=== PATIENT | male | born 1940 | race Caucasian/White ===

== ENCOUNTER 2019-04-26 13:09 | Emergency (ER) | payer MEDICARE ==
[~2019-04-26] VITALS: Ht 175.3 cm; Wt 85.3 kg
[~2019-04-26 13:09] MED LIST: AMIODARONE HCL400 MG PO; ASPIR-LOW81 MG PO; ASPIRIN325 MG PO; BENADRYL25 MG PO; BRILINTA90 MG PO; CALCI-CHEW500 MG PO; CHOLESTYRAMINE L4 GM PO; COUMADIN5 MG PO; DEXILANT60 MG PO; FIORICET 50-301 EACH PO; FISH OIL 1,0001 EAC6 PO; FOLBIC RF TABL1 EACH PO; FUROSEMIDE20 MG PO; IMODIUM A-1 MG/7.5 M PO; IMODIUM MULTI-1 EACH PO; K-TAB10 MEQ PO; LIPITOR40 MG PO; LISINOPRIL10 MG PO; LISINOPRIL5 MG PO; LOVENOX100 MG SUB-Q; METOPROLOL SUC100 MG PO; MULTI-DAY VITA1 EACH PO; NEXIUM40 MG PO; NEXIUM5 MG PO; NORVASC2.5 MG PO; PERCOCET 10-321 EACH PO; PLAVIX75 MG PO; PRAVACHOL80 MG PO; TENORMIN100 MG PO; TENORMIN25 MG PO; TENORMIN50 MG PO; VIT D3 PO; VITAMIN D2000 UNIT PO
[2019-04-26] MEDS ORDERED: CARVEDILOL6.25 MG PO (13:20)
[2019-04-26] MEDS ORDERED: ENTRESTO 97 MG1 EACH PO (13:23)
[2019-04-26] MEDS ORDERED: ASPIR 8181 MG PO (13:24)
[2019-04-26] MEDS ORDERED: LIPITOR40 MG PO (13:25)
[2019-04-26] MEDS ORDERED: ALLEGRA ALLERG180 MG PO (13:27)
[2019-04-26] MEDS ORDERED: ACETAMINOPHEN500 MG PO (13:28)
[2019-04-26] MEDS ORDERED: NORCO 5-325 TA1 EACH PO (15:13)
[2019-04-26] MEDS ORDERED: AMOXICILLIN500 MG PO (15:13)
--- NOTE | 2019-04-27 17:29 | EKG ---
[facility] [address] [facility] [place] [address] Signed Normal sinus rhythm Inferior infarct (cited on or before 15-FEB-2017) Abnormal ECG When compared with ECG of 26-APR-2019 13:18, (Unconfirmed) Sinus rhythm has replaced Atrial fibrillation Vent. rate has decreased BY [address] less depressed in Anterior leads Confirmed by NYDIA FREED MD ([id number]) on 04/27/2019 5:29:27 PM Electronically Signed By: NYDIA FREED MD 04/27/19 1729 PATIENT NAME: COURTNEY ALEXANDER Electrocardiogram DATE OF : 42 PHYSICIAN: NYDIA FREED MD REPORT #: [id number] REPORT IS CONFIDENTIAL AND NOT TO BE RELEASED WITHOUT AUTHORIZATION
--- NOTE | 2019-04-27 17:29 | EKG ---
[facility] [address] [facility] [place] [address] Signed Atrial fibrillation with rapid ventricular response Inferior infarct , age undetermined Abnormal ECG When compared with ECG of 24-APR-2017 11:18, Atrial fibrillation has replaced Sinus rhythm Vent. rate has increased BY 91 BPM Inferior infarct is now present ST elevation now present in Inferior leads ST now depressed in Anterior leads T wave amplitude has decreased in Lateral leads Confirmed by NYDIA FREED MD ([id number]) on 04/27/2019 5:29:17 PM Electronically Signed By: NYDIA FREED MD 04/27/19 1729 PATIENT NAME: COURTNEY ALEXANDER Electrocardiogram DATE OF : 42 PHYSICIAN: NYDIA FREED MD REPORT #: [id number] REPORT IS CONFIDENTIAL AND NOT TO BE RELEASED WITHOUT AUTHORIZATION
== END 2019-04-26 15:35 | disposition home or self-care (01) ==
LOC: ED 13:09
DX: J32.3 Chronic sphenoidal sinusitis (principal); I48.0 Paroxysmal atrial fibrillation; I10 Essential (primary) hypertension; I25.2 Old myocardial infarction; Z85.46 Personal history of malignant neoplasm of prostate; Z87.891 Personal history of nicotine dependence; Z90.49 Acquired absence of other specified parts of digestive tract; Z79.899 Other long term (current) drug therapy; Z79.82 Long term (current) use of aspirin
CPT/HCPCS: 0296T; 0297T; 0298T; 70450; 71045; 80053; 83735; 83880; 84484; 85025; 93005; 93010; 96374; 99284-25; J2270

== ENCOUNTER 2019-08-08 02:23 | Emergency (ER) | payer MEDICARE ==
[~2019-08-08] VITALS: Ht 175.3 cm; Wt 85.3 kg
--- OUTSIDE RECORDS SUMMARY | ~2019-08-08 | XMS | Encounter Summary ---
Demographics + + + | Address | [address] | | | [place] [address] | + + + | Home Phone | | + + + | Preferred Language | Unknown | + + + | Marital Status | | + + + | Advent Affiliation | NON | + + + | Race | White | + + + | Ethnic Group | Not or | + + + Author + + + | Author | [facility] | + + + | Organization | [facility] | + + + | Address | Unknown | + + + | Phone | Unavailable | + + + Support + + +---------+ + | Name | Relationship | Address | Phone | + + +---------+ + | Marti Villalta | ECON | Unknown | | + + +---------+ + | Vinita Pleitez | ECON | Unknown | | + + +---------+ + Care Team Providers + +------+ + | Care Truss Puller Helper Name | Role | Phone | + +------+ + | Mateusz Dixon MD | PCP | | + +------+ + Reason for Visit +--------+ + | Reason | Comments | +--------+ + | Other | | +--------+ + Encounter Details +--------+ + + + + | Date | Type | Department | Care Team | Description | +--------+ + + + + | 09/24/ | MyChart | Cardiology General | Jimy Arenascorbin Simms, | RE: Labs | | 2018 | Encounter | at [facility] [address] | MD [address] | | | | | [address] Mailcode: | [place], [place] | | | | | [facility] | [address] | | | | | Health and Healing, | [phone] | | | | | | | | | | | Floor [place], [place] | | | | | | [address] | | | | | | [phone] | | | +--------+ + + + + Social History + +-------+ +--------+------+ | Tobacco Use | Types | Packs/Day | Years | Date | | | | | Used | | + +-------+ +--------+------+ | Never Smoker | | | | | + +-------+ +--------+------+ + +---+---+---+ | Smokeless Tobacco: | | | | | Never Used | | | | + +---+---+---+ + + +---------+ + | Alcohol Use | Drinks/Week | oz/Week | Comments | + + +---------+ + | Yes | | | occasionally | + + +---------+ + + + + | Sex Assigned at | Date Recorded | | | | + + + | Not on file | | + + + + + + + | Job Start Date | Occupation | Industry | + + + + | Not on file | Not on file | Not on file | + + + + + + + + | Travel History | Travel Start | Travel End | + + + + + + | No recent travel history available. | + + documented as of this encounter Plan of Treatment Not on filedocumented as of this encounter Visit Diagnoses Not on filedocumented in this encounter"
--- OUTSIDE RECORDS SUMMARY | ~2019-08-08 | XMS | Clinical Summary ---
Demographics + + + | Address | [address] | | | [place] [address] | + + + | Home Phone | | + + + | Preferred Language | Unknown | + + + | Marital Status | | + + + | Taoist Affiliation | Unknown | + + + | Race | Unknown | + + + | Ethnic Group | Unknown | + + + Author + + + | Author | [facility] [employer] (Historical as of | | | 06-24-19) | + + + | Organization | [facility] [employer] (Historical as of | | | 06-24-19) | + + + | Address | Unknown | + + + | Phone | Unavailable | + + + Support + + +---------+ + | Name | Relationship | Address | Phone | + + +---------+ + | Marti Villalta | ECON | Unknown | | + + +---------+ + Care Team Providers + +------+ + | Care Tire Vulcanizer Name | Role | Phone | + +------+ + | Mateusz Dixon MD | PP | | + +------+ + Allergies Not on File Current Medications Not on file Active Problems Not on file Encounters +--------+ + + + + | Date | Type | Specialty | Care Team | Description | +--------+ + + + + | 05/15/ | Documentati | | Nacho Pearson, | | | 2019 | on Only | | | | +--------+ + + + + from Last 3 Months Social History + +-------+ +--------+------+ | Tobacco Use | Types | Packs/Day | Years | Date | | | | | Used | | + +-------+ +--------+------+ | Never Assessed | | | | | + +-------+ +--------+------+ + + + | Sex Assigned at | Date Recorded | | | | + + + | Not on file | | + + + Plan of Treatment + + + + + | Health Maintenance | Due Date | Last Done | Comments | + + + + + | Vaccine: | | | | | Dtap/Tdap/Td (1 - | 0 | | | | Tdap) | | | | + + + + + | Vaccine: Zoster (1 | | | | | of 2) | 1 | | | + + + + + | Vaccine: | | | | | Pneumococcal 65+ | 6 | | | | Low/Medium Risk (1 | | | | | of 2 - PCV13) | | | | + + + + + | Vaccine: Influenza | | | | | (#1) | 9 | | | + + + + + Results Not on filefrom Last 3 Months Insurance + +--------+ +------+-------+ + | Payer | Benefi | Subscriber | Type | Phone | Address | | | t Plan | ID | | | | | | / | | | | | | | Group | | | | | + +--------+ +------+-------+ + | MEDICARE | MEDICA | [id number] | | | [address] | | | RE | | | | [place] [address] | | | IP-OP | | | | | + +--------+ +------+-------+ + | [facility] | UNITED | [id number] | | | | | | | | | | | | | HEALTH | | | | | | | CARE - | | | | | | | AARP | | | | | + +--------+ +------+-------+ + + +--------+ +--------+ + + | Guarantor Name | Accoun | Relation to | Date | Phone | Billing Address | | | t Type | Patient | of | | | | | | | | | | + +--------+ +--------+ + + | CATHERINEJAY | Person | Self | [birth year] | Work: | [address] | | | [address] | | [address] | +- | [place] [address] | | | [address] | | | [address]: | | | | | | | | | | | | | | +- | | | | | | | [phone] | | + +--------+ +--------+ + +"
--- OUTSIDE RECORDS SUMMARY | ~2019-08-08 | XMS | Encounter Summary ---
Demographics + + + | Address | [address] | | | [place] [address] | + + + | Home Phone | | + + + | Preferred Language | Unknown | + + + | Marital Status | | + + + | Muslim Affiliation | NON | + + + | Race | White | + + + | Ethnic Group | Not or | + + + Author + + + | Author | [facility] | + + + | Organization | [facility] | + + + | [...] Team Providers + +------+ + | Care Chicle Grinder Feeder Name | Role | Phone | + +------+ + | Mateusz Dixon MD | PCP | | + +------+ + Encounter Details +--------+------+ + + + | Date | Type | Department | Care Team | Description | +--------+------+ + + + | 08/16/ | Lab | Laboratory at [facility] | | Heart failure, | | 2018 | | [address] | | systolic, chronic | | | | [place], [place] | | ([facility]) | | | | [address] | | | | | | [phone] | | | +--------+------+ + + + Social History + +-------+ [...] Not on filedocumented as of this encounter Procedures + +--------+ + + + | Procedure Name | Priori | Date/Time | Associated Diagnosis | Comments | | | ty | | | | + +--------+ + + + | NT-PRO BNP | Routin | 08/16/2018 | Heart failure, | Results for this | | | e | 1:57 PM | systolic, chronic | procedure are in the | | | | PDT | ([facility]) | results section. | + +--------+ + + + | CBC (HEMOGRAM) ONLY | Routin | 08/16/2018 | Heart failure, | Results for this | | | e | 1:57 PM | systolic, chronic | procedure are in the | | | | PDT | ([facility]) | results section. | + +--------+ + + + | [facility] - COMPLETE | Routin | 08/16/2018 | Heart failure, | Results for this | | METABOLIC SET | e | 1:57 PM | systolic, chronic | procedure are in the | | | | PDT | ([facility]) | results section. | + +--------+ + + + | CBC ONLY | Routin | 08/16/2018 | Heart failure, | Results for this | | | e | 1:57 PM | systolic, chronic | procedure are in the | | | | PDT | ([facility]) | results section. | + +--------+ + + + | FERRITIN | Routin | 08/16/2018 | Heart failure, | Results for this | | | e | 1:57 PM | systolic, chronic | procedure are in the | | | | PDT | ([facility]) | results section. | + +--------+ + + + | IRON AND TIBC, SERUM | Routin | 08/16/2018 | Heart failure, | Results for this | | | e | 1:57 PM | systolic, chronic | procedure are in the | | | | PDT | ([facility]) | results section. | + +--------+ + + + documented in this encounter Results CBC (HEMOGRAM) ONLY (08/16/2018 1:57 PM PDT) + +-------+ + + + | Component | Value | Ref Range | Performed | Pathologist | | | | | At | Signature | + +-------+ + + + | WHITE CELL | 5.74 | 3.50 - 10.80 | [facility] | | | COUNT | | K/cu mm | LABORATORY | | | | | | SERVICES, | | | | | | [facility] | | | | | | [facility] | | + +-------+ + + + | RED CELL | 4.52 | 4.50 - 6.00 | [facility] | | | COUNT | | M/cu mm | LABORATORY | | | | | | SERVICES, | | | | | | [facility] + | | | | | | [facility] | | + +-------+ + + + | HEMOGLOBIN | 15.3 | 13.5 - 17.5 | [facility] | | | | | g/dL | LABORATORY | | | | | | SERVICES, | | | | | | [facility] + | | | | | | [facility]AL[facility] | | + +-------+ + + + | HEMATOCRIT | 43.5 | 41.0 - 53.0 % | [facility] | | | | | | LABORATORY | | | | | | SERVICES, | | | | | | [facility] + | | | | | | [facility] | | + +-------+ + + + | MCV | 96.2 | 80.0 - 100.0 fL | [facility] | | | | | | LABORATORY | | | | | | SERVICES, | | | | | | [facility] + | | | | | | [facility] | | + +-------+ + + + | MCHC | 35.2 | 32.0 - 36.0 | [facility] | | | | | g/dL | LABORATORY | | | | | | SERVICES, | | | | | | [facility] + | | | | | | [facility]AL[facility] | | + +-------+ + + + | RDW SD | 42.9 | 35.1 - 46.3 fL | [facility] | | | | | | LABORATORY | | | | | | SERVICES, | | | | | | [facility] + | | | | | | [facility]AL[facility] | | + +-------+ + + + | PLATELET | 212 | 150 - 400 K/cu | [facility] | | | COUNT | | mm | LABORATORY | | | | | | SERVICES, | | | | | | [facility] + | | | | | | [facility]AL[facility] | | + +-------+ + + + | MPV | 9.7 | 9.7 - 12.3 fL | [facility] | | | | | | LABORATORY | | | | | | SERVICES, | | | | | | [facility] + | | | | | | [facility]ALING | | + +-------+ + + + + + | Specimen | + + | Blood | + + + + + + + | Performing | Address | City/State/Zipcode | Phone Number | | Organization | | | | + + + + + | [facility] | [address] | [place] [address] | | | [facility] | | | | | HEALTH + HEALING | | | | + + + + + IRON AND TIBC (08/16/2018 1:57 PM PDT) + +-------+ + + + | Component | Value | Ref Range | Performed | Pathologist | | | | | At | Signature | + +-------+ + + + | IRON | 92 | 50 - 170 ug/dL | [facility] | | | | | | LABORATORY | | | | | | [facility], | | | | | | CORE | | + +-------+ + + + | IRON BIND | 315 | 240 - 450 ug/dL | [facility] | | | CAP | | | LABORATORY | | | | | | SERVICES, | | | | | | CORE | | + +-------+ + + + | % | 29 | 20 - 50 % | [facility] | | | SATURATION | | | LABORATORY | | | TRANSFERRIN | | | SERVICES, | | | , | | | CORE | | + +-------+ + + + + + | Specimen | + + | Blood | + + + + + + + | Performing | Address | City/State/Zipcode | Phone Number | | Organization | | | | + + + + + | [facility] | [address] | [place] [address] | | | SERVICES, CORE | [address] | | | + + + + + FERRITIN (08/16/2018 1:57 PM PDT) + + + + + + | Component | Value | Ref Range | Performed | Pathologist | | | | | At | Signature | + + + + + + | FERRITIN | 81Comment: Male and | 50 - 200 ng/mL | [facility] | | | | Female >18 years: | | LABORATORY | | | | <20 | | SERVICES, | | | | ng/mL: | | CORE | | | | Consistant with iron | | | | | | deficiency 21-50 | | | | | | ng/mL: Possible | | | | | | iron deficiency | | | | | | 51-99 ng/mL: | | | | | | Iron deficiency unlikely | | | | | | unless inflammation | | | | | | present | | | | | | or | | | | | | patien | | | | | | t >65 years of age | | | | | | 100-200 ng/mL: | | | | | | Normal, not consistent | | | | | | with iron | | | | | | deficiency >200 | | | | | | ng/mL: If | | | | | | transferrin saturation | | | | | | >45%, consider | | | | | | hemochromatosis | | | | + + + + + + + + | Specimen | + + | Blood | + + + + + + + | Performing | Address | City/State/Zipcode | Phone Number | | Organization | | | | + + + + + | [facility] | [address] | [place] [address] | | | JEREMY SINCLAIR | [place] | | | + + + + + NT-PRO BNP (08/16/2018 1:57 PM PDT) + + + + + + | Component | Value | Ref Range | Performed | Pathologist | | | | | At | Signature | + + + + + + | NT-PRO BNP | 1,123 (H) | <449 pg/mL | [facility] | | | | | | LABORATORY | | | | | | SERVICES, | | | | | | CORE | | + + + + + + + + | Specimen | + + | Blood | + + + + + + + | Performing | Address | City/State/Zipcode | Phone Number | | Organization | | | | + + + + + | [facility] | [address] | [place] [address] | | | SERVICES, CORE | [address] | | | + + + + + [facility] - COMPLETE METABOLIC SET (08/16/2018 1:57 PM PDT) + +---------+ + + + | Component | Value | Ref Range | Performed | Pathologist | | | | | At | Signature | + +---------+ + + + | GLUCOSE, | 107 (H) | 70 - 99 mg/dL | [facility] | | | PLASMA | | | LABORATORY | | | (LAB) | | | SERVICES, | | | | | | CORE | | + +---------+ + + + | BUN, PLASMA | 20 | 6 - 20 mg/dL | [facility] | | | (LAB) | | | LABORATORY | | | | | | SERVICES, | | | | | | CORE | | + +---------+ + + + | CREATININE | 1.12 | 0.70 - 1.30 | [facility] | | | PLASMA | | mg/dL | LABORATORY | | | (LAB) | | | SERVICES, | | | | | | CORE | | + +---------+ + + + | EGFR | >60 | >60 mL/min | [facility] | | | - | | | LABORATORY | | | HAITIAN | | | SERVICES, | | | | | | CORE | | + +---------+ + + + | EGFR NON | >60 | >60 mL/min | [facility] | | | -BRYON | | | LABORATORY | | | RICAN | | | SERVICES, | | | | | | CORE | | + +---------+ + + + | SODIUM, | 133 (L) | 136 - 145 | [facility] | | | PLASMA | | mmol/L | LABORATORY | | | (LAB) | | | SERVICES, | | | | | | CORE | | + +---------+ + + + | POTASSIUM, | 4.1 | 3.4 - 5.0 | [facility] | | | PLASMA | | mmol/L | LABORATORY | | | (LAB) | | | SERVICES, | | | | | | CORE | | + +---------+ + + + | CHLORIDE, | 101 | 97 - 108 mmol/L | [facility] | | | PLASMA | | | LABORATORY | | | (LAB) | | | SERVICES, | | | | | | CORE | | + +---------+ + + + | TOTAL CO2, | 24 | 21 - 32 mmol/L | [facility] | | | PLASMA | | | LABORATORY | | | (LAB) | | | SERVICES, | | | | | | CORE | | + +---------+ + + + | CALCIUM, | 8.8 | 8.6 - 10.2 | [facility] | | | PLASMA | | mg/dL | LABORATORY | | | (LAB) | | | SERVICES, | | | | | | CORE | | + +---------+ + + + | CALCIUM(ALB | 8.9 | 8.6 - 10.2 | [facility] | | | CORRECTED) | | mg/dL | LABORATORY | | | | | | SERVICES, | | | | | | CORE | | + +---------+ + + + | BILIRUBIN | 0.7 | 0.3 - 1.2 mg/dL | [facility] | | | TOTAL | | | LABORATORY | | | | | | SERVICES, | | | | | | CORE | | + +---------+ + + + | TOTAL | 7.2 | 6.4 - 8.2 g/dL | [facility] | | | PROTEIN, | | | LABORATORY | | | PLASMA | | | SERVICES, | | | (LAB) | | | CORE | | + +---------+ + + + | ALBUMIN, | 3.9 | 3.5 - 4.7 g/dL | [facility] | | | PLASMA | | | LABORATORY | | | (LAB) | | | SERVICES, | | | | | | CORE | | + +---------+ + + + | ALK PHOS | 85 | 56 - 119 U/L | [facility] | | | | | | LABORATORY | | | | | | SERVICES, | | | | | | CORE | | + +---------+ + + + | AST(SGOT) | 53 (H) | <=41 U/L | [facility] | | | | | | LABORATORY | | | | | | SERVICES, | | | | | | CORE | | + +---------+ + + + | ALT (SGPT) | 66 (H) | <=60 U/L | [facility] | | | | | | LABORATORY | | | | | | SERVICES, | | | | | | CORE | | + +---------+ + + + | ANION GAP | 8 | 4 - 11 mmol/L | [facility] | | | | | | LABORATORY | | | | | | SERVICES, | | | | | | CORE | | + +---------+ + + + | ANION | 8 | 4 - 11 mmol/L | [facility] | | | GAP(ALB | | | LABORATORY | | | CORRECTED) | | | SERVICES, | | | | | | CORE | | + +---------+ + + + | POTASSIUM | No Hemo | | [facility] | | | CMNT | | | LABORATORY | | | | | | SERVICES, | | | | | | CORE | | + +---------+ + + + | BILI T CMNT | No Hemo | | [facility] | | | | | | LABORATORY | | | | | | SERVICES, | | | | | | CORE | | + +---------+ + + + | AST CMNT | No Hemo | | [facility] | | | | | | LABORATORY | | | | | | SERVICES, | | | | | | CORE | | + +---------+ + + + + + | Specimen | + + | Blood | + + + + + | Narrative | Performed At | + + + | GFR is estimated using the MDRD equation recommended by the | [facility] | | National Kidney Disease Education Program. Estimated GFR | LABORATORY | | Interpretive Information: <60 mL/min/1.73 sq | [facility] | | m Chronic Kidney Disease <15 mL/min/1.73 | | | sq m Kidney Failure Estimated GFR greater | | | that 60 mL/min/1.73 sq m is of limited clinical value. The MDRD | | | equation is not valid in the following situations: - Patients under | | | 18 years of age - Severe malnutrition or obesity - Vegetarian diet | | | - Rapidly changing kidney function - Amputees, paraplegics, or other | | | muscle-wasting diseses | | + + + + + + + + | Performing | Address | City/State/Zipcode | Phone Number | | Organization | | | | + + + + + | [facility] | [address] | [place] [address] | | | JEREMY SINCLAIR | [place] | | | + + + + + documented in this encounter Visit Diagnoses + + | Diagnosis | + + | Heart failure, systolic, chronic (HCC) Chronic systolic heart failure | + + documented in this encounter"
--- OUTSIDE RECORDS SUMMARY | ~2019-08-08 | XMS | Encounter Summary ---
Demographics + + + | Address | [address] | | | [place] [address] | + + + | Home Phone | | + + + | Preferred Language | Unknown | + + + | Marital Status | | + + + | Taoism Affiliation | NON | + + + | Race | White | + + + | Ethnic Group | Not or | + + + Author + + + | Author | [facility] | + + + | Organization | [facility] | + + + | Address | [...] Team Providers + +------+ + | Care Traffic Expert Name | Role | Phone | + +------+ + | Mateusz Dixon MD | PCP | | + +------+ + Reason for Visit Diagnostic Testing (Routine) +--------+--------+ + + + + | Status | Reason | Specialty | Diagnoses / | Referred By | Referred To | | | | | Procedures | Contact | Contact | +--------+--------+ + + + + | Closed | | Cardiology | Diagnoses | A[place]as, | | | | | | Heart | Jamaal Simms MD | | | | | | failure, | [address] | | | | | | systolic, | [address] | | | | | | chronic | [place], [place] | | | | | | ([facility]) | [address] | | | | | | Procedures | Phone: | | | | | | TRANSTHORACI | [phone] | | | | | | C | Fax: | | | | | | ECHOCARDIOGR | [phone] | | | | | | AM, ADULT | | | +--------+--------+ + + + + Encounter Details +--------+ + + + + | Date | Type | Department | Care Team | Description | +--------+ + + + + | 04/14/ | Hospital | Cardiac | | | | 2018 | Encounter | Non-Invasive Testing | | | | | | at [facility] [address] | | | | | | [address] Mailcode: | | | | | | [facility] | | | | | | Health and Healing, | | | | | | [address] | | | | | | [place], [place] | | | | | | [address] | | | | | | [phone] | | | +--------+ + + + [...] + + documented as of this encounter Medications at Time of Discharge + + + +---------+ + + | Medication | Sig | Dispensed | Refills | Start | End Date | | | | | | Date | | + + + +---------+ + + | acetaminophen 500 | Take 1.25 tablets by | | 0 | 03/13/20 | | | mg oral tablet | mouth every six | | | 17 | | | | hours as needed. | | | | | + + + +---------+ + + | aspirin EC 81 mg | Take 1 tablet by | | 0 | 01/25/20 | | | oral tablet,delayed | mouth once daily. | | | 18 | | | release (DR/EC) | | | | | | + + + +---------+ + + | atorvastatin 40 mg | Take 40 mg by mouth | | 0 | | | | oral tablet | once daily in the | | | | | | | evening. | | | | | + + + +---------+ + + | CALCIUM | Take by mouth as | | 0 | | | | CARB/MAGNESIUM | needed. | | | | | | HYDROX (MYLANTA | | | | | | | ORAL) | | | | | | + + + +---------+ + + | calcium carbonate | Chew and swallow | | 0 | | | | chewable 200 mg | 1,000 mg as needed | | | | | | calcium (500 mg) | (heartburn). | | | | | | oral tablet,chewable | | | | | | + + + +---------+ + + | cholecalciferol, | Take 2,000 Units by | | 0 | | | | Vitamin D3, 2,000 | mouth once daily in | | | | | | unit oral capsule | the evening. | | | | | + + + +---------+ + + | cyanocobalamin | Take 1,000 mcg by | | 0 | | | | 1,000 mcg oral | mouth twice weekly. | | | | | | tablet | Take on Wednesday and | | | | | | | Wednesday | | | | | + + + +---------+ + + | esomeprazole 40 mg | Take 40 mg by mouth | | 0 | | | | oral | two times daily. | | | | | | capsule,delayed | | | | | | | release(DR/EC) | | | | | | + + + +---------+ + + | fexofenadine 180 | Take 180 mg by mouth | | 0 | | | | mg oral tablet | once daily. | | | | | + + + +---------+ + + | FOLIC | Take 1 tablet by | | 0 | | | | ACID/MULTIVIT-MIN/NABEEL | mouth once daily. | | | | | | TEIN (CENTRUM SILVER | | | | | | | ORAL) | | | | | | + + + +---------+ + + | loperamide | Take 2-4 mg by mouth | | 0 | | | | (IMODIUM A-D) 2 mg | once daily as | | | | | | oral tablet | needed for diarrhea. | | | | | + + + +---------+ + + documented as of this encounter Progress Sameera Galicia - 04/14/2018 2:49 PM PDTTransthoracic echocardiogram completed. Final report to follow. documented in this encounter Plan of Treatment Not on filedocumented as of this encounter Procedures + +--------+ + + + | Procedure Name | Priori | Date/Time | Associated Diagnosis | Comments | | | ty | | | | + +--------+ + + + | TRANSTHORACIC | Routin | 04/14/2018 | Heart failure, | Results for this | | ECHOCARDIOGRAM, | e | 12:55 PM | systolic, chronic | procedure are in the | | ADULT | | PDT | ([facility]) | results section. | + +--------+ + + + documented in this encounter Visit Diagnoses + + | Diagnosis | + + | Heart failure, systolic, chronic (HCC) Chronic systolic heart failure | + + documented in this encounter Administered Medications + +--------+ +------+------+------+ | Medication Order | MAR | Action | Dose | Rate | Site | | | Action | Date | | | | + +--------+ +------+------+------+ | sulfur hexafluoride | Given | 04/14/20 | 5 mL | | | | microspheres (LUMASON) IV 1-2 mL | | 18 1:45 | | | | | 1-2 mL, intravenous, ONCE, 1 | | PM PDT | | | | | dose, [facility] 04/14/18 at 1530 | | | | | | + +--------+ +------+------+------+ +---+---+ | | | +---+---+ documented in this encounter"
--- OUTSIDE RECORDS SUMMARY | ~2019-08-08 | XMS | Encounter Summary ---
Demographics + + + | Address | [address] | | | [place] [address] | + + + | Home Phone | | + + + | Preferred Language | Unknown | + + + | Marital Status | | + + + | Mandaen Affiliation | NON | + + + | Race | White | + + + | Ethnic Group | Not or | + + + Author + + + | Author | [facility] | + + + | Organization | [facility] | + + + | Address [...] Team Providers + +------+ + | Care Marine Equipment Design Engineer Name | Role | Phone | + +------+ + | Mateusz Dixon MD | PCP | | + +------+ + Reason for Visit +--------+ + | Reason | Comments | +--------+ + | Other | Flu shot | +--------+ + Encounter Details +--------+ + + + + | Date | Type | Department | Care Team | Description | +--------+ + + + + | 07/18/ | MyChart | Cardiology General | Jamaal Arenas, | RE: Flu Shot | | 2018 | Encounter | at [facility] [address] | MD [address] | | | | | [address] Mailcode: | [place], [place] | | | | | [facility] | [address] | | | | | Health and Healing, | [phone] | | | | | Building | | | | | | Floor [place], [place] | | | | | | [address] | | | | | | [phone] | | | +--------+ + + + [...]
--- OUTSIDE RECORDS SUMMARY | ~2019-08-08 | XMS | Encounter Summary ---
Demographics + + + | Address | [address] | | | [place] [address] | + + + | Home Phone | | + + + | Preferred Language | Unknown | + + + | Marital Status | | + + + | Adventism Affiliation | NON | + + + | Race | White | + + + | Ethnic Group | Not or | + + + Author + + + | Author | [facility] | + + + | Organization | [facility] | + + + | Address [...] Team Providers + +------+ + | Care Environmental Management Specialist Name | Role | Phone | + +------+ + | Mateusz Dixon MD | PCP | | + +------+ + Encounter Details +--------+ + + + + | Date | Type | Department | Care Team | Description | +--------+ + + + + | 12/14/ | MyChart | Cardiology General | Jamaal Arenas, | RE: Dental Procedure | | 2019 | Encounter | at [facility] [address] | [address] | | | | | [address] Mailcode: | [address] [place], [place] | | | | | [facility] | [address] | | | | | Health and Healing, | [phone] | | | | | [facility] | | | | | | Floor [place], [place] | | | | | | [address] | | | | | | [phone] | | | +--------+ + + + [...]
--- OUTSIDE RECORDS SUMMARY | ~2019-08-08 | XMS | Encounter Summary ---
Demographics + + + | Address | [address] | | | [place] [address] | + + + | Home Phone | | + + + | Preferred Language | Unknown | + + + | Marital Status | | + + + | Lutheran Affiliation | NON | + + + | Race | White | + + + | Ethnic Group | Not or | + + + Author + + + | Author | [facility] | + + + | Organization | [facility] | + + + | Address [...] Team Providers + +------+ + | Care Talent Rep Name | Role | Phone | + +------+ + | Arash Estes MD | PCP | | + +------+ + Encounter Details +--------+ + + + + | Date | Type | Department | Care Team | Description | +--------+ + + + + | 04/28/ | Results | [id number] | | | | 1995 | Only | [address] | | | | | | [address] Mailcode: [id number] | | | | | | [place], [place] | | | | | | [address] | | | | | | [phone] | | | +--------+ + + + [...] | + +--------+ + + + | CHEMISTRY TESTS 4 | Routin | 04/28/1996 | | Results for this | | | e | 1:33 PM | | procedure are in the | | | | PDT | | results section. | + +--------+ + + + | CBC TESTS 2 | Routin | 04/28/1996 | | Results for this | | | e | 1:33 PM | | procedure are in the | | | | PDT | | results section. | + +--------+ + + + | CHEMISTRY TESTS 2 | Routin | 04/28/1996 | | Results for this | | | e | 1:33 PM | | procedure are in the | | | | PDT | | results section. | + +--------+ + + + documented in this encounter Results CHEMISTRY TESTS 2 (04/28/1996 1:33 PM PDT) + + + + + + | Component | Value | Ref Range | Performed | Pathologist | | | | | At | Signature | + + + + + + | CHOLESTEROL | 249. (H) | mg/dL | | | | (LAB) | | | | | + + + + + + + + | Specimen | + + | | + + + + + + + | Performing | Address | City/State/Zipcode | Phone Number | | Organization | | | | + + + + + | [facility] | [address] | [place] [address] | | | PATHOLOGY | [address] | | | + + + + + CHEMISTRY TESTS 4 (04/28/1996 1:33 PM PDT) + + + + + + | Component | Value | Ref Range | Performed | Pathologist | | | | | At | Signature | + + + + + + | SODIUM, | 138. | mmol/l | | | | PLASMA | | | | | | (LAB) | | | | | + + + + + + | POTASSIUM, | 4.2 | mmol/l | | | | PLASMA | | | | | | (LAB) | | | | | + + + + + + | CHLORIDE, | 108. | mmol/l | | | | PLASMA | | | | | | (LAB) | | | | | + + + + + + | TOTAL CO2, | 25. | mmol/l | | | | PLASMA | | | | | | (LAB) | | | | | + + + + + + | BUN, PLASMA | 13. | mg/dL | | | | (LAB) | | | | | + + + + + + | CREATININE | 1.1 | mg/dL | | | | PLASMA | | | | | | (LAB) | | | | | + + + + + + | GLUCOSE, | 100. | mg/dL | | | | PLASMA | | | | | | (LAB) | | | | | + + + + + + | CALCIUM, | 9.9 | mg/dL | | | | PLASMA | | | | | | (LAB) | | | | | + + + + + + | MAGNESIUM,P | 2.1 | mg/dL | | | | LASMA | | | | | + + + + + + | PHOSPHORUS, | 3.7 | mg/dL | | | | PLASMA | | | | | | (LAB) | | | | | + + + + + + | URIC ACID, | 6.5 | mg/dL | | | | PLASMA | | | | | | (LAB) | | | | | + + + + + + | AST(SGOT) | 28. | U/L | | | + + + + + + | ALT (SGPT) | 54. (H) | U/L | | | + + + + + + | ALK PHOS | 110. (H) | U/L | | | + + + + + + | LD TOTAL, | 152. | U/L | | | | PLASMA | | | | | + + + + + + | BILIRUBIN | 0.1 | mg/dL | | | | DIRECT | | | | | + + + + + + | BILIRUBIN | 0.6 | mg/dL | | | | TOTAL | | | | | + + + + + + | TOTAL | 7.2 | GM/DL | | | | PROTEIN, | | | | | | PLASMA | | | | | | (LAB) | | | | | + + + + + + | ALBUMIN, | 4.4 | GM/DL | | | | PLASMA | | | | | | (LAB) | | | | | + + + + + + + + | Specimen | + + | | + + + + + + + | Performing | Address | City/State/Zipcode | Phone Number | | Organization | | | | + + + + + | [facility] | [address] | [place] [address] | | | PATHOLOGY | [address] | | | + + + + + CBC TESTS 2 (04/28/1996 1:33 PM PDT) + + + + + + | Component | Value | Ref Range | Performed | Pathologist | | | | | At | Signature | + + + + + + | WHITE CELL | 4.6 | K/CU MM | | | | COUNT | | | | | + + + + + + | RED CELL | 4.71 | M/CU MM | | | | COUNT | | | | | + + + + + + | HEMOGLOBIN | 14.5 | GM/DL | | | + + + + + + | HEMATOCRIT | 42.4 | % | | | + + + + + + | MCV | 89.9 | FL | | | + + + + + + | MCH | 30.9 | PG | | | + + + + + + | MCHC | 34.3 (H) | GM/DL | | | + + + + + + | RDW | 12.9 | % | | | + + + + + + | PLATELET | 281. | K/CU MM | | | | COUNT | | | | | + + + + + + | MPV | 7.5 | FL | | | + + + + + + + + | Specimen | + + | | + + + + + + + | Performing | Address | City/State/Zipcode | Phone Number | | Organization | | | | + + + + + | [facility] | [address] | [place] [address] | | | PATHOLOGY | [address] | | | + + + + + documented in this encounter Visit Diagnoses Not on filedocumented in this encounter"
--- OUTSIDE RECORDS SUMMARY | ~2019-08-08 | XMS | Encounter Summary ---
Demographics + + + | Address | [address] | | | [place] [address] | + + + | Home Phone | | + + + | Preferred Language | Unknown | + + + | Marital Status | | + + + | Worship Affiliation | NON | + + + | Race | White | + + + | Ethnic Group | Not or | + + + Author + + + | Author | [facility] | + + + | Organization | [facility] | + + + | Address [...] Team Providers + +------+ + | Care Decoration Checker Name | Role | Phone | + +------+ + | Mateusz Dixon MD | PCP | | + +------+ + Encounter Details +--------+ + + + + | Date | Type | Department | Care Team | Description | +--------+ + + + + | 09/13/ | Abstract | Cardiology General | Jamaal Arenas, | | | 2018 | | at [facility] [address] | [address] | | | | | [address] Mailcode: | [place], [place] | | | | | [address] [facility] | [address] | | | | | Health and Healing, | [phone] | | | | | [facility] | | | | | | Floor [place], [place] | | | | | | [address] | | | | | | [phone] | | | +--------+ + + + [...]
--- OUTSIDE RECORDS SUMMARY | ~2019-08-08 | XMS | Encounter Summary ---
Demographics + + + | Address | [address] | | | [place] [address] | + + + | Home Phone [...] + + + | Author | [facility] | + + + | Organization | [facility] | + + + | Address | [...] Team Providers + +------+ + | Care Clamp Carrier Operator Name | Role | Phone | + +------+ + | Arash Estes MD | PCP | | + +------+ + Encounter Details +--------+ + + + + | Date | Type | Department | Care Team | Description | +--------+ + + + + | 08/26/ | Results | Registration [id number] | | | | 1994 | Only | [address] | | | | | | [address] Mail[address]: [id number] | | | | | | [place], [place] | | | | | | [address] | | | | | | [phone] | | | +--------+ + + + [...] | + +--------+ + + + | IMMUNOLOGY TESTS 1 | Routin | 08/26/1995 | | Results for this | | | e | 11:40 AM | | procedure are in the | | | | PDT | | results section. | + +--------+ + + + | CHEMISTRY TESTS 4 | Routin | 08/26/1995 | | Results for this | | | e | 11:28 AM | | procedure are in the | | | | PDT | | results section. | + +--------+ + + + | CHEMISTRY TESTS 4 | Routin | 08/26/1995 | | Results for this | | | e | 11:28 AM | | procedure are in the | | | | PDT | | results section. | + +--------+ + + + | CBC TESTS 2 | Routin | 08/26/1995 | | Results for this | | | e | 11:28 AM | | procedure are in the | | | | PDT | | results section. | + +--------+ + + + | COAGULATION TESTS 2 | Routin | 08/26/1995 | | Results for this | | | e | 11:28 AM | | procedure are in the | | | | PDT | | results section. | + +--------+ + + + | CHEMISTRY TESTS 2 | Routin | 08/26/1995 | | Results for this | | | e | 11:28 AM | | procedure are in the | | | | PDT | | results section. | + +--------+ + + + | MISCELLANEOUS | Routin | 08/26/1995 | | Results for this | | CHEMISTRY TESTS | e | 11:28 AM | | procedure are in the | | | | PDT | | results section. | + +--------+ + + + documented in this encounter Results IMMUNOLOGY TESTS 1 (08/26/1995 11:40 AM PDT) + + + + + + | Component | Value | Ref Range | Performed | Pathologist | | | | | At | Signature | + + + + + + | ANTONIETTA SCREEN | NEGATIVE | | | | | ON HEP | | | | | | 2,SERUM | | | | | + + + + + + | [place] SCRN | HEP2 CELL | | | | | SUBSTRATE | | | | | + + + + + + + + | Specimen | + + | | + + + + + + + | Performing | Address | City/State/Zipcode | Phone Number | | Organization | | | | + + + + + | [facility] | [address] | [place] [address] | | | PATHOLOGY | [address] | | | + + + + + COAGULATION TESTS 2 (08/26/1995 11:28 AM PDT) + + + + + + | Component | Value | Ref Range | Performed | Pathologist | | | | | At | Signature | + + + + + + | PROTHROMBIN | 11.9 | SECONDS | | | | TIME | | | | | + + + + + + | PROTIME | 1. | SECONDS | | | | RATIO | | | | | + + + + + + | PROTHROMBIN | 1.02 | INR | | | | INR | | | | | + + + + + + + + | Specimen | + + | | + + + + + + + | Performing | Address | City/State/Zipcode | Phone Number | | Organization | | | | + + + + + | [facility] | [address] | [place] [address] | | | PATHOLOGY | [address] | | | + + + + + CBC TESTS 2 (08/26/1995 11:28 AM PDT) + + + + + + | Component | Value | Ref Range | Performed | Pathologist | | | | | At | Signature | + + + + + + | WHITE CELL | 5.4 | K/CU MM | | | | COUNT | | | | | + + + + + + | RED CELL | 4.93 | M/CU MM | | | | COUNT | | | | | + + + + + + | HEMOGLOBIN | 15.5 | GM/DL | | | + + + + + + | HEMATOCRIT | 44.6 | % | | | + + + + + + | MCV | 90.4 | FL | | | + + + + + + | MCH | 31.4 | PG | | | + + + + + + | MCHC | 34.7 (H) | GM/DL | | | + + + + + + | RDW | 13.5 | % | | | + + + + + + | PLATELET | 258. | K/CU MM | | | | COUNT | | | | | + + + + + + | MPV | 7.4 | FL | | | + + + + + + + + | Specimen | + + | | + + + + + + + | Performing | Address | City/State/Zipcode | Phone Number | | Organization | | | | + + + + + | [facility] | [address] | [place] [address] | | | PATHOLOGY | [address] | | | + + + + + CHEMISTRY TESTS 4 (08/26/1995 11:28 AM PDT) + + + + + + | Component | Value | Ref Range | Performed | Pathologist | | | | | At | Signature | + + + + + + | FERRITIN | 51. | nG/mL | | | + + + + + + + + | Specimen | + + | | + + + + + + + | Performing | Address | City/State/Zipcode | Phone Number | | Organization | | | | + + + + + | [facility] | [address] | [place] [address] | | | PATHOLOGY | [address] | | | + + + + + CHEMISTRY TESTS 2 (08/26/1995 11:28 AM PDT) + + + + + + | Component | Value | Ref Range | Performed | Pathologist | | | | | At | Signature | + + + + + + | CHOLESTEROL | 261. (H) | mg/dL | | | | (LAB) | | | | | + + + + + + + + | Specimen | + + | | + + + + + + + | Performing | Address | City/State/Zipcode | Phone Number | | Organization | | | | + + + + + | [facility] | [address] | [place] [address] | | | PATHOLOGY | [address] | | | + + + + + CHEMISTRY TESTS 4 (08/26/1995 11:28 AM PDT) + + + + + + | Component | Value | Ref Range | Performed | Pathologist | | | | | At | Signature | + + + + + + | SODIUM, | 136. | mmol/l | | | | PLASMA | | | | | | (LAB) | | | | | + + + + + + | POTASSIUM, | 4.2 | mmol/l | | | | PLASMA | | | | | | (LAB) | | | | | + + + + + + | CHLORIDE, | 103. | mmol/l | | | | PLASMA | | | | | | (LAB) | | | | | + + + + + + | TOTAL CO2, | 23. | mmol/l | | | | PLASMA | | | | | | (LAB) | | | | | + + + + + + | BUN, PLASMA | 10. | mg/dL | | | | (LAB) | | | | | + + + + + + | CREATININE | 0.9 | mg/dL | | | | PLASMA | | | | | | (LAB) | | | | | + + + + + + | GLUCOSE, | 107. | mg/dL | | | | PLASMA | | | | | | (LAB) | | | | | + + + + + + | CALCIUM, | 9.2 | mg/dL | | | | PLASMA | | | | | | (LAB) | | | | | + + + + + + | MAGNESIUM,P | 2. | mg/dL | | | | LASMA | | | | | + + + + + + | PHOSPHORUS, | 2.9 | mg/dL | | | | PLASMA | | | | | | (LAB) | | | | | + + + + + + | URIC ACID, | 6. | mg/dL | | | | PLASMA | | | | | | (LAB) | | | | | + + + + + + | AST(SGOT) | 26. | U/L | | | + + + + + + | ALT (SGPT) | 58. (H) | U/L | | | + + + + + + | ALK PHOS | 86. | U/L | | | + + + + + + | LD TOTAL, | 139. | U/L | | | | PLASMA | | | | | + + + + + + | BILIRUBIN | 0.1 | mg/dL | | | | DIRECT | | | | | + + + + + + | BILIRUBIN | 0.5 | mg/dL | | | | TOTAL | | | | | + + + + + + | TOTAL | 6.7 | GM/DL | | | | PROTEIN, | | | | | | PLASMA | | | | | | (LAB) | | | | | + + + + + + | ALBUMIN, | 4.4 | GM/DL | | | | PLASMA | | | | | | (LAB) | | | | | + + + + + + | IRON SERUM | 80. | ug/dL | | | + + + + + + | IRON BIND | 344. | ug/dL | | | | CAP SERUM | | | | | + + + + + + | % | 23.2 | % | | | | SATURATION | | | | | | TRANSFERRIN | | | | | | , SERUM | | | | | + + + + + + + + | Specimen | + + | | + + + + + + + | Performing | Address | City/State/Zipcode | Phone Number | | Organization | | | | + + + + + | [facility] | [address] | [place] [address] | | | PATHOLOGY | [address] | | | + + + + + MISCELLANEOUS CHEMISTRY TESTS (08/26/1995 11:28 AM PDT) + + + + + + | Component | Value | Ref Range | Performed | Pathologist | | | | | At | Signature | + + + + + + | ALPHA 1 | 146. | mg/dL | | | | ANTITRY SER | | | | | + + + + + + + + | Specimen | + + | | + + + + + + + | Performing | Address | City/State/Zipcode | Phone Number | | Organization | | | | + + + + + | [facility] | [address] | [place] [address] | | | PATHOLOGY | [address] | | | + + + + + documented in this encounter Visit Diagnoses Not on filedocumented in this encounter"
--- OUTSIDE RECORDS SUMMARY | ~2019-08-08 | XMS | Encounter Summary ---
Demographics + + + | Address | [address] | | | [place] [address] | + + + | Home Phone | | + + + | Preferred Language | Unknown | + + + | Marital Status | | + + + | Zoroastrianism Affiliation | NON | + + + | Race | White | + + + | Ethnic Group | Not or | + + + Author + + + | Author | [facility] | + + + | Organization | [facility] | + + + | Address [...] Team Providers + +------+ + | Care Advanced Practice Provider Name | Role | Phone | + +------+ + | Mateusz Dixon MD | PCP | | + +------+ + Encounter Details +--------+ + + + + | Date | Type | Department | Care Team | Description | +--------+ + + + + | 02/21/ | MyChart | Cardiology General | Jamaal Arenas, | RE: Reading | | 2018 | Encounter | at [facility] [address] | [address] | | | | | [address] Mail[address]: | [place], [place] | | | | | [address] [facility] | [address] | | | | | Health and Healing, | [phone] | | | | | | | | | | | Floor [place], [place] | | | | | | [address] | | | | | | [phone] | | | +--------+ + + + [...]
--- OUTSIDE RECORDS SUMMARY | ~2019-08-08 | XMS | Encounter Summary ---
Demographics + + + | Address | [address] | | | [place] [address] | + + + | Home Phone | | + + + | Preferred Language | Unknown | + + + | Marital Status | | + + + | Evangelical Affiliation | [id number] | + + + | Race | Unknown | + + + | Ethnic Group | Unknown | + + + Author + + + | Author | [facility] | | | and [place] | + + + | Organization | [facility] | | | and [place] | + + + | Address | Unknown | + + + | Phone | Unavailable | + + + Support + + + + + | Name | Relationship | Address | Phone | + + + + + | Marti Villalta | ECON | [address] | | | | | [place] | | | | | [address] | | + + + + + Care Team Providers + +------+ + | Care Gun Perforator Loader Name | Role | Phone | + +------+ + | Mateusz Dixon MD | PCP | | + +------+ + Reason for Visit + + + | Reason | Comments | + + + | Labs Only | | + + + Encounter Details +--------+ + + + + | Date | Type | Department | Care Team | Description | +--------+ + + + + | 07/12/ | Documentati | [facility] | Erum Vela, | Labs Only | | 2019 | on | [facility] [place] | PIPE COVERER AND INSULATOR | | | | | [address] | | | | | | [place], [place] | | | | | | [address] | | | | | | [phone] | | | +--------+ + + + + Social History + + + +--------+ + | Tobacco Use | Types | Packs/Day | Years | Date | | | | | Used | | + + + +--------+ + | Former Smoker | Cigarettes | 0.25 | 10 | Quit: 11/08/1981 | + + + +--------+ + + +---+---+---+ | Smokeless Tobacco: | | | | | Never Used | | | | + +---+---+---+ + + +---------+ + | Alcohol Use | Drinks/We | oz/Week | Comments | | | ek | | | + + +---------+ + | Yes | 2 Cans | 1.2 | occasional | | | of beer | | | | | 0 | | | | | Standard | | | | | drinks or | | | | | | | | | | equivalen | | | | | t | | | + + +---------+ + + + [...] + + documented as of this encounter Functional Status + + + + | Functional Status | Response | Date of Assessment | + + + + | Are you deaf or do you have serious | No | 03/06/2017 | | difficulty hearing? | | | + + + + | Are you blind or do you have serious | No | 03/06/2017 | | difficulty seeing, even when wearing | | | | glasses? | | | + + + + | Do you have serious difficulty walking or | No | 03/06/2017 | | climbing stairs? (5 years old or older) | | | + + + + | Do you have difficulty dressing or bathing? | No | 03/06/2017 | | (5 years old or older) | | | + + + + | Because of a physical, mental, or emotional | No | 03/06/2017 | | condition, do you have difficulty doing | | | | errands alone such as visiting a doctor's | | | | office or shopping? [15 years old or | | | | older)] | | | + + + + + + + + | Cognitive Status | Response | Date of Assessment | + + + + | Because of a physical, mental, or emotional | No | 03/06/2017 | | condition, do you have serious difficulty | | | | concentrating, remembering, or making | | | | decisions? (5 years old or older) | | | + + + + documented as of this encounter Plan of Treatment +--------+---------+ + + + | Date | Type | Specialty | Care Team | Description | +--------+---------+ + + + | 08/24/ | Office | Cardiology | Leonor Bailey | | | 2019 | Visit | | [address] | | | | | | [address] | | | | | | [place] [address] | | | | | | [phone] | | | | | | | | +--------+---------+ + + + documented as of this encounter Visit Diagnoses Not on filedocumented in this encounter"
--- OUTSIDE RECORDS SUMMARY | ~2019-08-08 | XMS | Encounter Summary ---
Demographics + + + | Address | [address] | | | [place] [address] | + + + | Home Phone | | + + + | Preferred Language | Unknown | + + + | Marital Status | | + + + | Uatsdin Affiliation | NON | + + + | Race | White | + + + | Ethnic Group | Not or | + + + Author + + + | Author | [facility] | + + + | Organization | [facility] | + + + | Address [...] Team Providers + +------+ + | Care Packager Head Name | Role | Phone | + +------+ + | Mateusz Dixon MD | PCP | | + +------+ + Encounter Details +--------+ + + + + | Date | Type | Department | Care Team | Description | +--------+ + + + + | 05/17/ | Abstract | Cardiology General | Jamaal Arenas, | | | 2018 | | at [facility] [address] | [address] | | | | | [address] Mailcode: | [place], [place] | | | | | [facility] | [address] | | | | | Health and Healing, | [phone] | | | | | [facility] | | | | | | Floor [place], [place] | | | | | | [address] | | | | | | [phone] | | | +--------+ + + + [...] | + +--------+ + + + | BASIC METABOLIC SET | Routin | 05/16/2018 | | Results for this | | (NA, K, CL, TCO2, | e | 10:20 AM | | procedure are in the | | BUN, CR, GLU, CA) | | PDT | | results section. | + +--------+ + + + documented in this encounter Results BASIC METABOLIC SET (NA, K, CL, TCO2, BUN, CR, GLU, CA) (05/16/2018 10:20 AM PDT) + +---------+ + + + | Component | Value | Ref Range | Performed | Pathologist | | | | | At | Signature | + +---------+ + + + | GLUCOSE, | 108 (A) | 70 - 100 mg/dL | NON [facility] | | | PLASMA | | | LAB | | | (LAB) | | | | | + +---------+ + + + | BUN, PLASMA | 18 | mg/dL | NON [facility] | | | (LAB) | | | LAB | | + +---------+ + + + | CREATININE | 1.02 | mg/dL | NON [facility] | | | PLASMA | | | LAB | | | (LAB) | | | | | + +---------+ + + + | SODIUM, | 131 (A) | 132 - 143 | NON [facility] | | | PLASMA | | mmol/L | LAB | | | (LAB) | | | | | + +---------+ + + + | POTASSIUM, | 4.5 | mmol/L | NON [facility] | | | PLASMA | | | LAB | | | (LAB) | | | | | + +---------+ + + + | CHLORIDE, | 98 | mmol/L | NON [facility] | | | PLASMA | | | LAB | | | (LAB) | | | | | + +---------+ + + + | TOTAL CO2, | 23 | mmol/L | NON [facility] | | | PLASMA | | | LAB | | | (LAB) | | | | | + +---------+ + + + | CALCIUM, | 9.3 | mg/dL | NON [facility] | | | PLASMA | | | LAB | | | (LAB) | | | | | + +---------+ + + + | POTASSIUM | 4.5 | | NON [facility] | | | CMNT | | | LAB | | + +---------+ + + + | ANION GAP | 14.5 | | NON [facility] | | | | | | LAB | | + +---------+ + + + | BUN/CREATIN | 17.6 | | NON [facility] | | | INE RATIO | | | LAB | | + +---------+ + + + | GFR | 71 | | NON [facility] | | | | | | LAB | | + +---------+ + + + + + | Specimen | + + | Blood | + + + +---------+ + + | Performing | Address | City/State/Zipcode | Phone Number | | Organization | | | | + +---------+ + + | [facility] | | | | + +---------+ + + documented in this encounter Visit Diagnoses Not on filedocumented in this encounter"
--- OUTSIDE RECORDS SUMMARY | ~2019-08-08 | XMS | Encounter Summary ---
Demographics + + + | Address | [address] | | | [place] [address] | + + + | Home Phone | | + + + | Preferred Language | Unknown | + + + | Marital Status | | + + + | Anglican Affiliation | NON | + + + | Race | White | + + + | Ethnic Group | Not or | + + + Author + + + | Author | [facility] | + + + | Organization | [facility] | + + + | Address [...] Team Providers + +------+ + | Care Heel Sprayer First Name | Role | Phone | + +------+ + | Mateusz Dixon MD | PCP | | + +------+ + Reason for Referral Medication Prior Authorization (Routine) + +--------+ + + + + | Status | Reason | Specialty | Diagnoses / | Referred By | Referred To | | | | | Procedures | Contact | Contact | + +--------+ + + + + | Authorized | | | | Dagoberto | | | | | | | Jamaal Simms MD | | | | | | | [address] | | | | | | | [place] | | | | | | | [place] | | | | | | | [address] | | | | | | | Phone: | | | | | | | [phone] | | | | | | | Fax: | | | | | | | [phone] | | + +--------+ + + + + Reason for Visit + + + | Reason | Comments | + + + | Medication | Increase Entresto dose | | management | | + + + Encounter Details +--------+ + + + + | Date | Type | Department | Care Team | Description | +--------+ + + + + | 09/05/ | MyChart | Cardiology General | Jamaal Arenas, | RE: Entresto Dosage | | 2018 | Encounter | at [facility] [address] | MD [address] | | | | | [address] Mailcode: | [place], [place] | | | | | [facility] | [address] | | | | | Health and Healing, | [phone] | | | | | Building | | | | | | Floor [place], [place] | | | | | | [address] | | | | | | [phone] | | | +--------+ + + + [...] as of this encounter Plan of Treatment + +------+--------+ + + | Name | Type | Priori | Associated Diagnoses | Order Schedule | | | | ty | | | + +------+--------+ + + | BASIC METABOLIC SET | Lab | Routin | Heart failure, | Expected: 09/06/2018 | | (NA, K, CL, TCO2, | | e | systolic, chronic | (Approximate), | | BUN, CR, GLU, CA) | | | (HCC) | Expires: 10/07/2019 | + +------+--------+ + + documented as of this encounter Visit Diagnoses + + | Diagnosis | + + | Heart failure, systolic, chronic (HCC) - Primary Chronic systolic heart failure | + + documented in this encounter"
--- OUTSIDE RECORDS SUMMARY | ~2019-08-08 | XMS | Encounter Summary ---
Demographics + + + | Address | [address] | | | [place] [address] | + + + | Home Phone | | + + + | Preferred Language | Unknown | + + + | Marital Status | | + + + | Pentecostalism Affiliation | NON | + + + | Race | White | + + + | Ethnic Group | Not or | + + + Author + + + | Author | [facility] | + + + | Organization | [facility] | + + + | Address | [...] Team Providers + +------+ + | Care Branch Office Manager Name | Role | Phone | + +------+ + | Mateusz Dixon MD | PCP | | + +------+ + Encounter Details +--------+ + + + + | Date | Type | Department | Care Team | Description | +--------+ + + + + | 03/03/ | MyChart | Cardiology General | Jamaal Arenas, | RE: Blood Pressure | | 2018 | Encounter | at [facility] [address] | [address] | | | | | [address] Mailcode: | [place], [place] | | | | | [facility] | [address] | | | | | [facility] and [facility]aling, | [phone] | | | | | [facility] | | | | | | Floor [place], [place] | | | | | | [address] | | | | | | [phone] | | | +--------+ + + + [...]
--- OUTSIDE RECORDS SUMMARY | ~2019-08-08 | XMS | Encounter Summary ---
Demographics + + + | Address | [address] | | | [place] [address] | + + + | Home Phone | | + + + | Preferred Language | Unknown | + + + | Marital Status | | + + + | Amish Affiliation | NON | + + + | Race | White | + + + | Ethnic Group | Not or | + + + Author + + + | Author | [facility] | + + + | Organization | [facility] | + + + | Address | [...] Team Providers + +------+ + | Care Pneumatic Tube Fitter Name | Role | Phone | + +------+ + | Mateusz Dixon MD | PCP | | + +------+ + Encounter Details +--------+ + + + + | Date | Type | Department | Care Team | Description | +--------+ + + + + | 03/02/ | MyChart | Cardiology General | Jamaal Arenas, | RE: | | 2018 | Encounter | at [facility] [address] | [address] | | | | | [address] Mailcode: | [place], [place] | | | | | [facility] | [address] | | | | | Health and Healing, | [phone] | | | | | | | | | | | Floor [place], [place] | | | | | | [address] | | | | | | [phone] | | | +--------+ + + + [...]
--- OUTSIDE RECORDS SUMMARY | ~2019-08-08 | XMS | Encounter Summary ---
Demographics + + + | Address | [address] | | | [place] [address] | + + + | Home Phone | | + + + | Preferred Language | Unknown | + + + | Marital Status | | + + + | Episcopal Affiliation | NON | + + + | Race | White | + + + | Ethnic Group | Not or | + + + Author + + + | Author | [facility] | + + + | Organization | [facility] | + + + | Address [...] Team Providers + +------+ + | Care Nail Assembly Machine Operator Name | Role | Phone | + +------+ + | Mateusz Dixon MD | PCP | | + +------+ + Reason for Visit +--------+ + | Reason | Comments | +--------+ + | Other | Update | +--------+ + Encounter Details +--------+ + + + + | Date | Type | Department | Care Team | Description | +--------+ + + + + | 08/06/ | MyChart | Cardiology General | ArenasJimyJamaal A, | RE: Labs | | 2018 | Encounter | at [facility] [address] | [address] | | | | | [address] Mailcode: | [place], [place] | | | | | [facility] | [address] | | | | | Health and Healing, | [phone] | | | | | | | | | | | Floor [place], [place] | | | | | | [address] | | | | | | [phone] | | | +--------+ + + + [...]
--- OUTSIDE RECORDS SUMMARY | ~2019-08-08 | XMS | Encounter Summary ---
Demographics + + + | Address | [address] | | | [place] [address] | + + + | Home Phone | | + + + | Preferred Language | Unknown | + + + | Marital Status | | + + + | Moravian Affiliation | NON | + + + | Race | White | + + + | Ethnic Group | Not or | + + + Author + + + | Author | [facility] | + + + | Organization | [facility] | + + + | Address [...] Team Providers + +------+ + | Care Tank Builder And Erector Name | Role | Phone | + +------+ + | Mateusz Dixon MD | PCP | | + +------+ + Encounter Details +--------+ + + + + | Date | Type | Department | Care Team | Description | +--------+ + + + + | 02/16/ | MyChart | Cardiology General | Jamaal Arenas, | RE: DELIA Notes | | 2018 | Encounter | at [facility] [address] | [address] | | | | | [address] Mailcode: | [place], [place] | | | | | [address] [place] [address] | [address] | | | | | Health and Healing, | [phone] | | | | | | | | | | | Floor [place], [place] | | | | | | [address] | | | | | | [phone] | | | +--------+ + + + [...]
--- OUTSIDE RECORDS SUMMARY | ~2019-08-08 | XMS | Encounter Summary ---
Demographics + + + | Address | [address] | | | [place] [address] | + + + | Home Phone | | + + + | Preferred Language | Unknown | + + + | Marital Status | | + + + | Mandaen Affiliation | NON | + + + | Race | White | + + + | Ethnic Group | Not or | + + + Author + + + | Author | [facility] | + + + | Organization | [facility] | + + + | [...] Team Providers + +------+ + | Care Rare/Endangered Species Specialist Name | Role | Phone | + +------+ + | Mateusz Dixon MD | PCP | | + +------+ + Encounter Details +--------+------+ + + + | Date | Type | Department | Care Team | Description | +--------+------+ + + + | 04/14/ | Lab | Laboratory at [facility] | | Heart failure, | | 2018 | | [address] | | systolic, chronic | | | | [place], [place] | | ([facility]) | | | | [address] | | | | | | [phone] | | | +--------+------+ + + + [...] + | NT-PRO BNP | Routin | 04/14/2018 | Heart failure, | Results for this | | | e | 11:49 AM | systolic, chronic | procedure are in the | | | | PDT | ([facility]) | results section. | + +--------+ + + + | [facility] - CBC ONLY | Routin | 04/14/2018 | Heart failure, | Results for this | | | e | 11:49 AM | systolic, chronic | procedure are in the | | | | PDT | ([facility]) | results section. | + +--------+ + + + | [facility] - COMPLETE | Routin | 04/14/2018 | Heart failure, | Results for this | | METABOLIC SET | e | 11:49 AM | systolic, chronic | procedure are in the | | | | PDT | ([facility]) | results section. | + +--------+ + + + | FERRITIN | Routin | 04/14/2018 | Heart failure, | Results for this | | | e | 11:49 AM | systolic, chronic | procedure are in the | | | | PDT | ([facility]) | results section. | + +--------+ + + + | IRON AND TIBC, SERUM | Routin | 04/14/2018 | Heart failure, | Results for this | | | e | 11:49 AM | systolic, chronic | procedure are in the | | | | PDT | ([facility]) | results section. | + +--------+ + + + documented in this encounter Results [facility] - CBC ONLY (04/14/2018 11:49 AM PDT) + + + + + + | Component | Value | Ref Range | Performed | Pathologist | | | | | At | Signature | + + + + + + | WHITE CELL | 4.93 | 3.50 - 10.80 | [facility] | | | COUNT | | K/cu mm | LABORATORY | | | | | | SERVICES, | | | | | | [facility] + | | | | | | [facility]AL[facility] | | + + + + + + | RED CELL | 4.36 (L) | 4.50 - 6.00 | [facility] | | | COUNT | | M/cu mm | LABORATORY | | | | | | SERVICES, | | | | | | [facility] + | | | | | | [facility]ALING | | + + + + + + | HEMOGLOBIN | 13.9 | 13.5 - 17.5 | [facility] | | | | | g/dL | LABORATORY | | | | | | SERVICES, | | | | | | [facility] + | | | | | | HEALING | | + + + + + + | HEMATOCRIT | 40.8 (L) | 41.0 - 53.0 % | [facility] | | | | | | LABORATORY | | | | | | SERVICES, | | | | | | [facility] + | | | | | | [facility]ALING | | + + + + + + | MCV | 93.6 | 80.0 - 100.0 fL | [facility] | | | | | | LABORATORY | | | | | | SERVICES, | | | | | | [facility] + | | | | | | [facility]ALING | | + + + + + + | MCHC | 34.1 | 32.0 - 36.0 | [facility] | | | | | g/dL | LABORATORY | | | | | | SERVICES, | | | | | | [facility] + | | | | | | HEALING | | + + + + + + | RDW SD | 53.1 (H) | 35.1 - 46.3 fL | [facility] | | | | | | LABORATORY | | | | | | SERVICES, | | | | | | [facility] + | | | | | | [facility]ALING | | + + + + + + | PLATELET | 216 | 150 - 400 K/cu | [facility] | | | COUNT | | mm | LABORATORY | | | | | | SERVICES, | | | | | | [facility] + | | | | | | [facility]ALING | | + + + + + + | MPV | 9.5 (L) | 9.7 - 12.3 fL | [facility] | | | | | | LABORATORY | | | | | | SERVICES, | | | | | | [facility] + | | | | | | [facility]ALING | | + + + + + + + + | Specimen | + + | Blood | + + + + + + + | Performing | Address | City/State/Zipcode | Phone Number | | Organization | | | | + + + + + | [facility] | [address] | [place] [address] | | | [facility] | | | | | HEALTH + HEALING | | | | + + + + + IRON AND TIBC (04/14/2018 11:49 AM PDT) + +-------+ + + + | Component | Value | Ref Range | Performed | Pathologist | | | | | At | Signature | + +-------+ + + + | IRON | 95 | 50 - 170 ug/dL | [facility] | | | | | | LABORATORY | | | | | | SERVICES, | | | | | | CORE | | + +-------+ + + + | IRON BIND | 291 | 240 - 450 ug/dL | [facility] | | | CAP | | | LABORATORY | | | | | | SERVICES, | | | | | | CORE | | + +-------+ + + + | % | 33 | 20 - 50 % | [facility] [...] | + + + + + | [facility] | [address] | [place] [address] | | | SERVICES, CORE | [address] | | | + + + + + FERRITIN (04/14/2018 11:49 AM PDT) + + + + + + | Component | Value | Ref Range | Performed | Pathologist | | | | | At | Signature | + + + + + + | FERRITIN | 172Comment: Male and | 50 - 200 ng/mL | [facility] | | | | Female >18 years: [...] | + + + + + | [facility] | [address] | [place] [address] | | | SERVICES, CORE | [address] | | | + + + + + [facility] - COMPLETE METABOLIC SET (04/14/2018 11:49 AM PDT) + + + + + + | Component | Value | Ref Range | Performed | Pathologist | | | | | At | Signature | + + + + + + | GLUCOSE, | 115 (H) | 70 - 99 mg/dL | [facility] | | | PLASMA | | | LABORATORY | | | (LAB) | | | SERVICES, | | | | | | [facility] + | | | | | | HEALING | | + + + + + + | BUN, PLASMA | 15 | 6 - 20 mg/dL | [facility] | | | (LAB) | | | LABORATORY | | | | | | SERVICES, | | | | | | [facility] + | | | | | | HEALING | | + + + + + + | CREATININE | 1.40 (H) | 0.70 - 1.30 | [facility] | | | PLASMA | | mg/dL | LABORATORY | | | (LAB) | | | SERVICES, | | | | | | [facility] | [facility] + | | | | | | HEALING | | + + + + + + | SODIUM, | 133 (L) | 134 - 143 | [facility] | | | PLASMA | | mmol/L | LABORATORY | | | (LAB) | | | SERVICES, | | | | | | [facility] | [facility] | [facility] + | | | | | | HEALING | | + + + + + + | POTASSIUM, | 4.3 | 3.4 - 5.0 | [facility] | | | PLASMA | | mmol/L | LABORATORY | | | (LAB) | | | SERVICES, | | | | | | [facility] | [facility] + | | | | | | HEALING | | + + + + + + | CHLORIDE, | 97 | 97 - 108 mmol/L | [facility] | | | PLASMA | | | LABORATORY | | | (LAB) | | | SERVICES, | | | | | | [facility] | [facility] | [facility] + | | | | | | HEALING | | + + + + + + | TOTAL CO2, | 28 | 22 - 29 mmol/L | [facility] | | | PLASMA | | | LABORATORY | | | (LAB) | | | SERVICES, | | | | | | [facility] | [facility] | | [facility] + | | | | | | HEALING | | + + + + + + | CALCIUM, | 9.4 | 8.6 - 10.2 | [facility] | | | PLASMA | | mg/dL | LABORATORY | | | (LAB) | | | SERVICES, | | | | | | [facility] | [facility] | [facility] + | | | | | | HEALING | | + + + + + + | BILIRUBIN | 1.2 | 0.3 - 1.2 mg/dL | [facility] | | | TOTAL | | | LABORATORY | | | | | | SERVICES, | | | | | | [facility] | | | [facility] + | | | | | | HEALING | | + + + + + + | TOTAL | 6.7 | 6.1 - 7.9 g/dL | [facility] | | | PROTEIN, | | | LABORATORY | | | PLASMA | | | SERVICES, | | | (LAB) | | | [facility] | | | | [facility] + | | | | | | HEALING | | + + + + + + | ALBUMIN, | 3.7 | 3.5 - 4.7 g/dL | [facility] | | | PLASMA | | | LABORATORY | | | (LAB) | | | SERVICES, | | | | | | [facility] | | [facility] | [facility] + | | | | | | HEALING | | + + + + + + | ALK PHOS | 79 | 43 - 92 U/L | [facility] | | | | | | LABORATORY | | | | | | SERVICES, | | | | | | [facility] | [facility] + | | | | | | HEALING | | + + + + + + | AST(SGOT) | 48 (H) | <=41 U/L | [facility] | | | | | | LABORATORY | | | | | | SERVICES, | | | | | | [facility] | | [facility] + | | | | | | HEALING | | + + + + + + | ALT (SGPT) | 66 (H) | <=60 U/L | [facility] | | | | | | LABORATORY | | | | | | SERVICES, | | | | | | [facility] | [facility] | [facility] + | | | | | | HEALING | | + + + + + + | ANION GAP | | 4 - 11 mmol/L | [facility] | | | | | | LABORATORY | | | | | | SERVICES, | | | | | | [facility] | | [facility] + | | | | | | HEALING | | + + + + + + | ANION | | 4 - 11 mmol/L | [facility] | | | GAP(ALB | | | LABORATORY | | | CORRECTED) | | | SERVICES, | | | | | | [facility] | [facility] | [facility] + | | | | | | HEALING | | + + + + + + + + | Specimen | + + | Blood | + + + + + + + | Performing | Address | City/State/Zipcode | Phone Number | | Organization | | | | + + + + + | [facility] | [address] | [place] [address] | | | SERVICES, [facility] | | | | | [facility] + HEALING | | | | + + + + + NT-PRO BNP (04/14/2018 11:49 AM PDT) + + + + + + | Component | Value | Ref Range | Performed | Pathologist | | | | | At | Signature | + + + + + + | NT-PRO BNP | 1,446 (H) | <449 pg/mL | [facility] | [...] | + + + + + | [facility] | [address] | [place] [address] | | | SERVICES, [place]ER[place] | [address] | | | + + + + + documented in this encounter Visit Diagnoses + + | Diagnosis | + + | Heart failure, systolic, chronic (HCC) Chronic systolic heart failure | + + documented in this encounter"
--- OUTSIDE RECORDS SUMMARY | ~2019-08-08 | XMS | Encounter Summary ---
Demographics + + + | Address | [address] | | | [place] [address] | + + + | Home Phone | | + + + | Preferred Language | Unknown | + + + | Marital Status | | + + + | Roman Catholic Affiliation | NON | + + + | Race | White | + + + | Ethnic Group | Not or | + + + Author + + + | Author | [facility] | + + + | Organization | [facility] | + + + | [...] Team Providers + +------+ + | Care Food Packer Name | Role | Phone | + +------+ + | Mateusz Dixon MD | PCP | | + +------+ + Reason for Visit + + + | Reason | Comments | + + + | Refill Request | Carvedilol 6.25 | + + + Encounter Details +--------+--------+ + + + | Date | Type | Department | Care Team | Description | +--------+--------+ + + + | 04/19/ | Refill | [facility] | Jamaal Arenas, | Refill Request | | 2018 | | at [facility] [address] | MD [address] | (Carvedilol 6.25) | | | | [address] Mailcode: | [address] [place], [place] | | | | | [address] [facility] | [address] | | | | | [facility], | [phone] | | | | | | | | | | | [place], [place] | | | | | | [address] | | | | | | [phone] | | | +--------+--------+ + + + Social History + +-------+ [...]
--- OUTSIDE RECORDS SUMMARY | ~2019-08-08 | XMS | Encounter Summary ---
Demographics + + + | Address | [address] | | | [place] [address] | + + + | Home Phone | | + + + | Preferred Language | Unknown | + + + | Marital Status | | + + + | Orthodox Affiliation | NON | + + + | Race | White | + + + | Ethnic Group | Not or | + + + Author + + + | Author | [facility] | + + + | Organization | [facility] | + + + | Address [...] Team Providers + +------+ + | Care Assembler For Puller Over Machine Name | Role | Phone | + +------+ + | Mateusz Dixon MD | PCP | | + +------+ + Encounter Details +--------+ + + + + | Date | Type | Department | Care Team | Description | +--------+ + + + + | 05/23/ | MyChart | Cardiology General | Jamaal Arenas, | RE: | | 2018 | Encounter | at [facility] [address] | MD [address] | | | | | [address] Mailcode: | [place], [place] | | | | | [address] [facility] | [address] | | | | | Health and Healing, | [phone] | | | | | | | | | | | Floor [place], [place] | | | | | | [address] | | | | | | [phone] | | | +--------+ + + + [...]
--- OUTSIDE RECORDS SUMMARY | ~2019-08-08 | XMS | Encounter Summary ---
Demographics + + + | Address | [address] | | | [place] [address] | + + + | Home Phone | | + + + | Preferred Language | Unknown | + + + | Marital Status | | + + + | Zoroastrian Affiliation | NON | + + + | Race | White | + + + | Ethnic Group | Not or | + + + Author + + + | Author | [facility] | + + + | Organization | [facility] | + + + | Address [...] Team Providers + +------+ + | Care Cafeteria Attendant Name | Role | Phone | + +------+ + | Mateusz Dixon MD | PCP | | + +------+ + Reason for Visit + + + | Reason | Comments | + + + | Medication | | | management | | + + + Encounter Details +--------+ + + + + | Date | Type | Department | Care Team | Description | +--------+ + + + + | 04/28/ | MyChart | Cardiology General | Jamaal Arenas, | RE: Lilia | | 2018 | Encounter | at [facility] [address] | MD [address] | | | | | [address] Mailcode: | [address] [place], [place] | | | | | [address] [place] [address] | [address] | | | | | Health and Healing, | [phone] | | | | | [facility] | | | | | | Floor [place], [place] | | | | | | [address] | | | | | | [phone] | | | +--------+ + + + [...] filedocumented as of this encounter Visit Diagnoses + + | Diagnosis | + + | Heart failure, systolic, chronic (HCC) - Primary Chronic systolic heart failure | + + documented in this encounter"
--- OUTSIDE RECORDS SUMMARY | ~2019-08-08 | XMS | Clinical Summary ---
Demographics + + + | Address | [address] | | | [place] [address] | + + + | Home Phone | | + + + | Preferred Language | Unknown | + + + | Marital Status | | + + + | Adventism Affiliation | NON | + + + | Race | White | + + + | Ethnic Group | Not or | + + + Author + + + | Author | [facility] | + + + | Organization | [facility] | + + + | Address | [...] Team Providers + +------+ + | Care Manager Hospitality Name | Role | Phone | + +------+ + | Mateusz Dixon MD | PCP | | + +------+ + Source Comments [facility] is fully live on both [facility] and [facility] Allergies + + + + + + | Active Allergy | Reactions | Severity | Noted | Comments | | | | | Date | | + + + + + + | Trazodone | Hives, Rash | Medium | 05/07/20 | AKA "Ifeoma" | | | | | 16 | | + + + + + + Medications + + + +---------+------+------+-------+ | Medication | Sig | Dispensed | Refills | Star | End | Statu | | | | | | t | Date | s | | | | | | Date | | | + + + +---------+------+------+-------+ | esomeprazole 40 mg | Take 40 mg by mouth | | 0 | | | Activ | | oral | two times daily. | | | | | e | | capsule,delayed | | | | | | | | release(DR/EC) | | | | | | | + + + +---------+------+------+-------+ | atorvastatin 40 mg | Take 40 mg by mouth | | 0 | | | Activ | | oral tablet | once daily in the | | | | | e | | | evening. | | | | | | + + + +---------+------+------+-------+ | fexofenadine 180 | Take 180 mg by mouth | | 0 | | | Activ | | mg oral tablet | once daily. | | | | | e | + + + +---------+------+------+-------+ | calcium carbonate | Chew and swallow | | 0 | | | Activ | | chewable 200 mg | 1,000 mg as needed | | | | | e | | calcium (500 mg) | (heartburn). | | | | | | | oral tablet,chewable | | | | | | | + + + +---------+------+------+-------+ | FOLIC | Take 1 tablet by | | 0 | | | Activ | | ACID/MULTIVIT-MIN/NABEEL | mouth once daily. | | | | | e | | TEIN (CENTRUM SILVER | | | | | | | | ORAL) | | | | | | | + + + +---------+------+------+-------+ | cholecalciferol, | Take 2,000 Units by | | 0 | | | Activ | | Vitamin D3, 2,000 | mouth once daily in | | | | | e | | unit oral capsule | the evening. | | | | | | + + + +---------+------+------+-------+ | loperamide | Take 2-4 mg by mouth | | 0 | | | Activ | | (IMODIUM A-D) 2 mg | once daily as | | | | | e | | oral tablet | needed for diarrhea. | | | | | | + + + +---------+------+------+-------+ | cyanocobalamin | Take 1,000 mcg by | | 0 | | | Activ | | 1,000 mcg oral | mouth twice weekly. | | | | | e | | tablet | Take on Wednesday and | | | | | | | | Wednesday | | | | | | + + + +---------+------+------+-------+ | acetaminophen 500 | Take 1.25 tablets by | | 0 | 05/0 | | Activ | | mg oral tablet | mouth every six | | | 6/20 | | e | | | hours as needed. | | | 17 | | | + + + +---------+------+------+-------+ | CALCIUM | Take by mouth as | | 0 | | | Activ | | CARB/MAGNESIUM | needed. | | | | | e | | HYDROX (MYLANTA | | | | | | | | ORAL) | | | | | | | + + + +---------+------+------+-------+ | aspirin EC 81 mg | Take 1 tablet by | | 0 | 03/ | | Activ | | oral tablet,delayed | mouth once daily. | | | 07/28 | | e | | release (DR/EC) | | | | 18 | | | + + + +---------+------+------+-------+ | furosemide 20 mg | Take 20 mg every | | 0 | | | Activ | | oral tablet | Wednesday, , | | | | | e | | | and Wednesday | | | | | | + + + +---------+------+------+-------+ | | Take 1 tablet by | 180 | 2 | 10/2 | | Activ | | sacubitril-valsartan | mouth two times | tablet | | 07/28 | | e | | (ENTRESTO) 97-103 | daily. | | | 18 | | | | mg oral tablet | | | | | | | + + + +---------+------+------+-------+ | carvedilol 6.25 mg | Take 1 tablet by | 180 | 3 | 06/0 | | Activ | | oral | mouth two times | tablet | | 02/25 | | e | | tabletIndications: | daily. Administer | | | 19 | | | | chronic heart | with food. | | | | | | | failure | Indications: chronic | | | | | | | | heart failure | | | | | | + + + +---------+------+------+-------+ Active Problems + + | Patient Care Coordination Note | + + | Walt Fontanez p [phone] f [phone] | + + + + + | Problem | Noted Date | + + + | Paroxysmal atrial fibrillation | 01/30/2018 | + + + | Hypertensive heart disease with heart failure | 01/30/2018 | + + + | Heart failure, systolic, chronic | 01/20/2018 | + + + | Prediabetes | 01/20/2018 | + + + | CAD (coronary artery disease) | 03/13/2017 | + + + | Hematoma | 03/10/2017 | + + + Immunizations + + + + | Name | Administration Dates | Next Due | + + + + | Influenza, high dose | 08/02/2018 | | | seasonal, | | | | preservative-free | | | + + + + Family History + + +------+ + | Medical History | Relation | Name | Comments | + + +------+ + | Cancer | Mother | | | + + +------+ + + +------+--------+ + | Relation | Name | Status | Comments | + +------+--------+ + | Mother | | | | + +------+--------+ + Social History + +-------+ +--------+------+ | [...] recent travel history available. | + + Last Filed Vital Signs + + + + + | Vital Sign | Reading | Time Taken | Comments | + + + + + | Blood Pressure | 134/88 | 08/16/2018 1:13 PM | | | | | PDT | | + + + + + | Pulse | 66 | 08/16/2018 1:13 PM | | | | | PDT | | + + + + + | Temperature | 36.9 C (98.5 F) | 08/16/2018 1:13 PM | | | | | PDT | | + + + + + | Respiratory Rate | 22 | 01/20/2018 10:38 AM | | | | | PDT | | + + + + + | Oxygen Saturation | 95% | 08/16/2018 1:13 PM | | | | | PDT | | + + + + + | Inhaled Oxygen | - | - | | | Concentration | | | | + + + + + | Weight | 88.5 kg (195 lb) | 08/16/2018 1:13 PM | | | | | PDT | | + + + + + | Height | 175.3 cm (5' 9") | 08/16/2018 1:13 PM | | | | | PDT | | + + + + + | Body Mass Index | 28.8 | 08/16/2018 1:13 PM | | | | | PDT | | + + + + + Plan of Treatment + + + + + | Health Maintenance | Due Date | Last Done | Comments | + + + + + | Pneumococcal | | 10/06/2016 | | | vaccination (2 of 2 | 7 | | | | - PCV13) | | | | + + + + + | Influenza (Flu) | | 08/02/2018, 08/07/2017, | | | vaccination (#1) | 9 | 08/20/2016, Additional history | | | | | exists | | + + + + + Results Not on filefrom Last 3 Months Insurance + +--------+ +--------+ + +--------+ | Payer | Benefi | Subscriber | Effect | Phone | Address | Type | | | t Plan | ID | nayeli | | | | | | / | | Dates | | | | | | Group | | | | | | + +--------+ +--------+ + +--------+ | MEDICARE | MEDICA | xxxxxxxxxxx | | [phone] | [address] | [address] | | | RE A & | | [phone] | re | | | B | | esent | | [place] | | | | | | | | [phone] | | + +--------+ +--------+ + +--------+ | [employer] | AARP | xxxxxxxxxxx | Effect | [phone] | [address] | Indemn | | RETIRED PEOPLE | | | nayeli | [phone] | ity | | | | | for | | [place] | | | | | | all | | [phone] | | | | | | dates | | | | + +--------+ +--------+ + +--------+ + +--------+ +--------+ + + | Guarantor Name | Accoun | Relation to | Date | Phone | Billing Address | | | t Type | Patient | of | | | | | | | | | | + +--------+ +--------+ + + | Jay Villalta | Person | Self | [birth year] | [address] | | [place] | al/[place] | | 1940 | [phone] | [place] [address] | | | jose c | | | 1 (Home) | | + +--------+ +--------+ + + Advance Directives + + + + + | Code Status | Date | Date | Comments | | | Activated | Inactivated | | + + + + + | Full Code | 03/10/2017 | 03/13/2017 | | | | 1:46 AM | 5:13 PM | | + + + + +
--- OUTSIDE RECORDS SUMMARY | ~2019-08-08 | XMS | Encounter Summary ---
Demographics + + + | Address | [address] | | | [place] [address] | + + + | Home Phone | | + + + | Preferred Language | Unknown | + + + | Marital Status | | + + + | Mormon Affiliation | NON | + + + | Race | White | + + + | Ethnic Group | Not or | + + + Author + + + | Author | [facility] | + + + | Organization | [facility] | + + + | [...] Team Providers + +------+ + | Care Campus Recruiting Coordinator Name | Role | Phone | + +------+ + | Mateusz Dixon MD | PCP | | + +------+ + Encounter Details +--------+ + + + + | Date | Type | Department | Care Team | Description | +--------+ + + + + | 05/17/ | Abstract | Cardiology General | Jamaal Arenas, | | | 2018 | | at [facility] [address] | [address] | | | | | [address] Mailcode: | [place], [place] | | | | | [address] [facility] | [address] | | | | | Health and Healing, | [phone] | | | | | [facility] | | | | | | Floor [place], [place] | | | | | | [address] | | | | | | [phone] | | | +--------+ + + + [...]
--- OUTSIDE RECORDS SUMMARY | ~2019-08-08 | XMS | Encounter Summary ---
Demographics + + + | Address | [address] | | | [place] [address] | + + + | Home Phone | | + + + | Preferred Language | Unknown | + + + | Marital Status | | + + + | Zoroastrian Affiliation | NON | + + + | Race | White | + + + | Ethnic Group | Not or | + + + Author + + + | Author | [facility] | + + + | Organization | [facility] | + + + | Address [...] Team Providers + +------+ + | Care Fabric Awning Repairer Name | Role | Phone | + +------+ + | Mateusz Dixon MD | PCP | | + +------+ + Encounter Details +--------+ + + + + | Date | Type | Department | Care Team | Description | +--------+ + + + + | 02/24/ | MyChart | Cardiology General | Jamaal Arenas, | RE: Labs | | 2018 | Encounter | at [facility] [address] | MD [address] | | | | | [address] Mailcode: | [place], [place] | | | | | [address] [facility] | [address] | | | | | Health and Healing, | [phone] | | | | | | | | | | | Floor [place], [place] | | | | | | [address] | | | | | | [phone] | | | +--------+ + + + [...]
--- OUTSIDE RECORDS SUMMARY | ~2019-08-08 | XMS | Encounter Summary ---
Demographics + + + | Address | [address] | | | [place] [address] | + + + | Home Phone | | + + + | Preferred Language | Unknown | + + + | Marital Status | | + + + | Faith Affiliation | NON | + + + [...] Team Providers + +------+ + | Care Bond Underwriter Name | Role | Phone | + +------+ + | Mateusz Dixon MD | PCP | | + +------+ + Encounter Details +--------+ + + + + | Date | Type | Department | Care Team | Description | +--------+ + + + + | 09/13/ | Abstract | Cardiology General | Jamaal Arenas, | | | 2018 | | at [facility] [address] | [address] | | | | | [address] Mailcode: | [place], [place] | | | | | [facility] [facility] | [address] | | | | | Health and Healing, | [phone] | | | | | [facility] | | | | | | Floor [place], [place] | | | | | | [address] | | | | | | [phone] | | | +--------+ + + + [...]
--- OUTSIDE RECORDS SUMMARY | ~2019-08-08 | XMS | Encounter Summary ---
Demographics + + + | Address | [address] | | | [place] [address] | + + + | Home Phone | | + + + | Preferred Language | Unknown | + + + | Marital Status | | + + + | Nondenominational Affiliation | NON | + + + | Race | White | + + + | Ethnic Group | Not or | + + + Author + + + | Author | [facility] | + + + | Organization | [facility] | + + + | Address | [...] Team Providers + +------+ + | Care Hand Edge Bander Name | Role | Phone | + +------+ + | Mateusz Dixon MD | PCP | | + +------+ + Encounter Details +--------+ + + + + | Date | Type | Department | Care Team | Description | +--------+ + + + + | 02/15/ | MyChart | Cardiology Cardiac | Jamaal Arenas, | RE: 2 week BP | | 2018 | Encounter | Transplant at [facility] | [address] | Reading | | | | [address] | [place], [place] | | | | | Mailcode: [address] | [address] | | | | | [facility] | [phone] | | | | | and [place], | | | | | | Building | | | | | | [place], [place] | | | | | | [address] | | | | | | [phone] | | | +--------+ + + + [...] | BASIC METABOLIC SET | Routin | 02/14/2018 | | Results for this | | (NA, K, CL, TCO2, | e | | | procedure are in the | | BUN, CR, GLU, CA) | | | | results section. | + +--------+ + + + documented in this encounter Results BASIC METABOLIC SET (NA, K, CL, TCO2, BUN, CR, GLU, CA) (02/14/2018) + +---------+ + + + | Component | Value | Ref Range | Performed | Pathologist | | | | | At | Signature | + +---------+ + + + | GLUCOSE, | 135 (A) | 65 - 110 mg/dL | NON [facility] | | | PLASMA | | | LAB | | | (LAB) | | | | | + +---------+ + + + | BUN, PLASMA | 23 | mg/dL | NON [facility] | | | (LAB) | | | LAB | | + +---------+ + + + | CREATININE | 1.06 | mg/dL | NON [facility] | | | PLASMA | | | LAB | | | (LAB) | | | | | + +---------+ + + + | SODIUM, | 126 (A) | 132 - 143 | NON [facility] | | | PLASMA | | mmol/L | LAB | | | (LAB) | | | | | + +---------+ + + + | POTASSIUM, | 4.9 | mmol/L | NON [facility] | | | PLASMA | | | LAB | | | (LAB) | | | | | + +---------+ + + + | CHLORIDE, | 91 (A) | 95 - 112 mmol/L | NON [facility] | | | PLASMA | | | LAB | | | (LAB) | | | | | + +---------+ + + + | TOTAL CO2, | 22 | mmol/L | NON [facility] | | | PLASMA | | | LAB | | | (LAB) | | | | | + +---------+ + + + | CALCIUM, | 9.5 | mg/dL | NON [facility] | | | PLASMA | | | LAB | | | (LAB) | | | | | + +---------+ + + + | ANION GAP | 17.9 | | NON [facility] | | | | | | LAB | | + +---------+ + + + | BUN/CREATIN | 21.7 | | NON [facility] | | | INE RATIO | | | LAB | | + +---------+ + + + + + | Specimen | + + | Blood | + + + +---------+ + + | Performing | Address | City/State/Zipcode | Phone Number | | Organization | | | | + +---------+ + + | NON [facility] | | | | + +---------+ + + documented in this encounter Visit Diagnoses + + | Diagnosis | + + | Heart failure, systolic, chronic (HCC) - Primary Chronic systolic heart failure | + + documented in this encounter"
--- OUTSIDE RECORDS SUMMARY | ~2019-08-08 | XMS | Encounter Summary ---
Demographics + + + | Address | [address] | | | [place] [address] | + + + | Home Phone | | + + + | Preferred Language | Unknown | + + + | Marital Status | | + + + | Pentecostalism Affiliation | NON | + + + | Race | White | + + + | Ethnic Group | Not or | + + + Author + + + | Author | [facility] | + + + | Organization | [facility] | + + + | [...] Team Providers + +------+ + | Care Sagger Soak Name | Role | Phone | + +------+ + | Mateusz Dixon MD | PCP | | + +------+ + Reason for Visit + + + | Reason | Comments | + + + | Other | Labs | + + + | Lab Results | | + + + Encounter Details +--------+ + + + + | Date | Type | Department | Care Team | Description | +--------+ + + + + | 09/12/ | MyChart | Cardiology General | Jamaal Arenas, | RE: Labs | | 2018 | Encounter | at [facility] [address] | MD [address] | | | | | [address] Mailcode: | [place], [place] | | | | | [facility] | [address] | | | | | Health and Healing, | [phone] | | | | | | | | | | | Floor [place], [place] | | | | | | [address] | | | | | | [phone] | | | +--------+ + + + [...]
--- OUTSIDE RECORDS SUMMARY | ~2019-08-08 | XMS | Encounter Summary ---
Demographics + + + | Address | [address] | | | [place] [address] | + + + | Home Phone | | + + + | Preferred Language | Unknown | + + + | Marital Status | | + + + | Synagogue Affiliation | NON | + + + [...] | + + +---------+ + | Marti Alexander | ECON | Unknown | | + + +---------+ + | Vinita Pleitez | ECON | Unknown | | + + +---------+ + Care Team Providers + +------+ + | Care Group Sales Coordinator Name | Role | Phone | + +------+ + | Mateusz Dixon MD | PCP | | + +------+ + Reason for Referral Diagnostic Testing (Routine) +--------+--------+ + + + [...] | | | | | chronic | [place], [place] | | | | | | ([facility]) | [address] | | | | | | Procedures | Phone: | | | | | | TRANSTHORACI | [phone] | | | | | | C | Fax: | | | | | | ECHOCARDIOGR | [phone] | | | | | | AM, ADULT | | | +--------+--------+ + + + + Encounter Details +--------+ + + + + | Date | Type | Department | Care Team | Description | +--------+ + + + + | 01/30/ | MyChart | Cardiology General | Jamaal Arenas, | RE:Medication | | 2018 | Encounter | at [facility] [address] | MD [address] | changes | | | | [address] Mailcode: | Ave [place], [place] | | | | | Elio [facility] | [address] | | | | | Health and He[facility], | [phone] | | | | | | | | | | | Floor [place], [place] | | | | | | [address] | | | | | | [phone] | | | +--------+ + + + [...] | | ADULT | | PDT | ([facility]) | results section. | + +--------+ + + + documented in this encounter Results TRANSTHORACIC ECHOCARDIOGRAM, ADULT (04/14/2018 12:55 PM PDT) + + + + + + | Component | Value | Ref Range | Performed | Pathologist | | | | | At | Signature | + + + + + + | BIPLANE, EF | 37 | | [facility] | | | | | | OF | | | | | | CARDIOLOGY | | + + + + + + | EJECTION | 35 to 40 | | [facility] | | | FRACTION | | | OF | | | | | | CARDIOLOGY | | + + + + + + | LA | 4.4 | | [facility] | | | DIMENSION | | | OF | | | | | | CARDIOLOGY | | + + + + + + | LVIDD | 5.7 | | [facility] | | | | | | OF | | | | | | CARDIOLOGY | | + + + + + + | MV A VMAX | 0.8 | | [facility] | | | | | | OF | | | | | | CARDIOLOGY | | + + + + + + | MV E? | 0.0 | | [facility] | | | | | | OF | | | | | | CARDIOLOGY | | + + + + + + | MV E VMAX | 0.4 | | [facility] | | | | | | OF | | | | | | CARDIOLOGY | | + + + + + + | RVSP | 57 | | [facility] | | | | | | OF | | | | | | CARDIOLOGY | | + + + + + + | RV TAPSE | 2.0 | | [facility] | | | | | | OF | | | | | | CARDIOLOGY | | + + + + + + | RV TDI S? | 11.0 | | [facility] | | | | | | OF | | | | | | CARDIOLOGY | | + + + + + + | EJECTION | 37.5 | % | [facility] | | | FRACTION | | | OF | | | RANGE MEAN | | | CARDIOLOGY | | | VALUE | | | | | + + + + + + + + | Specimen | + + | | + + + + + | Narrative | Performed At | + + + | [facility] | [facility] | | [facility] Adult Echocardiography | CARDIOLOGY | | Laboratory [address] [place] [address], | | | [place] [address] Pt Name: | | | COURTNEY ALEXANDER Study Date/Time 04/14/2018 / 12:55:32 | | | PMMRN: [id number] Most recent | | | prior: 03/10/2017Acc #: | | | [id number] No. previous echos: | | | 1DOB: 1940 77 years Heart | | | Rate: 54 bpmHeight: 69.0 | | | in Blood Pressure: 143/71 | | | mm/HgWeight: 189.0 lb | | | Gender: MBSA: 2.02 | | | m2 Order ID: | | | [id number] Professional Fighter: Sameera Gonzalez RDCSSonographer 2:Referring | | | Provider: Jamaal Marques Location: [facility] Performed: 2D, | | | Color flow, Spectral Doppler and Lumason contrast.Study Quality: | | | Good.Exam Indication: Heart failureHistory: 77 y.o. 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 | | | Patient history has been obtained from the EHR Transthoracic | | | Echocardiographic Report | | | + | | | ---------+Final | | | Impressions: | | | | | | | | | | | | | | | | | | 1. The left ventricular cavity size is | | | normal. | | | 2. The LV function is moderately | | | abnormal. | | | 3. Left ventricular systolic thickening is segmentally | | | abnormal (see comments | | | below). | | | 4. | | | Visually estimated left ventricular ejection fraction is 35 - | | | 40%. 5. Right ventricular size, thickness and function | | | are normal. 6. The estimated right | | | ventricular systolic pressure is moderately elevated (RVSP = 56.6 | | | mmHg). | | | 7. Compared to | | | the most recent exam dated, 03/10/2017, the LVEF has | | | decreased. | | | | | | + | | | + Description of Findings: | | | Cardiac Rhythm: Normal sinus rhythm.Left Ventricle: The left | | | ventricular cavity size is normal. The LV function is moderately | | | abnormal. Visually estimated left ventricular ejection fraction is 35 | | | - 40%. The global longitudinal strain is -12.4 %. There is no left | | | ventricular hypertrophy. The ejection fraction is 37.3 % as measured | | | by Little's biplane method. Due to poor endocardial definition, | | | ultrasound contrast was used (Lumason).Left Ventricular Wall Motion: | | | The basal and mid inferior wall, basal and mid inferolateral wall, and | | | basal inferoseptal segment are akinetic. The mid anterolateral | | | segment, apical lateral segment, and apical inferior segment are | | | hypokinetic. All remaining scored segments are normal. Left | | | ventricular systolic thickening is segmentally abnormal.Atria: Left | | | atrial size is moderately dilated. Normal right atrium.Right | | | Ventricle: Right ventricular size, thickness and function are normal. | | | TAPSE measures 2.0cm. The RV TDI s' velocity is 11cm/sec.Aortic Valve: | | | The aortic valve is trileaflet and mildly calcified. No indication of | | | aortic valve regurgitation.Mitral Valve: The mitral valve is | | | structurally normal. Trace mitral valve regurgitation.Tricuspid Valve: | | | The tricuspid valve is structurally normal. Trace tricuspid | | | regurgitation. The tricuspid regurgitant velocity is 3.59 m/s, and | | | with an assumed right atrial pressure of 5 mmHg, the estimated right | | | ventricular systolic pressure is moderately elevated at 56.6 | | | mmHg.Pulmonic Valve: The pulmonic valve is structurally normal. No | | | indication of pulmonary valve regurgitation. The peak trans pulmonic | | | gradient is 2.7 mmHg.Aorta: Visualized portions of the ascending aorta | | | and aortic root appear normal.Venous: The inferior vena cava was not | | | well visualized.Pericardium: No pericardial effusion is seen.2D | | | Measurements Doppler Measurements | | | 2D NL Values Aortic | | | MitralLVID(d) 5.67 (3.5-5.7cm) Max Shahid 1.26 Peak | | | E 0.44 | | | cm | | | m/s m/sLVID(s) 4.91 | | | Mean grad 3.9 Peak | | | A 0.82 | | | cm | | | mmHg m/sIVS(d) 1.01 (0.6-1.1cm) | | | LVOT Shahid 0.96 E/A Ratio 0.54 | | | cm | | | m/sLVPW(d) 0.85 | | | (0.6-1.1cm) TDI | | | (E/e') 14.8 cm | | | LVOT Diam 2.04 MV mn gdLA A/Ps 2D 4.43 | | | (2.7-3.9cm) cm | | | cm Tricuspid PulmonicLA vol | | | A/L 95.3 (40-73ml) TR Vmax 3.59 PV Vmax | | | 0.8BP | | | ml | | | m/s m/sLA vol A/L 47.3 (16-34) | | | RA Press 5 RVOT | | | VTI 16.3index ml/m2 | | | mmHg cmLA vol MOD 87.0 | | | (40-73ml) RVSP 57 PV mn gdBP | | | ml mmHgLA vol MOD | | | 43.1 | | | (16-34)index ml/m2 Aorta: | | | | | | Index: Ao | | | Sinus 3.17 (2.1-3.5cm)Biplane EF 37.3 | | | % cmGLS | | | % -12.4 Asc | | | Ao 2.94 | | | % (prox) cmEvaluation of | | | chamber size and geometry is accomplished through the incorporation of | | | linear, volumetric, and indexed values Wall Scoring: Report | | | electronically signed by: [id number] Alonzo Hendrix M.D. (04/14/2018, | | | 5:00:06 PM)Fellow(s) participating in diagnosis: Lisha Larios; | | | Final | | + + + + + | Procedure Note | + + | Interface, Cardiology Results - 04/14/2018 5:00 PM [facility] [place] | | [facility] Echocardiography Laboratory [address] [place] [address] | | [place], [place] [address] Pt Name: COURTNEY | | PIERRE ALEXANDER Study Date/Time 04/14/2018 / 12:55:32 PMMRN: [id number] | | Most recent prior: 03/10/2017Acc #: [id number] No. previous echos: | | 1DOB: 1940 77 years Heart Rate: 54 bpmHeight: 69.0 in | | Blood Pressure: 143/71 mm/HgWeight: 189.0 lb Gender: | | MBSA: 2.02 m2 Order ID: [id number] Professional Fighter: Sameera | | Lisa DOESonographer 2:Referring Provider: Jamaal Marques [facility]: | | [facility]: 2[facility], Color flow, Spectral Doppler and Lumason contrast.Study | | Quality: Good.Exam Indication: Heart failureHistory: 77 y.o. patient with a history of | | hypertension (suboptimal control), TIA (Dec 2016, mechanism unknown), s/p nephrectomy | | for clear cell carcinoma in Feb 2017 that was complicated by cardiogenic shock, VT and | | atrial fibrillation caused by severe CAD and had emergency PCI to the left main ([facility]). | | Patient history has been obtained from the EHR Transthoracic Echocardiographic | | Report+ +Fi | | nal Impressions: | | | | 1. The left ventricular cavity | | size is normal. 2. The LV function is moderately | | abnormal. 3. Left ventricular systolic thickening is | | segmentally abnormal (see comments below). | | 4. Visually estimated left ventricular ejection fraction is 35 | | - 40%. 5. Right ventricular size, thickness and function are normal. | | 6. The estimated right ventricular systolic pressure is moderately elevated (RVSP | | = 56.6 mmHg). 7. Compared to | | the most recent exam dated, 03/10/2017, the LVEF has decreased. | | | | + + | | Description of Findings: Cardiac Rhythm: Normal sinus rhythm.Left Ventricle: The left | | ventricular cavity size is normal. The LV function is moderately abnormal. Visually | | estimated left ventricular ejection fraction is 35 - 40%. The global longitudinal strain | | is -12.4 %. There is no left ventricular hypertrophy. The ejection fraction is 37.3 % | | as measured by Little's biplane method. Due to poor endocardial definition, ultrasound | | contrast was used (Lumason).Left Ventricular Wall Motion: The basal and mid inferior | | wall, basal and mid inferolateral wall, and basal inferoseptal segment are akinetic. The | | mid anterolateral segment, apical lateral segment, and apical inferior segment are | | hypokinetic. All remaining scored segments are normal. Left ventricular systolic | | thickening is segmentally abnormal.Atria: Left atrial size is moderately dilated. Normal | | right atrium.Right Ventricle: Right ventricular size, thickness and function are | | normal. TAPSE measures 2.0cm. The RV TDI s' velocity is 11cm/sec.Aortic Valve: The | | aortic valve is trileaflet and mildly calcified. No indication of aortic valve | | regurgitation.Mitral Valve: The mitral valve is structurally normal. Trace mitral valve | | regurgitation.Tricuspid Valve: The tricuspid valve is structurally normal. Trace | | tricuspid regurgitation. The tricuspid regurgitant velocity is 3.59 m/s, and with an | | assumed right atrial pressure of 5 mmHg, the estimated right ventricular systolic | | pressure is moderately elevated at 56.6 mmHg.Pulmonic Valve: The pulmonic valve is | | structurally normal. No indication of pulmonary valve regurgitation. The peak trans | | pulmonic gradient is 2.7 mmHg.Aorta: Visualized portions of the ascending aorta and | | aortic root appear normal.Venous: The inferior vena cava was not well | | visualized.Pericardium: No pericardial effusion is seen.2D Measurements | | Doppler Measurements 2D NL Values Aortic MitralLVID(d) 5.67 | | (3.5-5.7cm) Max Shahid 1.26 Peak E 0.44 cm m/s | | m/sLVID(s) 4.91 Mean grad 3.9 Peak A 0.82 | | cm mmHg m/sIVS(d) 1.01 (0.6-1.1cm) LVOT Shahid | | 0.96 E/A Ratio 0.54 cm m/sLVPW(d) 0.85 | | (0.6-1.1cm) TDI (E/e') 14.8 cm LVOT Diam 2.04 | | MV mn gdLA A/Ps 2D 4.43 (2.7-3.9cm) cm cm | | Tricuspid PulmonicLA vol A/L 95.3 (40-73ml) TR Vmax 3.59 PV Vmax 0.8BP | | ml m/s m/sLA vol A/L 47.3 (16-34) RA | | Press 5 RVOT VTI 16.3index ml/m2 mmHg | | cmLA vol MOD 87.0 (40-73ml) RVSP 57 PV mn gdBP ml | | mmHgLA vol MOD 43.1 (16-34)index ml/m2 Aorta: | | Index: Ao Sinus 3.17 (2.1-3.5cm)Biplane EF 37.3 % | | cmGLS % -12.4 Asc Ao 2.94 % | | (prox) cmEvaluation of chamber size and geometry is accomplished through the | | incorporation of linear, volumetric, and indexed values Wall Scoring: Report | | electronically signed by: [id number] Alonzo Hendrix M.D. (04/14/2018, 5:00:06 | | PM)Fellow(s) participating in diagnosis: Lisha Larios; Final | |regurgitation. The tricuspid regurgitant velocity is 3.59 m/s, and with an assumed | |right atrial pressure of 5 mmHg, the estimated right ventricular systolic pressure is | | moderately elevated at 56.6 mmHg. | |Pulmonic Valve: The pulmonic valve is structurally normal. No indication of pulmonary | | valve regurgitation. The peak trans pulmonic gradient is 2.7 mmHg. | |Aorta: Visualized portions of the ascending aorta and aortic root appear normal. | |Venous: The inferior vena cava was not well visualized. | |Pericardium: No pericardial effusion is seen. | |2D Measurements Doppler Measurements | | | | 2D NL Values Aortic Mitral | |LVID(d) 5.67 (3.5-5.7cm) Max Shahid 1.26 Peak E 0.44 | | cm m/s m/s | |LVID(s) 4.91 Mean grad 3.9 Peak A 0.82 | | cm mmHg m/s | |IVS(d) 1.01 (0.6-1.1cm) LVOT Shahid 0.96 E/A Ratio 0.54 | | cm m/s | |LVPW(d) 0.85 (0.6-1.1cm) TDI (E/e') 14.8 | | cm LVOT Diam 2.04 MV mn gd | |LA A/Ps 2D 4.43 (2.7-3.9cm) cm | | cm Tricuspid Pulmonic | |LA vol A/L 95.3 (40-73ml) TR Vmax 3.59 PV Vmax 0.8 | |BP ml m/s m/s | |LA vol A/L 47.3 (16-34) RA Press 5 RVOT VTI 16.3 | |index ml/m2 mmHg cm | |LA vol MOD 87.0 (40-73ml) RVSP 57 PV mn gd | |BP ml mmHg | |LA vol MOD 43.1 (16-34) | |index ml/m2 Aorta: Index: | | Ao Sinus 3.17 (2.1-3.5cm) | |Biplane EF 37.3 % cm | |GLS % -12.4 Asc Ao 2.94 | | % (prox) cm | |Evaluation of chamber size and geometry is accomplished through the incorporation of | |linear, volumetric, and indexed values | | | |Wall Scoring: | | | | | |Report electronically signed by: [id number] Alonzo Hendrix M.D. (04/14/2018, 5:00:06 | |PM) | |Fellow(s) participating in diagnosis: Lisha Larios; | | | | | | | | Final | + + + + + + + | Performing | Address | City/State/Zipcode | Phone Number | | Organization | | | | + + + + + | [facility] | [address] | [place], [place] | | | CARDIOLOGY | [address] | [address] | | + + + + + documented in this encounter Visit Diagnoses + + | Diagnosis | + + | Heart failure, systolic, chronic (HCC) - Primary Chronic systolic heart failure | + + documented in this encounter"
--- OUTSIDE RECORDS SUMMARY | ~2019-08-08 | XMS | Encounter Summary ---
Demographics + + + | Address | [address] | | | [place] [address] | + + + | Home Phone | | + + + | Preferred Language | Unknown | + + + | Marital Status | | + + + | [employer] Affiliation | NON | + + + [...] Team Providers + +------+ + | Care Lambskin Trimmer Name | Role | Phone | + +------+ + | Vaughn Estes MD | PCP | | + +------+ + Reason for Visit + + + | Reason | Comments | + + + | Post Op Problem | | + + + AUTH/CERT +--------+--------+ + + + + | Status | Reason | Specialty | Diagnoses / | Referred By | Referred To | | | | | Procedures | Contact | Contact | +--------+--------+ + + + + | | | | | | | +--------+--------+ + + + + Encounter Details +--------+ + + + + | Date | Type | Department | Care Team | Description | +--------+ + + + + | 03/10/ | Hospital | [facility] [address] | Rishi Karimi, | | | 2017 - | Encounter | [address] | [address] [facility] | | | | | [place], [place] | [address] | | | 03/13/ | | [address] | [place], [place] | | | 2016 | | [phone] | [address] | | | | | | [phone] | | | | | | | | +--------+ + + + + Social History + +-------+ +--------+------+ | Tobacco Use | Types | Packs/Day | Years | Date | | | | | Used | | + +-------+ +--------+------+ | Never Smoker | | | | | + +-------+ +--------+------+ + + +---------+ + | Alcohol Use | Drinks/Week | oz/Week | Comments | + + +---------+ + | No | | | | + + +---------+ + [...] + + documented as of this encounter Last Filed Vital Signs + + + + + | Vital Sign | Reading | Time Taken | Comments | + + + + + | Blood Pressure | 127/64 | 03/13/2017 8:21 AM | | | | | PDT | | + + + + + | Pulse | 67 | 03/13/2017 8:21 AM | | | | | PDT | | + + + + + | Temperature | 36.3 C (97.3 F) | 03/13/2017 8:21 AM | | | | | PDT | | + + + + + | Respiratory Rate | 16 | 03/13/2017 8:21 AM | | | | | PDT | | + + + + + | Oxygen Saturation | 96% | 03/13/2017 8:21 AM | | | | | PDT | | + + + + + | Inhaled Oxygen | - | - | | | Concentration | | | | + + + + + | Weight | 95.7 kg (210 lb 15.7 | 03/10/2017 1:49 AM | | | | oz) | PDT | | + + + + + | Height | 175.3 cm (5' 9") | 03/10/2017 1:49 AM | | | | | PDT | | + + + + + | Body Mass Index | 31.16 | 03/10/2017 1:49 AM | | | | | PDT | | + + + + + documented in this encounter Discharge Summaries Rishi Karimi MD - 03/13/2017 11:12 AM PDTFormatting of this note might be different fr om the original. [facility] INPATIENT DISCHARGE SUMMARY Author: Sejal Gill MD Attending Physician: Dr. Karimi PCP: Vaughn Estes MD Admission Date: 03/10/2017 Discharge Date: 13 Mar 2017 Diagnoses Principal Final Diagnosis: 1. Right rectus sheath hematoma 2. Ground level fall Additional Diagnoses: CAD HTN S/p recent R nephrectomy GERD (Non-traumatic) Rectus Sheath Hematoma 2/2 Coagulopathy due to Anticoagulants Brief Hospital Course Courtney Alexander is a 76 year old man with a complex history including hypertension, prostate cancer s/p external beam radiation, transient ischemic attack in (on aspir in and plavix), and renal cell carcinoma s/p open right nephrectomy on 02/26/17. Post-operati ve course was complicated by a NSTEMI in PACU and he underwent cardiac catheterization. He w as found to have triple vessel disease and had a drug eluting stent placed in distal LM and proximal LAD. Pt also found to have heart failure with nonsustained ventricular tachycardia, and jie-operative atrial fibrillation for which he underwent electrocardioversion. He was discharged home on 03/06 on aspirin, ticagrelor, and warfarin with a Lovenox bridge. He had a syncopal event at home on 03/10/17 and was brought to the ED and found to have a rectus sheat h hematoma. He was given 2u of packed red blood cells and transferred to [facility] for further ma nagement of his hematoma. At [facility], he underwent a CT of the head and neck which were normal. His lovenox and warfarin were stopped (ticagrelor and ASA were continued) and he was monito red in the ICU. His hematocrit continued to decrease for a day and he required another two u nits of blood. His hematocrit then stabilized for >24hrs. Cardiology was consulted in regard s to his anticoagulation regimen and they recommended stopping warfarin and lovenox, but con tinuing ticagrelor as an outpatient. He will follow up with his child health associate in 1 week. Medications: Discharge Medication List as of 03/13/2017 10:45 AM START taking these medications Details acetaminophen 500 mg oral tablet Take 1.25 tablets by mouth every six hours as needed., OTC CONTINUE these medications which have NOT CHANGED Details amiodarone 200 mg oral tablet Take 2 tablets twice daily until 03/12/17, then take 1 tablet t wice daily until 5/19, then take 1 tablet daily, Historical Med amLODIPine 2.5 mg oral tablet Take 2.5 mg by mouth once daily in the evening., Historical M ed aspirin EC 81 mg oral tablet,delayed release (DR/EC) Take 81 mg by mouth once daily., Histo rical Med atorvastatin 40 mg oral tablet Take 40 mg by mouth once daily in the evening., Historical M ed calcium carbonate chewable 200 mg calcium (500 mg) oral tablet,chewable Chew and swallow 1, 000 mg as needed (heartburn)., Historical Med cholecalciferol, Vitamin D3, 2,000 unit oral capsule Take 2,000 Units by mouth once daily i n the evening., Historical Med cholestyramine, with sugar, 4 gram oral powder in packet Mix 4 g and take orally once daily as needed (diarrhea)., Historical Med cyanocobalamin 1,000 mcg oral tablet Take 1,000 mcg by mouth twice weekly. Take on Wednesday and Wednesday, Historical Med esomeprazole 40 mg oral capsule,delayed release(DR/EC) Take 40 mg by mouth two times daily. , Historical Med fexofenadine 180 mg oral tablet Take 180 mg by mouth once daily., Historical Med FOLIC ACID/MULTIVIT-MIN/LUTEIN (CENTRUM SILVER ORAL) Take 1 tablet by mouth once daily., Hi storical Med furosemide 20 mg oral tablet Take 20 mg by mouth once daily., Historical Med lisinopril 5 mg oral tablet Take 5 mg by mouth once daily., Historical Med loperamide (IMODIUM A-D) 2 mg oral tablet Take 2-4 mg by mouth once daily as needed for valentino rrhea., Historical Med metoprolol succinate 100 mg oral tablet extended release 24 hr Take 100 mg by mouth once da jose c., Historical Med potassium chloride SR 10 mEq oral tablet,ER particles/crystals Take 10 mEq by mouth once da jose c., Historical Med ticagrelor 90 mg oral tablet Take 90 mg by mouth two times daily., Historical Med STOP taking these medications enoxaparin 100 mg/mL subcutaneous syringe Comments: Reason for Stopping: warfarin 5 mg oral tablet Comments: Reason for Stopping: Diet Regular Regular diet- There are no restrictions to your diet. You may eat or drink whatever you pr efer, though healthy food choices are recommended. Activity No activity restrictions Destination: Destination: Home Condition on Discharge Fair Schedule the following appointment(s) when you get home Follow up with VAUGHN ESTES MD. Specialty: Internal Medicine Why: for follow up of hospital stay Contact information [facility] [address] [place] [address] [address] [place] [address] Follow up with Your child health associate in [place] In 1 week. Other Discharge Orders and Instructions Please continue ticagrelor and aspirin, but stop your lovenox and warfarin. Complete your 3 0 day course of amiodarone. Please follow up with your child health associate as soon as you can. Vitals on discharge: Ht 1.753 m (5' 9"), Wt 95.7 kg (210 lb 15.7 oz), BP 127/64, Pulse 67, Temperature 36.3 C (97.3 F), RR 16, SpO2 96%, BMI 31.16 kg/(m^2). Physical Exam: Gen: Resting comfortably in bed, in NAD Neuro: CNII-XII grossly intact, no focal neurological deficits HEENT: NCAT, EOMI, MMM, no scleral icterus Pulm: Unlabored on RA CV: HRRR Abd: soft, mild distention, R subcostal incision c/d/i with steristrips in place, scattered ecchymosis, firm tender palpable right rectus hematoma Ext: Warm and well perfused Outstanding labs/studies: None Discharging Physician: Sejal Gill MD Attending Physician: Dr. Sachi Gill MD General Surgery, [id number] 1:03 PM 03/13/2017 documented in this e ncounter Discharge Instructions Instructions Sunshine Roberts RN - 03/13/2017 Discharge Nurse: Sunshine Roberts RN Date: 03/13/2017 Discharge Time: 10:44 AM documented in this encounter Medications at Time of Discharge [...] | | | | | | | release(/EC) | | | | | | + [...] + documented as of this encounter Progress Notes Sejal Gill MD - 03/12/2017 4:56 PM PDT EM[facility] GENERAL SURGERY Division of Trauma and Critical Care Inpatient Progress Notes Author: Sejal Gill MD Attending Physician: Dr. Hanley Note Date: 03/12/2017 Admission Date: 03/10/2017 COURTNEY ALEXANDER, Hospital Day #3 ID: Courtney Alexander is a 76 y.o. male with complex history including HTN, prostate canc er s/p external beam radiation, TIA in (on aspirin and plavix), and renal cell carci noma s/p open right nephrectomy on 02/26 c/b NSTEMI (THERON placed in distal LM and proximal LAD ), nonsustained VT, and Afib for which he underwent electrocardioversion. He was discharged home on 03/06 on aspirin, ticagrelor, and warfarin with a Lovenox bridge. He had a syncopal e vent at home, presented to OSH and was found to have a right rectus sheath hematoma, he then was transferred to [facility] for further management. Procedures -none Interval History: -no acute events overnight -afebrile and VSS -no chest pain -Hct stable at 26 -feels unstable on feet and weak from being in bed, hesitant to return home today Consults: cardiology OBJECTIVE: LAST VITALS: BP 141/64 | Pulse 76 | Temp 36.4 C (97.5 F) | RR 16 | Ht 1.753 m (5' 9") | Wt 95.7 kg (210 lb 15.7 oz) | SpO2 96% | BMI 31.16 kg/(m^2) 24 Hour Vital Min/Max: Systolic (24hrs), Av , Min:117 , Max:151 Diastolic (24hrs), A v, Min:63, Max:77 Physical Exam: Gen: Resting comfortably in bed, in NAD Neuro: CNII-XII grossly intact, no focal neurological deficits HEENT: NCAT, EOMI, MMM, no scleral icterus Pulm: Unlabored on RA CV: HRRR Abd: soft, mild distention, R subcostal incision c/d/i with steristrips in place, scattered ecchymosis, firm tender palpable right rectus hematoma Ext: Warm and well perfused Labs: Recent Labs 03/11/17 1544 03/11/17 2033 03/12/17 0151 WBC 13.76* 11.51* 12.36* HB 9.1* 9.0* 8.9* HCT 26.8* 26.8* 26.6* PLT 336 328 322 Recent Labs 03/10/17 0151 03/11/17 0205 03/11/17 0940 03/12/17 0151 NA 136 -- 134* -- 133* K 4.7 -- 4.1 -- 4.2 CL 104 -- 104 -- 102 BICARB 22 -- 23 -- 22 BUN 19 -- 15 -- 12 CR 1.18 -- 1.17 -- 1.08 GLU 127* < > 125* 128* 121* CA 8.2* -- 8.2* -- 8.3* MG -- -- 2.1 -- 2.2 PO4 3.4 -- 2.3* -- 2.5 < > = values in this interval not displayed. Imaging: CT head and neck: -Prominent CSF density extra cerebral fluid spaces over both frontal lobes are favored to r epresent enlarged subarachnoid fluid spaces. Scattered white matter hypodensities most likel y reflect chronic small vessel ischemic changes for age. Otherwise, no evidence for acute in tracranial hemorrhage. -No acute fracture or malalignment of the cervical spine. ASSESSMENT/PLAN: Courtney Alexander is a 76 y.o. male with complex history including HTN, prostate canc er s/p external beam radiation, TIA in (on aspirin and plavix), and renal cell carci noma s/p open right nephrectomy on 02/26 c/b NSTEMI (THERON placed in distal LM and proximal LAD ), nonsustained VT, and Afib for which he underwent electrocardioversion. He was discharged home on 03/06 on aspirin, ticagrelor, and warfarin with a Lovenox bridge. He had a syncopal e vent at home, presented to OSH and was found to have a right rectus sheath hematoma, he then was transferred to [facility] for further management. CT head and neck wnl. Hct stable at 26, doi ng well. Neuro: GLF -- CT head and c-spine without contrast wnl -- tylenol 1g tid, oxy prn Respiratory: -- aggressive IS/pulmonary hygiene -- fexofenadine for allergic rhinitis Cardiovascular: NSTEMI s/p THERON, Afib -- Continue aspirin and ticagrelor for recent THERON -- Continue statin -- continue home amio, 400mg bid til 03/12 and the 200mg bid, stop after 30 days -- metop 50 bid (home metop dose is 100mg daily) -- holding home lisinopril 5mg and amlodipine 2.5mg -- hold home lasix 20md daily -- cardiology consult recommending no warfarin and lovenox -- pt will follow up with child health associate in [place] GI/Abd: right rectus sheath hematoma, GERD -- regular diet -- Continue home PPI -- abdominal binder for comfort : Renal cell carcinoma s/p R nephrectomy -- Strict I/Os FEN: -- Regular diet, SLIV -- Replete lytes as needed Heme: Acute blood loss anemia s/p 4u RBC -- Trend CBC q8h -- holding warfarin and lovenox -- cardiology consult recommending no warfarin and lovenox ID: -- No need for antibiotics at this time -- Unclear cause of initial leukocytosis to 30, down trending, continue to monitor Endo: no issues Disposition: continue acute care, dispo pending stabilization of Hct and cardiology recs Sejal Gill MD PGY-1, General Surgery [facility] [employer] Pager [phone] Sejal Hightower MD - 0 03/11/2017 7:26 AM PDT EMERGENCY GENERAL SURGERY Division of Trauma and Critical Care Inpatient Progress Notes Author: Sejal Gill MD Attending Physician: Dr. Hanley Note Date: 03/11/2017 Admission Date: 03/10/2017 COURTNEY ALEXANDER, Hospital Day #1 ID: Courtney Alexander is a 76 y.o. male with complex history including HTN, prostate canc er s/p external beam radiation, TIA in (on aspirin and plavix), and renal cell carci noma s/p open right nephrectomy on 02/26 c/b NSTEMI (THERON placed in distal LM and proximal LAD ), nonsustained VT, and Afib for which he underwent electrocardioversion. He was discharged home on 03/06 on aspirin, ticagrelor, and warfarin with a Lovenox bridge. He had a syncopal e vent at home, presented to OSH and was found to have a right rectus sheath hematoma, he then was transferred to [facility] for further management. 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, symptoms more consistent with his tory of GERD, EKG unchanged, CXR with atelectasis -troponin .27-->.23-->.29 -antiplatelets restarted -no chest pain since episode, doing well this morning, complaining of some nasal congestion Consults: cardiology OBJECTIVE: LAST VITALS: BP 115/65 | Pulse 75 | Temp 36.6 C (97.9 F) | RR 18 | Ht 1.753 m (5' 9") | Wt 95.7 kg (210 lb 15.7 oz) | SpO2 98% | BMI 31.16 kg/(m^2) 24 Hour Vital Min/Max: Systolic (24hrs), Av , Min:93 , Max:129 Diastolic (24hrs), Av , Min:44, Max:81 Physical Exam: Gen: Resting comfortably in bed, in NAD Neuro: CNII-XII grossly intact, no focal neurological deficits HEENT: NCAT, EOMI, MMM, no scleral icterus Pulm: Unlabored on RA CV: HRRR Abd: soft, mild distention, R subcostal incision c/d/i with steristrips in place, scattered ecchymosis, firm tender palpable right rectus hematoma Ext: Warm and well perfused Labs: Recent Labs 03/10/17200403/11/17 0205 03/11/17 0441 WBC 15.35* 12.11* 13.46* HB 7.6* 6.8* 7.1* HCT 23.4* 20.4* 21.5* PLT 319 289 302 Recent Labs 03/10/17 0151 03/10/17 1211 03/10/17 2342 03/11/17 0205 NA 136 -- -- -- 134* K 4.7 -- -- -- 4.1 CL 104 -- -- -- 104 BICARB 22 -- -- -- 23 BUN 19 -- -- -- 15 CR 1.18 -- -- -- 1.17 GLU 127* < > 154* 110* 125* CA 8.2* -- -- -- 8.2* MG -- -- -- -- 2.1 PO4 3.4 -- -- -- 2.3* < > = values in this interval not displayed. Imaging: CT head and neck: -Prominent CSF density extra cerebral fluid spaces over both frontal lobes are favored to r epresent enlarged subarachnoid fluid spaces. Scattered white matter hypodensities most likel y reflect chronic small vessel ischemic changes for age. Otherwise, no evidence for acute in tracranial hemorrhage. -No acute fracture or malalignment of the cervical spine. ASSESSMENT/PLAN: Courtney Alexander is a 76 y.o. male with complex history including HTN, prostate canc er s/p external beam radiation, TIA in (on aspirin and plavix), and renal cell carci noma s/p open right nephrectomy on 02/26 c/b NSTEMI (THERON placed in distal LM and proximal LAD ), nonsustained VT, and Afib for which he underwent electrocardioversion. He was discharged home on 03/06 on aspirin, ticagrelor, and warfarin with a Lovenox bridge. He had a syncopal e vent at home, presented to OSH and was found to have a right rectus sheath hematoma, he then was transferred to [facility] for further management. CT head and neck wnl. Hct stable yesterday and then down trended 23-->20 overnight and given 2u RBC. Rapid response called last night f or chest pain, does not appear to be cardiac in origin. Neuro: GLF -- CT head and c-spine without contrast wnl -- tylenol 1g tid, oxy prn Respiratory: -- aggressive IS/pulmonary hygiene -- fexofenadine for allergic rhinitis Cardiovascular: NSTEMI s/p THERON, Afib, CHF -- telemetry monitoring -- follow up serial troponin -- Continue aspirin and ticagrelor for recent THERON -- Continue statin -- continue home amio, 400mg bid til 03/12 and the 200mg bid -- metop 12.5 bid (home metop dose is 100mg daily) -- holding home lisinopril 5mg and amlodipine 2.5mg -- hold home lasix 20md daily -- cardiology consult GI/Abd: right rectus sheath hematoma, GERD -- regular diet -- Continue home PPI -- abdominal binder for comfort : Renal cell carcinoma s/p R nephrectomy -- Strict I/Os FEN: -- Regular diet, SLIV -- Replete lytes as needed Heme: Acute blood loss anemia s/p 4u RBC -- Trend CBC q8h -- holding warfarin and lovenox -- appreciate cards input on anticoag ID: -- No need for antibiotics at this time -- Unclear cause of initial leukocytosis to 30, down trending, continue to monitor Endo: no issues Disposition: continue acute care, dispo pending stabilization of Hct and cardiology recs Sejal Gill MD PGY-1, General Surgery [facility] [employer] Pager [phone] night, Ilya baer MD - 03/11/2017 4:39 AM PDTPaged by RN that pt was reporting CP. ACCESS DIRECTOR called. On exam, th e patient states that he woke up about 45 min prior and noted mid-sternal chest discomfort t hat felt like indigestion. Pt states that he has had symptoms of GERD in the past and takes prilosec because of it. He states that the discomfort now is similar to prior GERD episodes. However, given his recent MD, he notified the nurse. Denies radiation of the pain to his ja w, neck, shoulder, or arm. Denies any nausea or SOB. He describes the quality of the discomf ort as mostly a substernal burning, but with a little bit of chest pressure as well. States that the discomfort feels slightly better now. BP 123/67 | Pulse 91 | Temp 36.5 C (97.7 F) | RR 17 | Ht 1.753 m (5' 9") | Wt 95.7 kg ( 210 lb 15.7 oz) | SpO2 91% | BMI 31.16 kg/(m^2) Physical Exam: Gen - Alert, conversant, NAD CV - RRR. Normal S1/S2. No m/g/r Pulm - No increased work of breathing. CTAB Abd - Soft, appropriately tender, non-distended Ext - Warm, well perfused; 1+ BLE edema Neuro - Grossly intact; no focal abnormalities A/P: 76 male with history of HTN, prostate cancer, TIA, and renal cell carcinoma s/p right nephrectomy on 02/26 complicated by perioperative NSTEMI requiring THERON placement. Pt discharg ed on 03/06 on aspirin, tigagrelor, and warfarin with a Lovenox bridge. He then had GLF on 03/10 and found to have rectus sheath hematoma. Pt transferred out of ICU yesterday with q8h Hct checks, which had initially been stable at 23, but most recently had dropped to 20. Thus pt was ordered to get 2 units of RBC, which he was just about to receive; he is now reporting substernal chest discomfort which seems to be more c/w GERD, and his symptoms are improving. However, given his recent MD, a thorough cardiac work-up will be done. His ASA and ticagrel or were not resumed upon transfer out of the ICU. -ASA 325mg now. -EKG, which is unchanged from yesterday -Troponin x 3. -BNP -Repeat CBC. Transfuse 2 units -CXR -Telemetry -Continuous pulse ox Discussed plan with Dr. Madison Flynn. Korin Rivera MD PGY-1 Pager [phone] Gian Sagastume RN - 03/10/2017 9:21 AM PDTUtilization Management Assessment [facility] [place]1 applied: Syncope, extended stay due to complex cardiac history Goal or Benchmark LOS: 4 days Today is guideline day/stage 2 of 2 1[facility]G Care Guidelines are nationally recognized evidence based care guidelines that include an Optimal Recovery Course and aid in medical necessity for admission and continued stay scr eening. The goal length of stay represents the optimal length of stay for the optimal patie nt. Nationally 25-40% of patients meet the goal or benchmark length of stay. Leslye DUGAN RN Utilization Management Dept of Care Management Pager [phone] rittnee Pryor - 03/10/2017 9:20 AM PDTTransthoracic echocardiogram completed. Final report to follow. documented in this encounter Plan of Treatment + + +--------+ + + | Name | Type | Priori | Associated Diagnoses | Date/Time | | | | ty | | | + + +--------+ + + | PLATELET MAPPING, | Lab - Point | Routin | | 03/10/2017 3:53 AM | | POC | of Care | e | | PDT | + + +--------+ + + documented as of this encounter Procedures + +--------+ + + + | Procedure Name | Priori | Date/Time | Associated Diagnosis | Comments | | | ty | | | | + +--------+ + + + | CBC (HEMOGRAM) ONLY | Routin | 03/13/2017 | | Results for this | | | e | 5:39 AM | | procedure are in the | | | | PDT | | results section. | + +--------+ + + + | CBC ONLY | Routin | 03/13/2017 | | Results for this | | | e | 5:39 AM | | procedure are in the | | | | PDT | | results section. | + +--------+ + + + | CBC (HEMOGRAM) ONLY | Routin | 03/12/2017 | | Results for this | | | e | 1:51 AM | | procedure are in the | | | | PDT | | results section. | + +--------+ + + + | TROPONIN I, PLASMA | Routin | 03/12/2017 | | Results for this | | | e | 1:51 AM | | procedure are in the | | | | PDT | | results section. | + +--------+ + + + | RENAL FUNCTION SET | Urgent | 03/12/2017 | | Results for this | | (NA,K,CL,CO2,BUN,CRE | | 1:51 AM | | procedure are in the | | AT,GLUC,CA,PHOS,ALB | | PDT | | results section. | | ) | | | | | + +--------+ + + + | CBC ONLY | Routin | 03/12/2017 | | Results for this | | | e | 1:51 AM | | procedure are in the | | | | PDT | | results section. | + +--------+ + + + | MAGNESIUM, PLASMA | Urgent | 03/12/2017 | | Results for this | | | | 1:51 AM | | procedure are in the | | | | PDT | | results section. | + +--------+ + + + | CBC (HEMOGRAM) ONLY | Routin | 03/11/2017 | | Results for this | | | e | 8:33 PM | | procedure are in the | | | | PDT | | results section. | + +--------+ + + + | TROPONIN I, PLASMA | Routin | 03/11/2017 | | Results for this | | | e | 8:33 PM | | procedure are in the | | | | PDT | | results section. | + +--------+ + + + | CBC ONLY | Routin | 03/11/2017 | | Results for this | | | e | 8:33 PM | | procedure are in the | | | | PDT | | results section. | + +--------+ + + + | CBC (HEMOGRAM) ONLY | Routin | 03/11/2017 | | Results for this | | | e | 3:44 PM | | procedure are in the | | | | PDT | | results section. | + +--------+ + + + | TROPONIN I, PLASMA | Routin | 03/11/2017 | | Results for this | | | e | 3:44 PM | | procedure are in the | | | | PDT | | results section. | + +--------+ + + + | CBC ONLY | Routin | 03/11/2017 | | Results for this | | | e | 3:44 PM | | procedure are in the | | | | PDT | | results section. | + +--------+ + + + | CAPILLARY BLOOD | Routin | 03/11/2017 | Hematoma | Results for this | | GLUCOSE (NO CHG), | e | 9:40 AM | | procedure are in the | | POC | | PDT | | results section. | + +--------+ + + + | X-RAY PORTABLE CHEST | Urgent | 03/11/2017 | | Results for this | | 1 VIEW | | 6:38 AM | | procedure are in the | | | | PDT | | results section. | + +--------+ + + + | 12 LEAD ECG | Routin | 03/11/2017 | | Results for this | | | e | 4:46 AM | | procedure are in the | | | | PDT | | results section. | + +--------+ + + + | NT-PRO BNP | Routin | 03/11/2017 | | Results for this | | | e | 4:41 AM | | procedure are in the | | | | PDT | | results section. | + +--------+ + + + | CBC (HEMOGRAM) ONLY | Urgent | 03/11/2017 | | Results for this | | | | 4:41 AM | | procedure are in the | | | | PDT | | results section. | + +--------+ + + + | TROPONIN I, PLASMA | Routin | 03/11/2017 | | Results for this | | | e | 4:41 AM | | procedure are in the | | | | PDT | | results section. | + +--------+ + + + | CBC ONLY | Urgent | 03/11/2017 | | Results for this | | | | 4:41 AM | | procedure are in the | | | | PDT | | results section. | + +--------+ + + + | PRODUCT - RED CELLS | Routin | 03/11/2017 | | Results for this | | LEUKOREDUCED | e | 3:01 AM | | procedure are in the | | | | PDT | | results section. | + +--------+ + + + | PRODUCT - RED CELLS | Routin | 03/11/2017 | | Results for this | | LEUKOREDUCED | e | 3:01 AM | | procedure are in the | | | | PDT | | results section. | + +--------+ + + + | CBC (HEMOGRAM) ONLY | Urgent | 03/11/2017 | | Results for this | | | | 2:05 AM | | procedure are in the | | | | PDT | | results section. | + +--------+ + + + | RENAL FUNCTION SET | Urgent | 03/11/2017 | | Results for this | | (NA,K,CL,CO2,BUN,CRE | | 2:05 AM | | procedure are in the | | AT,GLUC,CA,PHOS,ALB | | PDT | | results section. | | ) | | | | | + +--------+ + + + | CBC ONLY | Urgent | 03/11/2017 | | Results for this | | | | 2:05 AM | | procedure are in the | | | | PDT | | results section. | + +--------+ + + + | MAGNESIUM, PLASMA | Urgent | 03/11/2017 | | Results for this | | | | 2:05 AM | | procedure are in the | | | | PDT | | results section. | + +--------+ + + + | CARDIOLOGY | | 03/11/2017 | | Results for this | | | | 12:00 AM | | procedure are in the | | | | PDT | | results section. | + +--------+ + + + | CAPILLARY BLOOD | Routin | 03/10/2017 | Hematoma | Results for this | | GLUCOSE (NO CHG), | e | 11:42 PM | | procedure are in the | | POC | | PDT | | results section. | + +--------+ + + + | CBC (HEMOGRAM) ONLY | Routin | 03/10/2017 | | Results for this | | | e | 8:05 PM | | procedure are in the | | | | PDT | | results section. | + +--------+ + + + | TROPONIN I, PLASMA | Urgent | 03/10/2017 | | Results for this | | | | 8:05 PM | | procedure are in the | | | | PDT | | results section. | + +--------+ + + + | CBC ONLY | Routin | 03/10/2017 | | Results for this | | | e | 8:05 PM | | procedure are in the | | | | PDT | | results section. | + +--------+ + + + | TROPONIN I, PLASMA | Urgent | 03/10/2017 | | Results for this | | | | 1:06 PM | | procedure are in the | | | | PDT | | results section. | + +--------+ + + + | CAPILLARY BLOOD | Routin | 03/10/2017 | Hematoma | Results for this | | GLUCOSE (NO CHG), | e | 12:11 PM | | procedure are in the | | POC | | PDT | | results section. | + +--------+ + + + | CBC (HEMOGRAM) ONLY | Urgent | 03/10/2017 | | Results for this | | | | 12:02 PM | | procedure are in the | | | | PDT | | results section. | + +--------+ + + + | CBC ONLY | Urgent | 03/10/2017 | | Results for this | | | | 12:02 PM | | procedure are in the | | | | PDT | | results section. | + +--------+ + + + | TRANSTHORACIC | Routin | 03/10/2017 | | Results for this | | ECHOCARDIOGRAM, | e | 8:08 AM | | procedure are in the | | ADULT | | PDT | | results section. | + +--------+ + + + | CBC (HEMOGRAM) ONLY | Urgent | 03/10/2017 | | Results for this | | | | 6:50 AM | | procedure are in the | | | | PDT | | results section. | + +--------+ + + + | CBC ONLY | Urgent | 03/10/2017 | | Results for this | | | | 6:50 AM | | procedure are in the | | | | PDT | | results section. | + +--------+ + + + | TROPONIN I, PLASMA | Urgent | 03/10/2017 | | Results for this | | | | 5:58 AM | | procedure are in the | | | | PDT | | results section. | + +--------+ + + + | PRODUCT - RED CELLS | Routin | 03/10/2017 | | Results for this | | LEUKOREDUCED | e | 5:47 AM | | procedure are in the | | | | PDT | | results section. | + +--------+ + + + | CBC (HEMOGRAM) ONLY | Urgent | 03/10/2017 | | Results for this | | | | 5:22 AM | | procedure are in the | | | | PDT | | results section. | + +--------+ + + + | CBC ONLY | Urgent | 03/10/2017 | | Results for this | | | | 5:22 AM | | procedure are in the | | | | PDT | | results section. | + +--------+ + + + | CT SPINE CERVICAL WO | Routin | 03/10/2017 | | Results for this | | CONTRAST | e | 3:43 AM | | procedure are in the | | | | PDT | | results section. | + +--------+ + + + | CT HEAD WO CONTRAST | Urgent | 03/10/2017 | | Results for this | | | | 3:43 AM | | procedure are in the | | | | PDT | | results section. | + +--------+ + + + | CONFIRMATORY ABO/RH | Routin | 03/10/2017 | | Results for this | | | e | 3:32 AM | | procedure are in the | | | | PDT | | results section. | + +--------+ + + + | 12 LEAD ECG | Routin | 03/10/2017 | | Results for this | | | e | 3:26 AM | | procedure are in the | | | | PDT | | results section. | + +--------+ + + + | CAPILLARY BLOOD | Routin | 03/10/2017 | Hematoma | Results for this | | GLUCOSE (NO CHG), | e | 2:06 AM | | procedure are in the | | POC | | PDT | | results section. | + +--------+ + + + | THROMBELASTOGRAPH, | Routin | 03/10/2017 | | Results for this | | POC | e | 1:51 AM | | procedure are in the | | | | PDT | | results section. | + +--------+ + + + | CBC (HEMOGRAM) ONLY | Urgent | 03/10/2017 | | Results for this | | | | 1:51 AM | | procedure are in the | | | | PDT | | results section. | + +--------+ + + + | RENAL FUNCTION SET | Urgent | 03/10/2017 | | Results for this | | (NA,K,CL,CO2,BUN,CRE | | 1:51 AM | | procedure are in the | | AT,GLUC,CA,PHOS,ALB | | PDT | | results section. | | ) | | | | | + +--------+ + + + | CBC ONLY | Urgent | 03/10/2017 | | Results for this | | | | 1:51 AM | | procedure are in the | | | | PDT | | results section. | + +--------+ + + + | COAGULOPATHY PANEL | Urgent | 03/10/2017 | | Results for this | | (INR,APTT,FIBRINOGEN | | 1:51 AM | | procedure are in the | | ) | | PDT | | results section. | + +--------+ + + + | ANTIBODY SCREEN | Urgent | 03/10/2017 | | Results for this | | | | 1:51 AM | | procedure are in the | | | | PDT | | results section. | + +--------+ + + + | TYPE AND SCREEN | Urgent | 03/10/2017 | | Results for this | | | | 1:51 AM | | procedure are in the | | | | PDT | | results section. | + +--------+ + + + | ABO & RH TYPE | Urgent | 03/10/2017 | | Results for this | | | | 1:51 AM | | procedure are in the | | | | PDT | | results section. | + +--------+ + + + documented in this encounter Results CBC (HEMOGRAM) ONLY (03/13/2017 5:39 AM PDT) + + + + + + | Component | Value | Ref Range | Performed | Pathologist | | | | | At | Signature | + + + + + + | WHITE CELL | 8.89 | 3.50 - 10.80 | [facility] | | | COUNT | | K/cu mm | LABORATORY | | | | | | SERVICES, | | | | | | CORE | | + + + + + + | RED CELL | 2.88 (L) | 4.50 - 6.00 | [facility] | | | COUNT | | M/cu mm | LABORATORY | | | | | | SERVICES, | | | | | | CORE | | + + + + + + | HEMOGLOBIN | 9.4 (L) | 13.5 - 17.5 | [facility] | | | | | g/dL | LABORATORY | | | | | | SERVICES, | | | | | | CORE | | + + + + + + | HEMATOCRIT | 28.0 (L) | 41.0 - 53.0 % | [facility] | | | | | | LABORATORY | | | | | | SERVICES, | | | | | | CORE | | + + + + + + | MCV | 97.2 (H) | 80.0 - 96.0 fL | [facility] | | | | | | LABORATORY | | | | | | SERVICES, | | | | | | CORE | | + + + + + + | MCHC | 33.6 | 33.0 - 35.5 | [facility] | | | | | g/dL | LABORATORY | | | | | | SERVICES, | | | | | | CORE | | + + + + + + | RDW SD | 54.1 (H) | 35.1 - 46.3 fL | [facility] | | | | | | LABORATORY | | | | | | SERVICES, | | | | | | CORE | | + + + + + + | PLATELET | 359 | 150 - 400 K/cu | [facility] | | | COUNT | | mm | LABORATORY | | | | | | SERVICES, | | | | | | CORE | | + + + + + + | MPV | 10.0 | 9.7 - 12.3 fL | [facility] | | | | | | LABORATORY | | | | | | SERVICES, | | | | | | CORE | | + + + + + + | NRBC% | 0.0 | 0.0 - 0.3 % | [facility] | | | | | | LABORATORY | | | | | | SERVICES, | | | | | | CORE | | + + + + + + | NRBC# | 0.00 | 0.00 - 0.02 | [facility] | | | | | K/cu mm | LABORATORY | [...] + + | [facility] | [address] | [place] [address] | | | SERVICES, CORE | [address] | | | + + + + + CBC (HEMOGRAM) ONLY (03/12/2017 1:51 AM PDT) + + + + + + | Component | Value | Ref Range | Performed | Pathologist | | | | | At | Signature | + + + + + + | WHITE CELL | 12.36 (H) | 3.50 - 10.80 | [facility] | | | COUNT | | K/cu mm | LABORATORY | | | | | | SERVICES, | | | | | | CORE | | + + + + + + | RED CELL | 2.79 (L) | 4.50 - 6.00 | [facility] | | | COUNT | | M/cu mm | LABORATORY | | | | | | SERVICES, | | | | | | CORE | | + + + + + + | HEMOGLOBIN | 8.9 (L) | 13.5 - 17.5 | [facility] | | | | | g/dL | LABORATORY | | | | | | SERVICES, | | | | | | CORE | | + + + + + + | HEMATOCRIT | 26.6 (L) | 41.0 - 53.0 % | [facility] | | | | | | LABORATORY | | | | | | SERVICES, | | | | | | CORE | | + + + + + + | MCV | 95.3 | 80.0 - 96.0 fL | [facility] | | | | | | LABORATORY | | | | | | SERVICES, | | | | | | CORE | | + + + + + + | MCHC | 33.5 | 33.0 - 35.5 | [facility] | | | | | g/dL | LABORATORY | | | | | | SERVICES, | | | | | | CORE | | + + + + + + | RDW SD | 55.1 (H) | 35.1 - 46.3 fL | [facility] | | | | | | LABORATORY | | | | | | SERVICES, | | | | | | CORE | | + + + + + + | PLATELET | 322 | 150 - 400 K/cu | [facility] | | | COUNT | | mm | LABORATORY | | | | | | SERVICES, | | | | | | CORE | | + + + + + + | MPV | 9.9 | 9.7 - 12.3 fL | [facility] | | | | | | LABORATORY | | | | | | SERVICES, | | | | | | CORE | | + + + + + + | NRBC% | 0.0 | 0.0 - 0.3 % | [facility] | | | | | | LABORATORY | | | | | | SERVICES, | | | | | | CORE | | + + + + + + | NRBC# | 0.00 | 0.00 - 0.02 | [facility] | | | | | K/cu mm | LABORATORY | | | | | | SERVICES, | | | | | | CORE | | + + + + + + + + | Specimen | + + | Blood | + + + + + | Narrative | Performed At | + + + | Draw next CBC 6 hours post transfusion. | [facility] | | | LABORATORY | | | SERVICES, CORE | + + + + + + + + | Performing | Address | City/State/Zipcode | Phone Number | | Organization | | | | + + + + + | [facility] | [address] | [place] [address] | | | SERVICES, CORE | [address] | | | + + + + + MAGNESIUM, PLASMA (03/12/2017 1:51 AM PDT) + +-------+ + + + | Component | Value | Ref Range | Performed | Pathologist | | | | | At | Signature | + +-------+ + + + | MAGNESIUM,P | 2.2 | 1.8 - 2.5 mg/dL | [facility] | | | [facility] | | | LABORATORY | | | [...] | + + + + + | [facility] | [address] | [place] [address] | | | SERVICES, CORE | [address] | | | + + + + + RENAL FUNCTION SET (NA,K,CL,CO2,BUN,CREAT,GLUC,CA,PHOS,ALB ) (03/12/2017 1:51 AM PDT) + +---------+ + + + | Component | Value | Ref Range | Performed | Pathologist | | | | | At | Signature | + +---------+ + + + | GLUCOSE, | 121 (H) | 60 - 99 mg/dL | [facility] | | | PLASMA | | | LABORATORY | | | (LAB) | | | SERVICES, | | | | | | CORE | | + +---------+ + + + | BUN, PLASMA | 12 | 6 - 20 mg/dL | [facility] | | | (LAB) | | | LABORATORY | | | | | | SERVICES, | | | | | | CORE | | + +---------+ + + + | CREATININE | 1.08 | 0.70 - 1.30 | [facility] | | | PLASMA | | mg/dL | LABORATORY | | | (LAB) | | | SERVICES, | | | | | | CORE | | + +---------+ + + + | EGFR | >60 | >60 mL/min | [facility] | | | - | | | LABORATORY | | | [place] | | | SERVICES, | | | [...] +---------+ + + + | POTASSIUM, | 4.2 | 3.4 - 5.0 | [facility] | | | PLASMA | | mmol/L | LABORATORY | | | (LAB) | | | SERVICES, | | | | | | CORE | | + +---------+ + + + | CHLORIDE, | 102 | 97 - 108 mmol/L | [facility] | | | PLASMA | | | LABORATORY | | | (LAB) | | | SERVICES, | | | | | | CORE | | + +---------+ + + + | TOTAL CO2, | 22 | 21 - 32 mmol/L | [facility] | | | PLASMA | | | LABORATORY | | | (LAB) | | | SERVICES, | | | | | | CORE | | + +---------+ + + + | CALCIUM, | 8.3 (L) | 8.6 - 10.2 | [facility] | | | PLASMA | | mg/dL | LABORATORY | | | (LAB) | | | SERVICES, | | | | | | CORE | | + +---------+ + + + | CALCIUM(ALB | 9.3 | 8.6 - 10.2 | [facility] | | | CORRECTED) | | mg/dL | LABORATORY | | | | | | SERVICES, | | | | | | CORE | | + +---------+ + + + | ALBUMIN, | 2.8 (L) | 3.5 - 4.7 g/dL | [facility] | | | PLASMA | | | LABORATORY | | | (LAB) | | | SERVICES, | | | | | | CORE | | + +---------+ + + + | PHOSPHORUS, | 2.5 | 2.4 - 4.7 mg/dL | [facility] | | | PLASMA [...] + + + | ANION GAP | 9 | mmol/L | [facility] | | | | | | LABORATORY | | | | | | SERVICES, | | | | | | CORE | | + +---------+ + + + | ANION | 12 (H) | 4 - 11 mmol/L | [facility] [...] the MDRD equation recommended by the | [facility] | | National Kidney Disease Education Program. Estimated GFR | LABORATORY | | Interpretive Information: <60 mL/min/1.73 sq | SERVICES, CORE | | m Chronic Kidney Disease <15 [...] | | - Rapidly changing kidney function | | + + + + + + + + | Performing | Address | City/State/Zipcode | Phone Number | | Organization | | | | + + + + + | [facility] | [address] | [place] [address] | | | SERVICES, CORE | [address] | | | + + + + + TROPONIN I, PLASMA (03/12/2017 1:51 AM PDT) + +-------+ + + + | Component | Value | Ref Range | Performed | Pathologist | | | | | At | Signature | + +-------+ + + + | TROPONIN I | 0.32 | <0.80 ng/mL | [facility] | | | | | | LABORATORY [...] + + | [facility] | [address] | [place] [address] | | | SERVICES, CORE | [address] | | | + + + + + CBC (HEMOGRAM) ONLY (03/11/2017 8:33 PM PDT) + + + + + + | Component | Value | Ref Range | Performed | Pathologist | | | | | At | Signature | + + + + + + | WHITE CELL | 11.51 (H) | 3.50 - 10.80 | [facility] | | | COUNT | | K/cu mm | LABORATORY | | | | | | SERVICES, | | | | | | CORE | | + + + + + + | RED CELL | 2.80 (L) | 4.50 - 6.00 | [facility] | | | COUNT | | M/cu mm | LABORATORY | | | | | | SERVICES, | | | | | | CORE | | + + + + + + | HEMOGLOBIN | 9.0 (L) | 13.5 - 17.5 | [facility] | | | | | g/dL | LABORATORY | | | | | | SERVICES, | | | | | | CORE | | + + + + + + | HEMATOCRIT | 26.8 (L) | 41.0 - 53.0 % | [facility] | | | | | | LABORATORY | | | | | | SERVICES, | | | | | | CORE | | + + + + + + | MCV | 95.7 | 80.0 - 96.0 fL | [facility] | | | | | | LABORATORY | | | | | | SERVICES, | | | | | | CORE | | + + + + + + | MCHC | 33.6 | 33.0 - 35.5 | [facility] | | | | | g/dL | LABORATORY | | | | | | SERVICES, | | | | | | CORE | | + + + + + + | RDW SD | 56.3 (H) | 35.1 - 46.3 fL | [facility] | | | | | | LABORATORY | | | | | | SERVICES, | | | | | | CORE | | + + + + + + | PLATELET | 328 | 150 - 400 K/cu | [facility] | | | COUNT | | mm | LABORATORY | | | | | | SERVICES, | | | | | | CORE | | + + + + + + | MPV | 10.3 | 9.7 - 12.3 fL | [facility] | | | | | | LABORATORY | | | | | | SERVICES, | | | | | | CORE | | + + + + + + | NRBC% | 0.0 | 0.0 - 0.3 % | [facility] | | | | | | LABORATORY | | | | | | SERVICES, | | | | | | CORE | | + + + + + + | NRBC# | 0.00 | 0.00 - 0.02 | [facility] | | | | | K/cu mm | LABORATORY | | | | | | SERVICES, | | | | | | CORE | | + + + + + + + + | Specimen | + + | Blood | + + + + + | Narrative | Performed At | + + + | Draw next CBC 6 hours post transfusion. | [facility] | | | LABORATORY | | | SERVICES, CORE | + + + + + + + + | Performing | Address | City/State/Zipcode | Phone Number | | Organization | | | | + + + + + | [facility] | [address] | [place] [address] | | | SERVICES, CORE | [address] | | | + + + + + TROPONIN I, PLASMA (03/11/2017 8:33 PM PDT) + +-------+ + + + | Component | Value | Ref Range | Performed | Pathologist | | | | | At | Signature | + +-------+ + + + | TROPONIN I | 0.33 | <0.80 ng/mL | [facility] | | | | | [...] | + + + + + | [facility] | [address] | [place] [address] | | | SERVICES, CORE | [address] | | | + + + + + CBC (HEMOGRAM) ONLY (03/11/2017 3:44 PM PDT) + + + + + + | Component | Value | Ref Range | Performed | Pathologist | | | | | At | Signature | + + + + + + | WHITE CELL | 13.76 (H) | 3.50 - 10.80 | [facility] | | | COUNT | | K/cu mm | LABORATORY | | | | | | SERVICES, | | | | | | CORE | | + + + + + + | RED CELL | 2.83 (L) | 4.50 - 6.00 | [facility] | | | COUNT | | M/cu mm | LABORATORY | | | | | | SERVICES, | | | | | | CORE | | + + + + + + | HEMOGLOBIN | 9.1 (L) | 13.5 - 17.5 | [facility] | | | | | g/dL | LABORATORY | | | | | | SERVICES, | | | | | | CORE | | + + + + + + | HEMATOCRIT | 26.8 (L) | 41.0 - 53.0 % | [facility] | | | | | | LABORATORY | | | | | | SERVICES, | | | | | | CORE | | + + + + + + | MCV | 94.7 | 80.0 - 96.0 fL | [facility] | | | | | | LABORATORY | | | | | | SERVICES, | | | | | | CORE | | + + + + + + | MCHC | 34.0 | 33.0 - 35.5 | [facility] | | | | | g/dL | LABORATORY | | | | | | SERVICES, | | | | | | CORE | | + + + + + + | RDW SD | 55.1 (H) | 35.1 - 46.3 fL | [facility] | | | | | | LABORATORY | | | | | | SERVICES, | | | | | | CORE | | + + + + + + | PLATELET | 336 | 150 - 400 K/cu | [facility] | | | COUNT | | mm | LABORATORY | | | | | | SERVICES, | | | | | | CORE | | + + + + + + | MPV | 10.3 | 9.7 - 12.3 fL | [facility] | | | | | | LABORATORY | | | | | | SERVICES, | | | | | | CORE | | + + + + + + | NRBC% | 0.0 | 0.0 - 0.3 % | [facility] | | | | | | LABORATORY | | | | | | SERVICES, | | | | | | CORE | | + + + + + + | NRBC# | 0.00 | 0.00 - 0.02 | [facility] | | | | | K/cu mm | LABORATORY | | | | | | SERVICES, | | | | | | CORE | | + + + + + + + + | Specimen | + + | Blood | + + + + + | Narrative | Performed At | + + + | Draw next CBC 6 hours post transfusion. | [facility] | | | LABORATORY | | | [facility]EREM[facility] SINCLAIR | + + + + + + + + | Performing | Address | City/State/Zipcode | Phone Number | | Organization | | | | + + + + + | [facility] | [address] | [place] [address] | | | JEREYM SINCLAIR | [address] | | | + + + + + TROPONIN I, PLASMA (03/11/2017 3:44 PM PDT) + +-------+ + + + | Component | Value | Ref Range | Performed | Pathologist | | | | | At | Signature | + +-------+ + + + | TROPONIN I | 0.27 | <0.80 ng/mL | [facility] | | | | | | LABORATORY [...] [facility] | [address] | [place] [address] | | | SERVICES, CORE | [address] | | | + + + + + CAPILLARY BLOOD GLUCOSE (NO CHG), POC (03/11/2017 9:40 AM PDT) + +---------+ + + + | Component | Value | Ref Range | Performed | Pathologist | | | | | At | Signature | + +---------+ + + + | BLOOD | 128 (H) | 60 - 99 mg/dL | [facility] - | | | GLUCOSE, | | | [facility] | | | POC | | | [facility] | | | | | | OF CARE | | | | | | TESTS | | + +---------+ + + + + + | Specimen | + + | | + + + + + + + | Performing | Address | City/State/Zipcode | Phone Number | | Organization | | | | + + + + + | [facility] | [address] | [place], [place] | | | [facility] | [address] | [id number] | | | TESTS | | | | + + + + + X-RAY PORTABLE CHEST 1 VIEW (03/11/2017 6:38 AM PDT) + + | Specimen | + + | | + + + + + | Narrative | Performed At | + + + | EXAM: AK CHEST 1 VIEW 03/11/17 05:36:47 HISTORY: Chest pain | [facility] | | COMPARISON: None. FINDINGS: The cardiac silhouette is | RADIOLOGY VOICE | | enlarged. There is no definite pleural effusion. There is no | RECOGNITION | | pneumothorax. Scattered atelectasis is noted. The regional bones are | | | intact. IMPRESSION: Scattered atelectasis. Enlarged | | | cardiac silhouette. I have personally reviewed the images and, | | | if necessary, edited the report. I agree with the report as now | | | presented. | | + + + + + | Procedure Note | + + | Service Account, Nolan Res In Interface - 03/11/2017 8:34 AM PDT EXAM: AK CHEST 1 | | VIEW 03/11/17 05:36:47 HISTORY: Chest painCOMPARISON: None.FINDINGS: The cardiac | | silhouette is enlarged. There is no definite pleural effusion. There is no pneumothorax. | | Scattered atelectasis is noted. The regional bones are intact.IMPRESSION: Scattered | | atelectasis.Enlarged cardiac silhouette.I have personally reviewed the images and, if | | necessary, edited the report. I agree with the report as now presented. | |FINDINGS: | | | |The cardiac silhouette is enlarged. There is no definite pleural effusion. There is no pneu mothorax. Scattered atelectasis is noted. The regional bones are intact. | | | |IMPRESSION: | | | |Scattered atelectasis. | | | |Enlarged cardiac silhouette. | | | | | |I have personally reviewed the images and, if necessary, edited the report. I agree with t he report as now presented. | + + + +---------+ + + | Performing | Address | City/State/Zipcode | Phone Number | | Organization | | | | + +---------+ + + | [facility] | | | | | VOICE RECOGNITION | | | | + +---------+ + + 12 LEAD ECG (03/11/2017 4:46 AM PDT) + + + + + + | Component | Value | Ref Range | Performed | Pathologist | | | | | At | Signature | + + + + + + | VENTRICULAR | 85 | bpm | [facility] | | | RATE | | | OF | | | | | | CARDIOLOGY | | + + + + + + | ATRIAL RATE | 85 | ms | [facility] | | | | | | OF | | | | | | CARDIOLOGY | | + + + + + + | P-R | 160 | ms | [facility] | | | INTERVAL | | | OF | | | | | | CARDIOLOGY | | + + + + + + | P AXIS | 44 | deg | [facility] | | | | | | OF | | | | | | CARDIOLOGY | | + + + + + + | QRS | 118 | ms | [facility] | | | DURATION | | | OF | | | | | | CARDIOLOGY | | + + + + + + | QT | 379 | ms | [facility] | | | | | | OF | | | | | | CARDIOLOGY | | + + + + + + | QTCB | 451 | ms | [facility] | | | | | | OF | | | | | | CARDIOLOGY | | + + + + + + | R AXIS | -15 | deg | [facility] | | | | | | OF | | | | | | CARDIOLOGY | | + + + + + + | T AXIS | 58 | deg | [facility] | | | | | | OF | | | | | | CARDIOLOGY | | + + + + + + | ECG | SINUS RHYTHM | | [facility] | | | IMPRESSION | | | OF | | | | | | CARDIOLOGY | | + + + + + + | ECG | NONSPECIFIC | | [facility] | | | IMPRESSION | INTRAVENTRICULAR | | OF | | | | CONDUCTION DELAY | | CARDIOLOGY | | + + + + + + | ECG | MINIMAL ST DEPRESSION, | | [facility] | | | IMPRESSION | LATERAL LEADS- ABNORMAL | | OF | | | | ECG - | | CARDIOLOGY | | + + + + + + | ECG | Electronically signed | | [facility] | | | IMPRESSION | by: SUZETTE ORTIZ | | OF | | | | 03-11-2017 14:01:35 | | CARDIOLOGY | | + + + + + + + + | Specimen | + + | | + + + + + | Narrative | Performed At | + + + | | | + + + + + + + + | Performing | Address | City/State/Zipcode | Phone Number | | Organization | | | | + + + + + | [facility] | [address] | [place], [place] | | | CARDIOLOGY | [address] | [address] | | + + + + + CBC (HEMOGRAM) ONLY (03/11/2017 4:41 AM PDT) + + + + + + | Component | Value | Ref Range | Performed | Pathologist | | | | | At | Signature | + + + + + + | WHITE CELL | 13.46 (H) | 3.50 - 10.80 | [facility] | | | COUNT | | K/cu mm | LABORATORY | | | | | | SERVICES, | | | | | | CORE | | + + + + + + | RED CELL | 2.19 (L) | 4.50 - 6.00 | [facility] | | | COUNT | | M/cu mm | LABORATORY | | | | | | SERVICES, | | | | | | CORE | | + + + + + + | HEMOGLOBIN | 7.1 (L) | 13.5 - 17.5 | [facility] | | | | | g/dL | LABORATORY | | | | | | SERVICES, | | | | | | CORE | | + + + + + + | HEMATOCRIT | 21.5 (L) | 41.0 - 53.0 % | [facility] | | | | | | LABORATORY | | | | | | SERVICES, | | | | | | CORE | | + + + + + + | MCV | 98.2 (H) | 80.0 - 96.0 fL | [facility] | | | | | | LABORATORY | | | | | | SERVICES, | | | | | | CORE | | + + + + + + | MCHC | 33.0 | 33.0 - 35.5 | [facility] | | | | | g/dL | LABORATORY | | | | | | SERVICES, | | | | | | CORE | | + + + + + + | RDW SD | 55.8 (H) | 35.1 - 46.3 fL | [facility] | | | | | | LABORATORY | | | | | | SERVICES, | | | | | | CORE | | + + + + + + | PLATELET | 302 | 150 - 400 K/cu | [facility] | | | COUNT | | mm | LABORATORY | | | | | | SERVICES, | | | | | | CORE | | + + + + + + | MPV | 10.1 | 9.7 - 12.3 fL | [facility] | | | | | | LABORATORY | | | | | | SERVICES, | | | | | | CORE | | + + + + + + | NRBC% | 0.0 | 0.0 - 0.3 % | [facility] | | | | | | LABORATORY | | | | | | SERVICES, | | | | | | CORE | | + + + + + + | NRBC# | 0.00 | 0.00 - 0.02 | [facility] | | | | | K/cu mm | LABORATORY | [...] + + | [facility] | [address] | [place] [address] | | | SERVICES, CORE | [address] | | | + + + + + TROPONIN I, PLASMA (03/11/2017 4:41 AM PDT) + +-------+ + + + | Component | Value | Ref Range | Performed | Pathologist | | | | | At | Signature | + +-------+ + + + | TROPONIN I | 0.29 | <0.80 ng/mL | [facility] | | | | | [...] | + + + + + | [facility] | [address] | [place] [address] | | | SERVICES, CORE | [address] | | | + + + + + NT-PRO BNP (03/11/2017 4:41 AM PDT) + + + + + + | Component | Value | Ref Range | Performed | Pathologist | | | | | At | Signature | + + + + + + | NT-PRO BNP | 4,241 (H) | <449 pg/mL | [facility] | [...] [facility] | [address] | [place] [address] | | | SERVICES, CORE | [address] | | | + + + + + PRODUCT - RED CELLS LEUKOREDUCED (03/11/2017 3:01 AM PDT) + + + + + + | Component | Value | Ref Range | Performed | Pathologist | | | | | At | Signature | + + + + + + | PRODUCT | -1 RED BLOOD CELL | | [facility] | | | DESCRIPTION | ADENINE-SALINE ADDED | | LABORATORY | | | | LEUKOCYTE | | SERVICES, | | | | | | TRANSFUSION | | | | | | MEDICINE | | + + + + + + | PRODUCT | [id number] | | [facility] | | | UNIT # | | | LABORATORY | | | | | | SERVICES, | | | | | | TRANSFUSION | | | | | | MEDICINE | | + + + + + + | UNIT ABO | A | | [facility] | | | | | | LABORATORY | | | | | | SERVICES, | | | | | | TRANSFUSION | | | | | | MEDICINE | | + + + + + + | UNIT RH | POS | | [facility] | | | | | | LABORATORY | | | | | | SERVICES, | | | | | | TRANSFUSION | | | | | | MEDICINE | | + + + + + + | STATUS OF | Presumed Transfused | | [facility] | | | UNIT | | | LABORATORY | | | | | | SERVICES, | | | | | | TRANSFUSION | | | | | | MEDICINE | | + + + + + + | EXPIRATION | [id number] | | [facility] | | | DATE | | | LABORATORY | | | | | | SERVICES, | | | | | | TRANSFUSION | | | | | | MEDICINE | | + + + + + + | BLOOD TYPE | [phone] | | [facility] | | | BARCODE | | | LABORATORY | | | | | | SERVICES, | | | | | | TRANSFUSION | | | | | | MEDICINE | | + + + + + + | BLOOD | [id number] | | [facility] | | | PRODUCT | | | LABORATORY | | | CODE | | | SERVICES, | | | | | | TRANSFUSION | | | | | | MEDICINE | | + + + + + + + + | Specimen | + + | | + + + + + + + | Performing | Address | City/State/Zipcode | Phone Number | | Organization | | | | + + + + + | [facility] | [address] | [place] [address] | | | SERVICES, | [address] | | | | TRANSFUSION MEDICINE | | | | + + + + + PRODUCT - RED CELLS LEUKOREDUCED (03/11/2017 3:01 AM PDT) + + + + + + | Component | Value | Ref Range | Performed | Pathologist | | | | | At | Signature | + + + + + + | PRODUCT | -1 RED BLOOD CELL | | [facility] | | | DESCRIPTION | ADENINE-SALINE ADDED | | LABORATORY | | | | LEUKOCYTE | | SERVICES, | | | | | | TRANSFUSION | | | | | | MEDICINE | | + + + + + + | PRODUCT | [id number] | | [facility] | | | UNIT # | | | LABORATORY | | | | | | SERVICES, | | | | | | TRANSFUSION | | | | | | MEDICINE | | + + + + + + | UNIT ABO | A | | [facility] | | | | | | LABORATORY | | | | | | SERVICES, | | | | | | TRANSFUSION | | | | | | MEDICINE | | + + + + + + | UNIT RH | POS | | [facility] | | | | | | LABORATORY | | | | | | SERVICES, | | | | | | TRANSFUSION | | | | | | MEDICINE | | + + + + + + | STATUS OF | Returned to Blood Bank | | [facility] | | | UNIT | | | LABORATORY | | | | | | SERVICES, | | | | | | TRANSFUSION | | | | | | MEDICINE | | + + + + + + | EXPIRATION | [id number] | | [facility] | | | DATE | | | LABORATORY | | | | | | SERVICES, | | | | | | TRANSFUSION | | | | | | MEDICINE | | + + + + + + | BLOOD TYPE | [phone] | | [facility] | | | BARCODE | | | LABORATORY | | | | | | SERVICES, | | | | | | TRANSFUSION | | | | | | MEDICINE | | + + + + + + | BLOOD | [id number] | | [facility] | | | PRODUCT | | | LABORATORY | | | CODE | | | SERVICES, | | | | | | TRANSFUSION | | | | | | MEDICINE | | + + + + + + + + | Specimen | + + | | + + + + + + + | Performing | Address | City/State/Zipcode | Phone Number | | Organization | | | | + + + + + | [facility] | [address] | [place] [address] | | | SERVICES, | [address] | | | | TRANSFUSION MEDICINE | | | | + + + + + CBC (HEMOGRAM) ONLY (03/11/2017 2:05 AM PDT) + + + + + + | Component | Value | Ref Range | Performed | Pathologist | | | | | At | Signature | + + + + + + | WHITE CELL | 12.11 (H) | 3.50 - 10.80 | [facility] | | | COUNT | | K/cu mm | LABORATORY | | | | | | SERVICES, | | | | | | CORE | | + + + + + + | RED CELL | 2.09 (L) | 4.50 - 6.00 | [facility] | | | COUNT | | M/cu mm | LABORATORY | | | | | | SERVICES, | | | | | | CORE | | + + + + + + | HEMOGLOBIN | 6.8 (L) | 13.5 - 17.5 | [facility] | | | | | g/dL | LABORATORY | | | | | | SERVICES, | | | | | | CORE | | + + + + + + | HEMATOCRIT | 20.4 (L) | 41.0 - 53.0 % | [facility] | | | | | | LABORATORY | | | | | | SERVICES, | | | | | | CORE | | + + + + + + | MCV | 97.6 (H) | 80.0 - 96.0 fL | [facility] | | | | | | LABORATORY | | | | | | SERVICES, | | | | | | CORE | | + + + + + + | MCHC | 33.3 | 33.0 - 35.5 | [facility] | | | | | g/dL | LABORATORY | | | | | | SERVICES, | | | | | | CORE | | + + + + + + | RDW SD | 55.7 (H) | 35.1 - 46.3 fL | [facility] | | | | | | LABORATORY | | | | | | SERVICES, | | | | | | CORE | | + + + + + + | PLATELET | 289 | 150 - 400 K/cu | [facility] | | | COUNT | | mm | LABORATORY | | | | | | SERVICES, | | | | | | CORE | | + + + + + + | MPV | 10.1 | 9.7 - 12.3 fL | [facility] | | | | | | LABORATORY | | | | | | SERVICES, | | | | | | CORE | | + + + + + + | NRBC% | 0.0 | 0.0 - 0.3 % | [facility] | | | | | | LABORATORY | | | | | | SERVICES, | | | | | | CORE | | + + + + + + | NRBC# | 0.00 | 0.00 - 0.02 | [facility] | | | | | K/cu mm | LABORATORY | | | | | | DOTTIE, | | | | | | CORE | | + + + + + + + + | Specimen | + + | Blood | + + + + + + + | Performing | Address | City/State/Zipcode | Phone Number | | Organization | | | | + + + + + | [facility] | [address] | [place] [address] | | | SERVICES, CORE | [address] | | | + + + + + MAGNESIUM, PLASMA (03/11/2017 2:05 AM PDT) + +-------+ + + + | Component | Value | Ref Range | Performed | Pathologist | | | | | At | Signature | + +-------+ + + + | MAGNESIUM,P | 2.1 | 1.8 - 2.5 mg/dL | [facility] | | | LASMA | | | LABORATORY | | | [...] + + | [facility] | [address] | [place] [address] | | | SERVICES, CORE | [address] | | | + + + + + RENAL FUNCTION SET (NA,K,CL,CO2,BUN,CREAT,GLUC,CA,PHOS,ALB ) (03/11/2017 2:05 AM PDT) + +---------+ + + + | Component | Value | Ref Range | Performed | Pathologist | | | | | At | Signature | + +---------+ + + + | GLUCOSE, | 125 (H) | 60 - 99 mg/dL | [facility] | | [...] +---------+ + + + | CREATININE | 1.17 | 0.70 - 1.30 | [facility] | | | PLASMA | | mg/dL | LABORATORY | | | (LAB) | | | SERVICES, | | | | | | CORE | | + +---------+ + + + | EGFR | >60 | >60 mL/min | [facility] | | | - | | | LABORATORY | | | [place] | | | SERVICES, | | | | | | CORE | | + +---------+ + + + | EGFR NON | >60 | >60 mL/min | [facility] | | | -[facility] | | | LABORATORY | | | RICAN | | | SERVICES, | | | | | | CORE | | + +---------+ + + + | SODIUM, | 134 (L) | 136 - 145 | [facility] [...] +---------+ + + + | CHLORIDE, | 104 | 97 - 108 mmol/L | [facility] | | | PLASMA | | | LABORATORY | | | (LAB) | | | SERVICES, | | | | | | CORE | | + +---------+ + + + | TOTAL CO2, | 23 | 21 - 32 mmol/L | [facility] | | | PLASMA | | | LABORATORY | | | (LAB) | | | SERVICES, | | | | | | CORE | | + +---------+ + + + | CALCIUM, | 8.2 (L) | 8.6 - 10.2 | [facility] | | | PLASMA | | mg/dL | LABORATORY | | | (LAB) | | | SERVICES, | | | | | | CORE | | + +---------+ + + + | CALCIUM(ALB | 9.2 | 8.6 - 10.2 | [facility] | | | CORRECTED) | | mg/dL | LABORATORY | | | | | | SERVICES, | | | | | | CORE | | + +---------+ + + + | ALBUMIN, | 2.7 (L) | 3.5 - 4.7 g/dL | [facility] | | | PLASMA | | | LABORATORY | | | (LAB) | | | SERVICES, | | | | | | CORE | | + +---------+ + + + | PHOSPHORUS, | 2.3 (L) | 2.4 - 4.7 mg/dL | [facility] | | | PLASMA [...] + + + | ANION GAP | 7 | mmol/L | [facility] | | | | | | LABORATORY | | | | | | SERVICES, | | | | | | CORE | | + +---------+ + + + | ANION | 10 | 4 - 11 mmol/L | [facility] [...] | Interpretive Information: <60 mL/min/1.73 sq | SERVICES, CORE | | m Chronic Kidney Disease <15 [...] | | - Rapidly changing kidney function | | + + + + + + + + | Performing | Address | City/State/Zipcode | Phone Number | | Organization | | | | + + + + + | [facility] | [address] | [place] [address] | | | JEREMY SINCLAIR | [address] | | | + + + + + CARDIOLOGY (03/11/2017 12:00 AM PDT) + + + | Narrative | Performed At | + + + | | | + + + CAPILLARY BLOOD GLUCOSE (NO CHG), POC (03/10/2017 11:42 PM PDT) + +---------+ + + + | Component | Value | Ref Range | Performed | Pathologist | | | | | At | Signature | + +---------+ + + + | BLOOD | 110 (H) | 60 - 99 mg/dL | [facility] - | | | GLUCOSE, | | | [facility] | | | POC | | | NASEEM WHYTE | | | | | | OF CARE | | | | | | TESTS | | + +---------+ + + + + + | Specimen | + + | | + + + + + + + | Performing | Address | City/State/Zipcode | Phone Number | | Organization | | | | + + + + + | [facility] | [address] | [place], [place] | | | [facility] | [address] | [address] | | | TESTS | | | | + + + + + CBC (HEMOGRAM) ONLY (03/10/2017 8:05 PM PDT) + + + + + + | Component | Value | Ref Range | Performed | Pathologist | | | | | At | Signature | + + + + + + | WHITE CELL | 15.35 (H) | 3.50 - 10.80 | [facility] | | | COUNT | | K/cu mm | LABORATORY | | | | | | SERVICES, | | | | | | CORE | | + + + + + + | RED CELL | 2.35 (L) | 4.50 - 6.00 | [facility] | | | COUNT | | M/cu mm | LABORATORY | | | | | | SERVICES, | | | | | | CORE | | + + + + + + | HEMOGLOBIN | 7.6 (L) | 13.5 - 17.5 | [facility] | | | | | g/dL | LABORATORY | | | | | | SERVICES, | | | | | | CORE | | + + + + + + | HEMATOCRIT | 23.4 (L) | 41.0 - 53.0 % | [facility] | | | | | | LABORATORY | | | | | | SERVICES, | | | | | | CORE | | + + + + + + | MCV | 99.6 (H) | 80.0 - 96.0 fL | [facility] | | | | | | LABORATORY | | | | | | SERVICES, | | | | | | CORE | | + + + + + + | MCHC | 32.5 | 33.0 - 35.5 | [facility] | | | | | g/dL | LABORATORY | | | | | | SERVICES, | | | | | | CORE | | + + + + + + | RDW SD | 56.0 (H) | 35.1 - 46.3 fL | [facility] | | | | | | LABORATORY | | | | | | SERVICES, | | | | | | CORE | | + + + + + + | PLATELET | 319 | 150 - 400 K/cu | [facility] | | | COUNT | | mm | LABORATORY | | | | | | SERVICES, | | | | | | CORE | | + + + + + + | MPV | 10.2 | 9.7 - 12.3 fL | [facility] | | | | | | LABORATORY | | | | | | SERVICES, | | | | | | CORE | | + + + + + + | NRBC% | 0.0 | 0.0 - 0.3 % | [facility] | | | | | | LABORATORY | | | | | | SERVICES, | | | | | | CORE | | + + + + + + | NRBC# | 0.00 | 0.00 - 0.02 | [facility] | | | | | K/cu mm | LABORATORY | [...] | + + + + + | [facility] | [address] | [place] [address] | | | SERVICES, CORE | [address] | | | + + + + + TROPONIN I, PLASMA (03/10/2017 8:05 PM PDT) + +-------+ + + + | Component | Value | Ref Range | Performed | Pathologist | | | | | At | Signature | + +-------+ + + + | TROPONIN I | 0.23 | <0.80 ng/mL | [facility] | | | | | [...] | + + + + + | [facility] | [address] | [place] [address] | | | SERVICES, CORE | [address] | | | + + + + + TROPONIN I, PLASMA (03/10/2017 1:06 PM PDT) + +-------+ + + + | Component | Value | Ref Range | Performed | Pathologist | | | | | At | Signature | + +-------+ + + + | TROPONIN I | 0.27 | <0.80 ng/mL | [facility] | | | | | [...] | + + + + + | [facility] | [address] | [place] [address] | | | DOTTIE, JEREMY | [address] | | | + + + + + CAPILLARY BLOOD GLUCOSE (NO CHG), POC (03/10/2017 12:11 PM PDT) + +---------+ + + + | Component | Value | Ref Range | Performed | Pathologist | | | | | At | Signature | + +---------+ + + + | BLOOD | 154 (H) | 60 - 99 mg/dL | [facility] - | | | GLUCOSE, | | | [facility] | | | POC | | | NASEEM WHYTE | | | | | | OF CARE | | | | | | TESTS | | + +---------+ + + + + + | Specimen | + + | | + + + + + + + | Performing | Address | City/State/Zipcode | Phone Number | | Organization | | | | + + + + + | [facility] | [address] | [place], [place] | | | ARLINE WHYTE [facility] | [facility] | [address] | | | TESTS | | | | + + + + + CBC (HEMOGRAM) ONLY (03/10/2017 12:02 PM PDT) + + + + + + | Component | Value | Ref Range | Performed | Pathologist | | | | | At | Signature | + + + + + + | WHITE CELL | 17.70 (H) | 3.50 - 10.80 | [facility] | | | COUNT | | K/cu mm | LABORATORY | | | | | | SERVICES, | | | | | | CORE | | + + + + + + | RED CELL | 2.38 (L) | 4.50 - 6.00 | [facility] | | | COUNT | | M/cu mm | LABORATORY | | | | | | SERVICES, | | | | | | CORE | | + + + + + + | HEMOGLOBIN | 7.7 (L) | 13.5 - 17.5 | [facility] | | | | | g/dL | LABORATORY | | | | | | SERVICES, | | | | | | CORE | | + + + + + + | HEMATOCRIT | 23.3 (L) | 41.0 - 53.0 % | [facility] | | | | | | LABORATORY | | | | | | SERVICES, | | | | | | CORE | | + + + + + + | MCV | 97.9 (H) | 80.0 - 96.0 fL | [facility] | | | | | | LABORATORY | | | | | | SERVICES, | | | | | | CORE | | + + + + + + | MCHC | 33.0 | 33.0 - 35.5 | [facility] | | | | | g/dL | LABORATORY | | | | | | SERVICES, | | | | | | CORE | | + + + + + + | RDW SD | 55.8 (H) | 35.1 - 46.3 fL | [facility] | | | | | | LABORATORY | | | | | | SERVICES, | | | | | | CORE | | + + + + + + | PLATELET | 357 | 150 - 400 K/cu | [facility] | | | COUNT | | mm | LABORATORY | | | | | | SERVICES, | | | | | | CORE | | + + + + + + | MPV | 10.5 | 9.7 - 12.3 fL | [facility] | | | | | | LABORATORY | | | | | | SERVICES, | | | | | | CORE | | + + + + + + | NRBC% | 0.0 | 0.0 - 0.3 % | [facility] | | | | | | LABORATORY | | | | | | SERVICES, | | | | | | CORE | | + + + + + + | NRBC# | 0.00 | 0.00 - 0.02 | [facility] | | | | | K/cu mm | LABORATORY | | | | | | DOTTIE, | | | | | | JEREMY | | + + + + + + + + | Specimen | + + | Blood | + + + + + + + | Performing | Address | City/State/Zipcode | Phone Number | | Organization | | | | + + + + + | [facility] | [address] | [place] [address] | | | JEREMY SINCLAIR | [address] | | | + + + + + TRANSTHORACIC ECHOCARDIOGRAM, ADULT (03/10/2017 8:08 AM PDT) + + + + + + | Component | Value | Ref Range | Performed | Pathologist | | | | | At | Signature | + + + + + + | EJECTION | 50 to 55 | | [facility] | | | FRACTION | | | OF | | | | | | CARDIOLOGY | | + + + + + + | LA | 4.1 | | [facility] | | | DIMENSION | | | OF | | | | | | CARDIOLOGY | | + + + + + + | LVIDD | 6.4 | | [facility] | | | | | | OF | | | | | | CARDIOLOGY | | + + + + + + | MV A VMAX | 0.6 | | [facility] | | | | | | OF | | | | | | CARDIOLOGY | | + + + + + + | MV E? | 0.1 | | [facility] | | | | | | OF | | | | | | CARDIOLOGY | | + + + + + + | MV E VMAX | 1.1 | | [facility] | | | | | | OF | | | | | | CARDIOLOGY | | + + + + + + | RVSP | 63 | | [facility] | | | | | | OF | | | | | | CARDIOLOGY | | + + + + + + | RV TAPSE | 2.5 | | [facility] | | | | | | OF | | | | | | CARDIOLOGY | | + + + + + + | RV TDI S? | 23.8 | | [facility] | | | | | | OF | | | | | | CARDIOLOGY | | + + + + + + | AO ASC, S | +3.1 | | [facility] | | | 2D (AORTA) | | | OF | | | | | | CARDIOLOGY | | + + + + + + | EJECTION | 52.5 | % | [facility] | | | FRACTION | | | OF | | | RANGE MEAN | | | CARDIOLOGY | | | VALUE | | | | | + + + + + + + + | Specimen | + + | | + + + + + | Narrative | Performed At | + + + | [facility] | [facility] | | [facility] | CARDIOLOGY | | Laboratory [facility] | | | [place] [address] Pt Name: | | | COURTNEY ARELLANOLISS Study Date/Time 03/10/2017 8:08:19 | | | AMMRN: [id number] Most recent | | | prior: -[facility] #: [id number] No. | | | previous echos: 0DOB: 1940 76 years Heart | | | Rate: 70 bpmHeight: 69.0 | | | in Blood Pressure: 104/65 | | | mm/HgWeight: 210.0 lb | | | Gender: MBSA: 2.11 | | | m2 Order ID: | | | [id number] Case Technician: PRASANNA Referring Provider: Rishi Rodriguez | | | Location: 8CModalities Performed: 2D, Color flow, Spectral Doppler, | | | agitated saline bubble study and Definity contrast.Study Quality: This | | | was a technically difficult study, but image quality improved with | | | echo contrast.Imaging Limitations: There is prominent lung artifact | | | seen, spine percautions and patient size and body habitus.Exam | | | Indication: Syncope or PresyncopeHistory: 76 y.o. male with complex | | | history including HTN, prostate cancer s/p external beam radiation, | | | TIA in (on aspirin and plavix), and renal cell carcinoma s/p | | | open right nephrectomy on 02/26. Post-operative course was complicated | | | by NSTEMI in PACU and underwent cardiac catheterization. 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 Pt also found to have heart failure with nonsustained | | | ventricular tachycardia, and jie-operative atrial fibrillation for | | | which he underwent electrocardioversion. Patient history has been | | | obtained from the EHR Transthoracic Echocardiographic Report | | | + | | | ---------+Final | | | Impressions: | | | | | | | | | | | | | | | | | | 1. The left ventricular cavity size is mild to | | | moderately increased. 2. The LV ejection fraction | | | is mildly | | | decreased. | | | | | | | | | 3. Visually estimated left ventricular ejection | | | fraction is 50 - 55%. 4. Left ventricular systolic | | | thickening is segmentally abnormal (see comments | | | below). | | | 5. 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 | | | 6. Right ventricular | | | size, thickness and function are | | | normal. 7. The estimated right | | | ventricular systolic pressure is moderately to | | | severely elevated (RVSP = 62.7 | | | mmHg). | | | | | | | | | | | | 8. Saline contrast study shows no evidence of right to | | | left | | | intra-atrial shunting. | | | | | | 9. There are no prior exams available | | | for comparison. | | | | | | | | | + | | | + Description of Findings: Cardiac Rhythm: | | | Normal sinus rhythm.Left Ventricle: The left ventricular cavity size | | | is mild to moderately increased. Visually estimated left ventricular | | | ejection fraction is 50 - 55%. The LV ejection fraction is mildly | | | decreased.There is no left ventricular hypertrophy. There is thinning | | | of the inferior and inferolateral wall c/w an old myocardial | | | infarction/scar. Due to poor endocardial definition, ultrasound | | | contrast was used (Definity).Left Ventricular Wall Motion: The entire | | | lateral wall and entire inferior wall are hypokinetic. All remaining | | | scored segments are normal. Left ventricular systolic thickening is | | | segmentally abnormal.Atria: Left atrial size is mildly dilated. Saline | | | contrast study shows no evidence of right to left intra-atrial | | | shunting. Normal right atrium.Right Ventricle: Right ventricular size, | | | thickness and function are normal. TAPSE measures 2.5cm. The RV TDI | | | s' velocity is 23.8cm/sec.Aortic Valve: The aortic valve is trileaflet | | | and normal in structure and function. No indication of aortic valve | | | regurgitation.Mitral Valve: The mitral valve is structurally normal. | | | No evidence of mitral valve stenosis. Mild mitral valve regurgitation. | | | The mitral valve effective regurgitant orifice area is 16 | | | mm2.Tricuspid Valve: The tricuspid valve is structurally normal. Mild | | | tricuspid regurgitation. The tricuspid regurgitant velocity is 3.80 | | | m/s, and with an assumed right atrial pressure of 5 mmHg, the | | | estimated right ventricular systolic pressure is moderately to | | | severely elevated at 62.7 mmHg.Pulmonic Valve: The pulmonic valve is | | | structurally normal. The peak trans pulmonic gradient is 5.4 | | | mmHg.Aorta: Visualized portions of the ascending aorta and aortic root | | | appear normal.Venous: Inferior vena cava is normal with normal | | | inspiratory collapse.Pericardium: No pericardial effusion is seen. | | | Additional Findings: There are no prior exams.2D | | | Measurements Doppler Measurements | | | 2D NL Values Aortic | | | MitralLVID(d) 6.39 (3.5-5.7cm) Max Shahid 1.81 Peak | | | E 1.12 | | | cm | | | m/s m/sLVID(s) 5.02 | | | Mean grad 7.3 Peak | | | A 0.56 | | | cm | | | mmHg m/sIVS(d) 0.87 (0.6-1.1cm) | | | LVOT Shahid 0.94 E/A Ratio 2.00 | | | cm | | | m/sLVPW(d) 0.97 (0.6-1.1cm) LVOT Diam 2.04 TDI | | | (E/e') 22.5 | | | cm cmLA A/Ps 2D | | | 4.08 (2.7-3.9cm) MR | | | ERO 16 mm2 | | | cm MR | | | Volume 20 mlLA vol A/L 95.2 (40-73ml) | | | Tricuspid PulmonicBP | | | ml TR Vmax 3.80 PV Vmax | | | 1.2LA vol A/L 45.1 (16-34) | | | m/s m/sindex ml/m2 | | | RA Press 5 RVOT VTI 18.1LA vol MOD | | | 91.2 (40-73ml) | | | mmHg cmBP | | | ml RVSP 63 PV mn | | | gd 3 mmHgLA vol MOD 43.3 | | | (16-34) | | | mmHgindex ml/m2 | | | Aorta: | | | Index: Ao | | | Sinus 2.28 (2.1-3.5cm) | | | 10.8 | | | cm mm/[id number] of | | | chamber size and geometry is accomplished through the incorporation of | | | linear, volumetric, and indexed values Wall Scoring: Report | | | electronically signed by: [id number] Brad Ray MD, PhD (03/10/2017, | | | 11:17:35 AM) Final | | + + + + + | Procedure Note | + + | Interface, Cardiology Results - 03/10/2017 11:17 AM [facility] | | [facility] Echocardi[facility] Laboratory [address] [place] [address] | | [place], [place] [address] Pt Name: COURTNEY | | PIERRE ALEXANDER Study Date/Time 03/10/2017 / 8:08:19 AMMRN: [id number] | | Most recent prior: -Acc #: [id number] No. previous echos: 0DOB: | | 1940 76 years Heart Rate: 70 bpmHeight: 69.0 in | | Blood Pressure: 104/65 mm/HgWeight: 210.0 lb Gender: | | MBSA: 2.11 m2 Order ID: [id number] Case Technician: | | IMReferring Provider: Rishi Rodriguez Location: 8CModalities Performed: 2D, Color | | flow, Spectral Doppler, agitated saline bubble study and Definity contrast.Study | | Quality: This was a technically difficult study, but image quality improved with echo | | contrast.Imaging Limitations: There is prominent lung artifact seen, spine percautions | | and patient size and body habitus.Exam Indication: Syncope or PresyncopeHistory: 76 y.o. | | male with complex history including HTN, prostate cancer s/p external beam radiation, | | TIA in (on aspirin and plavix), and renal cell carcinoma s/p open right | | nephrectomy on 02/26. Post-operative course was complicated by NSTEMI in PACU and | | underwent cardiac catheterization. He was found to have triple vessel disease and had | | THERON placed in distal LM and proximal LAD. Pt also found to have heart failure with | | nonsustained ventricular tachycardia, and jie-operative atrial fibrillation for which | | he underwent electrocardioversion. Patient history has been obtained from the EHR | | Transthoracic Echocardiographic | | Report+ +Fi | | nal Impressions: | | | | 1. The left ventricular cavity | | size is mild to moderately increased. 2. The LV ejection fraction is mildly | | decreased. | | 3. Visually estimated left ventricular ejection fraction | | is 50 - 55%. 4. Left ventricular systolic thickening is segmentally abnormal | | (see comments below). | | 5. 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 6. Right | | ventricular size, thickness and function are normal. 7. The estimated | | right ventricular systolic pressure is moderately to severely elevated (RVSP = | | 62.7 mmHg). | | 8. Saline contrast study shows no evidence of | | right to left intra-atrial shunting. | | 9. There are no prior exams available for comparison. | | | | + + | | Description of Findings: Cardiac Rhythm: Normal sinus rhythm.Left Ventricle: The left | | ventricular cavity size is mild to moderately increased. Visually estimated left | | ventricular ejection fraction is 50 - 55%. The LV ejection fraction is mildly | | decreased.There is no left ventricular hypertrophy. There is thinning of the inferior | | and inferolateral wall c/w an old myocardial infarction/scar. Due to poor endocardial | | definition, ultrasound contrast was used (Definity).Left Ventricular Wall Motion: The | | entire lateral wall and entire inferior wall are hypokinetic. All remaining scored | | segments are normal. Left ventricular systolic thickening is segmentally abnormal.Atria: | | Left atrial size is mildly dilated. Saline contrast study shows no evidence of right to | | left intra-atrial shunting. Normal right atrium.Right Ventricle: Right ventricular | | size, thickness and function are normal. TAPSE measures 2.5cm. The RV TDI s' velocity is | | 23.8cm/sec.Aortic Valve: The aortic valve is trileaflet and normal in structure and | | function. No indication of aortic valve regurgitation.Mitral Valve: The mitral valve is | | structurally normal. No evidence of mitral valve stenosis. Mild mitral valve | | regurgitation. The mitral valve effective regurgitant orifice area is 16 mm2.Tricuspid | | Valve: The tricuspid valve is structurally normal. Mild tricuspid regurgitation. The | | tricuspid regurgitant velocity is 3.80 m/s, and with an assumed right atrial pressure of | | 5 mmHg, the estimated right ventricular systolic pressure is moderately to severely | | elevated at 62.7 mmHg.Pulmonic Valve: The pulmonic valve is structurally normal. The | | peak trans pulmonic gradient is 5.4 mmHg.Aorta: Visualized portions of the ascending | | aorta and aortic root appear normal.Venous: Inferior vena cava is normal with normal | | inspiratory collapse.Pericardium: No pericardial effusion is seen. Additional Findings: | | There are no prior exams.2D Measurements Doppler Measurements | | 2D NL Values Aortic MitralLVID(d) 6.39 (3.5-5.7cm) Max Shahid 1.81 | | Peak E 1.12 cm m/s m/sLVID(s) | | 5.02 Mean grad 7.3 Peak A 0.56 cm | | mmHg m/sIVS(d) 0.87 (0.6-1.1cm) LVOT Shahid 0.94 E/A Ratio 2.00 | | cm m/sLVPW(d) 0.97 (0.6-1.1cm) LVOT Diam 2.04 TDI | | (E/e') 22.5 cm cmLA A/Ps 2D 4.08 (2.7-3.9cm) | | MR ERO 16 mm2 cm MR Volume 20 | | mlLA vol A/L 95.2 (40-73ml) Tricuspid PulmonicBP ml TR | | Vmax 3.80 PV Vmax 1.2LA vol A/L 45.1 (16-34) m/s | | m/sindex ml/m2 RA Press 5 RVOT VTI 18.1LA vol MOD 91.2 | | (40-73ml) mmHg cmBP ml RVSP 63 PV | | mn gd 3 mmHgLA vol MOD 43.3 (16-34) mmHgindex ml/m2 | | Aorta: Index: Ao | | Sinus 2.28 (2.1-3.5cm) 10.8 cm | | mm/n9Lhyzqcjyay of chamber size and geometry is accomplished through the incorporation | | of linear, volumetric, and indexed values Wall Scoring: Report electronically signed by: | | [id number] Brad Ray MD, PhD (03/10/2017, 11:17:35 AM) Final | |stenosis. Mild mitral valve regurgitation. The mitral valve effective regurgitant | |orifice area is 16 mm2. | |Tricuspid Valve: The tricuspid valve is structurally normal. Mild tricuspid | |regurgitation. The tricuspid regurgitant velocity is 3.80 m/s, and with an assumed | |right atrial pressure of 5 mmHg, the estimated right ventricular systolic pressure is | | moderately to severely elevated at 62.7 mmHg. | |Pulmonic Valve: The pulmonic valve is structurally normal. The peak trans pulmonic | |gradient is 5.4 mmHg. | |Aorta: Visualized portions of the ascending aorta and aortic root appear normal. | |Venous: Inferior vena cava is normal with normal inspiratory collapse. | |Pericardium: No pericardial effusion is seen. | | | |Additional Findings: There are no prior exams. | |2D Measurements Doppler Measurements | | | | 2D NL Values Aortic Mitral | |LVID(d) 6.39 (3.5-5.7cm) Max Shahid 1.81 Peak E 1.12 | | cm m/s m/s | |LVID(s) 5.02 Mean grad 7.3 Peak A 0.56 | | cm mmHg m/s | |IVS(d) 0.87 (0.6-1.1cm) LVOT Shahid 0.94 E/A Ratio 2.00 | | cm m/s | |LVPW(d) 0.97 (0.6-1.1cm) LVOT Diam 2.04 TDI (E/e') 22.5 | | cm cm | |LA A/Ps 2D 4.08 (2.7-3.9cm) MR ERO 16 mm2 | | cm MR Volume 20 ml | |LA vol A/L 95.2 (40-73ml) Tricuspid Pulmonic | |BP ml TR Vmax 3.80 PV Vmax 1.2 | |LA vol A/L 45.1 (16-34) m/s m/s | |index ml/m2 RA Press 5 RVOT VTI 18.1 | |LA vol MOD 91.2 (40-73ml) mmHg cm | |BP ml RVSP 63 PV mn gd 3 mmHg | |LA vol MOD 43.3 (16-34) mmHg | |index ml/m2 | | Aorta: Index: | | Ao Sinus 2.28 (2.1-3.5cm) 10.8 | | cm mm/m2 | |Evaluation of chamber size and geometry is accomplished through the incorporation of | |linear, volumetric, and indexed values | | | |Wall Scoring: | | | | | |Report electronically signed by: [id number] Brad Ray MD, PhD (03/10/2017, | |11:17:35 AM) | | | | | | | | Final | + + + + + + + | Performing | Address | City/State/Zipcode | Phone Number | | Organization | | | | + + + + + | [facility] | [address] | [place], [place] | | | CARDIOLOGY | [facility] | [address] | | + + + + + CBC (HEMOGRAM) ONLY (03/10/2017 6:50 AM PDT) + + + + + + | Component | Value | Ref Range | Performed | Pathologist | | | | | At | Signature | + + + + + + | WHITE CELL | 21.33 (H) | 3.50 - 10.80 | [facility] | | | COUNT | | K/cu mm | LABORATORY | | | | | | SERVICES, | | | | | | CORE | | + + + + + + | RED CELL | 2.36 (L) | 4.50 - 6.00 | [facility] | | | COUNT | | M/cu mm | LABORATORY | | | | | | SERVICES, | | | | | | CORE | | + + + + + + | HEMOGLOBIN | 7.7 (L) | 13.5 - 17.5 | [facility] | | | | | g/dL | LABORATORY | | | | | | SERVICES, | | | | | | CORE | | + + + + + + | HEMATOCRIT | 23.1 (L) | 41.0 - 53.0 % | [facility] | | | | | | LABORATORY | | | | | | SERVICES, | | | | | | CORE | | + + + + + + | MCV | 97.9 (H) | 80.0 - 96.0 fL | [facility] | | | | | | LABORATORY | | | | | | SERVICES, | | | | | | CORE | | + + + + + + | MCHC | 33.3 | 33.0 - 35.5 | [facility] | | | | | g/dL | LABORATORY | | | | | | SERVICES, | | | | | | CORE | | + + + + + + | RDW SD | 55.7 (H) | 35.1 - 46.3 fL | [facility] | | | | | | LABORATORY | | | | | | SERVICES, | | | | | | CORE | | + + + + + + | PLATELET | 351 | 150 - 400 K/cu | [facility] | | | COUNT | | mm | LABORATORY | | | | | | SERVICES, | | | | | | CORE | | + + + + + + | MPV | 10.4 | 9.7 - 12.3 fL | [facility] | | | | | | LABORATORY | | | | | | SERVICES, | | | | | | CORE | | + + + + + + | NRBC% | 0.0 | 0.0 - 0.3 % | [facility] | | | | | | LABORATORY | | | | | | SERVICES, | | | | | | CORE | | + + + + + + | NRBC# | 0.00 | 0.00 - 0.02 | [facility] | | | | | K/cu mm | LABORATORY | | | | | | DOTTIE, | | | | | | CORE | | + + + + + + + + | Specimen | + + | Blood | + + + + + + + | Performing | Address | City/State/Zipcode | Phone Number | | Organization | | | | + + + + + | [facility] | [address] | [place] [address] | | | DOTTIE, CORE | [address] | | | + + + + + TROPONIN I, PLASMA (03/10/2017 5:58 AM PDT) + +-------+ + + + | Component | Value | Ref Range | Performed | Pathologist | | | | | At | Signature | + +-------+ + + + | TROPONIN I | 0.31 | <0.80 ng/mL | [facility] | | | | | [...] [facility] | [address] | [place] [address] | | | SERVICES, CORE | [address] | | | + + + + + PRODUCT - RED CELLS LEUKOREDUCED (03/10/2017 5:47 AM PDT) + + + + + + | Component | Value | Ref Range | Performed | Pathologist | | | | | At | Signature | + + + + + + | PRODUCT | -1 RED BLOOD CELLS | | [facility] | | | DESCRIPTION | ADENINE-SALINE ADDED | | LABORATORY | | | | LEUKOCYT | | SERVICES, | | | | | | TRANSFUSION | | | | | | MEDICINE | | + + + + + + | PRODUCT | [id number] | | [facility] | | | UNIT # | | | LABORATORY | | | | | | SERVICES, | | | | | | TRANSFUSION | | | | | | MEDICINE | | + + + + + + | UNIT ABO | A | | [facility] | | | | | | LABORATORY | | | | | | SERVICES, | | | | | | TRANSFUSION | | | | | | MEDICINE | | + + + + + + | UNIT RH | POS | | [facility] | | | | | | LABORATORY | | | | | | SERVICES, | | | | | | TRANSFUSION | | | | | | MEDICINE | | + + + + + + | STATUS OF | Presumed Transfused | | [facility] | | | UNIT | | | LABORATORY | | | | | | SERVICES, | | | | | | TRANSFUSION | | | | | | MEDICINE | | + + + + + + | EXPIRATION | [id number] | | [facility] | | | DATE | | | LABORATORY | | | | | | SERVICES, | | | | | | TRANSFUSION | | | | | | MEDICINE | | + + + + + + | BLOOD TYPE | [phone] | | [facility] | | | BARCODE | | | LABORATORY | | | | | | SERVICES, | | | | | | TRANSFUSION | | | | | | MEDICINE | | + + + + + + | BLOOD | [id number] | | [facility] | | | PRODUCT | | | LABORATORY | | | CODE | | | SERVICES, | | | | | | TRANSFUSION | | | | | | MEDICINE | | + + + + + + + + | Specimen | + + | | + + + + + + + | Performing | Address | City/State/Zipcode | Phone Number | | Organization | | | | + + + + + | [facility] | [address] | [place] [id number] | | | SERVICES, | [address] | | | | TRANSFUSION MEDICINE | | | | + + + + + CBC (HEMOGRAM) ONLY (03/10/2017 5:22 AM PDT) + + + + + + | Component | Value | Ref Range | Performed | Pathologist | | | | | At | Signature | + + + + + + | WHITE CELL | 21.61 (H) | 3.50 - 10.80 | [facility] | | | COUNT | | K/cu mm | LABORATORY | | | | | | SERVICES, | | | | | | CORE | | + + + + + + | RED CELL | 2.37 (L) | 4.50 - 6.00 | [facility] | | | COUNT | | M/cu mm | LABORATORY | | | | | | SERVICES, | | | | | | CORE | | + + + + + + | HEMOGLOBIN | 7.7 (L) | 13.5 - 17.5 | [facility] | | | | | g/dL | LABORATORY | | | | | | SERVICES, | | | | | | CORE | | + + + + + + | HEMATOCRIT | 23.0 (L) | 41.0 - 53.0 % | [facility] | | | | | | LABORATORY | | | | | | SERVICES, | | | | | | CORE | | + + + + + + | MCV | 97.0 (H) | 80.0 - 96.0 fL | [facility] | | | | | | LABORATORY | | | | | | SERVICES, | | | | | | CORE | | + + + + + + | MCHC | 33.5 | 33.0 - 35.5 | [facility] | | | | | g/dL | LABORATORY | | | | | | SERVICES, | | | | | | CORE | | + + + + + + | RDW SD | 54.6 (H) | 35.1 - 46.3 fL | [facility] | | | | | | LABORATORY | | | | | | SERVICES, | | | | | | CORE | | + + + + + + | PLATELET | 315 | 150 - 400 K/cu | [facility] | | | COUNT | | mm | LABORATORY | | | | | | SERVICES, | | | | | | CORE | | + + + + + + | MPV | 10.1 | 9.7 - 12.3 fL | [facility] | | | | | | LABORATORY | | | | | | SERVICES, | | | | | | CORE | | + + + + + + | NRBC% | 0.0 | 0.0 - 0.3 % | [facility] | | | | | | LABORATORY | | | | | | SERVICES, | | | | | | CORE | | + + + + + + | NRBC# | 0.00 | 0.00 - 0.02 | [facility] | | | | | K/cu mm | LABORATORY | | | | | | DOTTIE, | | | | | | CORE | | + + + + + + + + | Specimen | + + | Blood | + + + + + + + | Performing | Address | City/State/Zipcode | Phone Number | | Organization | | | | + + + + + | [facility] | [address] | [place] [address] | | | JEREMY SINCLAIR | [address] | | | + + + + + CT SPINE CERVICAL WO CONTRAST (03/10/2017 3:43 AM PDT) + + | Specimen | + + | | + + + + + | Narrative | Performed At | + + + | EXAM: CT cervical spine HISTORY: Fall. COMPARISON: None | [facility] | | TECHNIQUE: Noncontrast CT cervical spine with 2-D reformations. | RADIOLOGY VOICE | | FINDINGS: Alignment: Normal Vertebrae: No fractures or | RECOGNITION | | destructive changes Craniocervical junction: Normal | | | Minimal degenerative changes of the cervical spine. Posterior | | | fossa: Visualized portions are unremarkable Paraspinal soft | | | tissues: Unremarkable. Incidentally noted sesamoid ossicle of the | | | ligamentum nuchae posterior to C3 and C4. IMPRESSION: No acute | | | fracture or malalignment of the cervical spine. I have | | | personally reviewed the images and, if necessary, edited the | | | report. I agree with the report as now presented. | | + + + + + | Procedure Note | + + | Service Account, Radiant Res In Interface - 03/10/2017 1:22 PM PDT EXAM: CT cervical | | spineHISTORY: Fall.COMPARISON: NoneTECHNIQUE: Noncontrast CT cervical spine with 2-D | | reformations.FINDINGS: Alignment: Normal Vertebrae: No fractures or destructive | | changes Craniocervical junction: Normal Minimal degenerative changes of the cervical | | spine. Posterior fossa: Visualized portions are unremarkable Paraspinal soft tissues: | | Unremarkable. Incidentally noted sesamoid ossicle of the ligamentum nuchae posterior to | | C3 and C4.IMPRESSION:No acute fracture or malalignment of the cervical spine.I have | | personally reviewed the images and, if necessary, edited the report. I agree with the | | report as now presented. | | | | Alignment: Normal | | Vertebrae: No fractures or destructive changes | | Craniocervical junction: Normal | | | | Minimal degenerative changes of the cervical spine. | | Posterior fossa: Visualized portions are unremarkable | | Paraspinal soft tissues: Unremarkable. Incidentally noted sesamoid ossicle of the ligamen sun nuchae posterior to C3 and C4. | | | |IMPRESSION: | | | |No acute fracture or malalignment of the cervical spine. | | | | | |I have personally reviewed the images and, if necessary, edited the report. I agree with t he report as now presented. | + + + +---------+ + + | Performing | Address | City/State/Zipcode | Phone Number | | Organization | | | | + +---------+ + + | [facility] | | | | | VOICE RECOGNITION | | | | + +---------+ + + CT HEAD WO CONTRAST (03/10/2017 3:43 AM PDT) + + | Specimen | + + | | + + + + + | Narrative | Performed At | + + + | EXAM: CT head without contrast HISTORY: Trauma. COMPARISON: | [facility] | | None TECHNIQUE: CT of the head without contrast. FINDINGS: | RADIOLOGY VOICE | | Brain: Prominent extracerebral fluid spaces are seen over the | RECOGNITION | | bilateral frontal lobes, without flattening of the cortical gyri or | | | areas of concerning hyperattenuation. These are favored to represent | | | enlarged subarachnoid fluid spaces. Scattered ill-defined white matter | | | hypodensities most likely reflect chronic small vessel ischemic | | | changes for age. No evidence of hemorrhage, mass, or acute | | | infarction. The ventricles are normal in size and morphology. | | | Soft tissues: Unremarkable Skull and skull base: No fractures or | | | destructive lesions. Mastoids and middle ears are unremarkable. | | | Face/orbits: Visualized portions are unremarkable. Paranasal sinuses: | | | Visualized portions are unremarkable. IMPRESSION: Prominent | | | CSF density extra cerebral fluid spaces over both frontal lobes are | | | favored to represent enlarged subarachnoid fluid spaces. Scattered | | | white matter hypodensities most likely reflect chronic small vessel | | | ischemic changes for age. Otherwise, no evidence for acute | | | intracranial hemorrhage. I have personally reviewed the images | | | and, if necessary, edited the report. I agree with the report as | | | now presented. | | + + + + + | Procedure Note | + + | Service Account, Radiant Res In Interface - 03/10/2017 8:15 AM PDT EXAM: CT head | | without contrastHISTORY: Trauma.COMPARISON: NoneTECHNIQUE: CT of the head without | | contrast.FINDINGS:Brain: Prominent extracerebral fluid spaces are seen over the | | bilateral frontal lobes, without flattening of the cortical gyri or areas of concerning | | hyperattenuation. These are favored to represent enlarged subarachnoid fluid spaces. | | Scattered ill-defined white matter hypodensities most likely reflect chronic small | | vessel ischemic changes for age. No evidence of hemorrhage, mass, or acute infarction. | | The ventricles are normal in size and morphology. Soft tissues: UnremarkableSkull and | | skull base: No fractures or destructive lesions. Mastoids and middle ears are | | unremarkable.Face/orbits: Visualized portions are unremarkable.Paranasal sinuses: | | Visualized portions are unremarkable.IMPRESSION:Prominent CSF density extra cerebral | | fluid spaces over both frontal lobes are favored to represent enlarged subarachnoid | | fluid spaces. Scattered white matter hypodensities most likely reflect chronic small | | vessel ischemic changes for age. Otherwise, no evidence for acute intracranial | | hemorrhage.I have personally reviewed the images and, if necessary, edited the report. | | I agree with the report as now presented. | |Paranasal sinuses: Visualized portions are unremarkable. | | | |IMPRESSION: | | | |Prominent CSF density extra cerebral fluid spaces over both frontal lobes are favored to re present enlarged subarachnoid fluid spaces. Scattered white matter hypodensities most likely reflect chronic small vessel | |ischemic changes for age. Otherwise, no evidence for acute intracranial hemorrhage. | | | | | |I have personally reviewed the images and, if necessary, edited the report. I agree with t he report as now presented. | + + + +---------+ + + | Performing | Address | City/State/Zipcode | Phone Number | | Organization | | | | + +---------+ + + | [facility] | | | | | VOICE RECOGNITION | | | | + +---------+ + + CONFIRMATORY ABO/RH (03/10/2017 3:32 AM PDT) + + + + + + | Component | Value | Ref Range | Performed | Pathologist | | | | | At | Signature | + + + + + + | ABO Group | A | | [facility] | | | | | | LABORATORY | | | | | | SERVICES, | | | | | | TRANSFUSION | | | | | | MEDICINE | | + + + + + + | Rh Type | Positive | | [facility] | | | | | | LABORATORY | | | | | | SERVICES, | | | | | | TRANSFUSION | | | | | | MEDICINE | | + + + + + + + + | Specimen | + + | Blood | + + + + + + + | Performing | Address | City/State/Zipcode | Phone Number | | Organization | | | | + + + + + | [facility] | [address] | [place] [address] | | | SERVICES, | [address] | | | | TRANSFUSION MEDICINE | | | | + + + + + 12 LEAD ECG (03/10/2017 3:26 AM PDT) + + + + + + | Component | Value | Ref Range | Performed | Pathologist | | | | | At | Signature | + + + + + + | VENTRICULAR | 78 | bpm | [facility] | | | RATE | | | OF | | | | | | CARDIOLOGY | | + + + + + + | ATRIAL RATE | 77 | ms | [facility] | | | | | | OF | | | | | | CARDIOLOGY | | + + + + + + | P-R | 160 | ms | [facility] | | | INTERVAL | | | OF | | | | | | CARDIOLOGY | | + + + + + + | P AXIS | 38 | deg | [facility] | | | | | | OF | | | | | | CARDIOLOGY | | + + + + + + | QRS | 122 | ms | [facility] | | | DURATION | | | OF | | | | | | CARDIOLOGY | | + + + + + + | QT | 408 | ms | [facility] | | | | | | OF | | | | | | CARDIOLOGY | | + + + + + + | QTCB | 465 | ms | [facility] | | | | | | OF | | | | | | CARDIOLOGY | | + + + + + + | R AXIS | -38 | deg | [facility] | | | | | | OF | | | | | | CARDIOLOGY | | + + + + + + | T AXIS | 64 | deg | [facility] | | | | | | OF | | | | | | CARDIOLOGY | | + + + + + + | ECG | POOR QUALITY DATA LIMITS | | [facility] | | | IMPRESSION | INTERPRETATION | | OF | | | | | | CARDIOLOGY | | + + + + + + | ECG | SINUS RHYTHM | | [facility] | | | IMPRESSION | | | OF | | | | | | CARDIOLOGY | | + + + + + + | ECG | NONSPECIFIC | | [facility] | | | IMPRESSION | INTRAVENTRICULAR | | OF | | | | CONDUCTION DELAY | | CARDIOLOGY | | + + + + + + | ECG | MINIMAL ST DEPRESSION, | | [facility] | | | IMPRESSION | LATERAL LEADS- ABNORMAL | | OF | | | | ECG - | | CARDIOLOGY | | + + + + + + | ECG | Electronically signed | | [facility] | | | IMPRESSION | by: FLAQUITA GAMBOA | | OF | | | | 03-10-2017 05:36:11 | | CARDIOLOGY | | + + + + + + + + | Specimen | + + | | + + + + + | Narrative | Performed At | + + + | | | + + + + + + + + | Performing | Address | City/State/Zipcode | Phone Number | | Organization | | | | + + + + + | [facility] | [address] | [place], [place] | | | CARDIOLOGY | [address] | [phone] | | + + + + + CAPILLARY BLOOD GLUCOSE (NO CHG), POC (03/10/2017 2:06 AM PDT) + +---------+ + + + | Component | Value | Ref Range | Performed | Pathologist | | | | | At | Signature | + +---------+ + + + | BLOOD | 114 (H) | 60 - 99 mg/dL | [facility] - | | | GLUCOSE, | | | [facility] | | | POC | | | [facility] | | | | | | OF CARE | | | | | | TESTS | | + +---------+ + + + + + | Specimen | + + | | + + + + + + + | Performing | Address | City/State/Zipcode | Phone Number | | Organization | | | | + + + + + | [facility] | [address] | [place], [place] | | | [facility] OF CARE | [address] | [address] | | | TESTS | | | | + + + + + CBC (HEMOGRAM) ONLY (03/10/2017 1:51 AM PDT) + + + + + + | Component | Value | Ref Range | Performed | Pathologist | | | | | At | Signature | + + + + + + | WHITE CELL | 31.61 (H) | 3.50 - 10.80 | [facility] | | | COUNT | | K/cu mm | LABORATORY | | | | | | SERVICES, | | | | | | CORE | | + + + + + + | RED CELL | 2.72 (L) | 4.50 - 6.00 | [facility] | | | COUNT | | M/cu mm | LABORATORY | | | | | | SERVICES, | | | | | | CORE | | + + + + + + | HEMOGLOBIN | 8.8 (L) | 13.5 - 17.5 | [facility] | | | | | g/dL | LABORATORY | | | | | | SERVICES, | | | | | | CORE | | + + + + + + | HEMATOCRIT | 26.4 (L) | 41.0 - 53.0 % | [facility] | | | | | | LABORATORY | | | | | | SERVICES, | | | | | | CORE | | + + + + + + | MCV | 97.1 (H) | 80.0 - 96.0 fL | [facility] | | | | | | LABORATORY | | | | | | SERVICES, | | | | | | CORE | | + + + + + + | MCHC | 33.3 | 33.0 - 35.5 | [facility] | | | | | g/dL | LABORATORY | | | | | | SERVICES, | | | | | | CORE | | + + + + + + | RDW SD | 54.2 (H) | 35.1 - 46.3 fL | [facility] | | | | | | LABORATORY | | | | | | SERVICES, | | | | | | CORE | | + + + + + + | PLATELET | 359Comment: Few platelet | 150 - 400 K/cu | [facility] | | | COUNT | clumps on smear. | mm | LABORATORY | | | | | | SERVICES, | | | | | | CORE | | + + + + + + | MPV | 10.0 | 9.7 - 12.3 fL | [facility] | | | | | | LABORATORY | | | | | | SERVICES, | | | | | | CORE | | + + + + + + | NRBC% | 0.0 | 0.0 - 0.3 % | [facility] | | | | | | LABORATORY | | | | | | SERVICES, | | | | | | CORE | | + + + + + + | NRBC# | 0.00 | 0.00 - 0.02 | [facility] | | | | | K/cu mm | LABORATORY | | | | | | SERVICES, | | | | | | CORE | | + + + + + + + + | Specimen | + + | Blood | + + + + + | Narrative | Performed At | + + + | Must be ordered if Coagulopathy Panel is ordered | [facility] | | | LABORATORY | | | SERVICES, CORE | + + + + + + + + | Performing | Address | City/State/Zipcode | Phone Number | | Organization | | | | + + + + + | [facility] | [address] | [place] [address] | | | SERVICES, CORE | [address] | | | + + + + + ANTIBODY SCREEN (03/10/2017 1:51 AM PDT) + + + + + + | Component | Value | Ref Range | Performed | Pathologist | | | | | At | Signature | + + + + + + | Antibody | Negative | | [facility] | | | Screen | | | LABORATORY | | | | | | SERVICES, | | | | | | TRANSFUSION | | | | | | MEDICINE | | + + + + + + + + | Specimen | + + | Blood | + + + + + + + | Performing | Address | City/State/Zipcode | Phone Number | | Organization | | | | + + + + + | [facility] | [address] | [place] [address] | | | SERVICES, | [address] | | | | TRANSFUSION MEDICINE | | | | + + + + + ABO & RH TYPE (03/10/2017 1:51 AM PDT) + + + + + + | Component | Value | Ref Range | Performed | Pathologist | | | | | At | Signature | + + + + + + | ABO Group | A | | [facility] | | | | | | LABORATORY | | | | | | SERVICES, | | | | | | TRANSFUSION | | | | | | MEDICINE | | + + + + + + | Rh Type | Positive | | [facility] | | | | | | LABORATORY | | | | | | SERVICES, | | | | | | TRANSFUSION | | | | | | MEDICINE | | + + + + + + + + | Specimen | + + | Blood | + + + + + + + | Performing | Address | City/State/Zipcode | Phone Number | | Organization | | | | + + + + + | [facility] | [address] | [place] [address] | | | DOTTIE, | [address] | | | | TRANSFUSION MEDICINE | | | | + + + + + THROMBELASTOGRAPH, POC (03/10/2017 1:51 AM PDT) + + + + + + | Component | Value | Ref Range | Performed | Pathologist | | | | | At | Signature | + + + + + + | R - | 5.3 | 5 - 10 Minutes | [facility] - | | | CITRATED | | | [facility] | | | | | | [facility] | | | | | | OF CARE | | | | | | TESTS | | + + + + + + | K - | 0.8 (A) | 1 - 3 Minutes | [facility] - | | | CITRATED | | | [facility] | | | | | | [facility] | | | | | | OF CARE | | | | | | TESTS | | + + + + + + | ANGLE - | 80.7 (A) | 53 - 72 Degrees | [facility] - | | | CITRATED | | | [facility] | | | | | | [facility] | | | | | | OF CARE | | | | | | TESTS | | + + + + + + | MAXIMUM | 66.6 | 55 - 70 mm | [facility] - | | | [facility] - | | | [facility] | | | CITRATED | | | [facility] | | | | | | OF CARE | | | | | | TESTS | | + + + + + + | LY 30 | 0.2 | 0 - 8 % | [facility] - | | | | | | [facility] | | | | | | [facility] | | | | | | OF CARE | | | | | | TESTS | | + + + + + + | CLOT INDEX | 2.7 | -3 - 3 | [facility] - | | | | | | [facility] | | | | | | [facility] | | | | | | OF CARE | | | | | | TESTS | | + + + + + + + + | Specimen | + + | Blood | + + + + + | Impressions | Performed At | + + + | A standard citrated kaolin TEG was performed R time is normal. | [facility] - | | Elevated ALPHA angle corresponds to increased rate of fibrin | [facility] | | crosslinking suggesting HYPERcoagulability MA is normal. | POINT OF CARE | | Normal LY30 corresponds to normal fibrinolysis Overall, TEG | TESTS | | suggests hypercoagulability. See Media Tab in Chart Review for TEG | | | tracing Electronically signed on 09/27/2017 at 3:41 PM [facility] | | | Y MD Viraj | | + + + + + + + + | Performing | Address | City/State/Zipcode | Phone Number | | Organization | | | | + + + + + | [facility] | [address] | [place], [place] | | | [facility] | [address] | [address] | | | TESTS | | | | + + + + + COAGULOPATHY PANEL (INR,APTT,FIBRINOGEN) (03/10/2017 1:51 AM PDT) + + + + + + | Component | Value | Ref Range | Performed | Pathologist | | | | | At | Signature | + + + + + + | INR | 1.19 | 0.90 - 1.20 INR | [facility] | | | | | | LABORATORY | | | | | | SERVICES, | | | | | | CORE | | + + + + + + | APTT | 24.5 (L) | 26.0 - 36.0 | [facility] | | | | | seconds | LABORATORY | | | | | | SERVICES, | | | | | | CORE | | + + + + + + | FIBRINOGEN | 396 | 200 - 450 mg/dL | [facility] | | | LEVEL | | | LABORATORY | | | | | | SERVICES, | | | | | | CORE | | + + + + + + + + | Specimen | + + | Blood | + + + + + | Narrative | Performed At | + + + | Must order with concurrent CBC INR Therapeutic ranges for full | [facility] | | anticoagulation: INR for Venous | LABORATORY | | Thromboembolism (2.0 - 3.0) INR INR for | SERVICES, CORE | | most patients with mech. valves (2.5 - 3.5) INR APTT | | | Therapeutic Range: (75 - 120) | | | sec Heparin levels of 0.35 - 0.7 U/mL | | + + + + + + + + | Performing | Address | City/State/Zipcode | Phone Number | | Organization | | | | + + + + + | [facility] | [address] | [place] [address] | | | SERVICES, CORE | [address] | | | + + + + + RENAL FUNCTION SET (NA,K,CL,CO2,BUN,CREAT,GLUC,CA,PHOS,ALB ) (03/10/2017 1:51 AM PDT) + +---------+ + + + | Component | Value | Ref Range | Performed | Pathologist | | | | | At | Signature | + +---------+ + + + | GLUCOSE, | 127 (H) | 60 - 99 mg/dL | [facility] | | | PLASMA | | | LABORATORY | | | (LAB) | | | SERVICES, | | | | | | CORE | | + +---------+ + + + | BUN, PLASMA | 19 | 6 - 20 mg/dL | [facility] | | | (LAB) | | | LABORATORY | | | | | | SERVICES, | | | | | | CORE | | + +---------+ + + + | CREATININE | 1.18 | 0.70 - 1.30 | [facility] | | | PLASMA | | mg/dL | LABORATORY | | | (LAB) | | | SERVICES, | | | | | | CORE | | + +---------+ + + + | EGFR | >60 | >60 mL/min | [facility] | | | - | | | LABORATORY | | | [place] | | | SERVICES, | | | | | | CORE | | + +---------+ + + + | EGFR NON | 60 (L) | >60 mL/min | [facility] | | | -[facility] | | | LABORATORY | | | [place] | | | SERVICES, | | | | | | CORE | | + +---------+ + + + | SODIUM, | 136 | 136 - 145 | [facility] | | | PLASMA | | mmol/L | LABORATORY | | | (LAB) | | | SERVICES, | | | | | | CORE | | + +---------+ + + + | POTASSIUM, | 4.7 | 3.4 - 5.0 | [facility] | | | PLASMA | | mmol/L | LABORATORY | | | (LAB) | | | SERVICES, | | | | | | CORE | | + +---------+ + + + | CHLORIDE, | 104 | 97 - 108 mmol/L | [facility] | | | PLASMA | | | LABORATORY | | | (LAB) | | | SERVICES, | | | | | | CORE | | + +---------+ + + + | TOTAL CO2, | 22 | 21 - 32 mmol/L | [facility] | | | PLASMA | | | LABORATORY | | | (LAB) | | | SERVICES, | | | | | | CORE | | + +---------+ + + + | CALCIUM, | 8.2 (L) | 8.6 - 10.2 | [facility] | | | PLASMA | | mg/dL | LABORATORY | | | (LAB) | | | SERVICES, | | | | | | CORE | | + +---------+ + + + | CALCIUM(ALB | 9.1 | 8.6 - 10.2 | [facility] | | | CORRECTED) | | mg/dL | LABORATORY | | | | | | SERVICES, | | | | | | CORE | | + +---------+ + + + | ALBUMIN, | 2.9 (L) | 3.5 - 4.7 g/dL | [facility] | | | PLASMA | | | LABORATORY | | | (LAB) | | | SERVICES, | | | | | | CORE | | + +---------+ + + + | PHOSPHORUS, | 3.4 | 2.4 - 4.7 mg/dL | [facility] | | | PLASMA | | | LABORATORY | | | (LAB) | | | SERVICES, | | | | | | CORE | | + +---------+ + + + | POTASSIUM | Sl Hemo | | [facility] | | | CMNT | | | LABORATORY | | | | | | SERVICES, | | | | | | CORE | | + +---------+ + + + | ANION GAP | 10 | mmol/L | [facility] | | | | | | LABORATORY | | | | | | SERVICES, | | | | | | CORE | | + +---------+ + + + | ANION | 12 (H) | 4 - 11 mmol/L | [facility] | | | GAP(ALB | | | LABORATORY | | | CORRECTED) | | | SERVICES, | | | | | | CORE | | + +---------+ + + + + + | Specimen | + + | Blood | + + + + + | Narrative | Performed At | + + + | Sample hemolyzed. Results for K, Total Bili, Direct Bili, AST, | [facility] | | LDH, or HDL may be inaccurate. Refer to comment under test result. | LABORATORY | | GFR is estimated using the MDRD equation recommended by the National | SERVICES, CORE | | Kidney Disease Education Program. Estimated GFR Interpretive | | | Information: <60 mL/min/1.73 sq m Chronic | | | Kidney Disease <15 mL/min/1.73 sq m | | | Kidney Failure Estimated GFR greater that 60 mL/min/1.73 sq m is of | | | limited clinical value. The MDRD equation is not valid in the | | | following situations: - Patients under 18 years of age - Severe | | | malnutrition or obesity - Vegetarian diet - Rapidly changing kidney | | | function | | + + + + + + + + | Performing | Address | City/State/Zipcode | Phone Number | | Organization | | | | + + + + + | [facility] | [address] | [place] [address] | | | SERVICES, [facility] | [address] | | | + + + + + documented in this encounter Visit Diagnoses + + | Diagnosis | + + | Hematoma - Primary Contusion of unspecified site | + + | CAD (coronary artery disease) Coronary atherosclerosis of unspecified type of vessel, | | tling[place] & [place] or graft | + + documented in this encounter Administered Medications + +--------+ + +------+------+ | Medication Order | MAR | Action | Dose | Rate | Site | | | Action | Date | | | | + +--------+ + +------+------+ | acetaminophen (TYLENOL) tablet | Given | 03/13/20 | 1,000 mg | | | | 1,000 mg 1,000 mg, oral, EVERY 8 | | 17 5:02 | | | | | HOURS, First dose on Wed03/10/17 | | AM PDT | | | | | at 0600, Until Discontinued | | | | | | + +--------+ + +------+------+ +-------+ + +---+---+ | Given | 03/12/20 | 1,000 mg | | | | | 17 9:09 | | | | | | PM PDT | | | | +-------+ + +---+---+ | Given | 03/12/20 | 1,000 mg | | | | | 17 2:31 | | | | | | PM PDT | | | | +-------+ + +---+---+ +---+---+ | | | +---+---+ + +-------+ +--------+---+---+ | amiodarone (CORDARONE) tablet | Given | 03/13/20 | 200 mg | | | | 200 mg 200 mg, oral, DAILY, 10 | | 17 8:24 | | | | | doses, First dose on Wed03/13/17 | | AM PDT | | | | | at 0900, Last dose on Wed03/22/17 | | | | | | | at 0900 | | | | | | + +-------+ +--------+---+---+ +---+---+ | | | +---+---+ + +-------+ +--------+---+---+ | amiodarone (CORDARONE) tablet | Given | 03/12/20 | 400 mg | | | | 400 mg 400 mg, oral, TWICE | | 17 9:10 | | | | | DAILY, 6 doses, First dose on Wed | | PM PDT | | | | | 03/10/17 at 0900, Last dose on Wed | | | | | | | 03/12/17 at 2100 | | | | | | + +-------+ +--------+---+---+ +-------+ +--------+---+---+ | Given | 03/12/20 | 400 mg | | | | | 17 8:37 | | | | | | AM PDT | | | | +-------+ +--------+---+---+ | Given | 03/11/20 | 400 mg | | | | | 17 8:16 | | | | | | PM PDT | | | | +-------+ +--------+---+---+ +---+---+ | | | +---+---+ + +-------+ +-------+---+---+ | aspirin chewable tablet 81 mg | Given | 03/13/20 | 81 mg | | | | 81 mg, oral, DAILY, First dose on | | 17 8:24 | | | | | Wed03/12/17 at 0900, Until | | AM PDT | | | | | Discontinued | | | | | | + +-------+ +-------+---+---+ +-------+ +-------+---+---+ | Given | 03/12/20 | 81 mg | | | | | 17 8:36 | | | | | | AM PDT | | | | +-------+ +-------+---+---+ +---+---+ | | | +---+---+ + +-------+ +--------+---+---+ | aspirin tablet 325 mg 325 mg, | Given | 03/11/20 | 325 mg | | | | oral, ONCE, 1 dose, [facility] 03/11/17 at | | 17 4:54 | | | | | 0515 | | AM PDT | | | | + +-------+ +--------+---+---+ +---+---+ | | | +---+---+ + +-------+ +-------+---+---+ | atorvastatin (LIPITOR) tablet | Given | 03/13/20 | 40 mg | | | | 40 mg 40 mg, oral, DAILY, First | | 17 8:24 | | | | | dose on Wed03/10/17 at 0900, Until | | AM PDT | | | | | Discontinued | | | | | | + +-------+ +-------+---+---+ +-------+ +-------+---+---+ | Given | 03/12/20 | 40 mg | | | | | 17 8:37 | | | | | | AM PDT | | | | +-------+ +-------+---+---+ | Given | 03/11/20 | 40 mg | | | | | 17 8:47 | | | | | | AM PDT | | | | +-------+ +-------+---+---+ + +---+ | | | + +---+ | calcium carbonate chewable | | | (TUMS) tablet 200 mg elemental | | | 200 mg elemental (500 mg total | | | salt), oral, EVERY 2 HOURS | | | NEEDED, Starting Regina 03/11/17 at | | | 0501, Until 03/13/17 at 1712, | | | dyspepsia | | + +---+ | | | + +---+ + +-------+ +--------+---+---+ | fexofenadine (PER) tablet | Given | 03/13/20 | 180 mg | | | | 180 mg 180 mg, oral, DAILY, | | 17 8:23 | | | | | First dose on [facility] 03/11/17 at 1300, | | AM PDT | | | | | Until Discontinued | | | | | | + +-------+ +--------+---+---+ +-------+ +--------+---+---+ | Given | 03/12/20 | 180 mg | | | | | 17 8:36 | | | | | | AM PDT | | | | +-------+ +--------+---+---+ | Given | 03/11/20 | 180 mg | | | | | 17 1:09 | | | | | | PM PDT | | | | +-------+ +--------+---+---+ +---+---+ | | | +---+---+ + +-------+ +--------+---+---+ | HYDROmorphone (DILAUDID) | Given | 03/10/20 | 0.4 mg | | | | injection 0.2-0.6 mg 0.2-0.6 mg, | | 17 2:27 | | | | | intravenous, EVERY 4 HOURS | | PM PDT | | | | | NEEDED, Starting Wed03/10/17 at | | | | | | | 0143, Until Wed03/12/17 at 0939, | | | | | | | severe pain, not controlled by PO | | | | | | | pain medications | | | | | | + +-------+ +--------+---+---+ +-------+ +--------+---+---+ | Given | 03/10/20 | 0.2 mg | | | | | 17 10:59 | | | | | | AM PDT | | | | +-------+ +--------+---+---+ | Given | 03/10/20 | 0.2 mg | | | | | 17 6:03 | | | | | | AM PDT | | | | +-------+ +--------+---+---+ +---+---+ | | | +---+---+ + + + + + +---+ | lactated Ringers IV 10 mL/hr, | Rate/Dos | 03/10/20 | 10 mL/hr | 10 mL/hr | | | intravenous, CONTINUOUS, Starting | e Verify | 17 6:00 | | | | | 03/10/17 at 0245, Until Regina | | PM PDT | | | | | 03/11/17 at 1209 | | | | | | + + + + + +---+ + + + + +---+ | Rate/Dose Verify | 03/10/20 | 10 mL/hr | 10 mL/hr | | | | 17 5:00 | | | | | | PM PDT | | | | + + + + +---+ | Rate/Dose Verify | 03/10/20 | 10 mL/hr | 10 mL/hr | | | | 17 4:00 | | | | | | PM PDT | | | | + + + + +---+ +---+---+ | | | +---+---+ + +-------+ +---------+---+---+ | metoprolol tartrate (LOPRESSOR) | Given | 03/12/20 | 12.5 mg | | | | tablet 12.5 mg 12.5 mg, oral, | | 17 8:36 | | | | | TWICE DAILY, First dose on [facility] | | AM PDT | | | | | 03/11/17 at 1400, Until | | | | | | | Discontinued | | | | | | + +-------+ +---------+---+---+ +-------+ +---------+---+---+ | Given | 03/11/20 | 12.5 mg | | | | | 17 8:15 | | | | | | PM PDT | | | | +-------+ +---------+---+---+ | Given | 03/11/20 | 12.5 mg | | | | | 17 1:09 | | | | | | PM PDT | | | | +-------+ +---------+---+---+ +---+---+ | | | +---+---+ + +-------+ +-------+---+---+ | metoprolol tartrate (LOPRESSOR) | Given | 03/13/20 | 50 mg | | | | tablet 50 mg 50 mg, oral, TWICE | | 17 8:24 | | | | | DAILY, First dose on Wed03/12/17 | | AM PDT | | | | | at 2100, Until Discontinued | | | | | | + +-------+ +-------+---+---+ +-------+ +-------+---+---+ | Given | 03/12/20 | 50 mg | | | | | 17 9:09 | | | | | | PM PDT | | | | +-------+ +-------+---+---+ +---+---+ | | | +---+---+ + +-------+ +-------+---+---+ | omeprazole (PRILOSEC) capsule | Given | 03/13/20 | 40 mg | | | | 40 mg 40 mg, oral, TWICE DAILY | | 17 5:02 | | | | | BEFORE MEALS, First dose on Wed | | AM PDT | | | | | 03/10/17 at 0700, Until | | | | | | | Discontinued | | | | | | + +-------+ +-------+---+---+ +-------+ +-------+---+---+ | Given | 03/12/20 | 40 mg | | | | | 17 4:31 | | | | | | PM PDT | | | | +-------+ +-------+---+---+ | Given | 03/12/20 | 40 mg | | | | | 17 8:35 | | | | | | AM PDT | | | | +-------+ +-------+---+---+ +---+---+ | | | +---+---+ + +-------+ +-------+---+---+ | oxyCODONE (immediate release) | Given | 03/13/20 | 10 mg | | | | (ROXICODONE) tablet 5-15 mg 5-15 | | 17 9:32 | | | | | mg, oral, EVERY 3 HOURS | | AM PDT | | | | | NEEDED, Starting 03/10/17 at | | | | | | | 1220, Until 03/13/17 at 1712, | | | | | | | moderate pain | | | | | | + +-------+ +-------+---+---+ +-------+ +-------+---+---+ | Given | 03/13/20 | 10 mg | | | | | 17 1:15 | | | | | | AM PDT | | | | +-------+ +-------+---+---+ | Given | 03/12/20 | 10 mg | | | | | 17 4:31 | | | | | | PM PDT | | | | +-------+ +-------+---+---+ +---+---+ | | | +---+---+ + +---------+ +--------+---+---+ | perflutren lipid microspheres | IV Push | 03/10/20 | 1.5 mL | | | | (DEFINITY) injection 1.5 mL 1.5 | | 17 9:20 | | | | | mL, intravenous, PROCEDURE ONCE, | | AM PDT | | | | | 1 dose, Wed03/10/17 at 0930 | | | | | | + +---------+ +--------+---+---+ +---+---+ | | | +---+---+ + +-------+ +------+---+---+ | polyethylene glycol (MIRALAX) | Given | 03/12/20 | 17 g | | | | packet 17 g 17 g, oral, EVERY | | 17 9:08 | | | | | EVENING, First dose on Wed03/10/17 | | PM PDT | | | | | at 2100, Until Discontinued | | | | | | + +-------+ +------+---+---+ +-------+ +------+---+---+ | Given | 03/11/20 | 17 g | | | | | 17 8:16 | | | | | | PM PDT | | | | +-------+ +------+---+---+ | Given | 03/10/20 | 17 g | | | | | 17 9:09 | | | | | | PM PDT | | | | +-------+ +------+---+---+ +---+---+ | | | +---+---+ + +-------+ +--------+---+---+ | potassium & sodium phosphates | Given | 03/11/20 | 500 mg | | | | (K PHOS NEUTRAL) tablet 500 mg | | 17 4:55 | | | | | 500 mg, oral, ONCE, 1 dose, Regina | | AM PDT | | | | | 03/11/17 at 0400 | | | | | | + +-------+ +--------+---+---+ +---+---+ | | | +---+---+ + +-------+ +---------+---+---+ | senna (SENOKOT) tablet 2 tablet | Given | 03/12/20 | 2 | | | | 2 tablet, oral, TWICE DAILY, | | 17 9:09 | tablets | | | | First dose on Wed03/10/17 at 0900, | | PM PDT | | | | | Until Discontinued | | | | | | + +-------+ +---------+---+---+ +-------+ +---------+---+---+ | Given | 03/12/20 | 2 | | | | | 17 8:35 | tablets | | | | | AM PDT | | | | +-------+ +---------+---+---+ | Given | 03/11/20 | 2 | | | | | 17 8:15 | tablets | | | | | PM PDT | | | | +-------+ +---------+---+---+ +---+---+ | | | +---+---+ + +-------+ +-------+---+---+ | ticagrelor (BRILINTA) tablet 90 | Given | 03/13/20 | 90 mg | | | | mg 90 mg, oral, TWICE DAILY, | | 17 8:23 | | | | | First dose on [facility] 03/11/17 at 0900, | | AM PDT | | | | | Until Discontinued | | | | | | + +-------+ +-------+---+---+ +-------+ +-------+---+---+ | Given | 03/12/20 | 90 mg | | | | | 17 9:09 | | | | | | PM PDT | | | | +-------+ +-------+---+---+ | Given | 03/12/20 | 90 mg | | | | | 17 8:35 | | | | | | AM PDT | | | | +-------+ +-------+---+---+ +---+---+ | | | +---+---+ documented in this encounter
--- OUTSIDE RECORDS SUMMARY | ~2019-08-08 | XMS | Encounter Summary ---
Demographics + + + | Address | [address] | | | [place] [address] | + + + | Home Phone | | + + + | Preferred Language | Unknown | + + + | Marital Status | | + + + | Yazidism Affiliation | NON | + + + [...] Team Providers + +------+ + | Care Dry Wall Applicator Name | Role | Phone | + [...] | | | | | chronic | [place], [place] | | | | | | ([facility]) | [address] | | | | | | Procedures | Phone: | | | | | | TRANSTHORACI | [phone] | | | | | | C | Fax: | | | | | | ECHOCARDIOGR | [phone] | | | | | | AM, ADULT | | | +--------+--------+ + + + + Encounter Details +--------+ + + + + | Date | Type | Department | Care Team | Description | +--------+ + + + + | 04/14/ | Hospital | Cardiac | | | | 2018 | Encounter | Non-Invasive Testing | | | | | | at [facility] [address] | | | | | | [address] Mailcode: | | | | | | [facility] | | | | | | Health and Healing, | | | | | | [address] | | | | | | [place], [place] | | | | | | [address] | | | | | | [phone] | | | +--------+ + + + [...] | | ADULT | | PDT | ([facility]) | results section. | + +--------+ + [...] PDT | | | | | dose, [facility] 04/14/18 at 1530 | | | | | | + +--------+ +------+------+------+ +---+---+ | | | +---+---+ documented in this encounter"
--- OUTSIDE RECORDS SUMMARY | ~2019-08-08 | XMS | Encounter Summary ---
Demographics + + + | Address | [address] | | | [place] [address] | + + + | Home Phone | | + + + | Preferred Language | Unknown | + + + | Marital Status | | + + + | Rastafari Affiliation | NON | + + + [...] Team Providers + +------+ + | Care Equipment Services Associate Name | Role | Phone | + +------+ + | Mateusz Dixon MD | PCP | | + +------+ + Encounter Details +--------+ + + + + | Date | Type | Department | Care Team | Description | +--------+ + + + + | 12/19/ | MyChart | Cardiology General | | Please call to | | 2019 | Encounter | at [facility] [address] | | reschedule your | | | | [address] Mailcode: | | Cardiology | | | | [facility] Center for | | appointment | | | | Health and Healing, | | | | | | Building | | | | | | Floor [place], [place] | | | | | | [address] | | | | | | [phone] | | | +--------+ + + + [...]
--- OUTSIDE RECORDS SUMMARY | ~2019-08-08 | XMS | Encounter Summary ---
Demographics + + + | Address | [address] | | | [place] [address] | + + + | Home Phone | | + + + | Preferred Language | Unknown | + + + | Marital Status | | + + + | Pentecostal Affiliation | Unknown | + + + | Race | Unknown | + + + | Ethnic Group | Unknown | + + + Author + + + | Author | [facility] (Historical as of | | | 06-24-19) | + + + | Organization | [facility] (Historical as of | | | 06-24-19) [...] Team Providers + +------+ + | Care Test Clerk Name | Role | Phone | + +------+ + | Mateusz Dixon MD | PCP | | + +------+ + Encounter Details +--------+ + + + + | Date | Type | Department | Care Team | Description | +--------+ + + + + | 05/15/ | Documentati | [facility] | Nacho Pearson, | | | 2019 | on Only | Cardiology [place] | [address] | | | | | [address] | [place], | | | | | [place] | [place] [address] | | | | | [address] | [phone] | | | | | [phone] | | | +--------+ + + + [...] on file | | + + + as of this encounter Plan of Treatment Not on fileas of this encounter Visit Diagnoses Not on filein this encounter"
--- OUTSIDE RECORDS SUMMARY | ~2019-08-08 | XMS | Encounter Summary ---
Demographics + + + | Address | [address] | | | [place] [address] | + + + | Home Phone | | + + + | Preferred Language | Unknown | + + + | Marital Status | | + + + | Voodoo Affiliation | NON | + + + [...] Team Providers + +------+ + | Care Floatman Name | Role | Phone | + +------+ + | Mateusz Dixon MD | PCP | | + +------+ + Reason for Visit + + + | Reason | Comments | + + + | Lab Results | | + + + Encounter Details +--------+ + + + + | Date | Type | Department | Care Team | Description | +--------+ + + + + | 04/29/ | Abstract | Cardiology General | Jamaal Arenas, | Lab Results | | 2018 | | at [facility] [address] | MD [address] | | | | | [address] Mailcode: | [place], [place] | | | | | [facility] | [address] | | | | | Health and Healing, | [phone] | | | | | Building | | | | | | Floor [place], [place] | | | | | | [address] | | | | | | [phone] | | | +--------+ + + + [...] | BASIC METABOLIC SET | Routin | 04/28/2018 | | Results for this | | (NA, K, CL, TCO2, | e | | | procedure are in the | | BUN, CR, GLU, CA) | | | | results section. | + +--------+ + + + documented in this encounter Results BASIC METABOLIC SET (NA, K, CL, TCO2, BUN, CR, GLU, CA) (04/28/2018) + +---------+ + + + | Component | Value | Ref Range | Performed | Pathologist | | | | | At | Signature | + +---------+ + + + | GLUCOSE, | 81 | 65 - 110 mg/dL | [facility] | | | PLASMA | | | LAB - | | | (LAB) | | | [facility] | | + +---------+ + + + | BUN, PLASMA | 21 | mg/dL | [facility] | | | (LAB) | | | LAB - | | | | | | [place] | | + +---------+ + + + | CREATININE | 1.12 | mg/dL | [facility] | | | PLASMA | | | LAB - | | | (LAB) | | | [facility] | | + +---------+ + + + | SODIUM, | 131 (A) | 132 - 143 | [facility] | | | PLASMA | | mmol/L | LAB - | | | (LAB) | | | [facility] | | + +---------+ + + + | POTASSIUM, | 4.4 | mmol/L | [facility] | | | PLASMA | | | LAB - | | | (LAB) | | | [facility] | | + +---------+ + + + | CHLORIDE, | 99 | mmol/L | [facility] | | | PLASMA | | | LAB - | | | (LAB) | | | [facility] | | + +---------+ + + + | TOTAL CO2, | 23 | mmol/L | [facility] | | | PLASMA | | | LAB - | | | (LAB) | | | [facility] | | + +---------+ + + + | CALCIUM, | 9.1 | mg/dL | [facility] | | | PLASMA | | | LAB - | | | (LAB) | | | [facility] | | + +---------+ + + + | ANION GAP | 13.4 | | [facility] | | | | | | LAB - | | | | | | [facility] | | + +---------+ + + + | ESTIMATED | 64 | | [facility] | | | GFR | | | LAB - | | | | | | [facility] | | + +---------+ + + + | BUN/CREATIN | 18.8 | | [facility] | | | INE RATIO | | | LAB - | | | | | | [facility] | | + +---------+ + + + [...] | + + + + + | [facility] - | [address] | [place] | [phone] | | [place] | | | | + + + + + documented in this encounter Visit Diagnoses Not on filedocumented in this encounter"
--- OUTSIDE RECORDS SUMMARY | ~2019-08-08 | XMS | Encounter Summary ---
Demographics + + + | Address | [address] | | | [place] [address] | + + + | Home Phone | | + + + | Preferred Language | Unknown | + + + | Marital Status | | + + + | Restorationist Affiliation | NON | + + + [...] Team Providers + +------+ + | Care Bleach Boiler Packer Name | Role | Phone | + +------+ + | Mateusz Dixon MD | PCP | | + +------+ + Encounter Details +--------+ + + + + | Date | Type | Department | Care Team | Description | +--------+ + + + + | 02/14/ | Document-Sc | UNKNOWN DEPARTMENT | Unknown . | | | 2018 | anned | [address] | | | | | | [address] | | | | | | [place], [place] | | | | | | [address] | | | +--------+ + + + [...] | + +--------+ + + + | LAB REPORTS | | 02/14/2018 | | Results for this | | | | 12:00 AM | | procedure are in the | | | | PDT | | results section. | + +--------+ + + + documented in this encounter Results LAB REPORTS (02/14/2018 12:00 AM PDT) + + + | Narrative | Performed At | + + + | | | + + + documented in this encounter Visit Diagnoses Not on filedocumented in this encounter"
--- OUTSIDE RECORDS SUMMARY | ~2019-08-08 | XMS | Encounter Summary ---
Demographics + + + | Address | [address] | | | [place] [address] | + + + | Home Phone | | + + + | Preferred Language | Unknown | + + + | Marital Status | | + + + | Sabianist Affiliation | [id number] | + + + | Race | Unknown | + + + | Ethnic Group | Unknown | + + + Author + + + | Author | [facility] | | | and Adyana | + + + | Organization | [facility] | | | and [place] [...] [place] | | | | | [address] | | + + + + + Care Team Providers + +------+ + | Care Automation Machine Builder Name | Role | Phone | + +------+ + | Mateusz Dixon MD | PCP | | + +------+ + Reason for Referral Evaluate & Treat (Routine) + + + + + + + | Status | Reason | Specialty | Diagnoses / | Referred By | Referred To | | | | | Procedures | Contact | Contact | + + + + + + + | Authorized | Specialty | Sleep | Diagnoses | Lili, | [facility] | | | Services | Medicine | Obstructive | [facility] | | | Required | | sleep apnea | MD [address] | SLEEP | | | | | syndrome | [address] | DISORDERS [facility] | | | | | | [place] [address] | [address] | | | | | | [facility] [place] | [place] | | | | | | [address] | [place] | | | | | | Phone: | [phone] | | | | | | [phone] | Phone: | | | | | | Fax: | [phone] | | | | | | [phone] | Fax: | | | | | | | [phone] | + + + + + + + Reason for Visit + + + | Reason | Comments | + + + | New Patient | a fib | + + + Evaluate & Treat (Routine) + +--------+ + + + + | Status | Reason | Specialty | Diagnoses / | Referred By | Referred To | | | | | Procedures | Contact | Contact | + +--------+ + + + + | Authorized | | Cardiology | Diagnoses | Zack, | Lili, | | | | | Unspecified | Mateusz | Nacho Springer MD | | | | | atrial | MD Sean | [address] | | | | | fibrillation | [address] | [address] | | | | | ([facility]) | [address] | [place] | | | | | Heart | [place], | [place] | | | | | failure, | [place] [address] | [address] Phone: | | | | | unspecified | Phone: | [phone] | | | | | (FORM[facility]LY [facility]) | [phone] | Fax: | | | | | Atherosclero | Fax: | [phone] | | | | | tic heart | [phone] | | | | | | disease of | | | | | | | curyung | | | | | | | coronary | | | | | | | artery | | | | | | | without | | | | | | | angina | | | | | | | pectoris | | | | | | | Procedures | | | | | | | CONSULT | | | + +--------+ + + + + Encounter Details +--------+---------+ + + + | Date | Type | Department | Care Team | Description | +--------+---------+ + + + | 07/11/ | Office | [facility] | Nacho Pearson, | Atrial fibrillation, | | 2018 | Visit | CARDIOLOGY [place] | [address] | unspecified type | | | | [address] | [place], | ([facility]LY [facility]) (Primary Dx); | | | | [address] | [place] [address] | Paroxysmal atrial | | | | [place], [place] | [phone] | fibrillation ([facility]); | | | | [address] | | Ischemic dilated | | | | [phone] | | cardiomyopathy | | | | | | ([facility]); Coronary | | | | | | artery disease | | | | | | involving curyung | | | | | | coronary artery of | | | | | | curyung heart without | | | | | | angina pectoris; | | | | | | Status post | | | | | | insertion of | | | | | | drug-eluting stent | | | | | | into left anterior | | | | | | descending (LAD) | | | | | | artery; Obstructive | | | | | | sleep apnea | | | | | | syndrome; Chronic | | | | | | systolic heart | | | | | | failure ([facility]); | | | | | | Hyponatremia | +--------+---------+ + + + Social History + + [...] Filed Vital Signs + + + + | Vital Sign | Reading | Time Taken | + + + + | Blood Pressure | 130/80 | 07/11/2019 1333 PDT | + + + + | Pulse | 60 | 07/11/2019 1330 PDT | + + + + | Temperature | - | - | + + + + | Respiratory Rate | - | - | + + + + | Oxygen Saturation | 93% | 07/11/2019 1330 PDT | + + + + | Inhaled Oxygen | - | - | | Concentration | | | + + + + | Weight | 94.1 kg (207 lb 8 | 07/11/20191329 PDT | | | oz) | | + + + + | Height | 175.3 cm (5' 9") | 07/11/20191329 PDT | + + + + | Body Mass Index | 30.64 | 07/11/20191329 PDT | + + + + documented in this encounter Functional Status + + + [...] documented as of this encounter Progress Notes Nacho Pearson MD - 07/11/2019 1330 PDTFormatting of this note might be different from sami sandhu. Subjective: Patient ID: Jay Villalta is a 78 y.o. male. HPI Mr. Villalta, accompanied by his and daughter, came to the office today for a cardiolog y evaluation. I reviewed his records in detail. 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 He apparently had significant blood loss and needed several blood transfusions afterwards as well. Cardiac catheterization revealed mul tivessel CAD, with significant lesions in the left main and proximal LAD that were successfu lly stented. The ostium of the left circumflex was totally occluded and could not be crosse d, which was also the case with the distal RCA. 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 He has had episodes of bradycardia, also the Coreg dose cannot be increased. He also has paroxysm al atrial fibrillation, dating back to that time, and seen again on a recent event recorder in April,, in which multiple episodes of atrial fibrillation with RVR were noted. He is asymptomatic with these, with no palpitations. He has "good days and bad days ", which are about "50-50". On his bad days he is tired, complains that he is breathing heavier, althou gh he is not very physically active. He has no chest pain or discomfort. He used to walk 2 miles per day after his TX, but has gradually become quite sedentary, as he has "2 kinds of arthritis that knocked the devil out of me". He was encouraged to become more physically a ctive. He was encouraged to start walking again. His HIT0HS9 VASc score is 5, is a strong indication for oral anticoagulation. However, he had significant bleeding following his TX, when he was discharged "on 3 blood thinners and the shot" (likely Lovenox) until his warfar in levels were therapeutic, aspirin and Brilinta, later changed to Plavix. We had a long di scussion about this and he is willing to try Eliquis 5 mg twice daily (a BMP will be done to check his renal function, which was normal in September, but he only has one kidney). With his CAD, he will need to stay on aspirin 81 mg daily. He was instructed to call if he has s ignificant bleeding again. 1 of the triggers for atrial fibrillation may be his suspected o bstructive sleep apnea syndrome, and he was referred for a sleep study to have this evaluate d, and treated, if indicated by the results. I did not order another monitor today, but thi s will probably be done at his next visit in a few weeks, and if he continues to have atrial fibrillation, I will consider starting him on amiodarone. ADDENDUM: Labs 07/11/2019 revealed a sodium of 127, potassium 4.4, creatinine 1.0, GFR 72. H e will be instructed to hold his Entresto and furosemide for a few days, and this will be re peated next week. ADDENDUM: Labs 07/17/19 showed a sodium of 131, K 4.5; if no SOB, will continue to hold, repe at in 1 week Patient's medications, allergies, past medical, surgical, social and family histories were obtained and reviewed as appropriate. 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 Rose) DENTAL SURGERY 2007 upper teeth extraction EGD AND COLONOSCOPY N/A 08/13/2016 Procedure: EGD / COLONOSCOPY; Surgeon: Kvng Coronel MD; Location: [facility] MEDICAL PROCEDUR E UNIT ERCP HERNIA REPAIR abdominal Hill repair INGUINAL HERNIA REPAIR double and triple inguinal hernia repairs KIDNEY REMOVAL Right 02/26/2017 Procedure: Open Right Total Nephrectomy; Surgeon: Cas Weber MD; Location: [facility] MAIN OR PROSTATE BIOPSY 2009 positive adenocarcinoma prostate external beam irradiation TONSILLECTOMY AND ADENOIDECTOMY Family History Problem Relation Age of Onset Stroke Mother Stroke Father Social History Socioeconomic History Marital status: Spouse name: Not on file Number of children: Not on file Years of education: Not on file Highest education level: Not on file Social Needs Financial resource strain: Not on file Food insecurity - worry: Not on file Food insecurity - inability: Not on file Transportation needs - medical: Not on file Transportation needs - non-medical: Not on file Occupational History Not on file Tobacco Use Smoking status: Former Smoker Packs/day: 0.25 Years: 10.00 Pack years: 2.50 Types: Cigarettes Last attempt to quit: 11/08/1981 Years since quittin.6 Smokeless tobacco: Never Used Substance and Sexual Activity Alcohol use: Yes Alcohol/week: 1.2 oz Types: 2 Cans of beer per week Comment: occasional Drug use: No Sexual activity: Yes Other Topics Concern Not on file Social History Narrative Not on file Allergies Allergen Reactions Losartan Hives,Rash AKA "Losartan" Olmesartan Medoxomil Hives,Rash AKA "Benicar" Trazodone Hives,Rash AKA "Desyrel" Intolerance Allergen Reactions Carbidopa W-Levodopa Other (See Comments) Sinemet 25-100mg tab Reaction: LAUNDRY SUPERVISOR Diflunisal Other (See Comments) AKA "Dolobid" - Reaction unknown Ezetimibe-Simvastatin Other (See Comments) AKA "Vytorin" - Reaction: GI Spironolactone-Hctz Other (See Comments) AKA "Aldactazide" - Electrolyte Imbalance Current Outpatient Medications Medication Sig Dispense Refill acetaminophen (TYLENOL) 500 mg tablet Take 500 mg by mouth every 6 hours as needed for Pain. aspirin 81 mg EC tablet Take 81 mg by mouth Daily. atorvaSTATin (LIPITOR) 40 mg tablet Take 40 mg by mouth nightly. calcium carbonate (TUMS) 500 mg chewable tablet Take 2 tablets by mouth as needed for H eartburn. carvedilol (COREG) 6.25 mg tablet Take 6.25 mg by mouth 2 times daily (with breakfast & dinner). Cholecalciferol (VITAMIN D-3) 2000 units CAPS Take 2,000 Units by mouth nightly. Cyanocobalamin (VITAMIN B-12 CR) 1000 MCG TBCR Take 1 tablet by mouth Twice a week. One tablet on Wednesday and one tablet on Wednesday diphenhydrAMINE (BENADRYL) 25 mg tablet Take 25 mg by mouth every 6 hours as needed for Itching. esomeprazole (NEXIUM) 40 mg capsule Take 40 mg by mouth 2 times daily. furosemide (LASIX) 20 mg tablet Take 1 tablet by mouth Daily. 90 tablet 3 Loperamide HCl (IMODIUM A-D PO) Take 1-2 tablets by mouth Daily as needed. sacubitril-valsartan (ENTRESTO) 97-103 mg per tablet Take 1 tablet by mouth 2 times suki ly. No current facility-administered medications for this visit. ROS CONSTITUTIONAL: No recent significant weight change, denies recent fever, chills, night sw eats, c/o significant fatigue about 50% of the time. NEUROLOGIC: No history of CVA, ? TIA with transient confusion 01/22, ? Parkinson's (2 neur ologists said he had it, 2 said he didn't, has diffuse tremors), has headaches, no h/o migra chhaya, seizures. He has had 1 Syncopal event related to blood loss anemia 2016 and a vasovag al event many years ago. No dizziness, has orthostatic lightheadedness at times. He has int ermittent numbness and tingling, occasional pins and needles paresthesias of his fingertips. EYES: No amaurosis, diplopia, recent visual changes, has cataracts, denies glaucoma ENT: Bilateral hearing loss, denies tinnitus, epistaxis, dysphagia ENDOCRINE: No history of diabetes. No history of thyroid disorders or other endocrine prob lems. No excessive hunger, thirst. PULMONARY/SLEEP: He has Dyspnea on Exertion but not at rest, going up 11 steps and walking about 100 feet in his house, but can walk the entire circuit of [place] 100e, used to walk 2 mi les daily. He denies orthopnea, paroxysmal nocturnal dyspnea. No history of asthma, emphys aruna. No history of pneumonia. His notes apnea, loud snoring, has daytime somnolence. Sleep is not always refreshing. CARDIOVASCULAR: Denies chest pain, pressure or discomfort. He has a history of multivesse l CAD, NSTEMI 02/27/17, with primary stenting of left main and LAD at that time. He has an I schemic Dilated Dardiomyopathy, Chronic Systolic Heart Failure, NYHA class II-III. Paroxysm al Atrial Fibrillation. No palpitations. No history of a heart murmur, rheumatic fever. He has essential Hypertension, Hyperlipidemia. No edema, no claudication symptoms. No h/o an AAA. --5-day Event Monitor (04/26/2019-[facility]): Sinus rhythm, ave 62, range 85-111, rare PACs and PV Cs, multiple episodes of paroxysmal atrial fibrillation with RVR, longest 22 seconds, 47 con secutive beats --Persantine Cardiolite stress test (06/15/2017-[facility]): No ST changes, inferolateral sca rring, no ischemia, EF 35% with mild-moderate LV enlargement -- Echo (04/14/2018): EF 35-40%, normal RV, MR, TR, moderate pulmonary hypertension, RVSP 56. 6 mmHg -- Echo (03/10/2017): EF 50-55%, inferior and inferolateral thinning consistent with scar, no rmal RV size, function. Mild LAE, mild MR, TR, severe pulmonary hypertension, peak RVSP 62. 7 mmHg -- Cardiac Cath / Primary PCI with acute NSTEMI (02/27/17 - [facility]): LM-proximal 50-60%, distal-30%, proximal LAD 75% > 4.0x18 Xience Alpine THERON in LM and LAD; LCx-ostial occlusion , could not be crossed, minimal right > left collateral filling. RCA-distal occlusion, coul d not be crossed. GASTROINTESTINAL: GERD. No recent abdominal pain, nausea, vomiting, had chronic diarrhea a nd his prostate radiation. Denies PUD, melena, hematochezia, but has a history of Diverticul osis. No history of hepatitis. 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 No dysuria, hematuria, urinary urgency, hesitancy. HEMATOLOGY/ONCOLOGY: No h/o bleeding disorders, DVT, PE. Denies easy bruisability or ble eding. He has a history of Anemia, B12 deficiency, multiple blood transfusions for acute bl ood loss 2017 after his nephrectomy. He has a history of Prostate Cancer. MUSCULOSKELETAL: Fibromyalgia, osteoarthritis, chronic low back pain (remote injury), hip a rthralgias. No history of rheumatologic or autoimmune diseases. CUTANEOUS: No rashes, pruritus, lesions. He has a history of Shingles. PSYCHIATRIC: No history of depression, anxiety or other psychiatric problems. Objective: BP 130/80 Comment: left | Pulse 60 | Ht 1.753 m (5' 9") | Wt 94.1 kg (207 lb 8 oz) | SpO 2 93% | BMI 30.64 kg/m BP 136/82 right arm PHYSICAL EXAM GENERAL: Well developed, well nourished elderly male, in no distress. Appears a pproximately stated age. HEENT: Normocephalic, atraumatic. EYES: PERRL, sclerae anicteric, no xanthelsasmas MOUTH: Oral mucosae moist, dentition adequate, no lesions noted NECK: No JVD, lymphadenopathy, thyromegaly, bruits. Carotid pulses are 2+ bilaterally LUNGS: Clear bilaterally, with no rales, rhonchi or wheezing noted, respirations unlabored HEART: Nondisplaced PMI, regular rate and rhythm, S1, S2 normal. No murmurs, rubs or gall ops noted. ABDOMEN: Well healed surgical incisions. Soft, nontender, no organomegaly, masses or bruit s. Bowel sounds are normal in all 4 quadrants. The abdominal aortic pulsation is not palpa ble. EXTREMITIES: No edema. Radial pulses 2+ bilaterally. Femoral pulses are 2+ bilaterally wi thout bruits. DP pulses are diminished, but PT pulses are 2+ bilaterally. SKIN: Warm and dry, capillary refill is normal, no lesions. NEUROLOGIC: Awake, alert and oriented x 3. No focal motor deficits. PSYCHIATRIC: Appropriate, affect appears normal EKG: Sinus bradycardia, rate 56, old inferior TX, low voltage in precordial leads, no signi ficant ST-T abnormalities, QTc 403 ms Assessment: Jay was seen today for new patient. Diagnoses and all orders for this visit: Atrial fibrillation, unspecified type (HCC) - ECG 12 lead Paroxysmal atrial fibrillation (HCC) Ischemic dilated cardiomyopathy (HCC) Coronary artery disease involving curyung coronary artery of curyung heart without angina pec toris Status post insertion of drug-eluting stent into left anterior descending (LAD) artery Obstructive sleep apnea syndrome Plan: As above, follow-up in a few weeks documented in this encounter Plan of Treatment +--------+---------+ + + + | Date | Type | Specialty | Care Team | Description | +--------+---------+ + + + | 08/24/ | Office | Cardiology | Leonor Bailey | | | 2019 | Visit | | [address] | | | | | | [address] | | | | | | [place] [address] | | | | | | [phone] | | | | | | | | +--------+---------+ + + + + +--------+ + + | Name | Priori | Associated Diagnoses | Order Schedule | | | ty | | | + +--------+ + + | Basic Metabolic Panel | Routin | Hyponatremia | Expected: | | | e | | 07/13/2019, Expires: | | | | | 07/13/2020 | + +--------+ + + | Basic Metabolic Panel | Routin | Hyponatremia | Expected: | | | e | | 07/26/2019, Expires: | | | | | 07/19/2020 | + +--------+ + + + +--------+ + + | Name | Priori | Associated Diagnoses | Order Schedule | | | ty | | | + +--------+ + + | Ambulatory Referral to Sleep | Routin | Obstructive sleep | Ordered: 07/11/2019 | | Studies | e | apnea syndrome | | + +--------+ + + documented as of this encounter Procedures + +--------+ + + + | Procedure Name | Priori | Date/Time | Associated Diagnosis | Comments | | | ty | | | | + +--------+ + + + | ECG 12 LEAD | Routin | 07/11/2019 | Atrial | Results for this | | | e | 13:36 PDT | fibrillation, | procedure are in the | | | | | unspecified type | results section. | | | | | (HCC) | | + +--------+ + + + | LABS - EXTERNAL SCAN | | 07/11/2019 | | Results for this | | | | 0:00 PDT | | procedure are in the | | | | | | results section. | + +--------+ + + + documented in this encounter Results ECG 12 lead (07/11/2019 13:36 PDT) + + + + + + | Component | Value | Ref Range | Performed | Pathologist | | | | | At | Signature | + + + + + + | VENTRICULAR | 56 | BPM | [facility] | | | RATE EKG | | | | | + + + + + + | ATRIAL RATE | 56 | BPM | [facility] | | + + + + + + | P-R | 178 | ms | [facility] | | | INTERVAL | | | | | + + + + + + | QRS | 98 | ms | [facility] | | | DURATION | | | | | + + + + + + | Q-T | 418 | ms | [facility] | | | INTERVAL | | | | | + + + + + + | Q-T | 403 | ms | [facility] | | | INTERVAL | | | | | | (CORRECTED) | | | | | + + + + + + | P WAVE AXIS | 15 | degrees | [facility] | | + + + + + + | QRS AXIS | -6 | degrees | [facility] | | + + + + + + | T AXIS | 48 | degrees | [facility] | | + + + + + + | INTERPRETAT | Sinus | | [facility] | | | ION TEXT | bradycardiaInferior | | | | | | infarct , age | | | | | | undeterminedAbnormal | | | | | | ECGNo previous ECGs | | | | | | availablePlease refer to | | | | | | Providers office visit | | | | | | note for Providers | | | | | | Interpretation.Confirmed | | | | | | by [facility] [place] Read Only, | | | | | | [facility] ([id number]), | | | | | | editor farm journal Amilcar Edwards | | | | | | ([id number]) on 07/11/2019 | | | | | | 3:15:47 PM | | | | + + + + + + + + | Specimen | + + | | + + + + + | Narrative | Performed At | + + + | | | + + + + +---------+ + + | Performing | Address | City/State/Zipcode | Phone Number | | Organization | | | | + +---------+ + + | [facility] | | | | + +---------+ + + LABS - EXTERNAL SCAN (07/11/2019 0:00 PDT) + + + | Narrative | Performed At | + + + | Ordered by an | | | unspecified provider. | | + + + documented in this encounter Visit Diagnoses + + | Diagnosis | + + | Atrial fibrillation, unspecified type (HCC) - Primary | + + | Paroxysmal atrial fibrillation (HCC) Atrial fibrillation | + + | Ischemic dilated cardiomyopathy (HCC) Other specified forms of chronic ischemic heart | | disease | + + | Coronary artery disease involving curyung coronary artery of curyung heart without | | angina pectoris | + + | Status post insertion of drug-eluting stent into left anterior descending (LAD) artery | + + | Obstructive sleep apnea syndrome Obstructive sleep apnea (adult) (pediatric) | + + | Chronic systolic heart failure (HCC) Chronic systolic heart failure | + + | Hyponatremia Hyposmolality and/or hyponatremia | + + documented in this encounter
--- OUTSIDE RECORDS SUMMARY | ~2019-08-08 | XMS | Encounter Summary ---
Demographics + + + | Address | [address] | | | [place] [address] | + + + | Home Phone | | + + + | Preferred Language | Unknown | + + + | Marital Status | | + + + | Adventist Affiliation | NON | + + + [...] Team Providers + +------+ + | Care Stranding Supervisor Name | Role | Phone | + +------+ + | Arash Estes MD | PCP | | + +------+ + Reason for Visit + + + | Reason | Comments | + + + | Medical Records | Car Gen records checklist | | Review | | + + + Encounter Details +--------+ + + + + | Date | Type | Department | Care Team | Description | +--------+ + + + + | 12/20/ | Abstract | Cardiology General | Jamaal Arenas, | Medical Records | | 2018 | | at [facility] [address] | [address] | Review (Car Gen | | | | [place] Mailcode: | [place], [place] | records checklist) | | | | [address] | [address] | | | | | [facility], | [phone] | | | | | | | | | | | [place], [place] | | | | | | [address] | | | | | | [phone] | | | +--------+ + + + [...] documented as of this encounter Progress Notes Rc Argueta - 12/20/2017 2:21 PM PST General Cardiology New Patient Record Check List Procedure Where/Date Date requested Report received? Y/N, Where? Imaging received? CD/ [facility]/Not Available Comments Referring Provider notes N/A External Referral Last EKG (REPORT ONLY) Note: Tracings needed if being seen for abnormal ECG 02/27/2017 [place] Yes, attached to referral below N/A Last Echo images and report TTE 12/07/17 [place] 12/22/17 Yes, attached to referral below In impax Fax request sent to [facility] [phone] Last Stress Test images and report Exercise Stress Test 10/05/17 [place] [facility] [place] 06/15/2017 yes, attached to referral below In impax In impax Fax request sent to [facility] [phone] Last Cardiac Catheterization images and report 02/27/2017 [place] yes, attached to referral below In impax Fax request sent to [facility] Last Holter or Event monitor report only More than 10 yrs ago No N/A Labs (BMP, Lipids, TSH, Hemoglobin A1C in last 6 months) 12/07/17 [place] Yes, attached to referral below N/A Last Device Check (schedule device check if due) No N/A Last Cardiac MRI report and images if available No Cardiac CTA report and images if available No Patient Preferred Lab interpath Lab N/A N/A N/A Additional Comments: documented in this encount er Plan of Treatment Not on filedocumented as of this encounter Visit Diagnoses Not on filedocumented in this encounter"
--- OUTSIDE RECORDS SUMMARY | ~2019-08-08 | XMS | Encounter Summary ---
Demographics + + + | Address | [address] | | | [place] [address] | + + + | Home Phone | | + + + | Preferred Language | Unknown | + + + | Marital Status | | + + + | Islam Affiliation | NON | + + + | Race | White | + + + | Ethnic Group | Not or | + + + Author + + + | Author | [facility] | + + + | Organization | [facility] | + + + | Address [...] Team Providers + +------+ + | Care Fire Prevention Captain Name | Role | Phone | + +------+ + | Mateusz Dixon MD | PCP | | + +------+ + Encounter Details +--------+ + + + + | Date | Type | Department | Care Team | Description | +--------+ + + + + | 02/03/ | MyChart | Cardiology General | Jamaal Arenas, | RE: Sodium reduction | | 2018 | Encounter | at [facility] [address] | [address] | side effects | | | | [address] Mailcode: | [address] [place], [place] | | | | | [facility] | [address] | | | | | Health and Healing, | [phone] | | | | | [facility] | | | | | | Floor [facility] [place] | | | | | | [address] | | | | | | [phone] | | | +--------+ + + + [...]
--- OUTSIDE RECORDS SUMMARY | ~2019-08-08 | XMS | Encounter Summary ---
Demographics + + + | Address | [address] | | | [place] [address] | + + + | Home Phone | | + + + | Preferred Language | Unknown | + + + | Marital Status | | + + + | Jewish Affiliation | 1077 | + + + | Race | Unknown | + + + | Ethnic Group | Unknown | + + + Author + + + | Author | [facility] | | | and Adyana | + + + | Organization | [facility] | | | and [place] [...] [place] | | | | | [address] | | + + + + + Care Team Providers + +------+ + | Care Plant Operations Vice President Name | Role | Phone | + +------+ + | Mateusz Dixon MD | PCP | | + +------+ + Reason for Visit + + + | Reason | Comments | + + + | Medication Orders | | + + + Encounter Details +--------+ + + + + | Date | Type | Department | Care Team | Description | +--------+ + + + + | 07/19/ | Telephone | [facility] | Erum Vela, | Medication Orders | | 2019 | | CARDIOLOGY [place] | [facility] | | | | | [address] | | | | | | [place] | | | | | | [address] | | | | | | [phone] | | | +--------+ + + + [...] | | | | | [place] [address] | | | | | | [phone] | | | | | | | | +--------+---------+ + + + documented as of this encounter Visit Diagnoses Not on filedocumented in this encounter"
--- OUTSIDE RECORDS SUMMARY | ~2019-08-08 | XMS | Encounter Summary ---
Demographics + + + | Address | [address] | | | [place] [address] | + + + | Home Phone | | + + + | Preferred Language | Unknown | + + + | Marital Status | | + + + | Shinto Affiliation | NON | + + + | Race | White | + + + | Ethnic Group | Not or | + + + Author + + + | Author | [facility] | + + + | Organization | [facility] | + + + | Address | [...] Team Providers + +------+ + | Care Paper Hanger Name | Role | Phone | + +------+ + | Mateusz Dixon MD | PCP | | + +------+ + Encounter Details +--------+ + + + + | Date | Type | Department | Care Team | Description | +--------+ + + + + | 01/24/ | MyChart | Cardiology General | Jamaal Arenas, | RE:BP and medication | | 2018 | Encounter | at [facility] [address] | [address] | | | | | [address] Mailcode: | Ave [place], [place] | | | | | [facility] | [address] | | | | | Health and Healing, | [phone] | | | | | [facility] | | | | | | Floor [place], [place] | | | | | | [address] | | | | | | [phone] | | | +--------+ + + + [...]
--- OUTSIDE RECORDS SUMMARY | ~2019-08-08 | XMS | Encounter Summary ---
Demographics + + + | Address | [address] | | | [place] [address] | + + + | Home Phone | | + + + | Preferred Language | Unknown | + + + | Marital Status | | + + + | Hindu Affiliation | 1077 | + + + | Race | Unknown | + + + | Ethnic Group | Unknown | + + + Author + + + | Author | [facility] | | | and [place] | + + + | Organization | [facility] | | | and [place] [...] [place] | | | | | [address] | | + + + + + Care Team Providers + +------+ + | Care Clerical And Administrative Workers Name | Role | Phone | + +------+ + | Mateusz Dixon MD | PCP | | + +------+ + Reason for Visit + + + | Reason | Comments | + + + | Medication Question | | + + + Encounter Details +--------+ + + + + | Date | Type | Department | Care Team | Description | +--------+ + + + + | 07/12/ | Telephone | [facility] | Erum Vela, | Medication Question | | 2018 | | CARDIOLOGY [place] | [place] | | | | | [address] | | | | | | [place] | | | | | | [address] | | | | | | [phone] | | | +--------+ + + + [...] | 08/24/ | Office | Cardiology | Leo Leonor | | | 2019 | Visit | | [address] | | | | | | [address] | | | | | | [place] [address] | | | | | | [phone] | | | | | | | | +--------+---------+ + + + documented as of this encounter Visit Diagnoses Not on filedocumented in this encounter"
--- OUTSIDE RECORDS SUMMARY | ~2019-08-08 | XMS | Encounter Summary ---
Demographics + + + | Address | [address] | | | [place] [address] | + + + | Home Phone | | + + + | Preferred Language | Unknown | + + + | Marital Status | | + + + | Gnosticism Affiliation | NON | + + + | Race | White | + + + | Ethnic Group | Not or | + + + Author + + + | Author | [facility] | + + + | Organization | [facility] | + + + | Address | Unknown | + + + | Phone | Unavailable | + + + Support + + +---------+ + | Name | Relationship | Address | Phone | + + +---------+ + | Marti Villalta | ECON | Unknown | | + + +---------+ + | Vinita Pleitze | ECON | Unknown | | + + +---------+ + Care Team Providers + +------+ + | Care Lasting Floorworker Name | Role | Phone | + [...] + + + + | 05/17/ | Documentati | Cardiology General | Jamaal Arenas, | Lab Results | | 2018 | on | at [facility] [address] | [address] | | | | | [address] Mailcode: | [place], [place] | | | | | [facility] | [address] | | | | | Health and Healing, | [phone] | | | | | [facility] | | | | | | Floor [place], [place] | | | | | | [address] | | | | | | [phone] | | | +--------+ + + + [...]
--- OUTSIDE RECORDS SUMMARY | ~2019-08-08 | XMS | Encounter Summary ---
Demographics + + + | Address | [address] | | | [place] [address] | + + + | Home Phone | | + + + | Preferred Language | Unknown | + + + | Marital Status | | + + + | Religion Affiliation | NON | + + + | Race | White | + + + | Ethnic Group | Not or | + + + Author + + + | Author | [facility] | + + + | Organization | [facility] | + + + | Address [...] Team Providers + +------+ + | Care Machine Pecan Picker Name | Role | Phone | + [...] + + + + | 02/24/ | Documentati | Cardiology General | Jamaal Arenas, | Lab Results | | 2018 | on | at [facility] [address] | [address] | | | | | [address] Mailcode: | [place], [place] | | | | | [facility] | [address] | | | | | Health and Healing, | [phone] | | | | | [facility] | | | | | | Floor [place], [place] | | | | | | [address] | | | | | | [phone] | | | +--------+ + + + [...]
--- OUTSIDE RECORDS SUMMARY | ~2019-08-08 | XMS | Encounter Summary ---
Demographics + + + | Address | [address] | | | [place] [address] | + + + | Home Phone | | + + + | Preferred Language | Unknown | + + + | Marital Status | | + + + | Restorationist Affiliation | 1077 | + + + | Race | Unknown | + + + | Ethnic Group | Unknown | + + + Author + + + | Author | [facility] | | | and Adyana | + + + | Organization | [facility] | | | and [place] | [...] [place] | | | | | [address] | | + + + + + Care Team Providers + +------+ + | Care Vegetable Ii Farmworker Name | Role | Phone | + +------+ + | Mateusz Dixon MD | PCP | | + +------+ + Reason for Visit + + + | Reason | Comments | + + + | Medication Related | | + + + Encounter Details +--------+ + + + + | Date | Type | Department | Care Team | Description | +--------+ + + + + | 07/14/ | Telephone | [facility] | Erum Vela, | Medication Related | | 2019 | | CARDIOLOGY [place] | [facility] | | | | | [address] | | | | | | [place] | | | | | | [address] | | | | | | [phone] | | | +--------+ + + + [...] | | | | | [place] [address] | | | | | | [phone] | | | | | | | | +--------+---------+ + + + documented as of this encounter Visit Diagnoses Not on filedocumented in this encounter"
--- OUTSIDE RECORDS SUMMARY | ~2019-08-08 | XMS | Clinical Summary ---
Demographics + + + | Address | [address] | | | [place] [address] | + + + | Home Phone | | + + + | Preferred Language | Unknown | + + + | Marital Status | | + + + | Advent Affiliation | 1077 | + + + | Race | Unknown | + + + | Ethnic Group | Unknown | + + + Author + + + | Author | [facility] | | | and [place] | + + + | Organization | [facility] | | | and [place] [...] [place] | | | | | [address] | | + + + + + Care Team Providers + +------+ + | Care Sports Activities Foul Judge Name | Role | Phone | + +------+ + | Mateusz Dixon MD | PCP | | + +------+ + Allergies + + + + + + | Active Allergy | Reactions | Severity | Noted | Comments | | | | | Date | | + + + + + + | Carbidopa W-Levodopa | Other (See Comments) | Medium | 05/07/20 | Sinemet 25-100mg | | | | | 16 | tab Reaction: MILL HELPER | + + + + + + | Diflunisal | Other (See Comments) | | 05/07/20 | LILLIAM "Dolobid" - | | | | | 16 | Reaction unknown | + + + + + + | Ezetimibe-Simvastati | Other (See Comments) | Low | 05/07/20 | LILLIAM "Vytorin" - | | n | | | 16 | Reaction: GI | + + + + + + | Losartan | Victor M Arita | Medium | 05/07/20 | LILLIAM "Losartan" | | | | | 16 | | + + + + + + | Olmesartan Medoxomil | Lyla Rash | Medium | 08/29/20 | LUCIANOA "Benicar" | | | | | 12 | | + + + + + + | Spironolactone-Hctz | Other (See Comments) | Low | 05/07/20 | AKMendez "Aldactazide" | | | | | 16 | - Electrolyte | | | | | | Imbalance | + + + + + + | Trazodone | Lyla Rash | Medium | 05/07/20 | LUCIANOA "Desyrel" | | | | | 16 | | + + + + + + Medications + + + +---------+------+------+-------+ | Medication | Sig | Dispensed | Refills | Star | End | Statu | | | | | | t | Date | s | | | | | | Date | | | + + + +---------+------+------+-------+ | Loperamide HCl | Take 1-2 tablets by | | 0 | | | Activ | | (IMODIUM A-D PO) | mouth Daily as | | | | | e | | | needed. | | | | | | + + + +---------+------+------+-------+ | aspirin 81 mg EC | Take 81 mg by mouth | | 0 | | | Activ | | tablet | Daily. | | | | | e | + + + +---------+------+------+-------+ | Cyanocobalamin | Take 1 tablet by | | 0 | | | Activ | | (VITAMIN B-12 CR) | mouth Twice a week. | | | | | e | | 1000 MCG TBCR | One tablet on | | | | | | | | Wednesday and one | | | | | | | | tablet on Wednesday | | | | | | + + + +---------+------+------+-------+ | esomeprazole | Take 40 mg by mouth | | 0 | | | Activ | | (NEXIUM) 40 mg | 2 times daily. | | | | | e | | capsule | | | | | | | + + + +---------+------+------+-------+ | calcium carbonate | Take 2 tablets by | | 0 | | | Activ | | (TUMS) 500 mg | mouth as needed for | | | | | e | | chewable tablet | Heartburn. | | | | | | + + + +---------+------+------+-------+ | Cholecalciferol | Take 2,000 Units by | | 0 | | | Activ | | (VITAMIN D-3) 2000 | mouth nightly. | | | | | e | | units CAPS | | | | | | | + + + +---------+------+------+-------+ | atorvaSTATin | Take 40 mg by mouth | | 0 | 02/ | | Activ | | (LIPITOR) 40 mg | nightly. | | | 7/ | | e | | tablet | | | | 17 | | | + + + +---------+------+------+-------+ | furosemide (LASIX) | Take 1 tablet by | 90 | 3 | / | | Activ | | 20 mg tablet | mouth Daily. | tablet | | 01/25 | | e | | | | | | 18 | | | + + + +---------+------+------+-------+ | | Take 1 tablet by | | 0 | | | Activ | | sacubitril-valsartan | mouth 2 times daily. | | | | | e | | (ENTRESTO) 97-103 | | | | | | | | mg per tablet | | | | | | | + + + +---------+------+------+-------+ | carvedilol (COREG) | Take 6.25 mg by | | 0 | | | Activ | | 6.25 mg tablet | mouth 2 times daily | | | | | e | | | (with breakfast & | | | | | | | | dinner). | | | | | | + + + +---------+------+------+-------+ | acetaminophen | Take 500 mg by mouth | | 0 | | | Activ | | (TYLENOL) 500 mg | every 6 hours as | | | | | e | | tablet | needed for Pain. | | | | | | + + + +---------+------+------+-------+ | diphenhydrAMINE | Take 25 mg by mouth | | 0 | | | Activ | | (BENADRYL) 25 mg | every 6 hours as | | | | | e | | tablet | needed for Itching. | | | | | | + + + +---------+------+------+-------+ | apixaban (ELIQUIS) | Take 1 tablet by | 60 | 11 | 09/0 | | Activ | | 5 mg tablet | mouth 2 times daily. | tablet | | 3/20 | | e | | | | | | 19 | | | + + + +---------+------+------+-------+ | Multiple | Take 1 tablet by | | 0 | | 09/0 | Disco | | Vitamins-Minerals | mouth Daily. | | | | 3/20 | ntinu | | (CENTRUM SILVER PO) | | | | | 19 | ed | + + + +---------+------+------+-------+ | fexofenadine | Take 180 mg by mouth | | 0 | | 09/0 | Disco | | (PER ALLERGY) | Daily. | | | | 3/20 | ntinu | | 180 mg tablet | | | | | 19 | ed | + + + +---------+------+------+-------+ | amiodarone | 2tab po bid till | 45 | 3 | 04/2 | 09/0 | Disco | | (PACERONE) 200 mg | 03/12/17, 1tab po BID | tablet | | 07/28 | 3/20 | ntinu | | tablet | till , 1tab po | | | 17 | 19 | ed | | | daily. | | | | | | + + + +---------+------+------+-------+ | lisinopril | Take 2 tablets by | 30 | 5 | 09/08 | 09/0 | Disco | | (PRINIVIL, ZESTRIL) | mouth Daily. | tablet | | 3/20 | 3/20 | ntinu | | 5 mg tablet | | | | 17 | 19 | ed | + + + +---------+------+------+-------+ | metoprolol | Take 0.5 tablets by | 45 | 3 | 11/09 | 09/0 | Disco | | succinate | mouth Daily. | tablet | | 3/20 | 3/20 | ntinu | | (TOPROL-XL) 100 mg | | | | 18 | 19 | ed | | ER tablet | | | | | | | + + + +---------+------+------+-------+ Active Problems + + + | Problem | Noted Date | + + + | CAD (coronary artery disease) | 11/29/2017 | + + + | CHF (congestive heart failure) | 11/29/2017 | + + + | Non-rheumatic mitral regurgitation | 09/20/2017 | + + + | Old inferolateral myocardial infarction | 09/20/2017 | + + + | Chronic systolic heart failure | 09/20/2017 | + + + + + | Overview: Echo LVEF 40%. | | | | Echo 12/07/17 LVEF 40-45% | + + + + + | Encounter for monitoring amiodarone therapy | 05/03/2017 | + + + | Status post insertion of drug-eluting stent into left anterior | 03/30/2017 | | descending artery for coronary artery disease | | + + + + + | Overview: Nuclear Stress Test 06/15/17 | + + + + + | Status post insertion of drug-eluting stent into left anterior | 02/27/2017 | | descending (LAD) artery | | + + + + + | Overview: 4.0x18 Markuswalker Bolañosmanolo KRIS in LM and prox LAD | | (primary PCI with acute NSTEMI) | + + + + + | Myocardial infarction | 02/27/2017 | + + + + + | Overview: NSTEMI, primary PCI with RKIS in LM & prox LAD | + + + + + | Renal mass | 02/26/2017 | + + + | PAF (paroxysmal atrial fibrillation) | 02/26/2017 | + + + | Acute respiratory failure | 02/26/2017 | + + + | Non-STEMI (non-ST elevated myocardial infarction) | 02/26/2017 | + + + | Zoster | 02/26/2017 | + + + | Hx of adenomatous colonic polyps | 08/12/2016 | + + + | Preventative health care | 08/12/2016 | + + + | Diarrhea | | + + + | Colon polyp | | + + + | Diverticulosis | | + + + | Hypertension | | + + + | GERD (gastroesophageal reflux disease) | | + + + | Paroxysmal atrial fibrillation | | + + + | Ischemic dilated cardiomyopathy | | + + + | Coronary artery disease | | + + + Encounters +--------+ + + + + | Date | Type | Specialty | Care Team | Description | +--------+ + + + + | 07/19/ | Telephone | Cardiology | Erum Vela, | Medication Orders | | 2018 | | | TELEPHONE ENGINEER | | +--------+ + + + + | 07/14/ | Telephone | Cardiology | Erum Vela, | Medication Related | | 2018 | | | TELEPHONE ENGINEER | | +--------+ + + + + | 07/12/ | Telephone | Cardiology | Erum Vela, | Medication Question | | 2018 | | | TELEPHONE ENGINEER | | +--------+ + + + + | 07/12/ | Documentati | Cardiology | Erum Vela, | Other (Records from | | 2018 | on | | TELEPHONE ENGINEER | PCP) | +--------+ + + + + | 07/12/ | Documentati | Cardiology | Ermu Vela, | Labs Only | | 2018 | on | | TELEPHONE ENGINEER | | +--------+ + + + + | 07/11/ | Office | Cardiology | Nacho Pearson, | Atrial fibrillation, | | 2018 | Visit | | MD | unspecified type | | | | | | ([facility]) (Primary Dx); | | | | | | Paroxysmal atrial | | | | | | fibrillation ([facility]); | | | | | | Ischemic dilated | | | | | | cardiomyopathy | | | | | | ([facility]); Coronary | | | | | | artery disease | | | | | | involving chickaloon | | | | | | coronary artery of | | | | | | chickaloon heart without | | | | | [...] | | | | | | failure (HCC); | | | | | | Hyponatremia | +--------+ + + + + from Last 3 Months Family History + + +------+ + | Medical History | Relation | Name | Comments | + + +------+ + | No known problems | Brother | | | + + +------+ + | No known problems | Daughter | | | + + +------+ + | Stroke | Father | | | + + +------+ + | Stroke | Mother | | | + + +------+ + + +------+ + + | Relation | Name | Status | Comments | + +------+ + + | Brother | | Alive | | + +------+ + + | Daughter | | Alive | | + +------+ + + | Father | | | CVA | | | | (Age | | | | | 70) | | + +------+ + + | Mother | | | CVA | | | | (Age | | | | | 72) | | + +------+ + + Social History + + + [...] + + | Pulse | 60 | 07/11/20190 PDT | + + + + | Temperature | 36.2 C (97.1 F) | 03/06/2017 08 PDT | + + + + | Respiratory Rate | 14 | 12/16/201743 PST | + + + + | Oxygen Saturation | 93% | 07/11/20191329 PDT | + + + + | Inhaled Oxygen | - | - | | Concentration | | | + + + + | Weight | 94.1 kg (207 lb 8 | 07/11/20191329 PDT | | | oz) | | + + + + | Height | 175.3 cm (5' 9") | 07/11/2019 1330 PDT | + + + + | Body Mass Index | 30.64 | 07/11/2019 1330 PDT | + + + + Plan of Treatment +--------+---------+ + + + | Date | Type | Specialty | Care Team | Description | +--------+---------+ + + + | 08/24/ | Office | Cardiology | Leonor Bailey | | | 2019 | Visit | | [address] | | | | | | [address] | | | | | | [place] [address] | | | | | | [phone] | | | | | | | | +--------+---------+ + + + + + + + + | Health [...] | + + + + + | Adult Annual | | | | | Wellness Visit | 5 | | | + + + + + | Vaccine: Influenza | | | | | (#1) | 9 | | | + + + + + Implants + +-------+--------+ +--------+--------+--------+ | Implanted | Type | Area | Manufacture | Device | Shelf | Model | | | | | r | | Expira | / | | | | | | Identi | tion | Serial | | | | | | fier | Date | / Lot | + +-------+--------+ +--------+--------+--------+ | Stent Kris Von 4.00x18 Rx - | Stent | N/A: | UGALDE | | 10/07/ | [id number] | | [id number]: Qty: 1 | | Childs | VASCULAR - | | 2019 | 0-18 / | | on 02/27/2017 by Cas Garduno | | ry | MAR[place] | | | | | MD [place] | | | | | | /[id number] | | | | | | | | 42 | + +-------+--------+ +--------+--------+--------+ Procedures + +--------+ + + + | Procedure Name | Priori | Date/Time | Associated Diagnosis | Comments | | | ty | | | | + +--------+ + + + | LABS - EXTERNAL SCAN | | 07/17/2019 | | Results for this | | [...] section. | + +--------+ + + + from Last 3 Months Results LABS - EXTERNAL SCAN (07/17/2019 0:00 PDT)Only the most recent of 2 results within the is included. + + + | Narrative | Performed At | + + + | Ordered by an | | | unspecified provider. | | + + + ECG 12 lead (07/11/2019 13:36 PDT) + [...] | | | | | by [facility] [place] Read Only, | | | | | | [facility] ([id number]), | | | | | | manuscript editor Amilcar Edwards | | | | | [...] | | | + +---------+ + + from Last 3 Months Insurance + +--------+ +--------+ +---------+--------+ | Payer | Benefi | Subscriber | Effect | Phone | Address | Type | | | t Plan | ID | nayeli | | | | | | / | | Dates | | | | | | Group | | | | | | + +--------+ +--------+ +---------+--------+ | MEDICARE | MEDICA | [id number] | | [phone] | | Medica | | | RE | | 006-Pr | 5 | | re | | | PART A | | esent | | | | | | AND B | | | | | | + +--------+ +--------+ +---------+--------+ | MEDICARE | MEDICA | [id number] | | [phone] | | Medica | | | RE | | 012-Pr | 5 | | re | | | PART A | | esent | | | | | | AND B | | | | | | + +--------+ +--------+ +---------+--------+ | AARP | AARP | [id number] | 12/09/19 | [phone] | | Indemn | | | MDCR | | 13-Pre | 0 | | ity | | | SUPPL | | sent | | | | + +--------+ +--------+ +---------+--------+ | AARP | AARP | [id number] | 11/08/19 | [phone] | | Indemn | | | MDCR | | 19-Pre | 0 | | ity | | | SUPPL | | sent | | | | + +--------+ +--------+ +---------+--------+ + +--------+ +--------+ + + | Guarantor Name | Accoun | Relation to | Date | Phone | Billing Address | | | t Type | Patient | of | | | | | | | | | | + +--------+ +--------+ + + | Jay Villalta | Person | Self | [birth year] | [address] | | [place] | al/Fam | | 1940 | [phone] | [place] [address] | | | jose c | | | 1 (Home) | | + +--------+ +--------+ + + | Jay Villalta | Person | Self | [birth year] | [address] | | [place] | al/Fam | | 1940 | [phone] | [place] [address] | | | jose c | | | 1 (Home) | | | | | | | [phone] | | | | | | | 0 (Work) | | + +--------+ +--------+ + + Advance Directives Patient has advance care planning documents, and code status on file. For more information, please contact:[facility] [place] [address] + + + + + | Code Status | Date | Date | Comments | | | Activated | Inactivated | | + + + + + | Full Code | 02/27/2017 | 03/06/2017 | | | | 7:20 | 16:09 | | + + + + +
--- OUTSIDE RECORDS SUMMARY | ~2019-08-08 | XMS | Encounter Summary ---
Demographics + + + | Address | [address] | | | [place] [address] | + + + | Home Phone | | + + + | Preferred Language | Unknown | + + + | Marital Status | | + + + | Anabaptism Affiliation | NON | + + + | Race | White | + + + | Ethnic Group | Not or | + + + Author + + + | Author | [facility] | + + + | Organization | [facility] | + + + | Address | Unknown | + + + | Phone | Unavailable | + + + Support + + +---------+ + | Name | Relationship | Address | Phone | + + +---------+ + | Marti Villalta | ECON | Unknown | | + + +---------+ + | Vintia Pleitez | ECON | Unknown | | + + +---------+ + Care Team Providers + +------+ + | Care Industrial Relations Specialist Name | Role | Phone | + +------+ + | Mateusz Dixon MD | PCP | | + +------+ + Reason for Visit + + + | Reason | Comments | + + + | Follow-up visit | | + + + | Heart failure | | + + + Consultation (Routine) +--------+--------+ + + + + | Status | Reason | Specialty | Diagnoses / | Referred By | Referred To | | | | | Procedures | Contact | Contact | +--------+--------+ + + + + | Closed | | Cardiology | Diagnoses | Franlkyn, | Dagoberto | | | | | CHF | Arash | Jamaal Simms MD | | | | | (congestive | MD Yvan | [address] | | | | | heart | [address] | Ave | | | | | failure) | INTERNAL | [place], [place] | | | | | (HCC) | MEDICINE | [address] | | | | | Procedures | [address] | Phone: | | | | | CONSULT TO | MALICK | [phone] | | | | | CARDIOLOGY | [address] | Fax: | | | | | [place] | [place], | [phone] | | | | | PATIENT | [place] [address] | | | | | | LEVEL [address] | Phone: | | | | | | | [phone] | | | | | | | Fax: | | | | | | | [phone] | | +--------+--------+ + + + + Encounter Details +--------+---------+ + + + | Date | Type | Department | Care Team | Description | +--------+---------+ + + + | 04/14/ | Office | Cardiology General | Jamaal Arenas, | Heart failure, | | 2017 | Visit | at [facility] [address] | MD [address] | systolic, chronic | | | | [address] Mailcode: | Ave [place], [place] | ([facility]) (Primary Dx); | | | | [address] for | [address] | Paroxysmal atrial | | | | [facility] and He[facility], | [phone] | fibrillation ([facility]); | | | | Building | | Hypertensive heart | | | | Floor [place], [place] | | disease with heart | | | | [address] | | failure ([facility]); | | | | [phone] | | Prediabetes; | | | | | | Coronary artery | | | | | | disease involving | | | | | | [place] coronary | | | | | | artery of fed[place] | | | | | | heart without angina | | | | | | pectoris | +--------+---------+ + + + Social History + +-------+ [...] + + + | Blood Pressure | 137/78 | 04/14/2018 10:52 AM | | | | | PDT | | + + + + + | Pulse | 57 | 04/14/2018 10:52 AM | | | | | PDT | | + + + + + | Temperature | 36.5 C (97.7 F) | 04/14/2018 10:52 AM | | | | | PDT | | + + + + + | Respiratory Rate | - | - | | + + + + + | Oxygen Saturation | 96% | 04/14/2018 10:52 AM | | | | | PDT | | + + + + + | Inhaled Oxygen | - | - | | | Concentration | | | | + + + + + | Weight | 85.7 kg (189 lb) | 04/14/2018 10:52 AM | | | | | PDT | | + + + + + | Height | 175.3 cm (5' 9") | 04/14/2018 10:52 AM | | | | | PDT | | + + + + + | Body Mass Index | 27.91 | 04/14/2018 10:52 AM | | | | | PDT | | + + + + + documented in this encounter Patient Instructions Patient Instructions Jamaal Arenas MD - 04/14/2018 11:10 AM PDT- it was a pleasure to see you today - labs today - congratulations, you are great! - reduce the furosemide from 20 mg daily to 20 mg every other day - stop amiodarone - repeat labs in 2 weeks - once serum sodium issue is resolved, will change from lisinopril to Entresto - once stable on Entresto, will consider making 1 more medication change - followup in 3 months documented in this encounter Progress Notes Jamaal Arenas MD - 04/14/2018 11:10 AM PDTFormatting of this note might be different f rom the original. HEART FAILURE CLINIC Primary Care Provider: Mateusz Dixon MD Referring Provider: Arash Estes MD Chief Complaint Patient presents with Follow-up visit Heart failure History of Present Illness: Jay Villalta is a 77 y.o. 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 After these ev ents, he developed HFrEF and established with HF Clinic in Jan 2018 because of refractory sy mptoms. Brief Review of CV and Pertinent Medical History: - Dec 2016: TIA, details unknown. Clopidogrel was added to aspirin. Unknown if any kristen p was done for atrial fibrillation - Feb 26, 2017: Elective admission to [facility] in [place], [place] for nephrectomy pepper use or renal mass discovered during workup for hematuria after starting clopidogrel. 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 Nephrectomy was complicated by cardiogenic shock, VT and atrial fibrillation. Pre-op TTE was notable for inferior WMA. Urgent coronary angio showed CRAYON PAINTER of left circ and RCA and LM disease going into the LAD. The patient became unst able and a 4 x 18 mm Xience THERON was placed (brand not described in op report but in Media ta b). Attempts were made to open left circ and RCA but were not successful. He was discharge d on amiodarone, ticagrelor, aspirin and enoxaparin. - March 10-2016: Transferred to [facility] from outside hospital because of rectus sheath hemato ma. Warfarin and enoxaparin were stopped. Seen by Cardiology (Dr. Heber Chisholm and Dr. Raymundo Desouza ). Anticoagulation was deferred because the patient was in atrial fibrillation for less giuseppe n 24 hours and risk of recurrent bleed - Jun 15, 2017: MPS showed fixed inf-lateral defect without reversible ischemia or evidence of viability in infarcted myocardium. LVEF was 34%. No changes were made to medical thera py. - Jan 20, 2018: Initial visit to HF Clinic ([facility]). Interval History Since Last Clinic Visit or Hospitalization: The biggest concern is that his urologist told him yesterday that his sodium level is dange rously low. He is now feeling very well. All symptoms of HF have resolved. Volume-related symptoms: - SOB at rest: no - SALEH: no, able to climb 12 steps, walking 2 miles per day - Orthopnea: no, sleeps on 3 pillows because of GERD, able to sleep on 1 pillow -- snores, irregular breathing, daytime somnolence - PND: no - Pedal edema: yes - Abdominal fullness: no Lightheadedness/dizziness: postural lightheadedness Chest pain/pressure: no Palpitations: no Fatigue: severe Home weights: stable, see MyChart log Home BP and pulse: stable, see MyChart log Medications: reviewed. His brought the medications and does a great job managing them . Non-cardiac history: - prostate cancer diagnosed in 2009 and treated using XRT - GERD - diverticulosis - polypectomy 2010 - fibromyalgia - question of Parkinson's disease Review of systems: ROS as per HPI and other systems reviewed and non-contributory. The non-cardiovascular medical history, surgical history, family history and social histori es were reviewed in the electronic medical record. Allergies Allergen Reactions Trazodone Hives and Rash AKA "Desyrel" Outpatient Prescriptions Marked as Taking for the 04/14/18 encounter (Office Visit) with Mary Arenas MD Medication Sig Dispense Refill acetaminophen 500 mg oral tablet Take 1.25 tablets by mouth every six hours as needed. aspirin EC 81 mg oral tablet,delayed release (DR/EC) Take 1 tablet by mouth once daily. atorvastatin 40 mg oral tablet Take 40 mg by mouth once daily in the evening. CALCIUM CARB/MAGNESIUM HYDROX (MYLANTA ORAL) Take by mouth as needed. calcium carbonate chewable 200 mg calcium (500 mg) oral tablet,chewable Chew and swallo w 1,000 mg as needed (heartburn). carvedilol 6.25 mg oral tablet Take 1 tablet by mouth two times daily. Administer with food. Indications: chronic heart failure 60 tablet 1 cholecalciferol, Vitamin D3, 2,000 unit oral capsule Take 2,000 Units by mouth once suki ly in the evening. cyanocobalamin 1,000 mcg oral tablet Take 1,000 mcg by mouth twice weekly. Take on and Wednesday esomeprazole 40 mg oral capsule,delayed release(DR/EC) Take 40 mg by mouth two times da jose c. fexofenadine 180 mg oral tablet Take 180 mg by mouth once daily. FOLIC ACID/MULTIVIT-MIN/LUTEIN (CENTRUM SILVER ORAL) Take 1 tablet by mouth once daily. lisinopril 5 mg oral tablet Take 2 tablets by mouth two times daily. Indications: chron ic heart failure 360 tablet 2 loperamide (IMODIUM A-D) 2 mg oral tablet Take 2-4 mg by mouth once daily as needed for diarrhea. Physical Exam: BP 137/78 | Pulse 57 | Temp (Src) 36.5 C (97.7 F) (Oral) | Ht 1.753 m (5' 9") | Wt 85.7 kg (189 lb) | SpO2 96% | BMI 27.91 kg/(m^2) Wt Readings from Last 4 Encounters: 04/14/18 85.7 kg (189 lb) 01/20/18 99 kg (218 lb 4.8 oz) 03/10/17 95.7 kg (210 lb 15.7 oz) BP Readings from Last 4 Encounters: 04/14/18 137/78 01/20/18 159/78 03/13/17 127/64 Pulse Readings from Last 4 Encounters: 04/14/18 57 01/20/18 57 03/13/17 67 General: oriented without acute distress HEENT: sclera are anicteric, mucous membranes are moist, JVP is 6 cm, -AJR Cardiovascular: regular rate and rhythm, no murmurs, rubs or gallops are appreciated Respiratory: bilateral posterior breath sounds, lungs clear to ascultation Abdomen: soft, non-tender Extremities: warm and well perfused, with some edema Neuro: no focal abnormalities Recent Labs 02/14/18 02/21/18 04/12/18 1115 04/14/18 1149 NA 126* 131* 129 133* K 4.9 4.6 4.4 4.3 BICARB 22 22 23 28 Recent Labs 02/14/18 02/21/18 04/12/18 1115 04/14/18 1149 BUN 23 22 21 15 CR 1.06 1.09 1.12 1.40* Recent Labs 01/20/18 1249 04/14/18 1149 AST 30 48* ALT 55 66* ALB 3.7 3.7 Recent Labs 01/20/18 1249 04/14/18 1149 WBC 6.50 4.93 HB 12.7* 13.9 HCT 38.8* 40.8* PLT 208 216 Recent Labs 01/20/18 1249 04/14/18 1149 NTPROBNP 9,232* 1,446* Recent Labs 01/20/18 1249 A1C 6.4* Recent Labs 01/20/18 1249 TSH 1.45 Lab from Care Everywhere: Electrocardiogram 01/20/2018: SB, rate 54 IVCD (QRS duration of 123) NS ST-T abn (diffuse) Transthoracic Echocardiogram 04/14/2018: 1. The left ventricular cavity size is normal. 2. The LV function is moderately abnormal. 3. Left ventricular systolic thickening is segmentally abnormal (see comments below). 4. Visually estimated left ventricular ejection fraction is 35 - 40%. 5. Right ventricular size, thickness and function are normal. 6. The estimated right ventricular systolic pressure is moderately elevated (RVSP = 56.6 mm Hg). 7. Compared to the most recent exam dated, 03/10/2017, the LVEF has decreased. Transthoracic Echocardiogram 12/07/2017: (review by Dr. Arenas: poor quality images, LVEF u ncertain but may be < 35%) 1. Mild biatrial dilatation 2. Mild left ventricular dilatation with mild eccentric left ventricular hypertrophy. There is a mild global hypokinesis of the left pedicle. Overall, left ventricular systolic function is mildly decreased. LVEF is 40-45%. 3. Apparent grade 3 left ventricular diastolic dysfunction. 4. Mild mitral valve regurgitation. 5. Fjdv-md-[id number] tricuspid valve regurgitation. 6. Moderate to severe pulmonary hypertension with a peak systolic pressure of 70-75 mmHg. 7. Normal IVC without respiratory collapse suggesting mildly fluid retention. 8. When compared to echocardiography on 10/07/17, pulmonary hypertension is a new finding. [note this is not correct] Transthoracic Echocardiogram 10/05/2017: Mild mitral regurgitation present. Structurally normal tricuspid valve with mild regurgitation. The left atrium is severely dilated. Left Ventricular size appears to be moderately increased with an ejection fraction estimated at 40 %. Markedly enlarged right atrium. Enlarged right ventricular size. [PAP 50 mmHg + RAP] Transthoracic Echocardiogram 03/10/2017: 1. The left ventricular cavity size is mild to moderately increased. 2. The LV ejection fraction is mildly decreased. 3. Visually estimated left ventricular ejection fraction is 50 - 55%. 4. Left ventricular systolic thickening is segmentally abnormal (see comments below). 5. There is thinning of the inferior and inferolateral wall c/w an old myocardial infarctio n/scar. 6. Right ventricular size, thickness and function are normal. 7. The estimated right ventricular systolic pressure is moderately to severely elevated (RV SP = 62.7 mmHg). 8. Saline contrast study shows no evidence of right to left intra-atrial shunting. 9. There are no prior exams available for comparison. Transthoracic Echocardiogram 12/25/2016: 1. The left ventricle is mildly dilated, normal wall thickness and normal systolic function EF 55-60%. Inferior and inferobasal segment hypokinesis was noted. 2. The diastolic filling pattern indicates impaired relaxation consistent with mild dysfunc tion (Grade I). 3. The right ventricle is normal in size and function. 4. Mild tricuspid regurgitation with no pulmonary hypertension. 5. Mild degenerative changes in the aortic and mitral valves. 6. There is no pericardial effusion. Myocardial perfusion scan (vasodilator) 06/15/2017: 1. Persantine EKG is without diagnostic changes. 2. AbnormalPersantine Sestamibi myocardial perfusion study, notable for a large predominantly fixed inferolateral perfusion defect with reduced left ventricular systolic function.LVEF by gated SPECT 35%. Coronary Angiogram 02/27/2017: 1.Left main and triple-vessel coronary artery disease with 60% stenosis of the left main, 75% stenosis of the proximal LAD, total occlusion of the ostial circumflex and total occlusion of the distal right coronary artery. 2.Successful angioplasty using one stent across the left main and into the proximal left anterior descending coronary artery covering both lesions. 3.Unsuccessful attempts to revascularize the right and circumflex coronary arteries. A/R Heart failure, systolic, chronic (HFrEF) Hypertensive heart disease with heart failure Pulmonary hypertension Etiologies of HF: ischemic CM, hypertension, age and ISAURO. Will need to clarify pulmonary hypertension is all group 2 (from left heart failure) or also pre-capillary. - LVEF 30-35% (Dr. Arenas's review), RV normal, Nov 2017 (outside study) - LVEF 35-40%, RV normal, Apr 2018 - intravascular volume depletion by exam and labs - reduce furosemide from 20 mg daily to 20 mg every other day - no spironolactone because of JAVIER but will consider later if renal function improves - continue carvedilol 6.25 mg twice daily - continue lisinopril 10 mg twice daily - once volume status and serum sodium is stable, will change from lisinopril to sacubitril- valsartan - once stable on sacubitril-valsartan, will consider adding spironolactone Hyponatremia S/p nephrectomy for clear cell carcinoma, Feb 2017 Likely caused by total body salt and water depletion so will reduce furosemide as noted ab ove. The reason we can reduce the dose of furosemide is because they are doing an excellent job of restricting salt and water. Even though serum Cr has been normal, need to take into account the fact that the patient does not have normal renal function because of age, HF and single kidney. - reduce furosemide and repeat labs in 2 weeks - cancer surveillance by Dr. Cookie Gagnon, urologist in [place], [place] Coronary artery disease without angina (but history of silent [place]) S/p THERON to LM (Xience, THERON) in Feb 2017 - continue aspirin, beta nicanor and statin Atrial fibrillation, paroxysmal CHADS2-VASC Score: 7 (aspirin) Anticoagulation was stopped in March 2017 when he presented with spontaneous rectus sheath h ematoma. The reasons were need for DAPT at the time and the fact that he had only 1 episode of atrial fib lasting < 24 hours during cardiogenic shock. - continue aspirin for now but low threshold for starting anticoagulation once he has compl eted 1 year of aspirin - stop amiodarone and will consider PVI if there is recurrence of atrial fibrillation At risk for obstructive sleep apnea The patient does not wish to be evaluated for sleep apnea. Prediabetes Obesity HgbA1c 6.4 in Jan 2018. The patient has been told for many years that he is prediabetic. - weight loss and limit carbohydrates Specific Plan: - labs today (done and entered above) - reduce the furosemide from 20 mg daily to 20 mg every other day - stop amiodarone - repeat labs in 2 weeks near the patient's home (lab slip given to them) -- if labs are OK will change from lisinopril to sacubtril-valsartan - followup in 3 months I spent 28 minutes and greater than 50% was spent counseling and coordinating care. Chloe Arenas M.D. art glass designer Division of Cardiovascular Medicine [facility] Cardiovascular [facility] documented in this encounter Plan of Treatment Not on filedocumented as of this encounter Procedures + +--------+ + + + | Procedure Name | Priori | Date/Time | Associated Diagnosis | Comments | | | ty | | | | + +--------+ + + + | BASIC METABOLIC SET | Routin | 04/12/2018 | | Results for this | | (NA, K, CL, TCO2, | e | 11:15 AM | | procedure are in the | | BUN, CR, GLU, CA) | | PDT | | results section. | + +--------+ + + + documented in this encounter Results [facility] - CBC ONLY (04/14/2018 11:49 AM PDT) [...] [facility] | [address] | [place] [address] | | | [facility] | | | | | HEALTH + [...] [facility] | [address] | [place] [address] | | | SERVICES, CORE | PARK [...] | + + + + + | [facility] | [address] | [place] [address] | | | SERVICES, CORE | [address] | | | + + + + + [facility] - COMPLETE METABOLIC SET (04/14/2018 11:49 AM [...] + | [facility] | [address] | [place] [address] | | | [facility] | | | | | HEALTH + [...] LABORATORY | | | | | | [facility], | | | | | | CORE | | + + + + + + + + | Specimen | + + | Blood | + + + + + + + | Performing | Address | City/State/Zipcode | Phone Number | | Organization | | | | + + + + + | [facility] | [address] | [place] [address] | | | SERVICES, CORE | [address] | | | + + + + + BASIC METABOLIC SET (NA, K, CL, TCO2, BUN, CR, GLU, CA) (04/12/2018 11:15 AM PDT) + +-------+ + + + | Component | Value | Ref Range | Performed | Pathologist | | | | | At | Signature | + +-------+ + + + | GLUCOSE, | 103 | mg/dL | NON [facility] | | | PLASMA | | | LAB | | | (LAB) | | | | | + +-------+ + + + | BUN, PLASMA | 21 | mg/dL | NON [facility] | | | (LAB) | | | LAB | | + +-------+ + + + | CREATININE | 1.12 | mg/dL | NON [facility] | | | PLASMA | | | LAB | | | (LAB) | | | | | + +-------+ + + + | SODIUM, | 129 | mmol/L | NON [facility] | | | PLASMA | | | LAB | | | (LAB) | | | | | + +-------+ + + + | POTASSIUM, | 4.4 | mmol/L | NON [facility] | | | PLASMA | | | LAB | | | (LAB) | | | | | + +-------+ + + + | CHLORIDE, | 96 | mmol/L | NON [facility] | | | PLASMA | | | LAB | | | (LAB) | | | | | + +-------+ + + + | TOTAL CO2, | 23 | mmol/L | NON [facility] | | | PLASMA | | | LAB | | | (LAB) | | | | | + +-------+ + + + | CALCIUM, | 9.3 | mg/dL | NON [facility] | | | PLASMA | | | LAB | | | (LAB) | | | | | + +-------+ + + + | ESTIMATED | 64 | | NON [facility] | | | GFR | | | LAB | | + +-------+ + + + | BUN/CREATIN | 18.8 | | NON [facility] | | | INE RATIO | | | LAB | | + +-------+ + + + [...] systolic heart failure | + + | Paroxysmal atrial fibrillation (HCC) Atrial fibrillation | + + | Hypertensive heart disease with heart failure (HCC) Unspecified hypertensive heart | | disease with heart failure | + + | Prediabetes Other abnormal glucose | + + | Coronary artery disease involving [place] coronary artery of [place] heart without | | angina pectoris | + + documented in this encounter
--- OUTSIDE RECORDS SUMMARY | ~2019-08-08 | XMS | Encounter Summary ---
Demographics + + + | Address | [address] | | | [place] [address] | + + + | Home Phone | | + + + | Preferred Language | Unknown | + + + | Marital Status | | + + + | Muslim Affiliation | NON | + + + | Race | White | + + + | Ethnic Group | Not or | + + + Author + + + | Author | [facility] | + + + | Organization | [facility] | + + + | Address | [...] Team Providers + +------+ + | Care Shoveler Name | Role | Phone | + +------+ + | Arash Estes MD | PCP | | + +------+ + Encounter Details +--------+ + + + + | Date | Type | Department | Care Team | Description | +--------+ + + + + | 04/16/ | Results | Registration [id number] | | | | 1994 | Only | [address] | | | | | | Golden Mailcode: [id number] | | | | | | [place], [place] | | | | | | [address] | | | | | | [phone] | | | +--------+ + + + [...] | CHEMISTRY TESTS 4 | Routin | 04/16/1995 | | Results for this | | | e | 12:40 PM | | procedure are in the | | | | PDT | | results section. | + +--------+ + + + | IMMUNOLOGY TESTS 2 | Routin | 04/16/1995 | | Results for this | | | e | 12:40 PM | | procedure are in the | | | | PDT | | results section. | + +--------+ + + + | CBC TESTS 2 | Routin | 04/16/1995 | | Results for this | | | e | 12:40 PM | | procedure are in the | | | | PDT | | results section. | + +--------+ + + + | CHEMISTRY TESTS 2 | Routin | 04/16/1995 | | Results for this | | | e | 12:40 PM | | procedure are in the | | | | PDT | | results section. | + +--------+ + + + | MISCELLANEOUS | Routin | 04/16/1995 | | Results for this | | CHEMISTRY TESTS | e | 12:40 PM | | procedure are in the | | | | PDT | | results section. | + +--------+ + + + documented in this encounter Results IMMUNOLOGY TESTS 2 (04/16/1995 12:40 PM PDT) + + + + + + | Component | Value | Ref Range | Performed | Pathologist | | | | | At | Signature | + + + + + + | HEPATITIS B | NEGATIVE | | | | | SURFACE | | | | | | AG, SERUM | | | | | + + + + + + | HEP B | NEGATIVE | | | | | SURFACE AB | | | | | | QUAL, SERUM | | | | | + + + + + + | HEPATITIS C | NEGATIVE | | | | | AB | | | | | + + + + + + + + | Specimen | + + | | + + + + + + + | Performing | Address | City/State/Zipcode | Phone Number | | Organization | | | | + + + + + | [facility] | [address] | [place] [address] | | | PATHOLOGY | [address] | | | + + + + + MISCELLANEOUS CHEMISTRY TESTS (04/16/1995 12:40 PM PDT) + + + + + + | Component | Value | Ref Range | Performed | Pathologist | | | | | At | Signature | + + + + + + | TESTOSTERON | 614. | ng/dL | | | | E, SERUM | | | | | + + + + + + + + | Specimen | + + | | + + + + + + + | Performing | Address | City/State/Zipcode | Phone Number | | Organization | | | | + + + + + | [facility] | [address] | [place] [address] | | | PATHOLOGY | [address] | | | + + + + + CHEMISTRY TESTS 2 (04/16/1995 12:40 PM PDT) + + + + + + | Component | Value | Ref Range | Performed | Pathologist | | | | | At | Signature | + + + + + + | CHOLESTEROL | 259. (H) | mg/dL | | | | (LAB) | | | | | + + + + + + + + | Specimen | + + | | + + + + + + + | Performing | Address | City/State/Zipcode | Phone Number | | Organization | | | | + + + + + | [facility] | [address] | [place] [address] | | | PATHOLOGY | [address] | | | + + + + + CHEMISTRY TESTS 4 (04/16/1995 12:40 PM PDT) + + + + + [...] + + + + | POTASSIUM, | 4.1 | mmol/l | | | | PLASMA | | | | | | (LAB) | | | | | + + + + + + | CHLORIDE, | 104. | mmol/l | | | | PLASMA | | | | | | (LAB) | | | | | + + + + + + | TOTAL CO2, | 22. (L) | mmol/l | | | | PLASMA [...] + + + + | GLUCOSE, | 116. (H) | mg/dL | | | | PLASMA | | | | | | (LAB) | | | | | + + + + + + | CALCIUM, | 9.3 | mg/dL | | | | PLASMA | | | | | | (LAB) | | | | | + + + + + + | MAGNESIUM,P | 2. | mg/dL | | | | LASMA | | | | | + + + + + + | PHOSPHORUS, | 3. | mg/dL | | | | PLASMA | | | | | | (LAB) | | | | | + + + + + + | URIC ACID, | 6.5 | mg/dL | | | | PLASMA | | | | | | (LAB) | | | | | + + + + + + | AST(SGOT) | 56. (H) | U/L | | | + + + + + + | ALT (SGPT) | 114. (H) | U/L | | | + + + + + + | ALK PHOS | 93. | U/L | | | + + + + + + | LD TOTAL, | 174. | U/L | | | | PLASMA | | | | | + + + + + + | GAMMA | 137. (H) | U/L | | | | GLUTAMYL | | | | | | TRANS | | | | | + + + + + + | BILIRUBIN | 0.1 | mg/dL | | | | DIRECT | | | | | + + + + + + | BILIRUBIN | 0.6 | mg/dL | | | | TOTAL | | | | | + + + + + + | TOTAL | 7.4 | GM/DL | | | | PROTEIN, | | | | | | PLASMA | | | | | | (LAB) | | | | | + + + + + + | ALBUMIN, | 4.8 | GM/DL | | | | PLASMA | | | | | | (LAB) | | | | | + + + + + + + + | Specimen | + + | | + + + + + + + | Performing | Address | City/State/Zipcode | Phone Number | | Organization | | | | + + + + + | [facility] | [address] | [place] [address] | | | PATHOLOGY | [address] | | | + + + + + CBC TESTS 2 (04/16/1995 12:40 PM PDT) + + + + + + | Component | Value | Ref Range | Performed | Pathologist | | | | | At | Signature | + + + + + + | WHITE CELL | 5.2 | K/CU MM | | | | COUNT | | | | | + + + + + + | RED CELL | 5.01 | M/CU MM | | | | COUNT | | | | | + + + + + + | HEMOGLOBIN | 15.4 | GM/DL | | | + + + + + + | HEMATOCRIT | 44.7 | % | | | + + + + + + | MCV | 89.2 | FL | | | + + + + + + | MCH | 30.7 | PG | | | + + + + + + | MCHC | 34.4 (H) | GM/DL | | | + + + + + + | RDW | 13.8 | % | | | + + + + + + | PLATELET | 287. | K/CU MM | | | | COUNT | | | | | + + + + + + | MPV | 7.6 | FL | | | + + + + + + | SEDIMENTATI | 10. | MM/HR | | | | ON RATE | | | | | + + + + + + + + | Specimen | + + | | + + + + + + + | Performing | Address | City/State/Zipcode | Phone Number | | Organization | | | | + + + + + | [facility] | [address] | [place] [address] | | | PATHOLOGY | [address] | | | + + + + + documented in this encounter Visit Diagnoses Not on filedocumented in this encounter"
--- OUTSIDE RECORDS SUMMARY | ~2019-08-08 | XMS | Encounter Summary ---
Demographics + + + | Address | [address] | | | [place] [address] | + + + | Home Phone | | + + + | Preferred Language | Unknown | + + + | Marital Status | | + + + | Christianity Affiliation | NON | + + + [...] Team Providers + +------+ + | Care Grain Elevator Superintendent Name | Role | Phone | + [...] | | | | | | | [address] | | | | | | | [address] | | | | | | | [place] | | | | | | | [address] | | | | | | | Phone: | | | | | | | [phone] | | | | | | | Fax: | | | | | | | [phone] | | + +--------+ + + + [...] | | 2018 | Encounter | at [facility] [address] | MD [address] | | | | | [address] Mailcode: | [address] [place], [place] | | | | | [facility] | [address] | | | | | Health and Healing, | [phone] | | | | | Building | | | | | | Floor [place], [place] | | | | | | [address] | | | | | | [phone] | | | +--------+ + + + [...]
--- OUTSIDE RECORDS SUMMARY | ~2019-08-08 | XMS | Encounter Summary ---
Demographics + + + | Address | [address] | | | [place] [address] | + + + | Home Phone | | + + + | Preferred Language | Unknown | + + + | Marital Status | | + + + | Sikh Affiliation | NON | + + + [...] Team Providers + +------+ + | Care Corporate Security Manager Name | Role | Phone | + +------+ + | Mateusz Dixon MD | PCP | | + +------+ + Reason for Visit + + + | Reason | Comments | + + + | High blood pressure | | + + + Encounter Details +--------+ + + + + | Date | Type | Department | Care Team | Description | +--------+ + + + + | 04/20/ | MyChart | Cardiology General | Jamaal Arenas, | RE: BP Readings and | | 2018 | Encounter | at [facility] [address] | MD [address] | [address] | | | | [address] Mailcode: | [address] [place], [place] | | | | | [facility] | [address] | | | | | Health and Healing, | [phone] | | | | | | | | | | | Floor [place], [place] | | | | | | [address] | | | | | | [phone] | | | +--------+ + + + [...]
--- OUTSIDE RECORDS SUMMARY | ~2019-08-08 | XMS | Encounter Summary ---
Demographics + + + | Address | [address] | | | [place] [address] | + + + | Home Phone | | + + + | Preferred Language | Unknown | + + + | Marital Status | | + + + | Jainism Affiliation | NON | + + + [...] Team Providers + +------+ + | Care Md Pediatric Allergist Name | Role | Phone | + +------+ + | Mateusz Dixon MD | PCP | | + +------+ + Encounter Details +--------+ + + + + | Date | Type | Department | Care Team | Description | +--------+ + + + + | 04/27/ | Documentati | Cardiology General | Jamaal Arenas, | | | 2018 | on | at [facility] [address] | [address] | | | | | [address] Mailcode: | [place], [place] | | | | | [facility] | [address] | | | | | Health and Healing, | [phone] | | | | | | | | | | | Floor [place], [place] | | | | | | [address] | | | | | | [phone] | | | +--------+ + + + [...]
--- OUTSIDE RECORDS SUMMARY | ~2019-08-08 | XMS | Encounter Summary ---
Demographics + + + | Address | [address] | | | [place] [address] | + + + | Home Phone | | + + + | Preferred Language | Unknown | + + + | Marital Status | | + + + | Confucianist Affiliation | NON | + + + [...] Team Providers + +------+ + | Care Client Support Associate Name | Role | Phone | [...] | | 2018 | Encounter | at [facility] [address] | [address] | | | | | [address] Mailcode: | [address], [place] | | | | | [facility] | [address] | | | | | Health and Healing, | [phone] | | | | | | | | | | | Floor [place], [place] | | | | | | [address] | | | | | | [phone] | | | +--------+ + + + [...]
--- OUTSIDE RECORDS SUMMARY | ~2019-08-08 | XMS | Encounter Summary ---
Demographics + + + | Address | [address] | | | [place] [address] | + + + | Home Phone | | + + + | Preferred Language | Unknown | + + + | Marital Status | | + + + | Sabianism Affiliation | NON | + + + [...] Team Providers + +------+ + | Care Aircraft Shipping Checker Name | Role | Phone | + +------+ + | Mateusz Dixon MD | PCP | | + +------+ + Encounter Details +--------+------+ + + + | Date | Type | Department | Care Team | Description | +--------+------+ + + + | 01/20/ | Lab | Laboratory at [facility] | | Heart failure, | | 2018 | | [address] | | systolic, chronic | | | | [place], [place] | | ([facility]); Prediabetes | | | | [address] | | | | | | [phone] | | | +--------+------+ + + + [...] + | NT-PRO BNP | Routin | 01/20/2018 | Heart failure, | Results for this | | | e | 12:49 PM | systolic, chronic | procedure are in the | | | | PDT | ([facility]) | results section. | + +--------+ + + + | TSH W/REFLEX TO FREE | Routin | 01/20/2018 | Heart failure, | Results for this | | T4(IF ABNORMAL) | e | 12:49 PM | systolic, chronic | procedure are in the | | | | PDT | ([facility]) | results section. | + +--------+ + + + | CBC (HEMOGRAM) ONLY | Routin | 01/20/2018 | Heart failure, | Results for this | | | e | 12:49 PM | systolic, chronic | procedure are in the | | | | PDT | ([facility]) | results section. | + +--------+ + + + | COMPLETE METABOLIC | Routin | 01/20/2018 | Heart failure, | Results for this | | SET | e | 12:49 PM | systolic, chronic | procedure are in the | | (NA,K,CL,CO2,BUN,CRE | | PDT | ([facility]) | results section. | | AT,GLUC,CA,AST,ALT,B | | | | | | CHELO TOTAL,ALK | | | | | | PHOS,ALB,PROT TOTAL) | | | | | + +--------+ + + + | CBC ONLY | Routin | 01/20/2018 | Heart failure, | Results for this | | | e | 12:49 PM | systolic, chronic | procedure are in the | | | | PDT | ([facility]) | results section. | + +--------+ + + + | HEMOGLOBIN A1C, | Routin | 01/20/2018 | Prediabetes | Results for this | | BLOOD | e | 12:49 PM | | procedure are in the | | | | PDT | | results section. | + +--------+ + + + documented in this encounter Results CBC (HEMOGRAM) ONLY (01/20/2018 12:49 PM PDT) + + + + + + | Component | Value | Ref Range | Performed | Pathologist | | | | | At | Signature | + + + + + + | WHITE CELL | 6.50 | 3.50 - 10.80 | [facility] | | | COUNT | | K/cu mm | LABORATORY | | | | | | SERVICES, | | | | | | CORE | | + + + + + + | RED CELL | 4.24 (L) | 4.50 - 6.00 | [facility] | | | COUNT | | M/cu mm | LABORATORY | | | | | | SERVICES, | | | | | | CORE | | + + + + + + | HEMOGLOBIN | 12.7 (L) | 13.5 - 17.5 | [facility] | | | | | g/dL | LABORATORY | | | | | | SERVICES, | | | | | | CORE | | + + + + + + | HEMATOCRIT | 38.8 (L) | 41.0 - 53.0 % | [facility] | | | | | | LABORATORY | | | | | | SERVICES, | | | | | | CORE | | + + + + + + | MCV | 91.5 | 80.0 - 96.0 fL | [facility] | | | | | | LABORATORY | | | | | | SERVICES, | | | | | | CORE | | + + + + + + | MCHC | 32.7 | 33.0 - 35.5 | [facility] | | | | | g/dL | LABORATORY | | | | | | SERVICES, | | | | | | CORE | | + + + + + + | RDW SD | 53.3 (H) | 35.1 - 46.3 fL | [facility] | | | | | | LABORATORY | | | | | | SERVICES, | | | | | | CORE | | + + + + + + | PLATELET | 208 | 150 - 400 K/cu | [facility] [...] [facility] | [address] | [place] [address] | | | SERVICES, CORE | [address] | | | + + + + + HEMOGLOBIN A1C, BLOOD (01/20/2018 12:49 PM PDT) + + + + + + | Component | Value | Ref Range | Performed | Pathologist | | | | | At | Signature | + + + + + + | HEMOGLOBIN | 6.4 (H)Comment: Hgb A1C | <5.7 % | [facility] | | | A1C | Interpretive | | LABORATORY | | | | Information: | | SERVICES, | | | | <5.7% - | | SPECIAL IMM | | | | Normal 5.7-6.4% - | | + COAG | | | | Consistent with | | | | | | pre-diabetes | | | | | | >6.4% - Consistent with | | | | | | diabetes | | | | + + + + + + + + | Specimen | + + | Blood | + + + + + | Narrative | Performed At | + + + | Alternate forms of testing such as fructosamine should be | [facility] | | considered for monitoring rodent exterminator glycemic control in patients with: | LABORATORY | | Increased red cell turnover, certain hemoglobinopathies (e.g., HbS, | SERVICES, | | HbE, HbC and thalassemia syndromes), anemias, blood loss, chronic | SPECIAL IMM + | | liver disease and hemochromatosis (artefactually low HbA1c); iron | [facility] | | deficiency anemia (artefactually high HbA1c due to enhanced glycation | | | of hemoglobin). | | + + + + + + + + | Performing | Address | City/State/Zipcode | Phone Number | | Organization | | | | + + + + + | [facility] | [address] | [place] [address] | | | SERVICES, SPECIAL | [address] | | | | IMM + [place] | | | | + + + + + TSH W/REFLEX TO FREE T4(IF ABNORMAL) (01/20/2018 12:49 PM PDT) + +-------+ + + + | Component | Value | Ref Range | Performed | Pathologist | | | | | At | Signature | + +-------+ + + + | TSH | 1.45 | 0.47 - 7.11 | [facility] | | | | | mIU/L | LABORATORY | | | | | | SERVICES, | | | | | | CORE | | + +-------+ + + + + + | Specimen | + + | Blood | + + + + + | Narrative | Performed At | + + + | TSH reference ranges are influenced by a variety of environmental | [facility] | | influences, age, gender and ethnicity. The supplied reference limits | LABORATORY | | are based on published values utilizing a similar TSH assay, and | DOTTIE, JEREMY | | should be interpreted with caution. | | + + + + + + + + | Performing | Address | City/State/Zipcode | Phone Number | | Organization | | | | + + + + + | [facility] | [address] | [place] [address] | | | JEREMY SINCLAIR | [address] | | | + + + + + COMPLETE METABOLIC SET (NA,K,CL,CO2,BUN,CREAT,GLUC,CA,AST,ALT,BILI TOTAL,ALK PHOS,ALB,PROT TOTAL) (01/20/2018 12:49 PM PDT) + +---------+ + + + | Component | Value | Ref Range | Performed | Pathologist | | | | | At | Signature | + +---------+ + + + | GLUCOSE, | 104 (H) | 70 - 99 mg/dL | [facility] | | | PLASMA | | | LABORATORY | | | (LAB) | | | SERVICES, | | | | | | CORE | | + +---------+ + + + | BUN, PLASMA | 14 | 6 - 20 mg/dL | [facility] | | | (LAB) | | | LABORATORY | | | | | | SERVICES, | | | | | | CORE | | + +---------+ + + + | CREATININE | 1.00 | 0.70 - 1.30 | [facility] | | | PLASMA | | mg/dL | LABORATORY | | | (LAB) | | | SERVICES, | | | | | | CORE | | + +---------+ + + + | EGFR | >60 | >60 mL/min | [facility] | | | - | | | LABORATORY | | | [place] | | | SERVICES, | | | | | | CORE | | + +---------+ + + + | EGFR NON | >60 | >60 mL/min | [facility] | | | -BRYON | | | LABORATORY | | | RICAN | | | SERVICES, | | | | | | CORE | | + +---------+ + + + | SODIUM, | 135 (L) | 136 - 145 | [facility] [...] + + + | TOTAL CO2, | 25 | 21 - 32 mmol/L | [facility] | | | PLASMA | | | LABORATORY | | | (LAB) | | | SERVICES, | | | | | | CORE | | + +---------+ + + + | CALCIUM, | 8.7 | 8.6 - 10.2 | [facility] | [...] +---------+ + + + | BILIRUBIN | 1.1 | 0.3 - 1.2 mg/dL | [facility] | | | TOTAL | | | LABORATORY | | | | | | SERVICES, | | | | | | CORE | | + +---------+ + + + | TOTAL | 7.0 | 6.4 - 8.2 g/dL | [facility] | | | PROTEIN, | | | LABORATORY | | | PLASMA | | | SERVICES, | | | (LAB) | | | CORE | | + +---------+ + + + | ALBUMIN, | 3.7 | 3.5 - 4.7 g/dL | [facility] | | | PLASMA | | | LABORATORY | | | (LAB) | | | SERVICES, | | | | | | CORE | | + +---------+ + + + | ALK PHOS | 173 (H) | 56 - 119 U/L | [facility] | | | | | | LABORATORY | | | | | | SERVICES, | | | | | | CORE | | + +---------+ + + + | AST(SGOT) | 30 | <=41 U/L | [facility] | | | | | | LABORATORY | | | | | | SERVICES, | | | | | | CORE | | + +---------+ + + + | ALT (SGPT) | 55 | <=60 U/L | [facility] | | | | | | LABORATORY | | | | | | SERVICES, | | | | | | CORE | | + +---------+ + + + | ANION GAP | 9 | 4 - 11 mmol/L | [facility] | | | | | | LABORATORY | | | | | | SERVICES, | | | | | | CORE | | + +---------+ + + + | ANION | 9 | 4 - 11 mmol/L | [facility] [...] Performed At | + + + | Adult glucose reference range change effective 7-12-17. GFR is | [facility] | | estimated using the MDRD equation recommended by the National Kidney | LABORATORY | | Disease Education Program. Estimated GFR Interpretive Information: | SERVICES, CORE | | <60 mL/min/1.73 sq m Chronic Kidney | | | Disease <15 mL/min/1.73 sq m Kidney | | | Failure Estimated GFR greater that 60 mL/min/1.73 sq m is of limited | | | clinical value. The MDRD equation is not valid in the following | | | situations: - Patients under 18 years of age - Severe malnutrition | | | or obesity - Vegetarian diet - Rapidly changing kidney function | | + + + + + + + + | Performing | Address | City/State/Zipcode | Phone Number | | Organization | | | | + + + + + | [facility] | [address] | [place] [address] | | | SERVICES, CORE | [address] | | | + + + + + NT-PRO BNP (01/20/2018 12:49 PM PDT) + + + + + + | Component | Value | Ref Range | Performed | Pathologist | | | | | At | Signature | + + + + + + | NT-PRO BNP | 9,232 (H) | <449 pg/mL | [facility] | | | | | | LABORATORY [...] | + + + + + | [facility] | [address] | [place] [address] | | | SERVICES, CORE | [address] | | | + + + + + documented in this encounter Visit Diagnoses + + | Diagnosis | + + | Heart failure, systolic, chronic (HCC) Chronic systolic heart failure | + + | Prediabetes Other abnormal glucose | + + documented in this encounter"
--- OUTSIDE RECORDS SUMMARY | ~2019-08-08 | XMS | Encounter Summary ---
Demographics + + + | Address | [address] | | | [place] [address] | + + + | Home Phone | | + + + | Preferred Language | Unknown | + + + | Marital Status | | + + + | Adventism Affiliation | NON | + + + | Race | White | + + + | Ethnic Group | Not or | + + + Author + + + | Author | [facility] | + + + | Organization | [facility] | + + + | [...] Team Providers + +------+ + | Care Residential Care Facility Manager Name | Role | Phone | + +------+ + | Mateusz Dixon MD | PCP | | + +------+ + Reason for Visit + + + | Reason | Comments | + + + | Bradycardia | MyChart Flowsheet | + + + Encounter Details +--------+ + + + + | Date | Type | Department | Care Team | Description | +--------+ + + + + | 04/07/ | Documentati | Cardiology General | Jamaal Arenas, | Geetha (MyChart | | 2018 | on | at [facility] [address] | [address] | Flowsheet) | | | | [address]: | [address] [place], [place] | | | | | [facility] | [address] | | | | | Health and Healing, | [phone] | | | | | [facility] | | | | | | [place], [place] | | | | | | [address] | | | | | | [phone] | | | +--------+ + + + [...]
--- OUTSIDE RECORDS SUMMARY | ~2019-08-08 | XMS | Encounter Summary ---
Demographics + + + | Address | [address] | | | [place] [address] | + + + | Home Phone | | + + + | Preferred Language | Unknown | + + + | Marital Status | | + + + | Rastafarian Affiliation | NON | + + + [...] Team Providers + +------+ + | Care Practice Nurse Name | Role | Phone | + +------+ + | Mateusz Dixon MD | PCP | | + +------+ + Reason for Visit +--------+ + | Reason | Comments | +--------+ + | Other | | +--------+ + Encounter Details +--------+ + + + + | Date | Type | Department | Care Team | Description | +--------+ + + + + | 07/16/ | MyChart | Cardiology General | Jamaal Arenas Mendez, | RE: Labs | | 2018 | Encounter | at [facility] [address] | MD [address] | | | | | [address] Mail[address]: | [address], [place] | | | | | [facility] | [address] | | | | | Health and Healing, | [phone] | | | | | | | | | | | Floor [place], [place] | | | | | | [address] | | | | | | [phone] | | | +--------+ + + + [...]
--- OUTSIDE RECORDS SUMMARY | ~2019-08-08 | XMS | Encounter Summary ---
Demographics + + + | Address | [address] | | | [place] [address] | + + + | Home Phone [...] Team Providers + +------+ + | Care Ink Grinder Name | Role | Phone | + [...] | | [address]: | [address] [place], [place] | | | | | [facility] | [address] | | | | | Health and Healing, | [phone] | | | | | [facility] | | | | | | [place], [place] | | | | | | [address] | | | | | | [phone] | | | +--------+ + + + [...]
--- OUTSIDE RECORDS SUMMARY | ~2019-08-08 | XMS | Encounter Summary ---
Demographics + + + | Address | [address] | | | [place] [address] | + + + | Home Phone | | + + + | Preferred Language | Unknown | + + + | Marital Status | | + + + | Mormonism Affiliation | NON | + + + | Race | White | + + + | Ethnic Group | Not or | + + + Author + + + | Author | [facility] | + + + | Organization | [facility] | + + + | Address [...] Team Providers + +------+ + | Care Control Systems Designer Name | Role | Phone | + [...] + + + + | 02/24/ | Abstract | Cardiology General | Jamaal Arenas, | Lab Results | | 2018 | | at [facility] [address] | MD [address] | | | | | [address] Mailcode: | [place], [place] | | | | | [facility] | [address] | | | | | Health and Healing, | [phone] | | | | | Building | | | | | | Floor [place], [place] | | | | | | [address] | | | | | | [phone] | | | +--------+ + + + [...] | BASIC METABOLIC SET | Routin | 02/21/2018 | | Results for this | | (NA, K, CL, TCO2, | e | | | procedure are in the | | BUN, CR, GLU, CA) | | | | results section. | + +--------+ + + + documented in this encounter Results BASIC METABOLIC SET (NA, K, CL, TCO2, BUN, CR, GLU, CA) (02/21/2018) + +---------+ + + + | Component | Value | Ref Range | Performed | Pathologist | | | | | At | Signature | + +---------+ + + + | GLUCOSE, | 109 (A) | 70 - 100 mg/dL | [facility] | | | PLASMA | | | LAB - | | | (LAB) | | | [place] | | + +---------+ + + + | BUN, PLASMA | 22 | mg/dL | [facility] | | | (LAB) | | | LAB - | | | | | | [place] | | + +---------+ + + + | CREATININE | 1.09 | mg/dL | [facility] | | | PLASMA | | | LAB - | | | (LAB) | | | [place] | | + +---------+ + + + | SODIUM, | 131 (A) | 132 - 143 | [facility] | | | PLASMA | | mmol/L | LAB - | | | (LAB) | | | [place] | | + +---------+ + + + | POTASSIUM, | 4.6 | mmol/L | [facility] | | | PLASMA | | | LAB - | | | (LAB) | | | [place] | | + +---------+ + + + | CHLORIDE, | 97 | mmol/L | [facility] | | | PLASMA | | | LAB - | | | (LAB) | | | [place] | | + +---------+ + + + | TOTAL CO2, | 22 | mmol/L | [facility] | | | PLASMA | | | LAB - | | | (LAB) | | | [place] | | + +---------+ + + + | CALCIUM, | 9.7 | mg/dL | [facility] | | | PLASMA | | | LAB - | | | (LAB) | | | [place] | | + +---------+ + + + | ANION GAP | 16.6 | | [facility] | | | | | | LAB - | | | | | | [place] | | + +---------+ + + + + + | Specimen | + + | Blood | + + + + + + + | Performing | Address | City/State/Zipcode | Phone Number | | Organization | | | | + + + + + | [facility] - | [address] | [place], [place] | [phone] | | [place] | | | | + + + + + documented in this encounter Visit Diagnoses Not on filedocumented in this encounter"
--- OUTSIDE RECORDS SUMMARY | ~2019-08-08 | XMS | Encounter Summary ---
Demographics + + + | Address | [address] | | | [place] [address] | + + + | Home Phone | | + + + | Preferred Language | Unknown | + + + | Marital Status | | + + + | Yarsanism Affiliation | NON | + + + [...] Team Providers + +------+ + | Care Ssis Developer Name | Role | Phone | + [...] | | 2019 | Encounter | at [facility] [address] | [address] | | | | | [address] Mailcode: | Ave [place], [place] | | | | | [facility] | [address] | | | | | Health and Healing, | [phone] | | | | | [facility] | | | | | | Floor [place], [place] | | | | | | [address] | | | | | | [phone] | | | +--------+ + + + [...]
--- OUTSIDE RECORDS SUMMARY | ~2019-08-08 | XMS | Encounter Summary ---
Demographics + + + | Address | [address] | | | [place] [address] | + + + | Home Phone [...] Team Providers + +------+ + | Care Ingredient Mixer Name | Role | Phone | + +------+ + | Mateusz Dixon MD | PCP | | + +------+ + Encounter Details +--------+ + + + + | Date | Type | Department | Care Team | Description | +--------+ + + + + | 09/14/ | Abstract | Cardiology General | Jamaal Arenas, | | | 2018 | | at [facility] [address] | [address] | | | | | [address] Mailcode: | [place], [place] | | | | | [facility] | [address] | | | | | Health and Healing, | [phone] | | | | | [facility] | | | | | | Floor [place], [place] | | | | | | [address] | | | | | | [phone] | | | +--------+ + + + [...] | BASIC METABOLIC SET | Routin | 09/12/2018 | | Results for this | | (NA, K, CL, TCO2, | e | 8:55 AM | | procedure are in the | | BUN, CR, GLU, CA) | | PST | | results section. | + +--------+ + + + documented in this encounter Results BASIC METABOLIC SET (NA, K, CL, TCO2, BUN, CR, GLU, CA) (09/12/2018 8:55 AM PST) + +-------+ + + + | Component | Value | Ref Range | Performed | Pathologist | | | | | At | Signature | + +-------+ + + + | GLUCOSE, | 99 | mg/dL | NON [facility] | | | PLASMA | | | LAB | | | (LAB) | | | | | + +-------+ + + + | BUN, PLASMA | 16 | mg/dL | NON [facility] | | | (LAB) | | | LAB | | + +-------+ + + + | CREATININE | 1.00 | mg/dL | NON [facility] | | | PLASMA | | | LAB | | | (LAB) | | | | | + +-------+ + + + | SODIUM, | 137 | mmol/L | NON [facility] | | | PLASMA | | | LAB | | | (LAB) | | | | | + +-------+ + + + | POTASSIUM, | 4.8 | mmol/L | NON [facility] | | | PLASMA | | | LAB | | | (LAB) | | | | | + +-------+ + + + | CHLORIDE, | 102 | mmol/L | NON [facility] | | | PLASMA | | | LAB | | | (LAB) | | | | | + +-------+ + + + | TOTAL CO2, | 27 | mmol/L | NON [facility] | | | PLASMA | | | LAB | | | (LAB) | | | | | + +-------+ + + + | CALCIUM, | 9.5 | mg/dL | NON [facility] | | | PLASMA | | | LAB | | | (LAB) | | | | | + +-------+ + + + | ESTIMATED | 73 | | NON [facility] | | | GFR | | | LAB | | + +-------+ + + + | BUN/CREATIN | 16.0 | | NON [facility] | | | [...]
--- OUTSIDE RECORDS SUMMARY | ~2019-08-08 | XMS | Encounter Summary ---
Demographics + + + | Address | [address] | | | [place] [address] | + + + | Home Phone | | + + + | Preferred Language | Unknown | + + + | Marital Status | | + + + | Holiness Affiliation | NON | + + + | Race | White | + + + | Ethnic Group | Not or | + + + Author + + + | Author | [facility] | + + + | Organization | [facility] | + + + | Address | [...] Team Providers + +------+ + | Care Floor Covering Installer Name | Role | Phone | + [...] + + | 04/19/ | Refill | [facility] General | Jamaal Arenas, | Refill Request | | 2018 | | at [facility] [address] | [address] | (Carvedilol 6.25) | | | | [address] Mailcode: | Ave [place], [place] | | | | | [facility] | [address] | | | | | Health and Healing, | [phone] | | | | | | | | | | | [place], [place] | | | | | | [address] | | | | | | [phone] | | | +--------+--------+ + + + [...]
--- OUTSIDE RECORDS SUMMARY | ~2019-08-08 | XMS | Encounter Summary ---
Demographics + + + | Address | [address] | | | [place] [address] | + + + | Home Phone | | + + + | Preferred Language | Unknown | + + + | Marital Status | | + + + | Muslim Affiliation | NON | + + + | Race | White | + + + | Ethnic Group | Not or | + + + Author + + + | Author | [facility] | + + + | Organization | [facility] | + + + | [...] Team Providers + +------+ + | Care Transitional Care Manager Name | Role | Phone | [...] | | 2018 | Encounter | at [facility] [address] | MD [address] | | | | | [address] Mailcode: | [place], [place] | | | | | [facility] [facility] | [address] | | | | | Health and Healing, | [phone] | | | | | | | | | | | Floor [place], [place] | | | | | | [address] | | | | | | [phone] | | | +--------+ + + + [...]
--- OUTSIDE RECORDS SUMMARY | ~2019-08-08 | XMS | Encounter Summary ---
Demographics + + + | Address | [address] | | | [place] [address] | + + + | Home Phone [...] Team Providers + +------+ + | Care Learning Disabled Teacher Name | Role | Phone | + [...] | | [address] Mailcode: | [place], [place] | | | | | [facility] | [address] | | | | | Health and Healing, | [phone] | | | | | | | | | | | Floor [place], [place] | | | | | | [address] | | | | | | [phone] | | | +--------+ + + + [...]
--- OUTSIDE RECORDS SUMMARY | ~2019-08-08 | XMS | Encounter Summary ---
Demographics + + + | Address | [address] | | | [place] [address] | + + + | Home Phone [...] Author | [facility] | + + + | Organization | [facility] | + + + | Address | [...] Team Providers + +------+ + | Care Java Portal Developer Name | Role | Phone | + +------+ + | Arash [place] MD | PCP | | + +------+ + Encounter Details +--------+ + + + + | Date | Type | Department | Care Team | Description | +--------+ + + + + | 03/11/ | Document-Sc | Health Information | Unknown . | | | 2017 | anned | Services [address] | | | | | [address] | | | | | | Mailcode: [address]A | | | | | | [facility] | | | | | | [place], [place] | | | | | | [address] | | | | | | [phone] | | | +--------+ + + + [...]
--- OUTSIDE RECORDS SUMMARY | ~2019-08-08 | XMS | Encounter Summary ---
Demographics + + + | Address | [address] | | | [place] [address] | + + + | Home Phone [...] Team Providers + +------+ + | Care Burial Vault Deliverer And Installer Name | Role | Phone | [...] | | 2018 | Encounter | at [facility] [address] | [address] | | | | | [address] Mailcode: | [place], [place] | | | | | [facility] | [address] | | | | | [facility] and Healing, | [phone] | | | | | [facility] | | | | | | Floor [place], [place] | | | | | | [address] | | | | | | [phone] | | | +--------+ + + + [...]
--- OUTSIDE RECORDS SUMMARY | ~2019-08-08 | XMS | Encounter Summary ---
Demographics + + + | Address | [address] | | | [place] [address] | + + + | Home Phone | | + + + | Preferred Language | Unknown | + + + | Marital Status | | + + + | Anabaptist Affiliation | NON | + + + [...] Team Providers + +------+ + | Care Drug Abuse Resistance Education Officer Name | Role | Phone | + [...] [address] | | | | | | [place], [place] | | | | | | [address] | | | +--------+ + + + [...]
--- OUTSIDE RECORDS SUMMARY | ~2019-08-08 | XMS | Encounter Summary ---
Demographics + + + | Address | [address] | | | [place] [address] | + + + | Home Phone | | + + + | Preferred Language | Unknown | + + + | Marital Status | | + + + | Temple Affiliation | NON | + + + | Race | White | + + + | Ethnic Group | Not or | + + + Author + + + | Author | [facility] | + + + | Organization | [facility] | + + + | [...] Team Providers + +------+ + | Care Service Electrician Name | Role | Phone | + +------+ + | Mateusz Dixon MD | PCP | | + +------+ + Encounter Details +--------+ + + + + | Date | Type | Department | Care Team | Description | +--------+ + + + + | 12/19/ | MyChart | Cardiology General | | Please call to | | 2019 | Encounter | at [facility] [address] | | reschedule your | | | | [address] Mailcode: | | Cardiology | | | | [facility] Center for | | appointment | | | | Health and Healing, | | | | | | Building | | | | | | Floor [place], [place] | | | | | | [address] | | | | | | [phone] | | | +--------+ + + + [...]
--- OUTSIDE RECORDS SUMMARY | ~2019-08-08 | XMS | Encounter Summary ---
Demographics + + + | Address | [address] | | | [place] [address] | + + + | Home Phone [...] Team Providers + +------+ + | Care Emt Basic Name | Role | Phone | + [...] | 2018 | Encounter | Transplant at [facility] | [address] | Reading | | | | [address] | [place], [place] | | | | | Mailcode: [address] | [address] | | | | | [facility] | [phone] | | | | | and [place], | | | | | | Building | | | | | | [place], [place] | | | | | | [address] | | | | | | [phone] | | | +--------+ + + + [...]
--- OUTSIDE RECORDS SUMMARY | ~2019-08-08 | XMS | Encounter Summary ---
Demographics + + + | Address | [address] | | | [place] [address] | + + + | Home Phone | | + + + | Preferred Language | Unknown | + + + | Marital Status | | + + + | Orthodox Affiliation | NON | + + + | Race | White | + + + | Ethnic Group | Not or | + + + Author + + + | Author | [facility] | + + + | Organization | [facility] | + + + | [...] Team Providers + +------+ + | Care Fourdrinier Operator Name | Role | Phone | + +------+ + | Mateusz Dixon MD | PCP | | + +------+ + Encounter Details +--------+------+ + + + | Date | Type | Department | Care Team | Description | +--------+------+ + + + | 08/16/ | Lab | Laboratory at [facility] | | Heart failure, | | 2018 | | [address] | | systolic, chronic | | | | [place], [place] | | ([facility]) | | | | [address] | | | | | | [phone] | | | +--------+------+ + + + [...] the | | | | PDT | ([facility]) | results section. | + +--------+ + + + | CBC (HEMOGRAM) ONLY | Routin | 08/16/2018 | Heart failure, | Results for this | | | e | 1:57 PM | systolic, chronic | procedure are in the | | | | PDT | ([facility]) | results section. | + +--------+ + + + | [facility] - COMPLETE | Routin | 08/16/2018 | Heart failure, | Results for this | | METABOLIC SET | e | 1:57 PM | systolic, chronic | procedure are in the | | | | PDT | ([facility]) | results section. | + +--------+ + + + | CBC ONLY | Routin | 08/16/2018 | Heart failure, | Results for this | | | e | 1:57 PM | systolic, chronic | procedure are in the | | | | PDT | ([facility]) | results section. | + +--------+ + + + | FERRITIN | Routin | 08/16/2018 | Heart failure, | Results for this | | | e | 1:57 PM | systolic, chronic | procedure are in the | | | | PDT | ([facility]) | results section. | + +--------+ + + + | IRON AND TIBC, SERUM | Routin | 08/16/2018 | Heart failure, | Results for this | | | e | 1:57 PM | systolic, chronic | procedure are in the | | | | PDT | ([facility]) | results section. | + +--------+ + [...] [facility] | [address] | [place] [address] | | | [facility] | | | | | HEALTH + [...] LABORATORY | | | | | | [facility], | | | | | | CORE [...] | + + + + + | [facility] | [address] | [place] [address] | | | SERVICES, CORE | PARK [...] and | 50 - 200 ng/mL | [facility] | | | | Female >18 years: [...] | + + + + + | [employer] | [address] | [place] [address] | | | JEREMY SINCLAIR | MARIELENA [...] [facility] | [address] | [place] [address] | | | SERVICES, CORE | PARK [...] | | | LABORATORY | | | [facility] | | | SERVICES, | | | [...] | Interpretive Information: <60 mL/min/1.73 sq | [facility] [place] [place] | | m Chronic Kidney Disease <15 [...] | + + + + + | [facility] | [address] | [place] [address] | | | JEREMY SINCLAIR | [place] GRE[place]AL | | | + + + + + documented in this encounter Visit Diagnoses + + | Diagnosis | + + | Heart failure, systolic, chronic (HCC) Chronic systolic heart failure | + + documented in this encounter"
--- OUTSIDE RECORDS SUMMARY | ~2019-08-08 | XMS | Encounter Summary ---
Demographics + + + | Address | [address] | | | [place] [address] | + + + | Home Phone [...] Team Providers + +------+ + | Care Electrolog Operator Name | Role | Phone | + +------+ + | Mateusz Dixon MD | PCP | | + +------+ + Encounter Details +--------+ + + + + | Date | Type | Department | Care Team | Description | +--------+ + + + + | 03/14/ | MyChart | Cardiology General | Jamaal Arenas, | RE: Lisinopril | | 2018 | Encounter | at [facility] [address] | [address] | Refill | | | | [address] Mailcode: | [place], [place] | | | | | [address] [place] [address] | [address] | | | | | Health and [facility], | [phone] | | | | | [facility] | | | | | | Floor [place], [place] | | | | | | [address] | | | | | | [phone] | | | +--------+ + + + [...]
--- OUTSIDE RECORDS SUMMARY | ~2019-08-08 | XMS | Encounter Summary ---
Demographics + + + | Address | [address] | | | [place] [address] | + + + | Home Phone | | + + + | Preferred Language | Unknown | + + + | Marital Status | | + + + | Sikhism Affiliation | NON | + + + [...] Team Providers + +------+ + | Care Pit Hoist Operator Name | Role | Phone | [...] | | 2018 | Encounter | at [facility] [address] | [address] | | | | | [address] Mailcode: | Ave [place], [place] | | | | | [facility] | [address] | | | | | Health and Healing, | [phone] | | | | | [facility] | | | | | | Floor [place], [place] | | | | | | [address] | | | | | | [phone] | | | +--------+ + + + [...]
--- OUTSIDE RECORDS SUMMARY | ~2019-08-08 | XMS | Encounter Summary ---
Demographics + + + | Address | [address] | | | [place] [address] | + + + | Home Phone | | + + + | Preferred Language | Unknown | + + + | Marital Status | | + + + | Judaism Affiliation | NON | + + + [...] Team Providers + +------+ + | Care Forestry Pilot Name | Role | Phone | + [...] | | [address] Mailcode: | [place], [place] | | | | | [facility] | [address] | | | | | Health and Healing, | [phone] | | | | | [facility] | | | | | | Floor [place], [place] | | | | | | [address] | | | | | | [phone] | | | +--------+ + + + [...]
--- OUTSIDE RECORDS SUMMARY | ~2019-08-08 | XMS | Encounter Summary ---
Demographics + + + | Address | [address] | | | [place] [address] | + + + | Home Phone | | + + + | Preferred Language | Unknown | + + + | Marital Status | | + + + | Hindu Affiliation | NON | + + + | Race | White | + + + | Ethnic Group | Not or | + + + Author + + + | Author | [facility] | + + + | Organization | [facility] | + + + | Address | [...] Team Providers + +------+ + | Care Tobacco Grower Name | Role | Phone | + [...] | | [address] Mailcode: | [place], [place] | | | | | [facility] | [address] | | | | | Health and Healing, | [phone] | | | | | [facility] | | | | | | Floor [place], [place] | | | | | | [address] | | | | | | [phone] | | | +--------+ + + + [...]
--- OUTSIDE RECORDS SUMMARY | ~2019-08-08 | XMS | Encounter Summary ---
Demographics + + + | Address | [address] | | | [place] [address] | + + + | Home Phone [...] + + | Author | [facility] | + + + | Organization | [facility] | + + + | Address | Unknown | + + + | Phone | Unavailable | + + + Support + + +---------+ + | Name | Relationship | Address | Phone | + + +---------+ + | Matri Villalta | ECON | Unknown | | + + +---------+ + | Vinita Pleitez | ECON | Unknown | | + + +---------+ + Care Team Providers + +------+ + | Care Carbon Dioxide Operator Name | Role | Phone | [...] | | 2018 | Encounter | at [facility] [address] | [address] | | | | | [address] Mailcode: | [place], [place] | | | | | [address] [place] [address] | [address] | | | | | Health and Healing, | [phone] | | | | | | | | | | | Floor [place], [place] | | | | | | [address] | | | | | | [phone] | | | +--------+ + + + [...]
--- OUTSIDE RECORDS SUMMARY | ~2019-08-08 | XMS | Encounter Summary ---
Demographics + + + | Address | [address] | | | [place] [address] | + + + | Home Phone [...] Team Providers + +------+ + | Care Foot Setter Name | Role | Phone | + [...] | | [address] Mailcode: | [address] [place], [place] | | | | | [facility] | [address] | | | | | Health and Healing, | [phone] | | | | | | | | | | | Floor [place], [place] | | | | | | [address] | | | | | | [phone] | | | +--------+ + + + [...]
--- OUTSIDE RECORDS SUMMARY | ~2019-08-08 | XMS | Encounter Summary ---
Demographics + + + | Address | [address] | | | [place] [address] | + + + | Home Phone | | + + + | Preferred Language | Unknown | + + + | Marital Status | | + + + | Islam Affiliation | NON | + + + | Race | White | + + + | Ethnic Group | Not or | + + + Author + + + | Author | [facility] | + + + | Organization | [facility] | + + + | Address | [...] Team Providers + +------+ + | Care Factorer Name | Role | Phone | + +------+ + | Mateusz Dixon MD | PCP | | + +------+ + Reason for Visit + + + | Reason | Comments | + + + | New patient | | | consultation | | + + + | Heart failure | | + + + Consultation (Routine) +--------+--------+ + + + + | Status | Reason | Specialty | Diagnoses / | Referred By | Referred To | | | | | Procedures | Contact | Contact | +--------+--------+ + + + + | Closed | | Cardiology | Diagnoses | Sitz, | Arenas, | | | | | CHF | Arash | Jamaal Simms MD | | | | | (congestive | MD Yvan | [address] | | | | | heart | [address] | Ave | | | | | failure) | INTERNAL | [facility], [place] | | | | | (HCC) | MEDICINE | [address] | | | | | Procedures | [address] | Phone: | | | | | CONSULT TO | ALECAndrew | [phone] | | | | | CARDIOLOGY | [address] | Fax: | | | | | [place] NEW | [place], | [phone] | | | | | PATIENT | [place] [address] | | | | | | LEVEL V | Phone: | | | | | | | [phone] | | | | | | | Fax: | | | | | | | [phone] | | +--------+--------+ + + + + Encounter Details +--------+---------+ + + + | Date | Type | Department | Care Team | Description | +--------+---------+ + + + | 01/20/ | Office | Cardiology General | Jamaal Arenas, | Heart failure, | | 2018 | Visit | at [facility] [address] | MD [address] | systolic, chronic | | | | [address] Mailcode: | Ave [place], [place] | ([facility]) (Primary Dx); | | | | [address] | [address] | Prediabetes; | | | | Campaign Monitor and [facility], | [phone] | Coronary artery | | | | | | disease involving | | | | Floor [place], [place] | | [place] heart without | | | | [address] | | angina pectoris, | | | | [phone] | | unspecified vessel | | | | | | or lesion type; | | | | | | Paroxysmal atrial | | | | | | fibrillation ([facility]) | +--------+---------+ + + + Social History [...] + + + | Blood Pressure | 159/78 | 01/20/2018 10:39 AM | | | | | PDT | | + + + + + | Pulse | 57 | 01/20/2018 10:39 AM | | | | | PDT | | + + + + + | Temperature | 36.4 C (97.6 F) | 01/20/2018 10:38 AM | | | | | PDT | | + + + + + | Respiratory Rate | 22 | 01/20/2018 10:38 AM | | | | | PDT | | + + + + + | Oxygen Saturation | 94% | 01/20/2018 10:38 AM | | | | | PDT | | + + + + + | Inhaled Oxygen | - | - | | | Concentration | | | | + + + + + | Weight | 99 kg (218 lb 4.8 | 01/20/2018 10:38 AM | | | | oz) | PDT | | + + + + + | Height | 175.3 cm (5' 9") | 01/20/2018 10:38 AM | | | | | PDT | | + + + + + | Body Mass Index | 32.24 | 01/20/2018 10:38 AM | | | | | PDT | | + + + + + documented in this encounter Patient Instructions Patient Instructions Jamaal Arenas MD - 01/20/2018 10:40 AM PDT- it was a pleasure to see you today - reduce aspirin from 325 mg daily to 81 mg daily - reduce all sodium to 2,000 mg daily (need to read all labels) - limit all fluid to 8 cups (64 ounces) - labs today on the 3rd floor - recommend referral for sleep study - stop lisinopril because of cough - begin losartan 25 mg twice daily - begin log of daily weights -- do first thing in the morning after emptying your bladder - begin log of blood pressure and pulse -- in the morning before taking medications -- 4-6 hours after taking medications - continue other medication - sign up for My Chart - report log via spreadsheet on My Chart - further recommendations after that - f/u in 2 months documented in this encounter Progress Notes Jamaal Arenas MD - 01/20/2018 10:40 AM PDTFormatting of this note might be different f rom the original. HEART FAILURE CLINIC Primary Care Provider: Mateusz Dixon MD Referring Provider: Arash Estes MD Chief Complaint Patient presents with New patient consultation Heart failure History of Present Illness: Jay Villalta is a 77 y.o. patient. Brief Review of CV and Pertinent Medical History: - Dec 2016: TIA, details unknown. Clopidogrel was added to aspirin. Unknown if any kristen p was done for atrial fibrillation - Feb 26, 2017: Elective admission to [facility] in [place], [place] for nephrectomy pepper use or renal mass discovered during workup for hematuria after starting clopidogrel. 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 Nephrectomy was complicated by cardiogenic shock, VT and atrial fibrillation. Pre-op TTE was notable for inferior WMA. Urgent coronary angio showed HEAD SETTER of left circ and RCA and LM disease going into the LAD. The patient became unst able and a 4 x 18 mm Xience THERON was placed (brand not described in op report but in Media ta b). Attempts were made to open left circ and RCA but were not successful. He was discharge d on amiodarone, ticagrelor, aspirin and enoxaparin. - March 10, 2017: Transferred from outside hospital because of rectus sheath hematoma. Warfa rin and enoxaparin were stopped. Seen by Cardiology (Dr. Heber Chisholm and Dr. Raymundo Desouza). Antico agulation was deferred because the patient was in atrial fibrillation for less than 24 hours and risk of recurrent bleed - Jun 15, 2017: MPS showed fixed inf-lateral defect without reversible ischemia or evidence of viability in infarcted myocardium. LVEF was 34%. No changes were made to medical thera py. - Jan 20, 2018: Initial visit to HF Clinic ([facility]). Interval History Since Last Clinic Visit or Hospitalization: The patient and his come to get a second opinion on overall management and whether "a pacemaker might help". Volume-related symptoms: - SOB at rest: no - SALEH: no, able to climb 12 stairs, dyspnea when showering, also limi - Orthopnea: no, sleeps on 3 pillows because of GERD, able to sleep on 1 pillow -- snores, irregular breathing, daytime somnolence - PND: no - Pedal edema: yes - Abdominal fullness: no Lightheadedness/dizziness: postural lightheadedness Chest pain/pressure: no, but has "acid-reflux" Palpitations: no Fatigue: severe Home weights: 191-197 Home BP and pulse: SBP 125-138, pulse 50-55 Medications: reviewed. Non-cardiac history: - prostate cancer diagnosed in 2009 and treated using XRT - GERD - diverticulosis - polypectomy 2010 - fibromyalgia - question of Parkinson's disease Review of systems: ROS as per HPI and other systems reviewed and non-contributory. The non-cardiovascular medical history, surgical history, family history and social histori es were reviewed in the electronic medical record. Allergies No Known Allergies Outpatient Prescriptions Marked as Taking for the 01/20/18 encounter (Office Visit) with Mimi Arenas MD Medication Sig Dispense Refill acetaminophen 500 mg oral tablet Take 1.25 tablets by mouth every six hours as needed. amiodarone 200 mg oral tablet Take 200 mg by mouth once daily. Take 2 tablets twice suki ly until 03/12/17, then take 1 tablet twice daily until 03/26, then take 1 tablet daily [DISCONTINUED] aspirin 325 mg oral tablet Take 325 mg by mouth once daily. atorvastatin 40 mg oral tablet Take 40 mg by mouth once daily in the evening. CALCIUM CARB/MAGNESIUM HYDROX (MYLANTA ORAL) Take by mouth as needed. calcium carbonate chewable 200 mg calcium (500 mg) oral tablet,chewable Chew and swallo w 1,000 mg as needed (heartburn). cholecalciferol, Vitamin D3, 2,000 unit oral capsule Take 2,000 Units by mouth once suki ly in the evening. cyanocobalamin 1,000 mcg oral tablet Take 1,000 mcg by mouth twice weekly. Take on and Wednesday esomeprazole 40 mg oral capsule,delayed release(DR/EC) Take 40 mg by mouth two times da jose c. FOLIC ACID/MULTIVIT-MIN/LUTEIN (CENTRUM SILVER ORAL) Take 1 tablet by mouth once daily. furosemide 20 mg oral tablet Take 20 mg by mouth once daily. [DISCONTINUED] lisinopril 5 mg oral tablet Take 5 mg by mouth two times daily. loperamide (IMODIUM A-D) 2 mg oral tablet Take 2-4 mg by mouth once daily as needed for diarrhea. metoprolol succinate 100 mg oral tablet extended release 24 hr Take 50 mg by mouth once daily. Physical Exam: BP 159/78 | Pulse 57 | Temp 36.4 C (97.6 F) | RR 22 | Ht 1.753 m (5' 9") | Wt 99 kg (21 8 lb 4.8 oz) | SpO2 94% | BMI 32.24 kg/(m^2) Wt Readings from Last 4 Encounters: 01/20/18 99 kg (218 lb 4.8 oz) 03/10/17 95.7 kg (210 lb 15.7 oz) BP Readings from Last 4 Encounters: 01/20/18 159/78 03/13/17 127/64 General: oriented without acute distress HEENT: sclera are anicteric, mucous membranes are moist, JVP is 12-15 cm, +AJR Cardiovascular: regular rate and rhythm, no murmurs, rubs or gallops are appreciated Respiratory: bilateral posterior breath sounds, lungs clear to ascultation Abdomen: soft, non-tender Extremities: warm and well perfused, with some edema Neuro: no focal abnormalities Recent Labs 01/20/18 1249 NA 135* K 4.2 BICARB 25 Recent Labs 01/20/18 1249 BUN 14 CR 1.00 Recent Labs 01/20/18 1249 AST 30 ALT 55 ALB 3.7 Recent Labs 01/20/18 1249 WBC 6.50 HB 12.7* HCT 38.8* PLT 208 Recent Labs 03/11/17 0441 01/20/18 1249 NTPROBNP 4,241* 9,232* Recent Labs 01/20/18 1249 A1C 6.4* Recent Labs 01/20/18 1249 TSH 1.45 Lab from Care Everywhere: Electrocardiogram 01/20/2018: SB, rate 54 IVCD (QRS duration of 123) NS ST-T abn (diffuse) Transthoracic Echocardiogram 12/07/2017: (review by Dr. Arenas: [...] dysfunction. 4. Mild mitral valve regurgitation. 5. Vbix-ld-zqfmlinj tricuspid valve regurgitation. 6. Moderate to severe [...] and ISAURO. Will need to clarify pulmonary h ypertension is all group 2 (from left heart failure) or also pre-capillary. - LVEF 40-45% (possibly lower), RV normal, Nov 2017 - mild volume overload and NT-BNP of 9, 232 on Jan 2018 - continue furosemide 20 mg daily - likely will start spironolactone next - change from lisinopril to losartan if cough is troublesome (patient chose to stay on marnie nopril) - continue metoprolol ER 50 mg for now but likely change to carvedilol later - begin log and sodium/fluid restriction Coronary artery disease without angina (but history of silent PR) S/p THERON to LM (Xience, THERON) in Feb 2017 It appears he completed about 8 months of ticagralor (unclear why it was stopped early). - continue aspirin, beta nicanor and statin Atrial fibrillation, paroxysmal CHADS2-VASC Score: 7 (aspirin) Anticoagulation was stopped in March 2017 when he presented with spontaneous rectus sheath he matoma. The reasons were need for DAPT at the time and the fact that he had only 1 episode of atrial fib lasting < 24 hours during cardiogenic shock. 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 ablation if there is recurrence S/p nephrectomy for clear cell carcinoma, Feb 2017 Serum Cr remains normal but recommend close monitoring while up-titration medical therapy - at visit will inquire if surveillance is being done for metastasis At risk for obstructive sleep apnea - recommend referral to sleep medicine Prediabetes Obesity HgbA1c 6.4 in Jan 2018 - weight loss and limit carbohydrates Specific Plan: - reduce aspirin from 325 mg daily to 81 mg daily - reduce all sodium to 2,000 mg daily (need to read all labels) - limit all fluid to 8 cups (64 ounces) - labs today on the 3rd floor - recommend referral for sleep study - stop lisinopril because of cough - begin losartan 25 mg twice daily - begin log of daily weights -- do first thing in the morning after emptying your bladder - begin log of blood pressure and pulse -- in the morning before taking medications -- 4-6 hours after taking medications - continue other medications - sign up for My Chart - report log via spreadsheet on My Chart - further recommendations after that - f/u in 2 months I spent 68 minutes and greater than 50% was spent counseling and coordinating care. On Jan 20, 20182017, I spent 80 minutes reviewing the patient's complex medical records prior to the visit to understand the causes of HF and co-morbidities that will affect HF man agement. See documentation under the section titled "Brief Review of CV History". This was separate from the visit. Chloe Arenas M.D. cyber intelligence analyst Division of Cardiovascular Medicine [facility] [place] [facility] [place] documented in this encounter Plan of Treatment Not on filedocumented as of this encounter Procedures + +--------+ + + + | Procedure Name | Priori | Date/Time | Associated Diagnosis | Comments | | | ty | | | | + +--------+ + + + | 12 LEAD ECG | Routin | 01/20/2018 | Heart failure, | Results for this | | | e | 11:27 AM | systolic, chronic | procedure are in the | | | | PDT | ([facility]) | results section. | + +--------+ + + + documented in this encounter Results HEMOGLOBIN A1C, BLOOD (01/20/2018 12:49 PM PDT) [...] | [facility] | | considered for monitoring ad terminal makeup operator glycemic control in patients with: | LABORATORY [...] [facility] | [address] | [place] [address] | | | SERVICES, SPECIAL | PARK [...] utilizing a similar TSH assay, and | SERVICES, CORE | | should be interpreted with caution. | | + + + + + + + + | Performing | Address | City/State/Zipcode | Phone Number | | Organization | | | | + + + + + | [facility] | [address] | [place] [address] | | | SERVICES, CORE | [address] [...] | | | LABORATORY | | | [place] | | | SERVICES, | | | [...] [facility] | [address] | [place] [address] | | | SERVICES, CORE | MARIELENA [...] | 9,232 (H) | <449 pg/mL | [facility] | [...] + + | [facility] | [address] | [place] [address] | | | SERVICES, JEREMY | [address] | | | + + + + + 12 LEAD ECG (01/20/2018 11:27 AM PDT) + + + + + + | Component | Value | Ref Range | Performed | Pathologist | | | | | At | Signature | + + + + + + | VENTRICULAR | 54 | bpm | [facility] | | | RATE | | | OF | | | | | | CARDIOLOGY | | + + + + + + | ATRIAL RATE | 54 | ms | [facility] | | | | | | OF | | | | | | CARDIOLOGY | | + + + + + + | P-R | 194 | ms | [facility] | | | INTERVAL | | | OF | | | | | | CARDIOLOGY | | + + + + + + | P AXIS | 49 | deg | [facility] | | | | | | OF | | | | | | CARDIOLOGY | | + + + + + + | QRS | 123 | ms | [facility] | | | DURATION | | | OF | | | | | | CARDIOLOGY | | + + + + + + | QT | 524 | ms | [facility] | | | | | | OF | | | | | | CARDIOLOGY | | + + + + + + | QTCB | 497 | ms | [facility] | | | | | | OF | | | | | | CARDIOLOGY | | + + + + + + | R AXIS | -27 | deg | [facility] | | | | | | OF | | | | | | CARDIOLOGY | | + + + + + + | T AXIS | 113 | deg | [facility] | | | | | | OF | | | | | | CARDIOLOGY | | + + + + + + | ECG | Sinus bradycardia | | [facility] | | | IMPRESSION | | | OF | | | | | | CARDIOLOGY | | + + + + + + | ECG | Probable left atrial | | [facility] | | | IMPRESSION | enlargement | | OF | | | | | | CARDIOLOGY | | + + + + + + | ECG | Nonspecific | | [facility] | | | IMPRESSION | intraventricular | | OF | | | | conduction delay | | CARDIOLOGY | | + + + + + + | ECG | Consider inferior | | [facility] | | | IMPRESSION | infarct, old- ABNORMAL | | OF | | | | ECG - | | CARDIOLOGY | | + + + + + + | ECG | Electronically signed | | [facility] | | | IMPRESSION | by: JADON ALCANTAR | | OF | | | | 01-20-2018 12:35:52 | | CARDIOLOGY | | + + [...] DEPT OF | [address] | [place], [place] | | | CARDIOLOGY | [address] | [address] | | + + + + + documented in this encounter Visit Diagnoses + + | Diagnosis | + + | Heart failure, systolic, chronic (HCC) - Primary Chronic systolic heart failure | + + | Prediabetes Other abnormal glucose | + + | Coronary artery disease involving [place] heart without angina pectoris, unspecified | | vessel or lesion type | + + | Paroxysmal atrial fibrillation (HCC) Atrial fibrillation | + + documented in this encounter
--- OUTSIDE RECORDS SUMMARY | ~2019-08-08 | XMS | Encounter Summary ---
Demographics + + + | Address | [address] | | | [place] [address] | + + + | Home Phone [...] Team Providers + +------+ + | Care Freight Forwarder Name | Role | Phone | + [...] | | [address] Mailcode: | [place], [place] | | | | | [address] [facility] | [address] | | | | | Health and Healing, | [phone] | | | | | Building | | | | | | Floor [place], [place] | | | | | | [address] | | | | | | [phone] | | | +--------+ + + + [...]
--- OUTSIDE RECORDS SUMMARY | ~2019-08-08 | XMS | Encounter Summary ---
Demographics + + + | Address | [address] | | | [place] [address] | + + + | Home Phone [...] Team Providers + +------+ + | Care Training Engineer Name | Role | Phone | [...] Results | | 2018 | | at [facility] [address] | MD [address] | | | | | [address] Mailcode: | [place], [place] | | | | | [address] [facility] | [address] | | | | | Health and Healing, | [phone] | | | | | Building | | | | | | Floor [place], [place] | | | | | | [address] | | | | | | [phone] | | | +--------+ + + + [...] + + | [facility] - | [address] | [place] | [phone] | | [place] | | | | + + + + + documented in this encounter Visit Diagnoses Not on filedocumented in this encounter"
--- OUTSIDE RECORDS SUMMARY | ~2019-08-08 | XMS | Encounter Summary ---
Demographics + + + | Address | [address] | | | [place] [address] | + + + | Home Phone [...] Team Providers + +------+ + | Care Pest Control Technician Name | Role | Phone | + +------+ + | Mateusz Dixon MD | PCP | | + +------+ + Encounter Details +--------+ + + + + | Date | Type | Department | Care Team | Description | +--------+ + + + + | 04/28/ | MyChart | Cardiology General | Jamaal Arenas, | RE: Transfer | | 2019 | Encounter | at [facility] [address] | [address] | | | | | [address] Mailcode: | [place], [place] | | | | | [facility] [facility] | [address] | | | | | Health and Healing, | [phone] | | | | | | | | | | | Floor [place], [place] | | | | | | [address] | | | | | | [phone] | | | +--------+ + + + [...]
--- OUTSIDE RECORDS SUMMARY | ~2019-08-08 | XMS | Encounter Summary ---
Demographics + + + | Address | [address] | | | [place] [address] | + + + | Home Phone | | + + + | Preferred Language | Unknown | + + + | Marital Status | | + + + | Pentecostal Affiliation | NON | + + + [...] Team Providers + +------+ + | Care Storage Center Manager Name | Role | Phone | + +------+ + | Mateusz Dixon MD | PCP | | + +------+ + Reason for Visit +--------+ + | Reason | Comments | +--------+ + | Other | Entreo PA approved | +--------+ + Encounter Details +--------+ + + + + | Date | Type | Department | Care Team | Description | +--------+ + + + + | 04/27/ | Documentati | Cardiology General | Jamaal Arenas, | Other (Lilia COULTER | | 2018 | on | at [facility] [address] | MD [address] | approved) | | | | [address] Mailcode: | Ave [place], [place] | | | | | [facility] | [address] | | | | | Health and Healing, | [phone] | | | | | | | | | | | Floor [place], [place] | | | | | | [address] | | | | | | [phone] | | | +--------+ + + + [...]
--- OUTSIDE RECORDS SUMMARY | ~2019-08-08 | XMS | Encounter Summary ---
Demographics + + + | Address | [address] | | | [place] [address] | + + + | Home Phone [...] + + | Author | [facility] | + + + | Organization | [facility] | + + + | [...] Team Providers + +------+ + | Care Green Tire Inspector Name | Role | Phone | + +------+ + | Mateusz Dixon MD | PCP | | + +------+ + Encounter Details +--------+ + + + + | Date | Type | Department | Care Team | Description | +--------+ + + + + | 04/14/ | Documentati | Cardiology General | Jamaal Arenas, | | | 2018 | on | at [facility] [address] | [address] | | | | | [place] Mailcode: | [place], [place] | | | | | [facility] | [address] | | | | | Health and Healing, | [phone] | | | | | | | | | | | Floor [place], [place] | | | | | | [address] | | | | | | [phone] | | | +--------+ + + + [...]
--- OUTSIDE RECORDS SUMMARY | ~2019-08-08 | XMS | Encounter Summary ---
Demographics + + + | Address | [address] | | | [place] [address] | + + + | Home Phone | | + + + | Preferred Language | Unknown | + + + | Marital Status | | + + + | Buddhism Affiliation | NON | + + + [...] Team Providers + +------+ + | Care Urology Physician Assistant Name | Role | Phone | + +------+ + | Mateusz Dixon MD | PCP | | + +------+ + Reason for Referral Diagnostic Testing (Routine) + +--------+ + + + + | Status | Reason | Specialty | Diagnoses / | Referred By | Referred To | | | | | Procedures | Contact | Contact | + +--------+ + + + + | New Request | | Cardiology | Diagnoses | Arenas, | | | | | | Heart | Jamaal Simms MD | | | | | | failure, | [address] | | | | | | systolic, | [address] | | | | | | chronic | [place], [place] | | | | | | ([facility]LY [facility]) | [address] | | | | | | Procedures | Phone: | | | | | | TRANSTHORACI | [phone] | | | | | | C | Fax: | | | | | | ECHOCARDIOGR | [phone] | | | | | | AM, ADULT | | | + +--------+ + + [...] | | | failure) | INTERNAL | [place], [place] | | | | | ([facility]LY [facility]) | MEDICINE | [address] | | | | | Procedures | 1100 | Phone: | | | | | CONSULT TO | [place] | [phone] | | | | | CARDIOLOGY | [address] | Fax: | | | | | [place] NEW | [place], | [phone] | | | | | PATIENT | [place] [address] | | | | | | LEVEL V | Phone: | | | | | | | [phone] | | | | | | | Fax: | | | | | | | [phone] | | +--------+--------+ + + + + Encounter Details +--------+---------+ + + + | Date | Type | Department | Care Team | Description | +--------+---------+ + + + | 08/16/ | Office | Cardiology General | Jamaal Arenas, | Heart failure, | | 2017 | Visit | at [facility] [address] | MD [address] | systolic, chronic | | | | [address] Mailcode: | Ave [place], [place] | ([facility]) (Primary Dx); | | | | [address] for | [address] | Paroxysmal atrial | | | | Health and Healing, | [phone] | fibrillation ([facility]); | | | | | | Hypertensive heart | | | | Floor [place], [place] | | disease with heart | | | | [address] | | failure ([facility]); | | | | [phone] | | Coronary artery | | | | | | disease involving | | | | | | minto coronary | | | | | | artery of minto | | | | | | heart [...] Instructions Patient Instructions Jamaal Arenas MD - 08/16/2018 1:10 PM PDT- it was a pleasure to see you today - labs today; make sure you get results - you will let us now whether you want to try the higher dose of Entresto to try to improve the heart function - echocardiogram and followup with Dr. Arenas in 6 months documented in this encounter Progress Notes Jamaal Arenas MD - 08/16/2018 1:10 PM PDTFormatting of this note might be different [...] - Feb 26, 2017: Elective admission to [facility] in [place], [place] for nephrectomy pepper use or renal mass discovered during workup for hematuria after starting clopidogrel. 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 Nephrectomy was complicated by cardiogenic shock, VT and atrial fibrillation. Pre-op TTE was notable for inferior WMA. Urgent coronary angio showed MANAGEMENT SME of left circ and RCA and LM [...] and enoxaparin. - March 10-2016: Transferred to [facility] from outside hospital because of rectus sheath [...] Outpatient Prescriptions Marked as Taking for the 08/16/18 encounter (Office Visit) with Mimi Arenas MD [...] Administer with food. Indications: chronic heart failure 180 tablet 3 cholecalciferol, Vitamin D3, 2,000 unit oral capsule [...] 20 mg oral tablet Take 20 mg every Wednesday, , and Wednesday loperamide (IMODIUM A-D) 2 mg oral tablet Take 2-4 mg by mouth once daily as needed for diarrhea. sacubitril-valsartan 49-51 mg oral tablet Take 1 tablet by mouth two times daily. Stop lisinopril and wait 48 hours before starting sacubitril-valsartan (Entresto). 180 tablet 3 Physical Exam: BP 134/88 | Pulse 66 | Temp (Src) 36.9 C (98.5 F) (Oral) | Ht 1.753 m (5' 9") | Wt 88.5 kg (195 lb) | SpO2 95% | BMI 28.8 kg/(m^2) Wt Readings from Last 4 Encounters: 08/16/18 88.5 kg (195 lb) 04/14/18 85.7 kg (189 lb) 01/20/18 99 kg (218 lb 4.8 oz) 03/10/17 95.7 kg (210 lb 15.7 oz) BP Readings from Last 4 Encounters: 08/16/18 134/88 04/14/18 137/78 01/20/18 159/78 03/13/17 127/64 Pulse Readings from Last 4 Encounters: 08/16/18 66 04/14/18 57 01/20/18 57 03/13/17 67 General: oriented without acute distress HEENT: sclera are anicteric, mucous membranes are moist, JVP is 6 cm, -AJR Cardiovascular: regular rate and rhythm, no murmurs, rubs or gallops are appreciated Respiratory: bilateral posterior breath sounds, lungs clear to ascultation Abdomen: soft, non-tender Extremities: warm and well perfused, with some edema Neuro: no focal abnormalities Recent Labs 04/14/18 1149 04/28/18 05/16/18 1020 08/16/18 1357 NA 133* 131* 131* 133* K 4.3 4.4 4.5 4.1 BICARB 28 23 23 24 Recent Labs 04/14/18 1149 04/28/18 05/16/18 1020 08/16/18 1357 BUN 15 21 18 20 CR 1.40* 1.12 1.02 1.12 Recent Labs 04/14/18 1149 08/16/18 1357 AST 48* 53* ALT 66* 66* ALB 3.7 3.9 Recent Labs 04/14/18 1149 08/16/18 1357 WBC 4.93 5.74 HB 13.9 15.3 HCT 40.8* 43.5 PLT 216 212 Recent Labs 01/20/18 1249 04/14/18 1149 08/16/18 1357 NTPROBNP 9,232* 1,446* 1,123* Recent Labs 01/20/18 1249 A1C 6.4* Recent [...] dysfunction. 4. Mild mitral valve regurgitation. 5. Oumy-ot-vohjpwpx tricuspid valve regurgitation. 6. Moderate to severe [...] arteries. A/R Heart failure, systolic, chronic (HFrEF) - LVEF 30-35% (Dr. Arenas's review), RV normal, Nov 2017 (outside study) - LVEF 35-40%, RV normal, Apr 2018 Hypertensive heart disease with heart failure Pulmonary hypertension Etiologies of HF: ischemic CM, hypertension, age and ISAURO. Will need to clarify pulmonary hypertension is all group 2 (from left heart failure) or also pre-capillary. He is now doing very well. The question is whether to increase the dose of sacubitril-jaxson sartan to target dose to improve long-term outcome. The benefits and risks were reviewed in detail. - euvolemic to mild intravascular volume depletion - continue furosemide 20 mg on , , Wed for now - no spironolactone for now but consider later after optimization of sacubitril-valsartan - continue carvedilol 6.25 mg twice daily - continue sacubitril-valsartan 49-51 mg twice daily for now but consider increasing to the next dose if labs are OK and patient is willing Hyponatremia S/p nephrectomy for clear cell carcinoma, Feb 2017 Now has chronic and mild hyponatremia, likely because of single kidney and some element of CKD. Depending on labs will consider reducing furosemide or reducing to twice weekly. - continue periodic monitoring - cancer surveillance by Dr. Cookie Gagnon, urologist in [place], [place] Coronary artery disease without angina (but history of silent [place]) S/p THERON to LM (Xience, THERON) in [...] limit carbohydrates Specific Plan: - labs today - if labs permit and patient so chooses, will increase sacubitril-valsartan to 49-51mg, 1 i n am and 2 in pm and if not too lightheaded after 2 weeks will try 2 twice daily and send ne w eRx for 97-103 mg twice daily - echocardiogram and followup with Dr. Arenas in 6 months -- adjust medical therapy as needed -- repeat ECG to establish a new baseline -- consider adding low dose spironolactone Addendum 08/17/2018: Labs are fine with a decrease of NT-BNP since starting sacubitril-valsartan which is a sig n of efficacy. Recommend increasing sacubitril-valsartan as noted above, if the patient and his family are willing. [place] whether to increase the dose. OK to wait until the last week of Aug when I am back to start in case there are problems. He will need repeat labs 1 week after he reaches the dose of sacubitril-valsartan 97-103 twice daily - routing to [place] so she can communicate with the family early next week, if they hav en't called sooner I spent 38 minutes and greater than 50% was spent counseling and coordinating care. Chloe Arenas M.D. machining manager Division of Cardiovascular Medicine [facility] Cardiovascular [facility] [place] documented in this encounter Plan of Treatment + +------+--------+ + + | Name | Type | Priori | Associated Diagnoses | Order Schedule | | | | ty | | | + +------+--------+ + + | TRANSTHORACIC | ECG | Routin | Heart failure, | Ordered: 08/16/2018 | | ECHOCARDIOGRAM, | | e | systolic, chronic | | | ADULT | | | (HCC) | | + +------+--------+ + + documented as of this encounter Results IRON AND TIBC (08/16/2018 1:57 PM PDT) [...] | + + + + + | [facility] | [address] | [place] [address] | | | SERVICES, CORE | MARIELENA [...] [facility] | [address] | [place] [address] | | | SERVICES, CORE | PARK [...] | + + + + + | [facility] | [address] | [place] [address] | | | SERVICES, CORE | MARIELENA [...] | | | LABORATORY | | | MALAYSIAN | | | SERVICES, | | | [...] + + + + + | [facility] | [address] | [place] [address] | | | SERVICES, CORE | MARIELENA [...] with heart failure | + + | Coronary artery disease involving minto coronary artery of minto heart without | | angina pectoris | + + documented in this encounter
--- OUTSIDE RECORDS SUMMARY | ~2019-08-08 | XMS | Encounter Summary ---
Demographics + + + | Address | [address] | | | [place] [address] | + + + | Home Phone [...] + + + | Author | [facility] | + + + | Organization | [facility] | + + + | Address [...] Team Providers + +------+ + | Care Dynamite Shooter Name | Role | Phone | + [...] [id number] | | | | | | [place], [place] | | | | | | [address] | | | | | | [phone] | | | +--------+ + + + [...] | + + + + + | [facility] | [address] | [place] [address] | | | PATHOLOGY | [address] [...] | + + + + + | [facility] | [address] | [place] [address] | | | PATHOLOGY | [address] [...] | + + + + + | [facility] | [address] | [place] [address] | | | PATHOLOGY | [address] [...] | + + + + + | [facility] | [address] | [place] [address] | | | PATHOLOGY | [address] [...] | + + + + + | [facility] | [address] | [place] [address] | | | PATHOLOGY | [address] | | | + + + + + documented in this encounter Visit Diagnoses Not on filedocumented in this encounter"
--- OUTSIDE RECORDS SUMMARY | ~2019-08-08 | XMS | Encounter Summary ---
Demographics + + + | Address | [address] | | | [place] [address] | + + + | Home Phone | | + + + | Preferred Language | Unknown | + + + | Marital Status | | + + + | Caodaism Affiliation | NON | + + + [...] Team Providers + +------+ + | Care Guideman Name | Role | Phone | + +------+ + | Mateusz Dixon MD | PCP | | + +------+ + Reason for Visit + + + | Reason | Comments | + + + | Medication | Entresto dose | | management | | + + + Encounter Details +--------+ + + + + | Date | Type | Department | Care Team | Description | +--------+ + + + + | 08/23/ | Telephone | Cardiology General | Jamaal Arenas, | Medication | | 2018 | | at [facility] [address] | MD [address] | management (Entresto | | | | [address] Mailcode: | Ave [place], [place] | dose) | | | | [facility] | [address] | | | | | Health and Healing, | [phone] | | | | | | | | | | | [place], [place] | | | | | | [address] | | | | | | [phone] | | | +--------+ + + + [...]
--- OUTSIDE RECORDS SUMMARY | ~2019-08-08 | XMS | Encounter Summary ---
Demographics + + + | Address | [address] | | | [place] [address] | + + + | Home Phone | | + + + | Preferred Language | Unknown | + + + | Marital Status | | + + + | Mandaeism Affiliation | NON | + + + | Race | White | + + + | Ethnic Group | Not or | + + + Author + + + | Author | [facility] | + + + | Organization | [facility] | + + + | Address | [...] Team Providers + +------+ + | Care Timber Treatment Plant Operator Name | Role | Phone | + +------+ + | Arash Estes MD | PCP | | + +------+ + Encounter Details +--------+ + + + + | Date | Type | Department | Care Team | Description | +--------+ + + + + | 12/17/ | Abstract | Cardiology General | Unknown . | | | 2018 | | at [facility] [address] | | | | | | Jagdish [address] Mailcode: | | | | | | [facility] | | | | | | Health and Healing, | | | | | | | | | | | | Floor [place], [place] | | | | | | [address] | | | | | | [phone] | | | +--------+ + + + [...]
--- OUTSIDE RECORDS SUMMARY | ~2019-08-08 | XMS | Encounter Summary ---
Demographics + + + | Address | [address] | | | [place] [address] | + + + | Home Phone | | + + + | Preferred Language | Unknown | + + + | Marital Status | | + + + | Lutheran Affiliation | NON | + + + | Race | White | + + + | Ethnic Group | Not or | + + + Author + + + | Author | [facility] | + + + | Organization | [facility] | + + + | Address [...] Team Providers + +------+ + | Care Personal Care Assistant Name | Role | Phone | [...] | | 2018 | Encounter | at [facility] [address] | MD [address] | | | | | [address] Mailcode: | [place], [place] | | | | | [facility] | [address] | | | | | Health and Healing, | [phone] | | | | | | | | | | | Floor [place], [place] | | | | | | [address] | | | | | | [phone] | | | +--------+ + + + [...]
--- OUTSIDE RECORDS SUMMARY | ~2019-08-08 | XMS | Encounter Summary ---
Demographics + + + | Address | [address] | | | [place] [address] | + + + | Home Phone | | + + + | Preferred Language | Unknown | + + + | Marital Status | | + + + | Scientology Affiliation | NON | + + + | Race | White | + + + | Ethnic Group | Not or | + + + Author + + + | Author | [facility] | + + + | Organization | [facility] | + + + | Address | Unknown | + + + | Phone | Unavailable | + + + Support + + +---------+ + | Name | Relationship | Address | Phone | + + +---------+ + | Marti Villalat | ECON | Unknown | | + + +---------+ + | Vinita Pleitez | ECON | Unknown | | + + +---------+ + Care Team Providers + +------+ + | Care Soccer Ball Assembler Name | Role | Phone | + [...] | | | failure) | INTERNAL | [place], [place] | | | | | (HCC) | MEDICINE | [address] | | | | | Procedures | 1100 | Phone: | | | | | CONSULT TO | ALECAndrew | [phone] | | | | | CARDIOLOGY | [address] | Fax: | | | | | [place] NEW | [place], | [phone] | | | | | PATIENT | [place] [address] | | | | | | LEVEL V | Phone: | | | | | | | [phone] | | | | | | | Fax: | | | | | | | [phone] | | +--------+--------+ + + + + Encounter Details +--------+---------+ + + + | Date | Type | Department | Care Team | Description | +--------+---------+ + + + | 01/20/ | Office | Cardiology General | Jamaal Arenas, | Heart failure, | | 2018 | Visit | at [facility] [address] | MD [address] | systolic, chronic | | | | [address] Mailcode: | Ave [place], [place] | ([facility]) (Primary Dx); | | | | [facility] | [address] | Prediabetes; | | | | [employer] [facility], | [phone] | Coronary artery | | | | | | disease involving | | | | Floor [place], [place] | | [place] heart without | | | | [address] | | angina pectoris, | | | | [phone] | | unspecified vessel | | | | | | or lesion type; | | | | | | Paroxysmal atrial | | | | | | fibrillation ([facility]) | +--------+---------+ + + + Social History [...] - Feb 26, 2017: Elective admission to [facility] in [place], [place] for nephrectomy pepper use or renal mass discovered during workup for hematuria after starting clopidogrel. 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 Nephrectomy was complicated by cardiogenic shock, VT and atrial fibrillation. Pre-op TTE was notable for inferior WMA. Urgent coronary angio showed TABLE OPERATOR of left circ and RCA and LM [...] dysfunction. 4. Mild mitral valve regurgitation. 5. Mocm-uh-ppstlpos tricuspid valve regurgitation. 6. Moderate to severe [...] disease without angina (but history of silent [place]) S/p THERON to LM (Xience, THERON) in [...] medical therapy has been optimized and con carcass trimmer atrial fib ablation if there is recurrence [...] separate from the visit. Chloe Arenas M.D. import customer service manager Division of Cardiovascular Medicine [facility] Cardiovascular [facility] [place] documented in this encounter Plan of Treatment [...] the | | | | PDT | ([facility]) | results section. | + +--------+ + [...] | [facility] | | considered for monitoring oysterman glycemic control in patients with: | LABORATORY [...] [facility] | [address] | [place] [address] | | | SERVICES, SPECIAL | PARK [...] + + + + + | [facility] | [address] [facility] | [place] [address] | | | SERVICES, CORE | MARIELENA [...] | | | LABORATORY | | | [place] | | | SERVICES, | | | [...] [facility] | [address] | [place] [address] | | | SERVICES, CORE | MARIELENA [...] [facility] | [address] | [place] [address] | | | SERVICES, JEREMY | MARIELENA [...] DEPT OF | [address] | [place], [place] | | | CARDIOLOGY | [address] | [address] | | + + + + + documented in this encounter Visit Diagnoses + + | Diagnosis | + + | Heart failure, systolic, chronic (HCC) - Primary Chronic systolic heart failure | + + | Prediabetes Other abnormal glucose | + + | Coronary artery disease involving [place] heart without angina pectoris, unspecified | | vessel or lesion type | + + | Paroxysmal atrial fibrillation (HCC) Atrial fibrillation | + + documented in this encounter
--- OUTSIDE RECORDS SUMMARY | ~2019-08-08 | XMS | Encounter Summary ---
Demographics + + + | Address | [address] | | | [place] [address] | + + + | Home Phone [...] + + + | Author | [facility] | + + + | Organization | [facility] | + + + | [...] Team Providers + +------+ + | Care Supervisor Aircraft Cleaning Name | Role | Phone | + [...] Closed | | Cardiology | Diagnoses | Frank[place], | Dagoberto | | | | | CHF | Arash | Jamaal Simms MD | | | | | (congestive | MD Yvan | [address] | | | | | heart | [place] | Ave | | | | | failure) | INTERNAL | [place], [place] | | | | | (HCC) | MEDICINE | [address] | | | | | Procedures | 1100 | Phone: | | | | | CONSULT TO | MALICK | [phone] | | | | | CARDIOLOGY | [address] | Fax: | | | | | [place] NEW | [place], | [phone] | | | | | PATIENT | [place] [address] | | | | | | LEVEL V | Phone: | | | | | | | [phone] | | | | | | | Fax: | | | | | | | [phone] | | +--------+--------+ + + + + Encounter Details +--------+---------+ + + + | Date | Type | Department | Care Team | Description | +--------+---------+ + + + | 04/14/ | Office | Cardiology General | Jamaal Arenas, | Heart failure, | | 2017 | Visit | at [facility] [address] | MD [address] | systolic, chronic | | | | [address] Mailcode: | Ave [place], [place] | ([facility]) (Primary Dx); | | | | [address] for | [address] | Paroxysmal atrial | | | | Health and Healing, | [phone] | fibrillation ([facility]); | | | | Building | | Hypertensive heart | | | | Floor [place], [place] | | disease with heart | | | | [address] | | failure ([facility]); | | | | [phone] | | Prediabetes; | | | | | | Coronary artery | | | | | | disease involving | | | | | | [place] coronary | | | | | | artery of [place] | | | | | | heart [...] - Feb 26, 2017: Elective admission to [facility] in [place], [place] for nephrectomy pepper use or renal mass discovered during workup for hematuria after starting clopidogrel. 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 Nephrectomy was complicated by cardiogenic shock, VT and atrial fibrillation. Pre-op TTE was notable for inferior WMA. Urgent coronary angio showed MAINSPRING STRIP INSPECTOR of left circ and RCA and LM [...] and enoxaparin. - March 10-2016: Transferred to [facility] from outside hospital because of rectus sheath [...] dysfunction. 4. Mild mitral valve regurgitation. 5. Toyc-vq-sgwaotfd tricuspid valve regurgitation. 6. Moderate to severe [...] surveillance by Dr. Cookie Gagnon, urologist in [place], [place] Coronary artery disease without angina (but history of silent [place]) S/p THERON to LM (Xience, THERON) in [...] counseling and coordinating care. Chloe Arenas M.D. school bus aide Division of Cardiovascular Medicine [facility] Cardiovascular [facility] documented in this encounter Plan of Treatment [...] | [address] | [place] [address] | | | [facility] | | | | | HEALTH [...] [facility] | [address] | [place] [address] | | | SERVICES, CORE | PARK [...] + + + + + | [facility] | [address] | [place] [address] | | | SERVICES, CORE | MARIELENA GREWAL | | | + + + + + [facility] - COMPLETE METABOLIC SET (04/14/2018 11:49 AM [...] [facility] | [address] | [place] [address] | | | [facility] | | | | | HEALTH [...] LABORATORY | | | | | | [facility], | | | | | | CORE | | + + + + + + + + | Specimen | + + | Blood | + + + + + + + | Performing | Address | City/State/Zipcode | Phone Number | | Organization | | | | + + + + + | [facility] | [address] | [place] [address] | | | SERVICES, CORE | MARIELENA [...] + + | Coronary artery disease involving [place] coronary artery of [place] heart without | | angina pectoris | + + documented in this encounter
--- OUTSIDE RECORDS SUMMARY | ~2019-08-08 | XMS | Encounter Summary ---
Demographics + + + | Address | [address] | | | [place] [address] | + + + | Home Phone | | + + + | Preferred Language | Unknown | + + + | Marital Status | | + + + | Latter-Day Affiliation | NON | + + + | Race | White | + + + | Ethnic Group | Not or | + + + Author + + + | Author | [facility] | + + + | Organization | [facility] | + + + | Address | [...] Team Providers + +------+ + | Care Planning Aide Name | Role | Phone | + +------+ + | Arash Estes MD | PCP | | + +------+ + Encounter Details +--------+ + + + + | Date | Type | Department | Care Team | Description | +--------+ + + + + | 03/11/ | Document-Sc | Health Information | Unknown . | | | 2017 | anned | Services [address] | | | | | | [address] | | | | | | Mailcode: [address]A | | | | | | [facility] | | | | | | [place], [place] | | | | | | [address] | | | | | | [phone] | | | +--------+ + + + [...]
--- OUTSIDE RECORDS SUMMARY | ~2019-08-08 | XMS | Encounter Summary ---
Demographics + + + | Address | [address] | | | [place] [address] | + + + | Home Phone | | + + + | Preferred Language | Unknown | + + + | Marital Status | | + + + | Yazidi Affiliation | NON | + + + | Race | White | + + + | Ethnic Group | Not or | + + + Author + + + | Author | [facility] | + + + | Organization | [facility] | + + + | [...] Team Providers + +------+ + | Care Lockstitch Lining Setter Name | Role | Phone | + +------+ + | Mateusz Dixon MD | PCP | | + +------+ + Reason for Visit +--------+ + | Reason | Comments | +--------+ + | Other | Needs labs | +--------+ + Encounter Details +--------+ + + + + | Date | Type | Department | Care Team | Description | +--------+ + + + + | 05/17/ | MyChart | Cardiology General | Jamaal Arenas, | RE:Labs | | 2018 | Encounter | at [facility] [address] | MD [address] | | | | | [address] Mailcode: | [place], [place] | | | | | [address] [facility] | [address] | | | | | Health and Healing, | [phone] | | | | | Building | | | | | | Floor [place], [place] | | | | | | [address] | | | | | | [phone] | | | +--------+ + + + [...]
--- OUTSIDE RECORDS SUMMARY | ~2019-08-08 | XMS | Encounter Summary ---
Demographics + + + | Address | [address] | | | [place] [address] | + + + | Home Phone | | + + + | Preferred Language | Unknown | + + + | Marital Status | | + + + | Evangelical Affiliation | NON | + + + | Race | White | + + + | Ethnic Group | Not or | + + + Author + + + | Author | [facility] | + + + | Organization | [facility] | + + + | Address [...] Team Providers + +------+ + | Care Powder Cutting Operator Name | Role | Phone | [...] | | [address] Mailcode: | Ave [place], [place] | | | | | [address] [place] [address] | [address] | | | | | Health and Healing, | [phone] | | | | | [facility] | | | | | | Floor [place], [place] | | | | | | [address] | | | | | | [phone] | | | +--------+ + + + [...]
--- OUTSIDE RECORDS SUMMARY | ~2019-08-08 | XMS | Clinical Summary ---
Demographics + + + | Address | [address] | | | [place] [address] | + + + | Home Phone | | + + + | Preferred Language | Unknown | + + + | Marital Status | | + + + | Congregation Affiliation | Unknown | + + + | Race | Unknown | + + + | Ethnic Group | Unknown | + + + Author + + + | Author | [facility] (Historical as of | | | 06-24-19) | + + + | Organization | [facility] (Historical as of | | | 06-24-19) [...] Team Providers + +------+ + | Care Identification Printing Machine Setter Name | Role | Phone | [...] +------+-------+ + | MEDICARE | MEDICA | [id number] | | | [address] | | | RE | | | | [place] [address] | | | IP-OP | | | | | + +--------+ +------+-------+ + | [facility] | UNITED | [id number] | | | | | | | [...] [address] | | | al/Samosn | | [address] | +- | [place] [address] | | | jose c | | | [address] Home: | | | | | | | | | | | | | | +- | | | | | | | [address] | | + +--------+ +--------+ + +"
--- OUTSIDE RECORDS SUMMARY | ~2019-08-08 | XMS | Encounter Summary ---
Demographics + + + | Address | [address] | | | [place] [address] | + + + | Home Phone [...] + + + | Author | [facility] | + + + | Organization | [facility] | + + + | [...] Team Providers + +------+ + | Care Fish Culturist Name | Role | Phone | + [...] [id number] | | | | | | [place], [place] | | | | | | [address] | | | | | | [phone] | | | +--------+ + + + [...] | + + + + + | [facility] | [address] | [place] [address] | | | PATHOLOGY | [address] [...] | + + + + + | [facility] | [address] | [place] [address] | | | PATHOLOGY | [address] [...] | + + + + + | [facility] | [address] | [place] [address] | | | PATHOLOGY | [address] [...] | + + + + + | [facility] | [address] | [place] [address] | | | PATHOLOGY | [address] [...] | + + + + + | [facility] | [address] | [place] [address] | | | PATHOLOGY | [address] [...] | + + + + + | [facility] | [address] | [place] [address] | | | PATHOLOGY | [address] [...] | + + + + + | [facility] | [address] | [place] [address] | | | PATHOLOGY | [address] | | | + + + + + documented in this encounter Visit Diagnoses Not on filedocumented in this encounter"
--- OUTSIDE RECORDS SUMMARY | ~2019-08-08 | XMS | Encounter Summary ---
Demographics + + + | Address | [address] | | | [place] [address] | + + + | Home Phone | | + + + | Preferred Language | Unknown | + + + | Marital Status | | + + + | Tenriism Affiliation | NON | + + + [...] Team Providers + +------+ + | Care Color Developer Name | Role | Phone | [...] | | [address] Mailcode: | [place], [place] | | | | | [address] [facility] | [address] | | | | | Health and Healing, | [phone] | | | | | Building | | | | | | Floor [place], [place] | | | | | | [address] | | | | | | [phone] | | | +--------+ + + + [...]
--- OUTSIDE RECORDS SUMMARY | ~2019-08-08 | XMS | Encounter Summary ---
Demographics + + + | Address | [address] | | | [place] [address] | + + + | Home Phone | | + + + | Preferred Language | Unknown | + + + | Marital Status | | + + + | Cheondoism Affiliation | NON | + + + | Race | White | + + + | Ethnic Group | Not or | + + + Author + + + | Author | [facility] | + + + | Organization | [facility] | + + + | Address [...] Team Providers + +------+ + | Care Commercial Lines Assistant Name | Role | Phone | + +------+ + | Maetusz Dixon MD | PCP | | + +------+ + Encounter Details +--------+ + + + + | Date | Type | Department | Care Team | Description | +--------+ + + + + | 04/14/ | Documentati | Cardiology General | Jamaal Arenas, | | | 2018 | on | at [facility] [address] | [address] | | | | | Jagdish Williamson Mailcode: | [place], [place] | | | | | [address] [facility] | [address] | | | | | Health and Healing, | [phone] | | | | | | | | | | | Floor [place], [place] | | | | | | [address] | | | | | | [phone] | | | +--------+ + + + [...]
--- OUTSIDE RECORDS SUMMARY | ~2019-08-08 | XMS | Encounter Summary ---
Demographics + + + | Address | [address] | | | [place] [address] | + + + | Home Phone | | + + + | Preferred Language | Unknown | + + + | Marital Status | | + + + | Evangelical Affiliation | NON | + + + | Race | White | + + + | Ethnic Group | Not or | + + + Author + + + | Author | [facility] | + + + | Organization | [facility] | + + + | Address [...] Team Providers + +------+ + | Care Taxation Accountant Name | Role | Phone | + [...] | | 2018 | Encounter | at [facility] [address] | [address] | Refill | | | | [address] Mailcode: | [place], [place] | | | | | [address] [place] [address] | [address] | | | | | Health and [facility], | [phone] | | | | | [facility] | | | | | | Floor [place], [place] | | | | | | [address] | | | | | | [phone] | | | +--------+ + + + [...]
--- OUTSIDE RECORDS SUMMARY | ~2019-08-08 | XMS | Encounter Summary ---
Demographics + + + | Address | [address] | | | [place] [address] | + + + | Home Phone | | + + + | Preferred Language | Unknown | + + + | Marital Status | | + + + | Synagogue Affiliation | NON | + + + | Race | White | + + + | Ethnic Group | Not or | + + + Author + + + | Author | [facility] | + + + | Organization | [facility] | + + + | Address [...] Team Providers + +------+ + | Care Foundry Hand Name | Role | Phone | + +------+ + | Mateusz Dixon MD | PCP | | + +------+ + Encounter Details +--------+ + + + + | Date | Type | Department | Care Team | Description | +--------+ + + + + | 03/02/ | MyChart | Cardiology General | Jamaal Arenas, | RE: | | 2018 | Encounter | at [facility] [address] | MD [address] | | | | | [address] Mailcode: | [place], [place] | | | | | [address] [facility] | [address] | | | | | Health and Healing, | [phone] | | | | | | | | | | | Floor [place], [place] | | | | | | [address] | | | | | | [phone] | | | +--------+ + + + [...]
--- OUTSIDE RECORDS SUMMARY | ~2019-08-08 | XMS | Encounter Summary ---
Demographics + + + | Address | [address] | | | [place] [address] | + + + | Home Phone | | + + + | Preferred Language | Unknown | + + + | Marital Status | | + + + | Religion Affiliation | 1077 | + + + | Race | Unknown | + + + | Ethnic Group | Unknown | + + + Author + + + | Author | [facility] | | | and Adyana | + + + | Organization | [facility] | | | and [...] [place] | | | | | [address] | | + + + + + Care Team Providers + +------+ + | Care Master Cook Name | Role | Phone | + [...] + + | 07/14/ | Telephone | [facility] | Erum Vela, | Medication Related | | 2019 | | CARDIOLOGY [place] | [facility] | | | | | [address] | | | | | | [place] | | | | | | [address] | | | | | | [phone] | | | +--------+ + + + [...] | | | | | [place] [address] | | | | | | [phone] | | | | | | | | +--------+---------+ + + + documented as of this encounter Visit Diagnoses Not on filedocumented in this encounter"
--- OUTSIDE RECORDS SUMMARY | ~2019-08-08 | XMS | Encounter Summary ---
Demographics + + + | Address | [address] | | | [place] [address] | + + + | Home Phone [...] Team Providers + +------+ + | Care Nuclear Waste Management Engineer Name | Role | Phone | [...] | | [address] Mailcode: | [place], [place] | | | | | [address] [facility] | [address] | | | | | Health and Healing, | [phone] | | | | | | | | | | | Floor [place], [place] | | | | | | [address] | | | | | | [phone] | | | +--------+ + + + [...]
--- OUTSIDE RECORDS SUMMARY | ~2019-08-08 | XMS | Encounter Summary ---
Demographics + + + | Address | [address] | | | [place] [address] | + + + | Home Phone | | + + + | Preferred Language | Unknown | + + + | Marital Status | | + + + | Christian Affiliation | 1077 | + + + | Race | Unknown | + + + | Ethnic Group | Unknown | + + + Author + + + | Author | [facility] | | | and Adyana | + + + | Organization | [facility] | | | and [place] [...] [place] | | | | | [address] | | + + + + + Care Team Providers + +------+ + | Care Master Ocean Name | Role | Phone | + +------+ + | Mateusz Dixon MD | PCP | | + +------+ + Reason for Visit +--------+ + | Reason | Comments | +--------+ + | Other | Records from PCP | +--------+ + Encounter Details +--------+ + + + + | Date | Type | Department | Care Team | Description | +--------+ + + + + | 07/12/ | Documentati | [facility] | Erum Vela, | Other (Records from | | 2019 | on | CARDIOLOGY [place] | [facility] | PCP) | | | | [address] | | | | | | [place], [place] | | | | | | [address] | | | | | | [phone] | | | +--------+ + + + [...] | | | | | [place] [address] | | | | | | [phone] | | | | | | | | +--------+---------+ + + + documented as of this encounter Visit Diagnoses Not on filedocumented in this encounter"
--- OUTSIDE RECORDS SUMMARY | ~2019-08-08 | XMS | Encounter Summary ---
Demographics + + + | Address | [address] | | | [place] [address] | + + + | Home Phone [...] Team Providers + +------+ + | Care Tuft Machine Operator Name | Role | Phone [...] | | | | | chronic | [place], [place] | | | | | | ([facility]) | [address] | | | | | | Procedures | Phone: | | | | | | TRANSTHORACI | [phone] | | | | | | C | Fax: | | | | | | ECHOCARDIOGR | [phone] | | | | | | AM, [...] | | | failure) | INTERNAL | [place], [place] | | | | | ([facility]) | MEDICINE | [address] | | | | | Procedures | [address] | Phone: | | | | | CONSULT TO | TYLER | [phone] | | | | | CARDIOLOGY | [address] | Fax: | | | | | CT NEW | [place], | [phone] | | | | | PATIENT | [place] [address] | | | | | | LEVEL V | Phone: | | | | | | | [phone] | | | | | | | Fax: | | | | | | | [phone] | | +--------+--------+ + + + + Encounter Details +--------+---------+ + + + | Date | Type | Department | Care Team | Description | +--------+---------+ + + + | 08/16/ | Office | Cardiology General | Jamaal Arenas, | Heart failure, | | 2017 | Visit | at [facility] [address] | MD [address] | systolic, chronic | | | | [address] Mailcode: | Ave [place], [place] | ([facility]) (Primary Dx); | | | | [address] for | [address] | Paroxysmal atrial | | | | Health and Healing, | [phone] | fibrillation ([facility]); | | | | | | Hypertensive heart | | | | Floor [place], [place] | | disease with heart | | | | [address] | | failure ([facility]); | | | | [phone] | | Coronary artery | | | | | | disease involving | | | | | | [place] coronary | | | | | | artery of [place] | | | | | | heart [...] - Feb 26, 2017: Elective admission to [facility] in [place], [place] for nephrectomy pepper use or renal mass discovered during workup for hematuria after starting clopidogrel. 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 Nephrectomy was complicated by cardiogenic shock, VT and atrial fibrillation. Pre-op TTE was notable for inferior WMA. Urgent coronary angio showed SUPERINTENDENT STORAGE AREA of left circ and RCA and LM [...] and enoxaparin. - March 10-2016: Transferred to [facility] from outside hospital because of rectus sheath [...] dysfunction. 4. Mild mitral valve regurgitation. 5. Owka-dm-vrcwerys tricuspid valve regurgitation. 6. Moderate to severe [...] surveillance by Dr. Cookie Gagnon, urologist in [place], [place] Coronary artery disease without angina (but history of silent [place]) S/p THERON to LM (Xience, THERON) in [...] counseling and coordinating care. Chloe Arenas M.D. home energy inspector Division of Cardiovascular Medicine [facility] Cardiovascular [facility] [place] documented in this encounter Plan of Treatment [...] | + + + + + | [facility] | [address] | [place] [address] | | | SERVICES, CORE | [address] [...] [facility] | [address] | [place] [address] | | | SERVICES, CORE | PARK [...] | + + + + + | [facility] | [address] | [place] [address] | | | SERVICES, CORE | [address]NA [...] | | | LABORATORY | | | ANDORRAN | | | SERVICES, | | | [...] [facility] | [address] | [place] [address] | | | SERVICES, CORE | [address] [...] + + | Coronary artery disease involving [place] coronary artery of [place] heart without | | angina pectoris | + + documented in this encounter
--- OUTSIDE RECORDS SUMMARY | ~2019-08-08 | XMS | Encounter Summary ---
Demographics + + + | Address | [address] | | | [place] [address] | + + + | Home Phone | | + + + | Preferred Language | Unknown | + + + | Marital Status | | + + + | Zoroastrianism Affiliation | 1077 | + + + | Race | Unknown | + + + | Ethnic Group | Unknown | + + + Author + + + | Author | [facility] | | | and Adyana | + + + | Organization | [facility] | | | and [place] [...] [place] | | | | | [address] | | + + + + + Care Team Providers + +------+ + | Care Retail Pharmacy Merchandiser Name | Role | Phone | + [...] | Services | Medicine | Obstructive | [facility] | | | Required | | sleep apnea | MD [address] | SLEEP | | | | | syndrome | [address] | DISORDERS LAB | | | | | | [address] [address] | [address] | | | | | | [facility] [place] | [address] [place] | | | | | | [address] | [place] | | | | | | Phone: | [address] | | | | | | [phone] | Phone: | | | | | | Fax: | [phone] | | | | | | [phone] | Fax: | | | | | | | [phone] | + + + + + + [...] [address] | | | | | ([facility]) | [address] | [address] | | | | | Heart | [place], | [place] | | | | | failure, | [place] [address] | [address] Phone: | | | | | unspecified | Phone: | [phone] | | | | | ([facility]) | [phone] | Fax: | | | | | Atherosclero | Fax: | [phone] | | | | | tic heart | [phone] | | | | | | disease of | | | | | | | [place] | | | | | | | [...] + + | 07/11/ | Office | [facility] | Nacho Pearson, | Atrial fibrillation, | | 2018 | Visit | CARDIOLOGY [place] | [address] | unspecified type | | | | [address] | [place], | ([facility]) (Primary Dx); | | | | WAY [address] | [place] [address] | Paroxysmal atrial | | | | [place], [place] | [phone] | fibrillation ([facility]); | | | | [address] | | Ischemic dilated | | | | [phone] | | cardiomyopathy | | | | | | ([facility]); Coronary | | | | | | artery disease | | | | | | involving [place] | | | | | | coronary artery of | | | | | | [place] heart without | | | | | [...] | | | | | | failure (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 He was encouraged to become more physically a ctive. He was encouraged to start walking again. His QUP1OU0 VASc score is 5, is a strong indication for oral anticoagulation. However, he had significant bleeding following his [place], when he was discharged "on 3 blood [...] Cor Angio; Surgeon: Cas Garduno MD; Location: [facility] CV LAB CHOLECYSTECTOMY 1997 COLONOSCOPY 11/2010 small polyp and diverticulosis, due for repeat 3-5 years (Dr. 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 [...] No h/o an AAA. --5-day Event Monitor (04/26/2019-[facility]): Sinus rhythm, ave 62, range 85-111, rare PACs and PV Cs, multiple episodes of paroxysmal atrial fibrillation with RVR, longest 22 seconds, 47 con secutive beats --Persantine Cardiolite stress test (06/15/2017-[facility]): No ST changes, inferolateral sca rring, no [...] Primary PCI with acute NSTEMI (02/27/17 - [facility]): LM-proximal 50-60%, distal-30%, proximal LAD 75% > [...] EKG: Sinus bradycardia, rate 56, old inferior [place], low voltage in precordial leads, no signi ficant ST-T abnormalities, QTc 403 ms Assessment: Jay was seen today for new patient. Diagnoses and all orders for this visit: Atrial fibrillation, unspecified type (HCC) - ECG 12 lead Paroxysmal atrial fibrillation (HCC) Ischemic dilated cardiomyopathy (HCC) Coronary artery disease involving [place] coronary artery of [place] heart without angina pec toris Status post [...] MAJOR | | | | | | [place] [address] | | | | | | [phone] | | | | | | | [...] | | | | | by [facility] [place] Read Only, | | | | | | [facility] [place] ([id number]), | | | | | | assignment editor mAilcar Edwards | | | | | | [...] + + | Coronary artery disease involving [place] coronary artery of [place] heart without | | angina pectoris | [...]
--- OUTSIDE RECORDS SUMMARY | ~2019-08-08 | XMS | Encounter Summary ---
Demographics + + + | Address | [address] | | | [place] [address] | + + + | Home Phone | | + + + | Preferred Language | Unknown | + + + | Marital Status | | + + + | Bahai Affiliation | NON | + + + [...] Team Providers + +------+ + | Care Irrigator Name | Role | Phone | + [...] | | [address] Mailcode: | [place], [place] | | | | | [address] [facility] | [address] | | | | | Health and Healing, | [phone] | | | | | | | | | | | Floor [place], [place] | | | | | | [address] | | | | | | [phone] | | | +--------+ + + + [...]
--- OUTSIDE RECORDS SUMMARY | ~2019-08-08 | XMS | Encounter Summary ---
Demographics + + + | Address | [address] | | | [place] [address] | + + + | Home Phone [...] + + + | Author | [facility] | + + + | Organization | [facility] | + + + | [...] Team Providers + +------+ + | Care Motorcycle Mechanic Name | Role | Phone | + +------+ + | Mateusz Dixon MD | PCP | | + +------+ + Encounter Details +--------+ + + + + | Date | Type | Department | Care Team | Description | +--------+ + + + + | 04/27/ | MyChart | Cardiology General | Jamaal Arenas, | RE: Lab Request | | 2018 | Encounter | at [facility] [address] | [address] | | | | | [address] Mailcode: | [place], [place] | | | | | [address] [facility] | [address] | | | | | Health and Healing, | [phone] | | | | | | | | | | | Floor [place], [place] | | | | | | [address] | | | | | | [phone] | | | +--------+ + + + [...]
--- OUTSIDE RECORDS SUMMARY | ~2019-08-08 | XMS | Encounter Summary ---
Demographics + + + | Address | [address] | | | [place] [address] | + + + | Home Phone | | + + + | Preferred Language | Unknown | + + + | Marital Status | | + + + | Methodist Affiliation | NON | + + + | Race | White | + + + | Ethnic Group | Not or | + + + Author + + + | Author | [facility] | + + + | Organization | [facility] | + + + | [...] Team Providers + +------+ + | Care Construction Recruiter Name | Role | Phone | + [...] Results | | 2018 | | at [facility] [address] | MD [address] | | | | | [address] Mailcode: | [place], [place] | | | | | [address] [facility] | [address] | | | | | Health and Healing, | [phone] | | | | | Building | | | | | | Floor [place], [place] | | | | | | [address] | | | | | | [phone] | | | +--------+ + + + [...] [address] | [place], [place] | [phone] | | [place] | | | | + + + + + documented in this encounter Visit Diagnoses Not on filedocumented in this encounter"
--- OUTSIDE RECORDS SUMMARY | ~2019-08-08 | XMS | Encounter Summary ---
Demographics + + + | Address | [address] | | | [place] [address] | + + + | Home Phone [...] + + + | Author | [facility] | + + + | Organization | [facility] | + + + | [...] Team Providers + +------+ + | Care Head Of Data Name | Role | Phone | + [...] [address] | [address] [facility] | | | | | [place], [place] | [address] | | | 03/13/ | | [address] | [place], [place] | | | 2016 | | [phone] | [address] | | | | | | [phone] | | | | | | | [...] might be different fr om the original. [facility] INPATIENT DISCHARGE SUMMARY Author: Sejal Gill MD [...] packed red blood cells and transferred to [facility] for further ma nagement of his hematoma. At [facility], he underwent a CT of the head [...] outpatient. He will follow up with his computer forensics examiner in 1 week. Medications: Discharge Medication List [...] follow up of hospital stay Contact information [facility] [address] [place] [address] [address] [place] [address] Follow up with Your computer forensics examiner in [place] In 1 week. Other Discharge Orders and Instructions Please continue ticagrelor and aspirin, but stop your lovenox and warfarin. Complete your 3 0 day course of amiodarone. Please follow up with your computer forensics examiner as soon as you can. Vitals on [...] Dr. Sachi Gill MD General Surgery, R1 [id number] 1:03 PM 03/13/2017 documented in this e [...] sheath hematoma, he then was transferred to [facility] for further management. Procedures -none Interval History: [...] sheath hematoma, he then was transferred to [facility] for further management. CT head and neck [...] lovenox -- pt will follow up with computer forensics examiner in [place] GI/Abd: right rectus sheath hematoma, GERD -- [...] Sejal Gill MD PGY-1, General Surgery EGS Title Abstractor Pager [phone] Sejal Hightower MD - 0 03/11/2017 7:26 [...] sheath hematoma, he then was transferred to [facility] for further management. Procedures -none Interval History: -transferred to [facility] yesterday evening -ASA and ticagrelor held yesterday by ICU -Hct 23.4-->20.4 and given 2u RBC -rapid response called this manager engine for chest pain, symptoms more consistent with [...] sheath hematoma, he then was transferred to [facility] for further management. CT head and neck [...] Sejal Gill MD PGY-1, General Surgery EGS Title Abstractor Pager [phone] night, Ilya baer MD - 03/11/2017 4:39 AM PDTPaged by RN that pt was reporting CP. WAREDRESSER called. On exam, th e patient states that he woke up about 45 min prior and noted mid-sternal chest discomfort t hat felt like indigestion. Pt states that he has had symptoms of GERD in the past and takes prilosec because of it. He states that the discomfort now is similar to prior GERD episodes. However, given his recent ND, he notified the nurse. Denies radiation of [...] symptoms are improving. However, given his recent ND, a thorough cardiac work-up will be done. His ASA and ticagrel or were not resumed upon transfer out of the ICU. -ASA 325mg now. -EKG, which is unchanged from yesterday -Troponin x 3. -BNP -Repeat CBC. Transfuse 2 units -CXR -Telemetry -Continuous pulse ox Discussed plan with Dr. Madison Flynn. Korin Rivera MD PGY-1 Pager [phone] Gian Sagastume RN - 03/10/2017 9:21 AM PDTUtilization Management Assessment [facility] Care Guideline1 applied: Syncope, extended [...] Utilization Management Dept of Care Management Pager [phone] rittnee Pryor - 03/10/2017 9:20 AM PDTTransthoracic [...] + + | [facility] | [address] | [place] [address] | | | SERVICES, CORE | PARK [...] | + + + + + | [facility] | [address] | [place] [address] | | | SERVICES, CORE | PARK [...] | + + + + + | [facility] | [address] | [place] [address] | | | SERVICES, CORE | [address] [...] | | | LABORATORY | | | [facility] | | | SERVICES, | | | [...] the MDRD equation recommended by the | [facility] | | National Kidney Disease Education Program. [...] | + + + + + | [facility] | [address] | [place] [address] | | | SERVICES, CORE | [address] | | | + + + + + TROPONIN I, PLASMA (03/12/2017 1:51 AM PDT) + +-------+ + + + | Component | Value | Ref Range | Performed | Pathologist | | | | | At | Signature | + +-------+ + + + | TROPONIN I | 0.32 | <0.80 ng/mL | [facility] | | | | | | LABORATORY [...] [facility] | [address] | [place] [address] | | | SERVICES, CORE | [address] [...] | + + + + + | [facility] | [address] | [place] [address] | | | SERVICES, CORE | [address] [...] | + + + + + | [facility] | [address] | [place] [address] | | | SERVICES, CORE | PARK [...] [facility] | [address] | [place] [address] | | | JEREMY SINCLAIR | [address]NA [...] [facility] | [address] | [place] [address] | | | SERVICES, CORE | PARK [...] [facility] | [address] | [place], [place] | | | NASEEM WHYTE OF [facility] | [address] | [address] | | | TESTS | | | | + + + + + X-RAY PORTABLE CHEST 1 VIEW (03/11/2017 6:38 AM PDT) + + | Specimen | + + | | + + + + + | Narrative | Performed At | + + + | EXAM: TX CHEST 1 VIEW 03/11/17 05:36:47 HISTORY: Chest [...] Interface - 03/11/2017 8:34 AM PDT EXAM: TX CHEST 1 | | VIEW 03/11/17 05:36:47 [...] DEPT OF | [address] | [place], [place] | | | CARDIOLOGY | [address] | [address] | | + + + + + [...] [facility] | [address] | [place] [address] | | | SERVICES, CORE | PARK [...] | + + + + + | [facility] | [address] | [place] [address] | | | SERVICES, CORE | MARIELENA [...] [facility] | [address] | [place] [address] | | | SERVICES, CORE | [address] [...] + + + + | PRODUCT | [id number] | | [facility] | | | UNIT [...] + + + + | EXPIRATION | [id number] | | [facility] | | | DATE [...] + + + + | BLOOD | [id number] | | [facility] | | | PRODUCT [...] [facility] | [address] | [place] [address] | | | SERVICES, | [address] [...] + + + + | PRODUCT | [id number] | | [facility] | | | UNIT [...] + + + + | EXPIRATION | [id number] | | [facility] | | | DATE [...] + + + + | BLOOD | [id number] | | [facility] | | | PRODUCT [...] [facility] | [address] | [place] [address] | | | SERVICES, | [address] [...] [facility] | [address] | [place] [address] | | | SERVICES, CORE | MARIELENA [...] + + | [facility] | [address] | [place] [address] | | | SERVICES, CORE | P[address] [...] | | | LABORATORY | | | [facility]INI | | | SERVICES, | | | [...] | + + + + + | [facility] | [address] | [place] [address] | | | JEREMY SINCLAIR | MARIELENA [...] [facility] | [address] | [place], [place] | | | PATO POINT OF CARE | [address] | [address] | | | TESTS | | | [...] | + + + + + | [facility] | [address] | [place] [address] | | | SERVICES, CORE | PARK [...] | + + + + + | [facility] | [address] | [place] [address] | | | SERVICES, CORE | [address]NA [...] | + + + + + | [facility] | [address] | [place] [address] | | | DOTTIE, JEREMY | PARK [...] [facility] | [address] | [place], [place] | | | ARLINE WHYTE [facility] | [facility] | [address] | | | TESTS | | | [...] | + + + + + | [facility] | [address] | [place] [address] | | | JEREMY SINCLAIR | [address]NA [...] Performed At | + + + | [facility] | [facility] DEPT OF | | [facility] Adult Echocardiography | CARDIOLOGY | | Laboratory [facility], | | | [place] [address] Pt Name: | | | COURTNEY ARELLANOLISS Study Date/Time 03/10/2017 8:08:19 | | | AMMRN: [id number] Most recent | | | prior: -[facility] #: [id number] No. | | | previous echos: 0DOB: 1940 76 years Heart | | | Rate: 70 bpmHeight: 69.0 | | | in Blood Pressure: 104/65 | | | mm/HgWeight: 210.0 lb | | | Gender: MBSA: 2.11 | | | m2 Order ID: | | | [id number] Coin Machine Operator: PRASANNA Referring Provider: Rishi Rodriguez | | [...] | | 10.8 | | | cm mm/j3Kztezqzkxk of | | | chamber size and geometry is accomplished through the incorporation of | | | linear, volumetric, and indexed values Wall Scoring: Report | | | electronically signed by: [id number] Brad Ray MD, PhD (03/10/2017, | | | 11:17:35 AM) Final | | + + + + + | Procedure Note | + + | Interface, Cardiology Results - 03/10/2017 11:17 AM Formerly named [facility] | | [facility] [address] [place] [address] | | [place], [place] [address] Pt Name: COURTNEY | | PIERRE ALEXANDER Study Date/Time 03/10/2017 / 8:08:19 AMMRN: [id number] | | Most recent prior: -Acc #: [id number] No. previous echos: 0DOB: | | 1940 76 years Heart Rate: 70 bpmHeight: 69.0 in | | Blood Pressure: 104/65 mm/HgWeight: 210.0 lb Gender: | | MBSA: 2.11 m2 Order ID: [id number] Coin Machine Operator: | | IMReferring Provider: Rishi Rodriguez Location: [...] Sinus 2.28 (2.1-3.5cm) 10.8 cm | | mm/s4Dqdiihdcem of chamber size and geometry is accomplished through the incorporation | | of linear, volumetric, and indexed values Wall Scoring: Report electronically signed by: | | [id number] Brad Ray MD, PhD (03/10/2017, 11:17:35 AM) [...] | | | |Report electronically signed by: [id number] Brad Ray MD, PhD (03/10/2017, | |11:17:35 AM) | | | | | | | | Final | + + + + + + + | Performing | Address | City/State/Zipcode | Phone Number | | Organization | | | | + + + + + | [facility] | [address] | [place], [place] | | | CARDIOLOGY | [facility] | [address] | | + + + + + [...] | + + + + + | [facility] | [address] | [place] [address] | | | DOTTIE, CORE | MARIE[address]NA [...] [facility] | [address] | [place] [address] | | | SERVICES, CORE | PARK [...] + + + + | PRODUCT | [id number] | | [facility] | | | UNIT [...] + + + + | EXPIRATION | [id number] | | [facility] | | | DATE [...] + + + + | BLOOD | [id number] | | [facility] | | | PRODUCT [...] [facility] | [address] | [place] [id number] | | | SERVICES, | [address] [...] | + + + + + | [facility] | [address] | [place] [address] | | | JEREMY SINCLAIR | PARK [...] [facility] | [address] | [place] [address] | | | SERVICES, | [address] [...] DEPT OF | [address] | [place], [place] | | | CARDIOLOGY | [address] | [address] | | + + + + + [...] [facility] | [address] | [place], [place] | | | NASEEM WHYTE OF CARE | [address] | [address] | | | TESTS | | | [...] | + + + + + | [facility] | [address] | [place] [address] | | | SERVICES, CORE | PARK [...] [facility] | [address] | [place] [address] | | | SERVICES, | [address] [...] | + + + + + | [facility] | [address] | [place] [address] | | | DOTTIE, | [address] [...] [facility] | [address] | [place], [place] | | | NASEEM WHYTE OF CARE | [address] | [address] | | | TESTS | | | [...] [facility] | [address] | [place] [address] | | | SERVICES, CORE | PARK [...] | | | LABORATORY | | | BAHRAINI | | | SERVICES, | | | [...] | + + + + + | [facility] | [address] | [place] [address] | | | SERVICES, [facility] | [address] | | | + + + + + documented in this encounter Visit Diagnoses + + | Diagnosis | + + | Hematoma - Primary Contusion of unspecified site | + + | CAD (coronary artery disease) Coronary atherosclerosis of unspecified type of vessel, | | [place] or graft | + + documented in [...] | | | oral, ONCE, 1 dose, [facility] 03/11/17 at | | 17 4:54 [...] | | | | First dose on [facility] 03/11/17 at 1300, | | AM [...] | | | | First dose on [facility] 03/11/17 at 0900, | | AM [...]
--- OUTSIDE RECORDS SUMMARY | ~2019-08-08 | XMS | Encounter Summary ---
Demographics + + + | Address | [address] | | | [place] [address] | + + + | Home Phone [...] Team Providers + +------+ + | Care Teradata Developer Name | Role | Phone | + +------+ + | Mateusz Dixon MD | PCP | | + +------+ + Encounter Details +--------+ + + + + | Date | Type | Department | Care Team | Description | +--------+ + + + + | 04/27/ | Documentati | Cardiology General | Jaamal Arenas, | | | 2018 | on | at [facility] [address] | [address] | | | | | [address]ish [address] Mailcode: | [place], [place] | | | | | [facility] | [address] | | | | | Health and Healing, | [phone] | | | | | | | | | | | Floor [place], [place] | | | | | | [address] | | | | | | [phone] | | | +--------+ + + + [...]
--- OUTSIDE RECORDS SUMMARY | ~2019-08-08 | XMS | Encounter Summary ---
Demographics + + + | Address | [address] | | | [place] [address] | + + + | Home Phone | | + + + | Preferred Language | Unknown | + + + | Marital Status | | + + + | Congregational Affiliation | NON | + + + | Race | White | + + + | Ethnic Group | Not or | + + + Author + + + | Author | [facility] | + + + | Organization | [facility] | + + + | Address [...] Team Providers + +------+ + | Care Acupressure Therapist Name | Role | Phone | + +------+ + | Arash Estes MD | PCP | | + +------+ + Encounter Details +--------+ + + + + | Date | Type | Department | Care Team | Description | +--------+ + + + + | 12/17/ | Abstract | Cardiology General | Unknown . | | | 2018 | | at [facility] [address] | | | | | | [address] Mailcode: | | | | | | [facility] | | | | | | Health and Healing, | | | | | | | | | | | | Floor [place], [place] | | | | | | [address] | | | | | | [phone] | | | +--------+ + + + [...]
--- OUTSIDE RECORDS SUMMARY | ~2019-08-08 | XMS | Encounter Summary ---
Demographics + + + | Address | [address] | | | [place] [address] | + + + | Home Phone [...] Team Providers + +------+ + | Care Highway Maintainer Name | Role | Phone | + +------+ + | Mateusz Dixon MD | PCP | | + +------+ + Encounter Details +--------+------+ + + + | Date | Type | Department | Care Team | Description | +--------+------+ + + + | 04/14/ | Lab | Laboratory at [facility] | | Heart failure, | | 2018 | | [address] | | systolic, chronic | | | | [place], [place] | | [facility] | | | | [address] | | | | | | [phone] | | | +--------+------+ + + + [...] the | | | | PDT | ([facility]) | results section. | + +--------+ + + + | [facility] - CBC ONLY | Routin | 04/14/2018 | Heart failure, | Results for this | | | e | 11:49 AM | systolic, chronic | procedure are in the | | | | PDT | ([facility]) | results section. | + +--------+ + + + | [facility] - COMPLETE | Routin | 04/14/2018 | Heart failure, | Results for this | | METABOLIC SET | e | 11:49 AM | systolic, chronic | procedure are in the | | | | PDT | ([facility]) | results section. | + +--------+ + + + | FERRITIN | Routin | 04/14/2018 | Heart failure, | Results for this | | | e | 11:49 AM | systolic, chronic | procedure are in the | | | | PDT | ([facility]) | results section. | + +--------+ + + + | IRON AND TIBC, SERUM | Routin | 04/14/2018 | Heart failure, | Results for this | | | e | 11:49 AM | systolic, chronic | procedure are in the | | | | PDT | ([facility]) | results section. | + +--------+ + + + documented in this encounter Results [facility] - CBC ONLY (04/14/2018 11:49 AM PDT) [...] [facility] | [address] | [place] [address] | | | [facility] | | | | | HEALTH + [...] [facility] | [address] | [place] [address] | | | SERVICES, CORE | PARK [...] | + + + + + | [facility] | [address] | [place] [address] | | | SERVICES, CORE | [address] [...] [facility] | [address] | [place] [address] | | | SERVICES, [facility] | [...] | + + + + + | [facility] | [address] | [place] [address] | | | SERVICES, JEREMY | [address] | | | + + + + + documented in this encounter Visit Diagnoses + + | Diagnosis | + + | Heart failure, systolic, chronic (HCC) Chronic systolic heart failure | + + documented in this encounter"
--- OUTSIDE RECORDS SUMMARY | ~2019-08-08 | XMS | Encounter Summary ---
Demographics + + + | Address | [address] | | | [place] [address] | + + + | Home Phone [...] Team Providers + +------+ + | Care Container Shop Welder Name | Role | Phone | + +------+ + | Mateusz Dixon MD | PCP | | + +------+ + Encounter Details +--------+ + + + + | Date | Type | Department | Care Team | Description | +--------+ + + + + | 09/14/ | Abstract | Cardiology General | Jamaal Arenas, | | | 2018 | | at [facility] [address] | [address] | | | | | [address] Mailcode: | [place], [place] | | | | | [address] [facility] | [address] | | | | | Health and Healing, | [phone] | | | | | [facility] | | | | | | Floor [place], [place] | | | | | | [address] | | | | | | [phone] | | | +--------+ + + + [...]
--- OUTSIDE RECORDS SUMMARY | ~2019-08-08 | XMS | Encounter Summary ---
Demographics + + + | Address | [address] | | | [place] [address] | + + + | Home Phone [...] Team Providers + +------+ + | Care Manual Equipment Mechanic Name | Role | Phone | + +------+ + | Mateusz Dixon MD | PCP | | + +------+ + Reason for Visit + + + | Reason | Comments | + + + | Refill Request | | + + + Encounter Details +--------+--------+ + + + | Date | Type | Department | Care Team | Description | +--------+--------+ + + + | 04/10/ | Refill | Cardiology General | Jamaal Arenas, | Refill Request | | 2019 | | at [facility] [address] | [address] | | | | | [address] Mailcode: | [place], [place] | | | | | [address] | [address] | | | | | Health and Healing, | [phone] | | | | | [facility] | | | | | | Floor [place], [place] | | | | | | [address] | | | | | | [phone] | | | +--------+--------+ + + + [...]
--- OUTSIDE RECORDS SUMMARY | ~2019-08-08 | XMS | Encounter Summary ---
Demographics + + + | Address | [address] | | | [place] [address] | + + + | Home Phone [...] + + + | Author | [facility] | + + + | Organization | [facility] | + + + | [...] Team Providers + +------+ + | Care Armature Winder [employer]otive Name | Role | Phone | + [...] | | 2018 | Encounter | at [facility] [address] | [address] | side effects | | | | [address] Mailcode: | Ave [place], [place] | | | | | [facility] | [address] | | | | | Health and Healing, | [phone] | | | | | [facility] | | | | | | Floor [facility] [place] | | | | | | [address] | | | | | | [phone] | | | +--------+ + + + [...]
--- OUTSIDE RECORDS SUMMARY | ~2019-08-08 | XMS | Encounter Summary ---
Demographics + + + | Address | [address] | | | [place] [address] | + + + | Home Phone | | + + + | Preferred Language | Unknown | + + + | Marital Status | | + + + | Congregational Affiliation | 1077 | + + + | Race | Unknown | + + + | Ethnic Group | Unknown | + + + Author + + + | Author | [facility] | | | and Adyana | + + + | Organization | [facility] | | | and [place] [...] [place] | | | | | [address] | | + + + + + Care Team Providers + +------+ + | Care Medical Intern Name | Role | Phone | + [...] + + | 07/12/ | Documentati | [facility] | [address], | Labs Only | | 2019 | on | CARDIOLOGY [place] | DITCH WORKER | | | | | [address] | | | | | | [place], [place] | | | | | | [address] | | | | | | [phone] | | | +--------+ + + + [...] | | | | | [place] [address] | | | | | | [phone] | | | | | | | | +--------+---------+ + + + documented as of this encounter Visit Diagnoses Not on filedocumented in this encounter"
--- OUTSIDE RECORDS SUMMARY | ~2019-08-08 | XMS | Encounter Summary ---
Demographics + + + | Address | [address] | | | [place] [address] | + + + | Home Phone [...] Team Providers + +------+ + | Care Orthopaedic Nurse Name | Role | Phone | [...] Request | | 2019 | | at [facility] [address] | [address] | | | | | [address] Mailcode: | [place], [place] | | | | | [address] | [address] | | | | | Health and Healing, | [phone] | | | | | [facility] | | | | | | Floor [place], [place] | | | | | | [address] | | | | | | [phone] | | | +--------+--------+ + + + [...]
--- OUTSIDE RECORDS SUMMARY | ~2019-08-08 | XMS | Encounter Summary ---
Demographics + + + | Address | [address] | | | [place] [address] | + + + | Home Phone | | + + + | Preferred Language | Unknown | + + + | Marital Status | | + + + | Denominational Affiliation | NON | + + + [...] Team Providers + +------+ + | Care Wood Technologist Name | Role | Phone | + [...] | | [address] Mailcode: | [place], [place] | | | | | [facility] | [address] | | | | | Health and Healing, | [phone] | | | | | | | | | | | Floor [place], [place] | | | | | | [address] | | | | | | [phone] | | | +--------+ + + + [...]
--- OUTSIDE RECORDS SUMMARY | ~2019-08-08 | XMS | Encounter Summary ---
Demographics + + + | Address | [address] | | | [place] [address] | + + + | Home Phone | | + + + | Preferred Language | Unknown | + + + | Marital Status | | + + + | Worship Affiliation | 1077 | + + + | Race | Unknown | + + + | Ethnic Group | Unknown | + + + Author + + + | Author | [facility] | | | and Adyana | + + + | Organization | [facility] | | | and [...] [place] | | | | | [address] | | + + + + + Care Team Providers + +------+ + | Care Colored Liquid Plastic Applier Name | Role | Phone | + [...] + + | 07/12/ | Documentati | [facility] | [address]ela, | Other (Records from | | 2019 | on | CARDIOLOGY [place] | [facility] | PCP) | | | | [address] | | | | | | [place], [place] | | | | | | [address] | | | | | | [phone] | | | +--------+ + + + [...] | | | | | [place] [address] | | | | | | [phone] | | | | | | | | +--------+---------+ + + + documented as of this encounter Visit Diagnoses Not on filedocumented in this encounter"
--- OUTSIDE RECORDS SUMMARY | ~2019-08-08 | XMS | Encounter Summary ---
Demographics + + + | Address | [address] | | | [place] [address] | + + + | Home Phone [...] Team Providers + +------+ + | Care Luncheonette Operator Name | Role | Phone | [...] [id number] | | | | | | [place], [place] | | | | | | [address] | | | | | | [phone] | | | +--------+ + + + [...] | + + + + + | [facility] | [address] | [place] [address] | | | PATHOLOGY | [address] [...] | + + + + + | [facility] | [address] | [place] [address] | | | PATHOLOGY | [address] [...] | + + + + + | [facility] | [address] | [place] [address] | | | PATHOLOGY | [address] | | | + + + + + documented in this encounter Visit Diagnoses Not on filedocumented in this encounter"
--- OUTSIDE RECORDS SUMMARY | ~2019-08-08 | XMS | Clinical Summary ---
Demographics + + + | Address | [address] | | | [place] [address] | + + + | Home Phone | | + + + | Preferred Language | Unknown | + + + | Marital Status | | + + + | Baptism Affiliation | NON | + + + [...] Team Providers + +------+ + | Care Barmaid Name | Role | Phone | + +------+ + | Mateusz Dixon MD | PCP | | + +------+ + Source Comments [facility] is fully live on both [facility] and [facility] InPatient.[facility] Allergies + + + + + [...] | + + | [place] p [phone] f [phone] | + + + + + | [...] | | | | | | | [address] | | + +--------+ +--------+ + +--------+ | [employer] | AARP | xxxxxxxxxxx | Effect | [phone] | [address] | Indemn | | RETIRED PEOPLE | | | nayeli | 9 | [address] | ity | | | | | for | | [place] | | | | | | all | | [address] | | | | | | dates [...] Pierre | al/Samson | | 1940 | [phone] | [place] [address] | | | jose c | | [...]
--- OUTSIDE RECORDS SUMMARY | ~2019-08-08 | XMS | Encounter Summary ---
Demographics + + + | Address | [address] | | | [place] [address] | + + + | Home Phone | | + + + | Preferred Language | Unknown | + + + | Marital Status | | + + + | Caodaism Affiliation | NON | + + + | Race | White | + + + | Ethnic Group | Not or | + + + Author + + + | Author | [facility] | + + + | Organization | [facility] | + + + | [...] Team Providers + +------+ + | Care Chemical Engineering Teacher Name | Role | Phone | [...] | | 2018 | on | at [facility] [address] | MD [address] | approved) | | | | [address] Mailcode: | Ave [place], [place] | | | | | [facility] | [address] | | | | | Health and Healing, | [phone] | | | | | | | | | | | Floor [place], [place] | | | | | | [address] | | | | | | [phone] | | | +--------+ + + + [...]
--- OUTSIDE RECORDS SUMMARY | ~2019-08-08 | XMS | Encounter Summary ---
Demographics + + + | Address | [address] | | | [place] [address] | + + + | Home Phone | | + + + | Preferred Language | Unknown | + + + | Marital Status | | + + + | Yazdanism Affiliation | NON | + + + [...] Team Providers + +------+ + | Care Articulation Officer Name | Role | Phone | [...] | | 2019 | Encounter | at [facility] [address] | [address] | | | | | [address] Mailcode: | [place], [place] | | | | | [facility] | [address] | | | | | Health and Healing, | [phone] | | | | | | | | | | | Floor [place], [place] | | | | | | [address] | | | | | | [phone] | | | +--------+ + + + [...]
--- OUTSIDE RECORDS SUMMARY | ~2019-08-08 | XMS | Encounter Summary ---
Demographics + + + | Address | [address] | | | [place] [address] | + + + | Home Phone | | + + + | Preferred Language | Unknown | + + + | Marital Status | | + + + | Jainism Affiliation | 1077 | + + + | Race | Unknown | + + + | Ethnic Group | Unknown | + + + Author + + + | Author | [facility] | | | and Adyana | + + + | Organization | [facility] | | | and [place] [...] [place] | | | | | [address] | | + + + + + Care Team Providers + +------+ + | Care Program Director Group Work Name | Role | Phone | + [...] + + | 07/19/ | Telephone | [facility] | Erum Vela, | Medication Orders | | 2019 | | CARDIOLOGY [place] | [facility] | | | | | [address] | | | | | | [place] | | | | | | [address] | | | | | | [phone] | | | +--------+ + + + [...] | | | | | [place] [address] | | | | | | [phone] | | | | | | | | +--------+---------+ + + + documented as of this encounter Visit Diagnoses Not on filedocumented in this encounter"
--- OUTSIDE RECORDS SUMMARY | ~2019-08-08 | XMS | Clinical Summary ---
Demographics + + + | Address | [address] | | | [place] [address] | + + + | Home Phone | | + + + | Preferred Language | Unknown | + + + | Marital Status | | + + + | Roman Catholic Affiliation | 1077 | + + + | Race | Unknown | + + + | Ethnic Group | Unknown | + + + Author + + + | Author | [facility] | | | and Adyana | + + + | Organization | [facility] | | | and [...] [place] | | | | | [address] | | + + + + + Care Team Providers + +------+ + | Care Adjuster Electrical Contacts Name | Role | Phone | + [...] | | | 16 | tab Reaction: FIRE CONTROL ASSISTANT | + + + + + + [...] + | Overview: NSTEMI, primary PCI with KRIS in LM & prox LAD | + [...] Orders | | 2018 | | | GREASE PACKER | | +--------+ + + + + | 07/14/ | Telephone | Cardiology | Erum Vela, | Medication Related | | 2018 | | | GREASE PACKER | | +--------+ + + + + | 07/12/ | Telephone | Cardiology | Erum Vela, | Medication Question | | 2018 | | | GREASE PACKER | | +--------+ + + + + | 07/12/ | Documentati | Cardiology | Erum Vela, | Other (Records from | | 2018 | on | | GREASE PACKER | PCP) | +--------+ + + + + | 07/12/ | Documentati | Cardiology | Erum Vela, | Labs Only | | 2018 | on | | GREASE PACKER | | +--------+ + + + + | 07/11/ | Office | Cardiology | Nacho Pearson, | Atrial fibrillation, | | 2018 | Visit | | MD | unspecified type | | | | | | ([facility]) (Primary Dx); | | | | | | Paroxysmal atrial | | | | | | fibrillation ([facility]); | | | | | | Ischemic dilated | | | | | | cardiomyopathy | | | | | | ([facility]); Coronary | | | | | | artery disease | | | | | | involving [place] | | | | | | coronary artery of | | | | | | [place] heart without | | | | | [...] | | | | | [place] [address] | | | | | | [phone] | | | | | | | [...] N/A: | UGALDE | | 10/07/ | [id number] | | [id number]: Qty: 1 | | Childs | VASCULAR - | | 2019 | 0-18 / | | on 02/27/2017 by Cas Garduno | | ry | MARILY | | | | | MD Iker | | | | | | /[id number] | | | | | | | [...] | | | | | by [facility] [place] Read Only, | | | | | | ICA Mariah ([id number]), | | | | | | city editor Amilcar Edwards | | | | [...] +--------+ +---------+--------+ | MEDICARE | MEDICA | [id number] | | [phone] | | Medica | | | RE | | 006-Pr | 5 | | re | | | PART A | | esent | | | | | | AND B | | | | | | + +--------+ +--------+ +---------+--------+ | MEDICARE | MEDICA | [id number] | | [phone] | | Medica | | | RE | | 012-Pr | 5 | | re | | | PART A | | esent | | | | | | AND B | | | | | | + +--------+ +--------+ +---------+--------+ | AARP | AARP | [id number] | 12/09/19 | [phone] | | Indemn | | | MDCR | | 13-Pre | 0 | | ity | | | SUPPL | | sent | | | | + +--------+ +--------+ +---------+--------+ | AARP | AARP | [id number] | 11/08/19 | [phone] | | Indemn [...] López | al/Fam | | 1940 | [phone] | [place] [address] | | | jose c | | | 1 (Home) | | + +--------+ +--------+ + + | Jay Villalta | Person | Self | [birth year] | [address] | | López | al/Fam | | 1940 | [phone] | [place] [address] | | | jose c | | | 1 (Home) | | | | | | | [phone] | | | | | | | 0 (Work) | | + +--------+ +--------+ + + Advance Directives Patient has advance care planning documents, and code status on file. For more information, please contact:[facility] [address] + + + + + | Code Status | Date | Date | Comments | | | Activated | Inactivated | | + + + + + | Full Code | 02/27/2017 | 03/06/2017 | | | | 7:20 | 16:09 | | + + + + +
--- OUTSIDE RECORDS SUMMARY | ~2019-08-08 | XMS | Encounter Summary ---
Demographics + + + | Address | [address] | | | [place] [address] | + + + | Home Phone [...] Team Providers + +------+ + | Care Air Tester Name | Role | Phone | + [...] | | | | | chronic | [place], [place] | | | | | | ([facility]) | [address] | | | | | | Procedures | Phone: | | | | | | TRANSTHORACI | [phone] | | | | | | C | Fax: | | | | | | ECHOCARDIOGR | [phone] | | | | | | AM, ADULT | | | +--------+--------+ + + + + Encounter Details +--------+ + + + + | Date | Type | Department | Care Team | Description | +--------+ + + + + | 01/30/ | MyChart | Cardiology General | Jamaal Arenas, | RE:Medication | | 2018 | Encounter | at [facility] [address] | MD [address] | changes | | | | [address] Mailcode: | Ave [place], [place] | | | | | [facility] | [address] | | | | | Health and Healing, | [phone] | | | | | | | | | | | Floor [place], [place] | | | | | | [address] | | | | | | [phone] | | | +--------+ + + + [...] | | ADULT | | PDT | ([facility]) | results section. | + [...] | EJECTION | 37.5 | % | [facility]PT | | | FRACTION | | | OF | | | [place] | | | CARDIOLOGY | | | VALUE | | | | | + + + + + + + + | Specimen | + + | | + + + + + | Narrative | Performed At | + + + | [facility] | [facility] | | [facility] Adult Echocardiography | CARDIOLOGY | | Laboratory [address] [place] [address], | | | [place] [address] Pt Name: | | | COURTNEY ALEXANDER Study Date/Time 04/14/2018 / 12:55:32 | | | PMMRN: [id number] Most recent | | | prior: 03/10/2017Acc #: | | | [id number] No. previous echos: | | | 1DOB: 1940 77 years Heart | | | Rate: 54 bpmHeight: 69.0 | | | in Blood Pressure: 143/71 | | | mm/HgWeight: 189.0 lb | | | Gender: MBSA: 2.02 | | | m2 Order ID: | | | [id number] Territory Outside Sales Manager: Sameera Gonzalez RDCSSonographer 2:Referring | | | Provider: Jamaal Marques Location: [facility] Performed: 2D, | | | Color flow, [...] Report | | | electronically signed by: [id number] Alonzo Hendrix M.D. (04/14/2018, | | | 5:00:06 PM)Fellow(s) participating in diagnosis: Lisha Larios; | | | Final | | + + + + + | Procedure Note | + + | Interface, Cardiology Results - 04/14/2018 5:00 PM [facility] | | [facility] Laboratory [address] [place] [address] | | [place], [place] [address] Pt Name: COURTNEY | | PIERRE ALEXANDER Study Date/Time 04/14/2018 / 12:55:32 PMMRN: [id number] | | Most recent prior: 03/10/2017Acc #: [id number] No. previous echos: | | 1DOB: 1940 77 years Heart Rate: 54 bpmHeight: 69.0 in | | Blood Pressure: 143/71 mm/HgWeight: 189.0 lb Gender: | | MBSA: 2.02 m2 Order ID: [id number] Territory Outside Sales Manager: Sameera | | Lisa DOESonographer 2:Referring Provider: [...] Scoring: Report | | electronically signed by: [id number] Alonzo Hendrix M.D. (04/14/2018, 5:00:06 | | [...] | | | |Report electronically signed by: [id number] Alonzo Hendrix M.D. (04/14/2018, 5:00:06 | |PM) | |Fellow(s) participating in diagnosis: Lisha Larios; | | | | | | | | Final | + + + + + + + | Performing | Address | City/State/Zipcode | Phone Number | | Organization | | | | + + + + + | [facility] | [address] | [place], [place] | | | CARDIOLOGY | [address] | [address] | | + + + + + documented in this encounter Visit Diagnoses + + | Diagnosis | + + | Heart failure, systolic, chronic (HCC) - Primary Chronic systolic heart failure | + + documented in this encounter"
--- OUTSIDE RECORDS SUMMARY | ~2019-08-08 | XMS | Encounter Summary ---
Demographics + + + | Address | [address] | | | [place] [address] | + + + | Home Phone [...] Team Providers + +------+ + | Care Bush Regenerator Name | Role | Phone | + [...] | | 2018 | Encounter | at [facility] [address] | [address] | | | | | [address] Mailcode: | [place], [place] | | | | | [facility] | [address] | | | | | Health and Healing, | [phone] | | | | | | | | | | | Floor [place], [place] | | | | | | [address] | | | | | | [phone] | | | +--------+ + + + [...]
--- OUTSIDE RECORDS SUMMARY | ~2019-08-08 | XMS | Encounter Summary ---
Demographics + + + | Address | [address] | | | [place] [address] | + + + | Home Phone | | + + + | Preferred Language | Unknown | + + + | Marital Status | | + + + | Moravian Affiliation | Unknown | + + + | Race | Unknown | + + + | Ethnic Group | Unknown | + + + Author + + + | Author | [email or web address] (Historical as of | | | 06-24-19) | + + + | Organization | [email or web address] (Historical as of | | | 06-24-19) [...] Team Providers + +------+ + | Care Mechanical Integrity Engineer Name | Role | Phone | [...] [place], | | | | | [place] | [place] [address] | | | | | [address] | [phone] | | | | | [phone] | | | +--------+ + + + [...]
--- OUTSIDE RECORDS SUMMARY | ~2019-08-08 | XMS | Encounter Summary ---
Demographics + + + | Address | [address] | | | [place] [address] | + + + | Home Phone [...] Team Providers + +------+ + | Care Cooker Process Cheese Name | Role | Phone | + [...] | 2018 | | at [facility] [address] | MD [address] | management (Entresto | | | | [address] Mailcode: | Ave [place], [place] | dose) | | | | [facility] | [address] | | | | | Health and Healing, | [phone] | | | | | | | | | | | [place], [place] | | | | | | [address] | | | | | | [phone] | | | +--------+ + + + [...]
--- OUTSIDE RECORDS SUMMARY | ~2019-08-08 | XMS | Encounter Summary ---
Demographics + + + | Address | [address] | | | [place] [address] | + + + | Home Phone [...] Providers + +------+ + | Care Medical Support Specialist Name | Role | Phone | + +------+ + | Mateusz Dixon MD | PCP | | + +------+ + Encounter Details +--------+------+ + + + | Date | Type | Department | Care Team | Description | +--------+------+ + + + | 01/20/ | Lab | Laboratory at [facility] | | Heart failure, | | 2018 | | [address] | | systolic, chronic | | | | [place], [place] | | ([facility]); Prediabetes | | | | [address] | | | | | | [phone] | | | +--------+------+ + + + [...] | | | | PDT | ([facility]) | results section. | + +--------+ + + + | TSH W/REFLEX TO FREE | Routin | 01/20/2018 | Heart failure, | Results for this | | T4(IF ABNORMAL) | e | 12:49 PM | systolic, chronic | procedure are in the | | | | PDT | ([facility]) | results section. | + +--------+ + + + | CBC (HEMOGRAM) ONLY | Routin | 01/20/2018 | Heart failure, | Results for this | | | e | 12:49 PM | systolic, chronic | procedure are in the | | | | PDT | ([facility]) | results section. | + +--------+ + + + | COMPLETE METABOLIC | Routin | 01/20/2018 | Heart failure, | Results for this | | SET | e | 12:49 PM | systolic, chronic | procedure are in the | | (NA,K,CL,CO2,BUN,CRE | | PDT | ([facility]) | results section. | | AT,GLUC,CA,AST,ALT,B | [...] | | | | PDT | ([facility]) | results section. | + +--------+ + [...] [facility] | [address] | [place] [address] | | | SERVICES, CORE | [address] [...] | [facility] | | considered for monitoring exterminator glycemic control in patients with: | [...] [facility] | [address] | [place] [address] | | | SERVICES, SPECIAL | PARK [...] + + | [facility] | [address] | [place] [address] | | | JEREMY SINCLAIR | [address] [...] | | | LABORATORY | | | KYR[facility] | | | SERVICES, | | | [...] [facility] | [address] | [place] [address] | | | SERVICES, CORE | PARK [...] | 9,232 (H) | <449 pg/mL | [facility] | | | | | | LABORATORY [...] | + + + + + | [facility] | [address] | [place] [address] | | | SERVICES, CORE | [address] | | | + + + + + documented in this encounter Visit Diagnoses + + | Diagnosis | + + | Heart failure, systolic, chronic (HCC) Chronic systolic heart failure | + + | Prediabetes Other abnormal glucose | + + documented in this encounter"
--- OUTSIDE RECORDS SUMMARY | ~2019-08-08 | XMS | Encounter Summary ---
Demographics + + + | Address | [address] | | | [place] [address] | + + + | Home Phone | | + + + | Preferred Language | Unknown | + + + | Marital Status | | + + + | Mu-Ism Affiliation | 1077 | + + + | Race | Unknown | + + + | Ethnic Group | Unknown | + + + Author + + + | Author | [facility] | | | and Adyana | + + + | Organization | [facility] | | | and [...] [place] | | | | | [address] | | + + + + + Care Team Providers + +------+ + | Care Highway Painter Name | Role | Phone | + [...] + + | 07/12/ | Telephone | [facility] | [address] Vela, | Medication Question | | 2018 | | CARDIOLOGY [place] | [place] | | | | | [address] | | | | | | [place] | | | | | | [address] | | | | | | [phone] | | | +--------+ + + + [...] | | | | | [place] [address] | | | | | | [phone] | | | | | | | | +--------+---------+ + + + documented as of this encounter Visit Diagnoses Not on filedocumented in this encounter"
--- OUTSIDE RECORDS SUMMARY | ~2019-08-08 | XMS | Encounter Summary ---
Demographics + + + | Address | [address] | | | [place] [address] | + + + | Home Phone [...] Team Providers + +------+ + | Care Product Safety Tester Name | Role | Phone | [...] Records | | 2018 | | at [facility] [address] | [address] | Review (Car Gen | | | | [address] Mailcode: | [place], [place] | records checklist) | | | | [address] | [address] | | | | | Health and Healing, | [phone] | | | | | | | | | | | [place], [place] | | | | | | [address] | | | | | | [phone] | | | +--------+ + + + [...] Report received? Y/N, Where? Imaging received? [email or web address] Available Comments Referring Provider notes N/A External Referral Last EKG (REPORT ONLY) Note: Tracings needed if being seen for abnormal ECG 02/27/2017 [place] Yes, attached to referral below N/A Last Echo images and report TTE 12/07/17 [place] 12/22/17 Yes, attached to referral below In impax Fax request sent to push [facility] s [phone] Last Stress Test images and report Exercise Stress Test 10/05/17 [place] [facility] [place] 06/15/2017 yes, attached to referral below In impax In impax Fax request sent to push images [phone] Last Cardiac Catheterization images and report 02/27/2017 [place] yes, attached to referral below In impax Fax request sent to push images Last Holter or Event monitor report only More than 10 yrs ago No N/A Labs (BMP, Lipids, TSH, Hemoglobin A1C in last 6 months) 12/07/17 [place] Yes, attached to referral below N/A Last [...]
[~2019-08-08 02:23] MED LIST changes: +ACETAMINOPHEN500 MG PO; +ALLEGRA ALLERG180 MG PO; +AMOXICILLIN500 MG PO; +ASPIR 8181 MG PO; +CARVEDILOL6.25 MG PO; +ENTRESTO 97 MG1 EACH PO; +NORCO 5-325 TA1 EACH PO
[2019-08-08] MEDS ORDERED: ELIQUIS5 MG PO (03:22)
--- OUTSIDE RECORDS SUMMARY | 2019-08-08 05:32 | XMS ---
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 ESeth VISIT COUNT (12 MO.) 1 [facility] José Rothman TOTAL 3 NOTE: Visits indicate total known visits. ED/UCC VISIT TRACKING (12 MO.) 08/08/2019 04:46 [facility] José DUPREE TYPE: Emergency DIAGNOSES: - Chest Pain 08/08/2019 02:24 [facility] TYPE: Emergency COMPLAINT: - CHEST PAIN 04/26/2019 13:[address] 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
--- NOTE | 2019-08-08 20:39 | EKG ---
[facility] [address] [facility] [place] [address] Signed Atrial fibrillation with premature ventricular or aberrantly conducted complexes Low voltage QRS Inferior infarct (cited on or before 15-FEB-2017) Abnormal ECG When compared with ECG of 26-APR-2019 13:19, Atrial fibrillation has replaced Sinus rhythm Confirmed by NYDIA FREED MD ([id number]) on 08/08/2019 8:39:15 PM Electronically Signed By: NYDIA FREED MD 08/08/19 2039 PATIENT NAME: COURTNEY ALEXANDER Electrocardiogram DATE OF : 42 PHYSICIAN: NYDIA FREED MD REPORT #: [id number] REPORT IS CONFIDENTIAL AND NOT TO BE RELEASED WITHOUT AUTHORIZATION
== END 2019-08-08 05:28 | disposition short-term general hospital (02) ==
LOC: ED 02:23
DX: I48.91 Unspecified atrial fibrillation (principal); I11.0 Hypertensive heart disease with heart failure; I50.9 Heart failure, unspecified; I25.2 Old myocardial infarction; K21.9 Gastro-esophageal reflux disease without esophagitis; Z87.891 Personal history of nicotine dependence; Z79.01 Long term (current) use of anticoagulants; Z79.82 Long term (current) use of aspirin; Z79.899 Other long term (current) drug therapy
CPT/HCPCS: 71045; 93005; 93010; 96374; 96375; 99285-25

== ENCOUNTER 2021-07-24 10:35 | Observation (INO) | payer MEDICARE ==
[~2021-07-24] VITALS: Ht 175.3 cm; Wt 103.1 kg
[~2021-07-24 10:35] MED LIST changes: +ELIQUIS5 MG PO
[2021-07-24] MEDS ORDERED: ESOMEPRAZOLE MA40 MG PO (11:10)
[2021-07-24] MEDS ORDERED: CARVEDILOL12.5 MG PO (14:20)
[2021-07-24] MEDS ORDERED: AMIODARONE HCL200 MG PO (14:20)
[2021-07-24] MEDS ORDERED: MULTI VITAMIN1 EACH PO (16:38)
[2021-07-24] MEDS ORDERED: VITAMIN D325 MCG PO (16:38)
[2021-07-24] MEDS ORDERED: VITAMIN B-121000 MCG PO (16:39)
[2021-07-24] MEDS ORDERED: ATORVASTATIN CA40 MG PO (16:39)
--- NOTE | 2021-07-24 21:15 | EKG ---
[facility] [address] [place] [address] Signed Sinus bradycardia with 1st degree AV block Low voltage QRS Incomplete left bundle branch block Borderline ECG When compared with ECG of 08-AUG-2019 02:27, Sinus rhythm has replaced Atrial fibrillation Vent. rate has decreased BY 25 BPM Incomplete left bundle branch block is now present Nonspecific T wave abnormality no longer evident in Inferior leads Confirmed by ARIC WOMACK MD ([id number]) on 07/24/2021 9:15:24 PM Electronically Signed By: ARIC WOMACK MD 07/24/215 PATIENT NAME: COURTNEY ALEXANDER Electrocardiogram DATE OF : 42 PHYSICIAN: ARIC WOMACK MD REPORT #: [id number] REPORT IS CONFIDENTIAL AND NOT TO BE RELEASED WITHOUT AUTHORIZATION
[2021-07-26] MEDS ORDERED: CARVEDILOL6.25 MG PO (10:10)
== END 2021-07-26 12:50 | disposition home or self-care (01) ==
LOC: ED 10:35 → MS 10:36
PROVIDERS: ADMIT Internal Medicine; ATTEND Internal Medicine
DX: E87.1 Hypo-osmolality and hyponatremia (principal); R00.1 Bradycardia, unspecified; I11.0 Hypertensive heart disease with heart failure; I50.9 Heart failure, unspecified; M79.7 Fibromyalgia; G89.29 Other chronic pain; M54.9 Dorsalgia, unspecified; K21.9 Gastro-esophageal reflux disease without esophagitis; I25.2 Old myocardial infarction; Z85.46 Personal history of malignant neoplasm of prostate; Z90.5 Acquired absence of kidney; Z87.891 Personal history of nicotine dependence; Z79.01 Long term (current) use of anticoagulants; Z79.82 Long term (current) use of aspirin; Z20.822 Contact with and (suspected) exposure to COVID-19
CPT/HCPCS: 70450; 80048; 80053; 81001; 83735; 83880; 84484; 85025; 93005; 93010; 99285-25; C9803; J1940; U0003

== ENCOUNTER 2023-11-30 08:41 | Inpatient (IN) | payer MEDICARE ==
[~2023-11-30] VITALS: Ht 175.3 cm; Wt 102.2 kg
[~2023-11-30 08:41] MED LIST changes: +AMIODARONE HCL200 MG PO; +ATORVASTATIN CA40 MG PO; +CARVEDILOL12.5 MG PO; +ESOMEPRAZOLE MA40 MG PO; +MULTI VITAMIN1 EACH PO; +VITAMIN B-121000 MCG PO; +VITAMIN D325 MCG PO
[2023-11-30 08:57] LABS: PH, VENOUS 7.367 (7.31-7.41)
[2023-11-30 08:58] LABS: BASOPHILS 0.5 % (0-2); EOSINOPHILS 0.9 % (0-6); HEMOGLOBIN 11.7 g/dL (12.0-18.0); LYMPHOCYTES 7.1 % (24-44); MCH 30.5 (27-36); MCHC 33.6 g/dl (30-36); MCV 90.9 fl (81-99); MONOCYTES 11.1 % (0-12); NEUTROPHILS 80.4 % (39-80); PLATELET COUNT 276 K/uL (140-440); RBC 3.85 M/ul (4.3-5.7); RDW 15.1 (10.5-15.0)
[2023-11-30] MEDS ORDERED: ESOMEPRAZOLE MA40 MG PO (09:14)
[2023-11-30 09:28] LABS: ALBUMIN 3.1 g/dL (3.4-5.0); ALBUMIN/GLOBULIN RATIO 0.94 (1.1-2.4); ANION GAP 13.7 (7-21); BILIRUBIN, TOTAL 0.9 ng/dL (0.2-1.0); BUN/CREATININE RATIO 11.95 (6.0-28.6); CALCIUM 8.3 mg/dL (8.5-10.1); CREATININE, SERUM 0.92 mg/dL (0.70-1.30); MAGNESIUM 1.7 mg/dL (1.8-2.4); POTASSIUM 4.7 mmol/L (3.5-5.1); PROTEIN, TOTAL 6.4 g/dL (6.4-8.2)
[2023-11-30 09:49] LABS: INFLUENZA B NAA NEGATIVE (NEGATIVE); RESPIRATORY SYNCYTIAL VIR NAA NEGATIVE (NEGATIVE)
[2023-11-30 11:55] VITALS: BP 154/71
[2023-11-30 18:17] VITALS: BP 123/50
[2023-11-30 18:38] VITALS: BP 123/50
[2023-11-30 20:13] VITALS: BP 125/56
[2023-12-01] VITALS (8 sets, daily range): BP systolic 119–149; BP diastolic 54–70
[2023-12-01 05:44] LABS: BASOPHILS 0.4 % (0-2); EOSINOPHILS 0.7 % (0-6); HEMATOCRIT 33.3 % (35.0-50.0); HEMOGLOBIN 11.2 g/dL (12.0-18.0); LYMPHOCYTES 7.1 % (24-44); MCH 30.5 (27-36); MCHC 33.6 g/dl (30-36); MCV 90.8 fl (81-99); MONOCYTES 11.2 % (0-12); NEUTROPHILS 80.6 % (39-80); PLATELET COUNT 238 K/uL (140-440); RBC 3.66 M/ul (4.3-5.7); RDW 15.1 (10.5-15.0)
[2023-12-01 05:54] LABS: ANION GAP 14.7 (7-21); BUN/CREATININE RATIO 10.25 (6.0-28.6); CALCIUM 8.2 mg/dL (8.5-10.1); CREATININE, SERUM 0.78 mg/dL (0.70-1.30); POTASSIUM 3.7 mmol/L (3.5-5.1)
--- NOTE | 2023-12-01 19:57 | EKG ---
[facility] [address] [facility] [place] [address] Signed Sinus bradycardia with 1st degree AV block Cannot rule out Inferior infarct , age undetermined Nonspecific ST and T wave abnormality Nonspecific intraventricular conduction delay Confirmed by Jay Martin M.D. ([id number]) on 12/01/2023 7:56:51 PM Electronically Signed By: JAY MARTIN 12/01/231956 PATIENT NAME: JAY ALEXANDER Electrocardiogram DATE OF : 42 PHYSICIAN: JAY MARTIN REPORT #: [id number] REPORT IS CONFIDENTIAL AND NOT TO BE RELEASED WITHOUT AUTHORIZATION
[2023-12-02 05:24] VITALS: BP 131/56
[2023-12-02 05:48] LABS: BASOPHILS 0.4 % (0-2); EOSINOPHILS 0.6 % (0-6); HEMOGLOBIN 11.3 g/dL (12.0-18.0); LYMPHOCYTES 6.8 % (24-44); MCH 30.1 (27-36); MCHC 33.1 g/dl (30-36); MCV 90.7 fl (81-99); MONOCYTES 12.4 % (0-12); NEUTROPHILS 79.8 % (39-80); PLATELET COUNT 255 K/uL (140-440); RBC 3.74 M/ul (4.3-5.7)
[2023-12-02 06:02] LABS: ANION GAP 13.1 (7-21); BUN/CREATININE RATIO 9.41 (6.0-28.6); CALCIUM 8.3 mg/dL (8.5-10.1); CREATININE, SERUM 0.85 mg/dL (0.70-1.30); POTASSIUM 4.1 mmol/L (3.5-5.1)
[2023-12-02 10:08] VITALS: BP 124/55
[2023-12-02 16:12] VITALS: BP 148/65
[2023-12-02 18:17] VITALS: BP 126/57
[2023-12-02 20:24] VITALS: BP 133/55
[2023-12-03 05:16] VITALS: BP 165/78
[2023-12-03 05:38] LABS: BUN/CREATININE RATIO 10.22 (6.0-28.6); CALCIUM 8.5 mg/dL (8.5-10.1); CREATININE, SERUM 0.88 mg/dL (0.70-1.30)
[2023-12-03 09:28] VITALS: BP 135/71
[2023-12-03] MEDS ORDERED: FUROSEMIDE40 MG PO (14:55)
[2023-12-03] MEDS ORDERED: KLOR-CON 1010 MEQ PO (14:58)
[2023-12-03 15:16] VITALS: BP 141/65
== END 2023-12-03 16:05 | disposition home or self-care (01) | DRG 291 ==
LOC: ED 08:41 → MS 11:18
PROVIDERS: Emergency Medicine; Internal Medicine; ADMIT Internal Medicine; ATTEND Internal Medicine
DX: I11.0 Hypertensive heart disease with heart failure (principal); I50.43 Acute on chronic combined systolic (congestive) and diastolic (congestive) heart failure; E87.1 Hypo-osmolality and hyponatremia; G20.A1 Parkinson's disease without dyskinesia, without mention of fluctuations; K21.9 Gastro-esophageal reflux disease without esophagitis; M79.7 Fibromyalgia; G43.909 Migraine, unspecified, not intractable, without status migrainosus; H91.90 Unspecified hearing loss, unspecified ear; E78.00 Pure hypercholesterolemia, unspecified; M19.90 Unspecified osteoarthritis, unspecified site; I25.2 Old myocardial infarction; Z87.891 Personal history of nicotine dependence; Z98.890 Other specified postprocedural states; Z90.5 Acquired absence of kidney; Z90.49 Acquired absence of other specified parts of digestive tract; Z79.899 Other long term (current) drug therapy; Z79.01 Long term (current) use of anticoagulants; Z79.82 Long term (current) use of aspirin; Z86.73 Personal history of transient ischemic attack (TIA), and cerebral infarction without residual deficits; Z79.2 Long term (current) use of antibiotics; Z11.52 Encounter for screening for COVID-19
CPT/HCPCS: 36415; 71046; 80048; 80053; 82803; 83735; 83880; 84484; 85025; 87502; 93005; 93010; 93306; 94760; 94761; 96374; 97163; 97530; 99285-25; A9270; J1940; U0002

== ENCOUNTER 2024-10-12 16:34 | Emergency (ER) | payer MEDICARE ==
[~2024-10-12] VITALS: Ht 175.3 cm; Wt 104.2 kg
[~2024-10-12 16:34] MED LIST changes: +FUROSEMIDE40 MG PO; +KLOR-CON 1010 MEQ PO
[2024-10-12 16:53] LABS: BASOPHILS 0.4 % (0-2); EOSINOPHILS 0.1 % (0-6); HEMATOCRIT 36.2 % (35.0-50.0); HEMOGLOBIN 12.1 g/dL (12.0-18.0); LYMPHOCYTES 6.6 % (24-44); MCH 29.9 (27-36); MCHC 33.4 g/dl (30-36); MCV 89.4 fl (81-99); MONOCYTES 11.2 % (0-12); NEUTROPHILS 81.7 % (39-80); PLATELET COUNT 262 K/uL (140-440); RBC 4.05 M/ul (4.3-5.7); RDW 15.9 (10.5-15.0)
[2024-10-12 17:11] LABS: ALBUMIN 3.4 g/dL (3.4-5.0); ALBUMIN/GLOBULIN RATIO 1.06 (1.1-2.4); ANION GAP 12.9 (7-21); BILIRUBIN, TOTAL 0.9 ng/dL (0.2-1.0); BUN/CREATININE RATIO 9.91 (6.0-28.6); CALCIUM 8.7 mg/dL (8.5-10.1); CREATININE, SERUM 1.21 mg/dL (0.70-1.30); MAGNESIUM 1.7 mg/dL (1.8-2.4); POTASSIUM 4.9 mmol/L (3.5-5.1); PROTEIN, TOTAL 6.6 g/dL (6.4-8.2)
[2024-10-12 19:30] LABS: BILIRUBIN, URINE POSITIVE (negative); BLOOD/HGB, URINE NEGATIVE (Negative); KETONE, URINE SMALL (Negative); LEUK ESTERASE, URINE NEGATIVE (negative); NITRITE, URINE NEGATIVE (negative)
[2024-10-12 19:37] LABS: BACTERIA, URINE NONE SEEN /hpf (negative); CRYSTALS, URINE NONE SEEN (0-1+); EPITHELIAL CELLS, URINE NONE SEEN /lpf (0-1+); RED BLOOD CELLS, URINE 0-1 /hpf (0-5); WHITE BLOOD CELLS, URINE 0-1 /HPF (0-5)
[2024-10-12 19:38] LABS: CASTS, URINE HYALINE 1+ \\lpf; COLLECTION TYPE, URINE CLEAN CATCH; REFLEX CULTURE, URINE No (No)
--- NOTE | 2024-10-12 19:38 | EKG ---
[facility] [address] [facility] [place], [place] [address] Signed Sinus bradycardia with 1st degree AV block Cannot rule out Inferior infarct (cited on or before 30-NOV-2023) Abnormal ECG When compared with ECG of 30-NOV-2023 09:00, No significant change was found Confirmed by Rod Mcmanus MD ([id number]) on 10/12/2024 7:38:04 PM Electronically Signed By: ROD MCMANUS MD 10/12/24 1938 PATIENT NAME: COURTNEY ALEXANDER Electrocardiogram DATE OF : 42 PHYSICIAN: ROD MCMANUS MD REPORT #: [id number] REPORT IS CONFIDENTIAL AND NOT TO BE RELEASED WITHOUT AUTHORIZATION
[2024-10-12 20:05] VITALS: BP 134/83
== END 2024-10-12 20:06 | disposition home or self-care (01) ==
LOC: ED 16:34
PROVIDERS: Emergency Medicine
DX: R53.1 Weakness (principal); M19.90 Unspecified osteoarthritis, unspecified site; I10 Essential (primary) hypertension; E78.00 Pure hypercholesterolemia, unspecified; I25.2 Old myocardial infarction; Z79.82 Long term (current) use of aspirin; Z79.899 Other long term (current) drug therapy; Z87.891 Personal history of nicotine dependence
CPT/HCPCS: 36415; 51798; 70450; 80053; 81001; 83735; 84484; 85025; 93005; 93010; 99285-25

== ENCOUNTER 2025-02-07 04:16 | Emergency (ER) | payer MEDICARE ==
[~2025-02-07] VITALS: Ht 175.3 cm; Wt 100.0 kg
[2025-02-07 04:39] LABS: BASOPHILS 0.6 % (0-2); EOSINOPHILS 0.9 % (0-6); HEMATOCRIT 31.4 % (35.0-50.0); HEMOGLOBIN 10.7 g/dL (12.0-18.0); LYMPHOCYTES 19.1 % (24-44); MCH 28.5 (27-36); MCHC 34.2 g/dl (30-36); MCV 83.3 fl (81-99); MONOCYTES 10.1 % (0-12); NEUTROPHILS 69.3 % (39-80); PLATELET COUNT 239 K/uL (140-440); RBC 3.78 M/ul (4.3-5.7); RDW 19.3 (10.5-15.0)
[2025-02-07] MEDS ORDERED: TAMSULOSIN HCL0.4 MG PO (04:42)
[2025-02-07 04:53] LABS: ALBUMIN 3.1 g/dL (3.4-5.0); ALBUMIN/GLOBULIN RATIO 1.03 (1.1-2.4); ANION GAP 11.6 (7-21); BUN/CREATININE RATIO 14.28 (6.0-28.6); CALCIUM 8.8 mg/dL (8.5-10.1); CREATININE, SERUM 0.91 mg/dL (0.70-1.30); POTASSIUM 4.6 mmol/L (3.5-5.1); PROTEIN, TOTAL 6.1 g/dL (6.4-8.2)
[2025-02-07] MEDS ORDERED: LASIX40 MG PO ×2 (05:15→05:33)
[2025-02-07 05:25] VITALS: BP 111/50
--- NOTE | 2025-02-07 12:43 | EKG ---
[facility] [address] [facility] [place] [address] Signed Sinus bradycardia with 1st degree AV block Low voltage QRS Incomplete left bundle branch block Nonspecific T wave abnormality Abnormal ECG When compared with ECG of 12-OCT-2024 16:55, Nonspecific T wave abnormality now evident in Lateral leads Confirmed by Gabriel Isabel DO ([id number]) on 02/07/2025 12:43:13 PM Electronically Signed By: GABRIEL ISABEL DO 02/07/25 1243 PATIENT NAME: COURTNEY ALEXANDERDRICK Electrocardiogram DATE OF : 42 PHYSICIAN: GABRIEL ISABEL DO REPORT #: [id number] REPORT IS CONFIDENTIAL AND NOT TO BE RELEASED WITHOUT AUTHORIZATION
== END 2025-02-07 05:45 | disposition home or self-care (01) ==
LOC: ED 04:16
PROVIDERS: Family Medicine
DX: N50.89 Other specified disorders of the male genital organs (principal); I11.0 Hypertensive heart disease with heart failure; I50.9 Heart failure, unspecified; E78.00 Pure hypercholesterolemia, unspecified; G20.A1 Parkinson's disease without dyskinesia, without mention of fluctuations; I25.2 Old myocardial infarction; Z87.891 Personal history of nicotine dependence; Z88.8 Allergy status to other drugs, medicaments and biological substances; Z79.899 Other long term (current) drug therapy; Z79.01 Long term (current) use of anticoagulants
CPT/HCPCS: 36415; 51798; 80053; 85025; 93005; 93010; 99284

== ENCOUNTER 2025-02-21 15:24 | Inpatient (IN) | payer MEDICARE ==
[~2025-02-21] VITALS: Ht 175.3 cm; Wt 101.4 kg
[~2025-02-21 15:24] MED LIST changes: +LASIX40 MG PO; +TAMSULOSIN HCL0.4 MG PO
[2025-02-21] MEDS ORDERED: TORSEMIDE10 MG PO ×2 (16:47→21:48)
[2025-02-21 17:07] LABS: BASOPHILS 0.7 % (0-2); EOSINOPHILS 1.2 % (0-6); HEMATOCRIT 31.6 % (35.0-50.0); HEMOGLOBIN 10.8 g/dL (12.0-18.0); LYMPHOCYTES 8.2 % (24-44); MCH 28.4 (27-36); MCHC 34.1 g/dl (30-36); MCV 83.3 fl (81-99); MONOCYTES 9.6 % (0-12); NEUTROPHILS 80.3 % (39-80); PLATELET COUNT 254 K/uL (140-440); RBC 3.79 M/ul (4.3-5.7); RDW 19.9 (10.5-15.0)
[2025-02-21 17:27] LABS: ALBUMIN/GLOBULIN RATIO 0.91 (1.1-2.4); BILIRUBIN, TOTAL 0.9 mg/dL (0.2-1.0); BUN/CREATININE RATIO 10.37 (6.0-28.6); CALCIUM 8.3 mg/dL (8.5-10.1); CREATININE, SERUM 1.06 mg/dL (0.70-1.30); MAGNESIUM 1.8 mg/dL (1.8-2.4); PROTEIN, TOTAL 6.3 g/dL (6.4-8.2)
[2025-02-21] MEDS ORDERED: FUROSEMIDE 40 MG/4 ML VIAL IV ONE (19:30)
[2025-02-21] MEDS ORDERED: ondansetron HCL 4 MG/2 ML VIAL IV PRN (19:45)
[2025-02-21] MEDS ORDERED: ACETAMINOPHEN 325 MG TAB PO PRN (19:45)
[2025-02-21] MEDS ORDERED: LIDOCAINE 2% VISCOUS 6 ML SYR TOP ONE (19:45)
--- NOTE | 2025-02-21 20:45 | NUR ---
PATIENT ON THE FLOOR AT THIS TIME, ROOMED IN ROOM 10. THIS RN AND ANALIA MENJIVAR IN ROOM ATTEMPTING ZAVALETA PLACEMENT AT THIS TIME. FAMILY OUTSIDE ROOM.
[2025-02-21 20:46] VITALS: BP 142/62
[2025-02-21] MEDS ORDERED: MELATONIN 3 MG TAB PO PRN (21:00)
--- NOTE | 2025-02-21 21:30 | NUR ---
DR ISABEL AT BEDSIDE. ZAVALETA ATTEMPT WAS UNSUCCESSFUL, PUREWICK PLACED AND FUNCTIONING PROPERLY, MD AWARE. THIS RN SHOWED MD PATIENT SCROTUM AND WOUND TO KATHY AREA, MD STATES HE WILL ADD A WOUND CONSULT. MD WITH NO FURTHER ORDER FOR WOUND AT THIS TIME. ADMISSION IN PROGRESS BY THIS RN.
--- NOTE | 2025-02-21 22:30 | NUR ---
PATIENT ADMISSION COMPLETED. PATIENT IS ALERT AND ORIENTED X4. PATIENT DAUGHTER (PASQUALE) IS POA, LEAVING FOR THE NIGHT, BUT RETURNING TOMORROW. PATIENT (SHAUN) AT BEDSIDE. MIGUEL AND ICE WATER PROVIDED TO PATIENT. PATIENT REPORTED 6/10 PAIN "ALL OVER", TYLENOL WAS ADMINISTERED PER EMAR. PATIENT WITHOUT FURTHER NEEDS AT THIS TIME. CALL LIGHT AND PERSONAL BELONGINGS ARE WITHIN REACH.
--- NOTE | 2025-02-21 23:00 | NUR ---
WARM BLANKETS PROVIDED TO PATIENT AND HIS . PATIENT WITHOUT FURTHER NEEDS AT THIS TIME. CALL LIGHT AND PERSONAL BELONGINGS ARE WITHIN REACH.
[2025-02-22] VITALS (14 sets, daily range): BP systolic 87–142; BP diastolic 35–84
--- NOTE | 2025-02-22 00:49 | NUR ---
PATEINT RESTING IN BED WATCHING TV WITH HIS AT BEDSIDE. PATIENT REPORTS HIS PAIN HAS GONE DOWN TO A 5/10 AT THIS TIME. PATIENT WITHOUT FURTHER NEEDS AT THIS TIME. CALL LIGHT AND PERSONAL BELONGINGS ARE WITHIN REACH.
--- NOTE | 2025-02-22 01:21 | NUR ---
PATIENT RESTING IN BED WITH HIS EYES CLOSED AND MOUTH OPEN, EVEN AND UNLABORED RESPIRATIONS NOTED. AT BEDSIDE WATCHING TV. 635ML OF CLEAR, YELLOW URINE EMPTIED FROM CANISTER AND CHARTED. CALL LIGHT AND PERSONAL BELONGINGS ARE WITHIN REACH.
--- NOTE | 2025-02-22 03:13 | NUR ---
PATIENT SITTING UP IN BED WITH AT BEDSIDE. PATIENT FOCUS ASSESSMENT AND VITAL SIGNS COMPLETED. IV FLUSHED WITH 10ML OF NS, DRESSING INTACT. PATIENT DENIES ANY NEEDS AT THIS TIME. CALL LIGHT AND PERSONAL BELONGINGS ARE WITHIN REACH.
--- NOTE | 2025-02-22 04:50 | NUR ---
PATIENT RESTING IN BED WITH EYES CLOSED AND MOUTH OPEN. EVEN AND UNLABORED RESPIRATIONS NOTED. AT BEDSIDE. CALL LIGHT AND PERSONAL BELONGINGS ARE WITHIN REACH.
--- NOTE | 2025-02-22 05:36 | NUR ---
SERVICENOW ADMINISTRATOR OBTAINED VITALS AND I&O. PUREWICK CANNISTER EMPTIED. PT STATES NO NEEDS AT THIS TIME. CALL LIGHT WITHIN REACH.
[2025-02-22 05:41] LABS: BASOPHILS 0.5 % (0-2); EOSINOPHILS 1.2 % (0-6); HEMATOCRIT 28.7 % (35.0-50.0); HEMOGLOBIN 9.7 g/dL (12.0-18.0); LYMPHOCYTES 11.7 % (24-44); MCH 28.1 (27-36); MCHC 33.8 g/dl (30-36); MCV 83.2 fl (81-99); MONOCYTES 11.4 % (0-12); NEUTROPHILS 75.2 % (39-80); PLATELET COUNT 219 K/uL (140-440); RBC 3.45 M/ul (4.3-5.7)
[2025-02-22 05:59] LABS: ALBUMIN 2.5 g/dL (3.4-5.0); ALBUMIN/GLOBULIN RATIO 0.86 (1.1-2.4); ANION GAP 8.4 (7-21); BILIRUBIN, TOTAL 0.9 mg/dL (0.2-1.0); BUN/CREATININE RATIO 9.9 (6.0-28.6); CALCIUM 8.1 mg/dL (8.5-10.1); CREATININE, SERUM 1.01 mg/dL (0.70-1.30); MAGNESIUM 1.8 mg/dL (1.8-2.4); POTASSIUM 3.4 mmol/L (3.5-5.1); PROTEIN, TOTAL 5.4 g/dL (6.4-8.2)
--- NOTE | 2025-02-22 07:30 | NUR ---
REPORT RECEIVED FROM ANALIA JORDAN. PATIENT RESTING IN BED WITH HOB ELEVATED, AT BEDSIDE. PATIENT IS AWAKE AND ALERT, REQUESTING FRESH ICE WATER - PROVIDED. PATIENT INFORMED IMAGING WILL BE COMING FOR HIM, VERBALIZES AGREEMENT. NO OTHER REQUESTS AT THIS TIME, CALL LIGHT AND PERSONAL BELONGINGS IN REACH.
--- NOTE | 2025-02-22 07:54 | NUR ---
IMAGING ARRIVES FOR PATIENT. PATIENT TRANSFERS TO WHEELCHAIR WITH MODERATE ASSISTANCE. DAUGHTER AND REMAIN IN ROOM AT THIS TIME. PATIENT OFF THE FLOOR WITH IMAGING.
--- NOTE | 2025-02-22 08:05 | NUR ---
UR CLINICAL REVIEW: 2 MN SERGEY, MEETS INPT FOR CHF EXACERBATION, HYPONATREMIA OXYGEN SUPPLEMENTATION, IV LASIX, TREND LABS MEDICARE INPT 02/21/2025 @ 2538 ORDER MATCHES REG NO AUTH REQUIRE PER MEDICARE RULES DC TO HOME WHEN MEDICALLY STABLE.
[2025-02-22] MEDS ORDERED: oxyBUTYnin chloride 5 MG TAB PO SCH (09:00)
[2025-02-22] MEDS ORDERED: AMIODARONE HCL 200 MG TAB PO SCH (09:00)
[2025-02-22] MEDS ORDERED: FUROSEMIDE 40 MG/4 ML VIAL IV SCH (09:00)
[2025-02-22] MEDS ORDERED: MAGNESIUM OXIDE 400 MG TABLET PO ONE (09:00)
[2025-02-22] MEDS ORDERED: PANTOPRAZOLE SODIUM 40 MG TABEC PO SCH (09:00)
[2025-02-22] MEDS ORDERED: TAMSULOSIN HCL 0.4 MG CAP PO SCH (09:00)
[2025-02-22] MEDS ORDERED: POTASSIUM BICARBONATE/CIT AC 20 MEQ TABEF PO ONE (09:00)
[2025-02-22] MEDS ORDERED: APIXABAN 5 MG TAB PO SCH (09:00)
--- NOTE | 2025-02-22 09:00 | NUR ---
Spoke with Jay and his . He lives a [facility]. He states he has been diagnosed with parkinson's several years ago. He states he has frequent falls. Caregivers check on him every 2-3 hrs at [facility]. He uses a walker and a wc. 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 He states he has access to any medical equipment and rides. He plans on returning to [facility] on discharge. He denies any needs.
--- NOTE | 2025-02-22 09:04 | NUR ---
PT NOT AVAILABLE FOR VISIT. PROVIDED PRAYER.
--- NOTE | 2025-02-22 09:32 | NUR ---
MEDICATION ADMINISTERED, SEE MAR. ASSESSMENT COMPLETE. PATIENT IS RESTING IN BED AFTER BREAKFAST. BREAKFAST TRAY REMOVED. PATIENT DENIES SHORTNESS OF BREATH OR CHEST DISCOMFORT WITH 1LNC IN PLACE. FINE CRACKLES IN BILATERAL LUNG BASES WITH EXPIRATORY WHEEZE IN BILATERAL UPPER LOBES. CPOX AT BEDSIDE. PATIENT'S EDEMA IS NOTABLE IN HIS BUE, BLE, AND ABDOMEN. PATIENT DENIES NUMBNESS OR TINGLING. PATIENT'S SCROTUM IS EDEMATEOUS WITH REDNESS NOTED TO BOTH SIDES OF GROIN AND A SMALL OPEN AREA TO R SIDE OF GROIN. GROIN AND SCROTUM ARE CLEANSED AND PATTED DRY. SKIN BARRIER SPRAY APPLIED TO REDDENED AREAS AND FRESH PILLOW CASE IS USED TO 'HAMMOCK' THE SCROTUM AND PROVIDE BARRIER. PATIENT TOLERATES WELL. IMAGING ARRIVES TO PERFORM PATIENT'S ECHOCARDIOGRAM. ALSO OBSERVES SOME OF ECHO AT THIS TIME. PATIENT HAS NO REQUESTS, IN ROOM THROUGHOUT. CALL LIGHT AND PERSONAL BELONGINGS IN REACH, ECHO REMAINS IN ROOM.
--- NOTE | 2025-02-22 10:39 | EKG ---
[facility] [address] [place] [address] Signed Sinus bradycardia with 1st degree AV block Cannot rule out Inferior infarct , age undetermined Abnormal ECG When compared with ECG of 07-FEB-2025 04:33, No significant change was found Confirmed by Vero Isabel DO ([id number]) on 02/22/2025 10:38:47 AM Electronically Signed By: VERO ISABEL DO 02/22/25 1039 PATIENT NAME: COURTNEY ALEXANDER Electrocardiogram DATE OF : 42 PHYSICIAN: VERO ISABEL DO REPORT #: [id number] REPORT IS CONFIDENTIAL AND NOT TO BE RELEASED WITHOUT AUTHORIZATION
--- NOTE | 2025-02-22 10:44 | NUR ---
PATIENT WORKING WITH PHYSICAL THERAPY
--- NOTE | 2025-02-22 10:58 | NUR ---
PATIENT IS RESTING UP IN RECLINER WITH BLE ELEVATED, CHATTING WITH HIS . PATIENT SPO2 SUSTAINS>96% ON 1LNC. ROOM AIR TRIAL FOR 10 MINUTES, PATIENT SUSTAINS SPO2>96%. PATIENT REMAINS ON ROOM AIR AT THIS TIME, TELE #[address] ALSO MONITORING SPO2. PATIENT HAS NO REQUESTS AT THIS TIME, STATES HE WILL LIKELY RETURN TO BED SOON AND WILL CALL WHEN HE'S READY. CALL LIGHT AND PERSONAL BELONGINGS IN REACH.
--- NOTE | 2025-02-22 10:59 | NUR ---
PATIENT IS CURRENTLY SITTING UP IN THEIR CHAIR AFTER WORKING WITH PT. CALL LIGHT AND PERSONAL ITEMS ARE WITHIN REACH.
[2025-02-22] MEDS ORDERED: PHARMACY RENAL DOSE ADJUSTMENT 1 DOSE MISC PO SCH (12:00)
--- NOTE | 2025-02-22 12:57 | NUR ---
PATIENT BACK TO BED WITH AMBIKA LIFT AND MAURILIO BELL. PATIENT TOLERATES AMBIKA TRANSFER WELL. PUREWICK REMOVED, KATHY-CARE PROVIDED, FRESH BRIEF PROVIDED, AND NEW PUREWICK PLACED. PATIENT'S IN ROOM THROUGHOUT. PATIENT HAS NO REQUESTS, CALL LIGHT AND PERSONAL BELONGINGS IN REACH.
--- NOTE | 2025-02-22 13:25 | NUR ---
TALKED WITH NOREEN AT [facility]. SHE EXPRESSED CONCERNS OF PATIENT DECLINE IN MOBILITY. SHE THINKS PATIENT WOULD BENEFIT FROM SNF. WILL COME TO ASSESS PATIENT PRIOR TO DISCHARGE.
--- NOTE | 2025-02-22 13:39 | NUR ---
TALKED WITH DAUGHTER PASQUALE ABOUT PT RECCOMENDATIONS OF SNF. DAUGHTER PASQUALE STATES "HE WILL NOT GO TO A SNF BECAUSE HE WILL NOT COME OUT OF IT." EDUCATED HER ON THAT HE WOULD BE THERE A THERAPY PATIENT. SHE DOES NOT THINK PATIENT WOULD PARTICPATE WITH THERAPIES. SHE DID SAY THEY WOULD BE OPEN TO HOME HEALTH. FAMILY AND PATIENT WOULD LIKE HIM TO GO BACK TO [facility] AT TIME OF DISCHARGE. NO FUTHER CM NEEDS AT THIS TIME.
--- NOTE | 2025-02-22 15:10 | NUR ---
In with pt in response to a call light that his "tank is full". Emptied the purewick cannister of 800ml clear yellow urine. Pt requested I check his external catheter as he thinks it is leaking, however, it is just cold at the bottom of the bag. Primary RN notified. Call light in reach. Pt and spouse denied further needs at this time.
--- NOTE | 2025-02-22 15:23 | NUR ---
PATIENT IS RESTING IN BED WITH IN THE ROOM. HE HAS NO COMPLAINTS OF PAIN OR DISCOMFORT, DENIES SHORTNESS OF BREATH OR CHEST PRESSURE. TELE #[address]. PATIENT SUSTAINS SPO2 OF 98% ON TELE WITH GOOD WAVEFORM. O2 TITRATED TO RA AT THIS TIME, PATIENT SPO2 SUSTAINS 88%-91%. 1LNC REAPPLIED, PATIENT'S SPO2 RETURNS TO 95% OR GREATER. PATIENT EDEMA TO BLE, BUE, ABDOMEN, AND SCROTUM REMAIN UNCHANGED FROM THIS AM. PATIENT HAS NO REQUESTS AT THIS TIME, CALL LIGHT AND PERSONAL BELONGINGS IN REACH, REMAINS IN ROOM.
[2025-02-22] MEDS ORDERED: TYLENOL EXTRA500 MG PO (15:33)
--- NOTE | 2025-02-22 15:36 | NUR ---
MED REC COMPLETE
--- NOTE | 2025-02-22 17:15 | NUR ---
PATIENT IS SITTING UPRIGHT IN THE CHAIR WITH NC IN PLACE. VISITOR IN THE ROOM WITH PATIENT. PATIENT WITH EYES OPEN AND RESPIRATIONS ARE EVEN AND UNLABORED. PATIENT IS EATING DINNER. TV IS ON. CALL LIGHT AND PERSONAL BELONGINGS ARE WITHIN REACH.
--- NOTE | 2025-02-22 18:09 | NUR ---
MAURILIO BELL AND MAURILIO HANDY CURRENTLY IN ROOM TO TRANSFER PATIENT VIA AMBIKA LIFT FROM RECLINER TO BED. PATIENT'S AND DAUGHTER ARE IN ROOM ALSO.
--- NOTE | 2025-02-22 18:31 | NUR ---
CNAs REPORTING PATIENT HAS BLOOD PRESSURE OF 70s/30s BY MACHINE. PATIENT IS NOTED TO HAVE DECREASED EDEMA WITH LOOSE SKIN IN HIS BUE. MANUAL BLOOD PRESSURE TAKEN BY THIS RN, BLOOD PRESSURE 98/54 ON LEFT ARM WHILE IN BED. PATIENT DENIES LIGHTHEADED OR DIZZINESS. PATIENT IS ENCOURAGED TO DRINK MORE FLUIDS. PATIENT'S DAUGHTER AND REMAIN IN ROOM. CALL LIGHT AND PERSONAL BELONGINGS IN REACH. FRESH ICE WATER PROVIDED BY MAURILIO HANDY. NO REQUESTS AT THIS TIME.
--- NOTE | 2025-02-22 18:35 | NUR ---
PATIENT AMBIKA LIFTED BACK INTO BED. BP WAS LOW, RN TODD NOTIFIED AND DID A MANUAL BP.
--- NOTE | 2025-02-22 19:25 | NUR ---
REPORT RECEIVED FROM ANALIA BROOKS. PATIENT SITTING UP IN BED WATCHING TV WITH AT BEDSIDE. WARM BLANKETS PROVIDED. PATIENT WITHOUT FURTHER NEEDS AT THIS TIME. CALL LIGHT AND PERSONAL BELONGINGS ARE WITHIN REACH.
--- NOTE | 2025-02-22 20:44 | NUR ---
HYDROGEOLOGIST OBTAINED VITALS AND I&O. PT STATES NO NEEDS AT THIS TIME. ICE WATER REFILLED. CALL LIGHT WITHIN REACH.
--- NOTE | 2025-02-22 20:58 | NUR ---
IN ROOM FOR MEDICATION ADMINISTRATION. IV FLUSHED WITH 10ML OF NS, DRESSING INTACT. PATIENT WITHOUT FURTHER NEEDS AT THIS TIME. AT BEDSIDE. CALL LIGHT AND PERSONAL BELONGINGS ARE WITHIN REACH.
--- NOTE | 2025-02-22 21:55 | NUR ---
PATIENT ASSESSMENT COMPLETED. PATIENT IS ALERT AND ORIENTED X4. BARRIER WIPES USED TO CLEAN PATIENT GROIN, SCROTUM, AND INGUINAL FOLDS. ANTIFUNGAL CREAM APPLIED TO PATIENT WOUND ON KATHY AREA PER WOUND CARE NURSE INSTRUCTIONS. PATIENT TOLERATED WELL. EDEMA HAS IMPROVED. PATIENT REPORTS "I'M FEELING BETTER ALREADY FROM HOW I FELT LAST NIGHT". PATIENT WITHOUT FURTHER NEEDS AT THIS TIME. CALL LIGHT AND PERSONAL BELONINGS ARE WITHIN REACH.
--- NOTE | 2025-02-22 22:06 | NUR ---
BILATERAL INCONTINENCE-ASSOCIATED DERMATITIS TO INGUINAL FOLDS, WORSE ON RIGHT SIDE. STABLE BROWN SLOUGH, RED AND SWOLLEN PERIWOUND. CLEAN WITH SKIN BARRIER WIPES, COVER WITH ANTIFUNGAL SKIN BARRIER CREAM. USE PILLOW CASES OR OTHER NON ADHESIVE DRESSING IN FOLDS TO STOP [id number] CONTACT. CLEAN DAILY AND PRN.
--- NOTE | 2025-02-22 22:30 | NUR ---
FRESH ICE WATER, SODA, AND WARM BLANKETS PROVIDED. ANALIA MENJIVAR IN ROOM TO ASSIST THIS RN WITH REPOSITIONING PATIENT TO COMFORT. PATIENT WITHOUT FURTHER NEEDS AT THIS TIME. CALL LIGHT AND PERSONAL BELONGINGS ARE WITHIN REACH.
--- NOTE | 2025-02-22 23:55 | NUR ---
IN ROOM TO ASSESS PATIENT DUE TO OXYGEN LEVEL DROPPING. PATIENT RESTING WITH EYES CLOSED AND MOUTH OPEN. PATIENT ON 1L NC, THIS RN TURNED PATIENT OXYGEN UP TO 2L NC AT THIS TIME. THIS RN OFFERED PATIENT AN OXY MASK, BUT PATIENT REFUSED. HOB OF BED ELEVATED, PATIENT OXYGEN LEVEL BACK UP TO 98% ON 2L NC. PATIENT WITHOUT FURTHER NEEDS AT THIS TIME. CALL LIGHT AND PERSONAL BELONGINGS ARE WITHIN REACH.
[2025-02-23] VITALS (11 sets, daily range): BP systolic 114–131; BP diastolic 55–68
--- NOTE | 2025-02-23 01:19 | NUR ---
PATIENT RESTING IN BED WITH EYES CLOSED AND MOUTH OPEN. EVEN AND UNLABORED RESPIRATIONS NOTED. CALL LIGHT AND PERSONAL BELONGINGS ARE WITHIN REACH.
--- NOTE | 2025-02-23 01:40 | NUR ---
SNOW PLOW OPERATOR OBTAINED VITALS AND I&O. PUREWICK CANNISTER EMPTIED. PT STATES NO NEEDS AT THIS TIME. CALL LIGHT WITHIN REACH.
--- NOTE | 2025-02-23 03:15 | NUR ---
PATIENT CALLED REQUESTING HELP WITH HIS BLANKETS. THIS RN IN TO ASSIST PATIENT. PATIENT WITHOUT FURTHER NEEDS AT THIS TIME. CALL LIGHT AND PERSONAL BELONGINGS ARE WITHIN REACH.
--- NOTE | 2025-02-23 05:00 | NUR ---
PATIENT CALLED TO GET OFF BED NEGRON. THIS RN IN ROOM WITH MAURILIO PAREKH TO HELP WITH PATIENT ROLLING. PATIENT WITH NO BM AT THIS TIME, BUT PASSED GAS. COCCYX DRESSING CHANGED AT THIS TIME. MORNING BLOOD DRAW DRAWN FROM PATIENT IV AND GIVEN TO CLAUDY WITH LAB. IV FLUSHED WITH 10ML OF NS, DRESSING INTACT. PATIENT PUREWICK CHANGED AT THIS TIME. KATHY CARE COMPLETED. BARRIER WIPES USED. FRESH PILLOW CASE PLACED A "SLING" UNDER PATIENT SCROTUM. PATIENT WITHOUT FURTHER NEEDS AT THIS TIME. CALL LIGHT AND PERSONAL BELONGINGS ARE WITHIN REACH.
[2025-02-23 05:28] LABS: BASOPHILS 1.5 % (0-2); EOSINOPHILS 1.7 % (0-6); HEMATOCRIT 29.2 % (35.0-50.0); HEMOGLOBIN 10.1 g/dL (12.0-18.0); LYMPHOCYTES 7.5 % (24-44); MCH 28.7 (27-36); MCHC 34.6 g/dl (30-36); MCV 82.7 fl (81-99); MONOCYTES 12.1 % (0-12); NEUTROPHILS 77.2 % (39-80); PLATELET COUNT 240 K/uL (140-440); RBC 3.53 M/ul (4.3-5.7); RDW 19.5 (10.5-15.0)
[2025-02-23 05:36] LABS: ANION GAP 6.9 (7-21); BUN/CREATININE RATIO 11.23 (6.0-28.6); CALCIUM 8.2 mg/dL (8.5-10.1); CREATININE, SERUM 0.89 mg/dL (0.70-1.30); MAGNESIUM 1.8 mg/dL (1.8-2.4); POTASSIUM 3.9 mmol/L (3.5-5.1)
--- NOTE | 2025-02-23 07:05 | NUR ---
REPORT RECEIVED FROM ANALIA JORDAN. PATIENT IS AWAKE AND ALERT IN BED WITH AT BEDSIDE. PATIENT REQUESTS FRESH ICE WATER - PROVIDED. NO OTHER REQUESTS AT THIS TIME, CALL LIGHT AND PERSONAL BELONGINGS IN REACH.
--- NOTE | 2025-02-23 08:45 | NUR ---
DISCUSSED PATIENT'S PLAN OF CARE AND STATUS WITH DAUGHTER, PASQUALE (POA). ALL QUESTIONS AND CONCERNS ANSWERED. PATIENT'S DAUGHTER AGREEABLE TO PATIENT RECEIVING REHAB, ALSO CONCERNED ABOUT PATIENT DISAGREEING TO GO TO A SKILLED FACILITY FOR STRENGTHENING. THERAPEUTIC COMMUNICATION PROVIDED.
[2025-02-23] MEDS ORDERED: FUROSEMIDE 40 MG/4 ML VIAL IV SCH (09:00)
[2025-02-23] MEDS ORDERED: PANTOPRAZOLE SODIUM 40 MG TABEC PO SCH (09:00)
--- NOTE | 2025-02-23 09:19 | NUR ---
MEDICATION ADMINISTERED, SEE MAR. PATIENT IS RESTING IN BED AFTER USING THE BEDSIDE COMMODE WITH MAURILIO LOPES AND MAURILIO HANDY. PATIENT DID NOT HAVE A BOWEL MOVEMENT, JUST FLATULENCE. ASSESSMENT COMPLETE. PATIENT'S EDEMA APPEARS APPROVED FROM YESTERDAY. 1+ PITTING IN HIS BLE, NO EDEMA IN HIS ABDOMEN, SCROTAL EDEMA APPEARS TO HAVE DECREASED. PATIENT REPORTS FEELING HE CAN MOVE HIS LEGS MUCH EASIER NOW AND DEMONSTRATES THIS IN BED. PATIENT LUNG SOUNDS ARE CLEAR IN BUL WITH CRACKLES IN BLL. PATIENT DENIES SHORTNESS OF BREATH ON 2LNC. PATIENT'S SPO2 SUSTAINS>96% ON 2LNC SO O2 IS TITRATED TO 1LNC AT THIS TIME. SPO2 SUSTAINS>94%. PATIENT HAS NO COMPLAINTS OF PAIN OR DISCOMFORT. FRESH ICE WATER AND APPLEJUICE PROVIDED. PATIENT HAS PUREWICK IN PLACE WITH DARKER YELLOW URINE NOTED TO WALL SUCTION CANNISTER. NO REQUESTS, CALL LIGHT AND PERSONAL BELONGINGS IN REACH. PATIENT'S REMAINS IN ROOM.
--- NOTE | 2025-02-23 09:39 | NUR ---
INTO SEE PATIENT. AT BEDSIDE. PATIENT STATES HE WILL GO BACK TO [facility] AT DISCHARGE. DAUGHTER OWNS [employer] AND WILL HAVE A VAN PICK HIM UP WHEN MEDICALLY SAFE TO DISCHARGE. NO FUTHER CM NEEDS AT THIS TIME.
--- NOTE | 2025-02-23 10:07 | NUR ---
VISITED DURING SPIRITUAL CARE ROUNDS. PT SUPPORTED BY SPOUSE IN ROOM. BOTH IN OVERALL GOOD SPIRITS, NO IMMEDIATE NEEDS. DEV TECHNICAL MGR PROVIDED SUPPORTIVE PRESENCE, HOSPITALITY, PRAYER, FACILITATED INTERACTION WITH THERAPY ANIMAL. PT AND SPOUSE EXPRESSED GRATITUDE, CALVIN.
--- NOTE | 2025-02-23 10:32 | NUR ---
PASQUALE, DAUGHTER, CALLED TO DISCUSS DC PLAN. STATES SHE IS NOW AGREEABLE TO PATIENT GOING TO SNF WAS DISCUSSED YESTERDAY. PREFERS THAT PATIENT STAY IN [facility]. INFORMED WILL SEND CHART TO [facility] FOR SNF REFERRAL.
--- NOTE | 2025-02-23 13:20 | NUR ---
PATIENT IS RESTING IN RECLINER WITH BLE ELEVATED. PATIENT'S IS PACING IN ROOM WITH VOICE RAISED, STATES SHE IS FEELING ANGRY "AT [facility] AND PASQUALE BECAUSE THEY WON'T LET ME CLEAN UP IN HERE!" PATIENT REQUESTS THIS RN CALL HIS DAUGHTER TO INFORM HER WHAT IS GOING ON. PASQUALE (DAUGHTER) NOTIFIED OF PATIENT'S BEHAVIOUR, STATES SHE WILL FIGURE SOMETHING OUT. PATIENT IS ALSO REQUESTING TO GO BACK TO BED. CALL LIGHT AND PERSONAL BELONGINGS IN REACH.
--- NOTE | 2025-02-23 15:54 | NUR ---
PATIENT FINISHES HAVE LARGE BOWEL MOVEMENT ON BEDPAN. KATHY-CARE PROVIDED. GROIN AND SCROTOM CLEANSED AND PATTED DRY, ANTIFUNGAL CREAM AND BARRIER SPRAY APPLIED AND ALLOWED TO DRY. FRESH PILLOW CASE USED TO SLING THE SCROTOM AND WITHIN GROIN CREASES. NEW PUREWICK PLACED. PATIENT DENIES PAIN, DISCOMFORT OR SHORTNESS OF BREATH. PATIENT LUNG SOUNDS ARE CLEAR BUL WITH FAINT CRACKLES AT THE BLL. PATIENT REMAINS ON ROOM AIR X2 HOURS. SPOT CHECK SPO2 IS 94%. MAURILIO TAYLOR ASSISTING WITH KATHY-CARE AND PUREWICK CHANGE. PATIENT'S PRESENT IN ROOM THROUGHOUT. URINE IS FOUND IN THE BEDSIDE COMMODE AND IN THE TOILET. PATIENT'S DENIES THAT SHE HAS VOIDED HERE EVEN WITH REASSURANCE. PATIENT'S THEN REPORTS TO THIS RN AND MAURILIO TAYLOR THAT SHE HAS BEEN EMPTYING PATIENT'S PUREWICK CANNISTER INTO THE TOILET. PATIENT'S IS EDUCATED ON IMPORTANCE OF ALERTING STAFF WHEN PUREWICK CANNISTER NEEDS EMPTYING WE ARE MEASURING THE PATIENT'S OUTPUT. PATIENT'S VERBALIZES UNDERSTANDING. PATIENT HAS NO REQUESTS AT THIS TIME, CALL LIGHT AND PERSONAL BELONGINGS IN REACH.
--- NOTE | 2025-02-23 16:07 | NUR ---
"PLEASE DO NOT REMOVE" POST-IT PLACED ON PATIENT'S PUREWICK CANNISTER. WARM BLANKETS PROVIDED FOR BOTH PATIENT AND PATIENT'S . NO OTHER REQUESTS, CALL LIGHT AND PERSONAL BELONGINGS IN REACH.
[2025-02-23] MEDS ORDERED: FUROSEMIDE 40 MG/4 ML VIAL IV ONE (16:30)
--- NOTE | 2025-02-23 18:23 | NUR ---
PATIENT HAS MULTIPLE VISITORS PRESENT AT THIS TIME.
--- NOTE | 2025-02-23 20:46 | NUR ---
Awake, flat affect, cooperative. repositioned. hob elevated. was on room air, 88% , no chagnes afdter CDB. lungs dim at bases with fine crackles, no cough at this time. Was placed on 2LNC at this time with inmediate sats 92-95%. distant irregular heart tones. abd large soft, john, male purewick in place, draining medium dark yellow urine. QS. Generalized edema to upper extremities 1+ mid calf to toes, SCDS in place, elevated, bruised and scabbed over areas hands healing. Took meds w/o problems. No c/o CP or SOB rooming in.
--- NOTE | 2025-02-23 23:42 | NUR ---
resting, eys closed, on 2LNC, no s/sx ditress, moves arms, purewick in place. scds in place, LE elevated. rooming in
[2025-02-24] VITALS (9 sets, daily range): BP systolic 115–132; BP diastolic 50–67
--- NOTE | 2025-02-24 02:16 | NUR ---
resting, eyes closed, purewick in place. On 2LNC. scds in place, legs elevated, bed alrms in plcae rooming in
--- NOTE | 2025-02-24 03:30 | NUR ---
CALL LIGHT ANSWERED. PT STATED THE NEED TO HAVE A BM. THIS CULINARY ARTS INSTRUCTOR AND ANALIA RIZZO PLACED PT ON BED NEGRON. PT INSTRUCTED TO CALL WHEN DONE. CALL LIGHT ANSWERED. BEDPAN REMOVED. PT STATES NO FURTHER NEEDS AT THIS TIME. CALL LIGHT WITHIN REACH.
--- NOTE | 2025-02-24 03:56 | NUR ---
CALL LIGHT ANSWERED. PT STATED THAT HE FELT THE NEED TO HAVE ANOTHER BM. PT PLACED ON BED NEGRON AND INSTRUCTED TO CALL WHEN FINISHED. CALL LIGHT WITHIN REACH.
--- NOTE | 2025-02-24 04:13 | NUR ---
CALL LIGHT ANSWERED. PT DONE ON BEDPAN. PT UNABLE TO HAVE BM AND BEDPAN IS REMOVED. BI DATA ARCHITECT AND RN OBTAINED VITALS AND I&O. MURTAZACK CANNISTER EMPITED. PT ICE WATER REFILLED. PT STATES NO FURTHER NEEDS AT THIS TIME. CALL LIGHT WITHIN REACH.
--- NOTE | 2025-02-24 04:16 | NUR ---
Used call light, up to Bedpan, had a bm. male purewick in place, draining QS cloudy yellow urine. O2 WNL, titrated from 2L to 1LNC. Repositioned up in bed, scds in place. Cooperative with vitals and asessments, tolerating liquids well, no c/o pain or sob. . Scabs in hands healing. rooming in
[2025-02-24 05:23] LABS: BASOPHILS 0.7 % (0-2); EOSINOPHILS 1.2 % (0-6); HEMATOCRIT 29.5 % (35.0-50.0); HEMOGLOBIN 9.9 g/dL (12.0-18.0); LYMPHOCYTES 7.3 % (24-44); MCH 27.9 (27-36); MCHC 33.7 g/dl (30-36); MONOCYTES 12.8 % (0-12); PLATELET COUNT 225 K/uL (140-440); RBC 3.55 M/ul (4.3-5.7); RDW 19.1 (10.5-15.0)
[2025-02-24 05:32] LABS: ANION GAP 10.8 (7-21); BUN/CREATININE RATIO 10.71 (6.0-28.6); CALCIUM 8.2 mg/dL (8.5-10.1); CREATININE, SERUM 0.84 mg/dL (0.70-1.30); MAGNESIUM 1.7 mg/dL (1.8-2.4); POTASSIUM 3.8 mmol/L (3.5-5.1)
--- NOTE | 2025-02-24 07:05 | NUR ---
REPORT RECEIVED FROM ANALIA NIETO. PATIENT IS AWAKE AND ALERT RESTING IN BED WITH AT THE BEDSIDE REARRANGING HIS SHEETS AND BLANKET. FRESH ICE WATER PROVIDED FOR BOTH PATIENT AND HIS . PATIENT HAS 1LNC IN PLACE, SCDs ON. NO REQUESTS, CALL LIGHT AND PERSONAL BELONGINGS IN REACH.
--- NOTE | 2025-02-24 08:49 | NUR ---
PATIENT RESTING IN BED WITH HOB ELEVATED WATCHING TELEVISION. PATIENT HAS FINISHED BREAKFAST. PATIENT'S IS EMPTYING THE GARBAGE INTO THE LARGER GARBAGE BIN UNDER THE CABINETS. NO REQUESTS AT THIS TIME, CALL LIGHT AND PERSONAL BELONGINGS IN REACH.
[2025-02-24] MEDS ORDERED: FUROSEMIDE 40 MG/4 ML VIAL IV SCH (09:00)
[2025-02-24] MEDS ORDERED: MAGNESIUM SULFATE 2 GM/50 ML BAG IV SCH (09:00)
[2025-02-24] MEDS ORDERED: POTASSIUM CHLORIDE 10 MEQ TABCR PO ONE (09:00)
--- NOTE | 2025-02-24 09:53 | NUR ---
MEDICATION ADMINISTERED, SEE MAR. ASSESSMENT COMPLETE. PATIENT IS RESTING IN BED WITH AT BEDSIDE. PATIENT'S DAUGHTER PASQUALE ALSO ARRIVES DURING ASSESSMENT. SCDs REMOVED TO VISUALIZE PATIENT'S BLE. PATIENT'S BLE EDEMA IS 1+ PITTING AND UNCHANGED FROM YESTERDAY. PATIENT HAS 2+ PITTING EDEMA IN HIS FLANKS, GENERALIZED EDEMA IN HIS SCROTUM (UNCHANGED FROM YESTERDAY), AND GENERALIZED EDEMA IN HIS BUE. PATIENT LUNG SOUNDS ARE CLEAR IN BUL WITH CRACKLES BLL. PATIENT IS CURRENTLY ON ROOM AIR AND DENIES SHORTNESS OF BREATH OR CHEST TIGHTNESS. SPO2 SPOT CHECK IS 93%. IV TO PATIENT'S R AC FLUSHES WNL AND CURRENTLY INFUSING IV MAGNESIUM WNL. PATIENT AND PATIENT'S ARE CONVERSING PLEASANTLY. PATIENT REPORTS NO PAIN OR DISCOMFORT, HE HAS NO COMPLAINTS. SCDs REPLACED, FRESH SHEET AND COVER APPLIED. PATIENT HAS PUREWICK IN PLACE TO WALL SUCTION. PATIENT'S AND DAUGHTER REMAIN IN ROOM. PATIENT HAS NO REQUESTS, CALL LIGHT AND PERSONAL BELONGINGS IN REACH.
--- NOTE | 2025-02-24 10:10 | NUR ---
PATIENT'S DAUGHTER ALERTS THIS RN THAT PATIENT FEELS SUDDEN SHORTNESS OF BREATH. OXYGEN APPLIED AT 2LNC, PATIENT'S SPO2 IS 95%. MAURILIO TAYLOR ARRIVES TO TAKE VITALS. THIS RN AND MAURILIO TAYLOR BOOST PATIENT UP IN BED AND SIT UP PATIENT UP. PATIENT'S SPO2 SUSTAINS 97% ON 2LNC. O2 TITRATED TO 1LNC, PATIENT'S SPO2 CONTINUES TO SUSTAIN>97%. PATIENT STILL ENDORSES CHEST TIGHTNESS. ELBA IN RESPIRATORY THERAPY ALERTED TO PATIENT'S CHANGE IN CONDITION, STATES HE WILL COME AND SEE THE PATIENT. PATIENT REMAINS ON 1LNC SITTING WITH HOB ELEVATED. PATIENT'S AND DAUGHTER REMAIN IN ROOM.
[2025-02-24] MEDS ORDERED: ALBUTEROL SULFATE 0.083% 3 ML VIAL INH PRN (10:30)
--- NOTE | 2025-02-24 10:31 | NUR ---
MD IN TO ASSESS PATIENT. PATIENT REPORTING CHEST TIGHTNESS. MD REQUESTS CARDIAC WORKUP. ELBA FROM RESPIRATORY THERAPY CALLED TO INFORM HIM. ELBA STATES UNDERSTANDING. PATIENT REMAINS SITTING UPRIGHT IN BED ON 1LNC, SPO2 RANGING 96-98%. NO REQUETS, CALL LIGHT AND PERSONAL BELONGINGS IN REACH.
[2025-02-24] MEDS ORDERED: NITROGLYCERIN 0.4 MG SUBL SL PRN (10:45)
[2025-02-24] MEDS ORDERED: LIDOCAINE & ANTACID 35 ML BTL PO ONE (10:45)
--- NOTE | 2025-02-24 10:58 | NUR ---
PATIENT REPORTS DECREASED CHEST PRESSURE ABOUT FIVE MINUTES AFTER ADMINISTRATION OF GI COCKTAIL. ELBA FROM RESPIRATORY THERAPY PRESENT IN ROOM, EKG COMPLETE AND PRINTED, PATIENT IS NOW RECEIVING BREATHING TREATMENT. ELBA REMAINS IN ROOM AT THIS TIME.
--- NOTE | 2025-02-24 11:22 | NUR ---
PATIENT REPORTS INCREASED SYMPTOM OF CHEST PRESSURE STATING "IT'S VERY LIGHT, IT'S NOT BOTHERING ME". PATIENT HAS NO OTHER COMPLAINTS AND NO REQUESTS AT THIS TIME, CALL LIGHT AND PERSONAL BELONGINGS IN REACH.
--- NOTE | 2025-02-24 14:06 | NUR ---
MEDICATION ADMINISTERED, SEE MAR. PATIENT IS RESTING IN BED WITH IN ROOM. GROIN AND KATHY-AREA CLEANSED, ANTIFUNGAL CREAM APPLIED, SKIN BARRIER SPRAY APPLIED, NEW PUREWICK PLACED. PATIENT'S OUTPUT HAS LIGHTENED SIGNIFICANTLY TO A CLEAR YELLOW. EDEMA TO PATIENT'S BLE REMAINS AT 1+ PITTING, SLIGHTLY DECREASED FROM THIS AM. SCDs IN PLACE. EDEMA TO SCROTUM UNCHANGED FROM THIS AM. EDEMA TO ABDOMEN/FLANK REMAINS 2+ PITTING. PATIENT REPORTS HE CONTINUES TO HAVE SOME MILD CHEST PRESSURE BUT IT IS NOT CONCERNING TO HIM. HE STATES "IT FEELS LIKE MY HEARTBURN NOW". WHEN FIRST ENTERING THE ROOM THE PATIENT HAD REMOVED HIS NC AND WAS ON ROOM AIR. HE DENIED SHORTNESS OF BREATH. AFTER ADDRESSING HIS GROIN AND HAVING TO LAY BACK IN THE BED PATIENT REPORTS SOME SHORTNESS OF BREATH. SPO2 RANGING 85-88%. 1LNC REAPPLIED AND PATIENT IS ENCOURAGED TO TAKE DEEP BREATHS. PATIENT'S SPO2 QUICKLY RECOVERS TO 94%. PATIENT HAS NO OTHER COMPLAINTS OR REQUESTS AT THIS TIME, CALL LIGHT AND PERSONAL BELONGINGS IN REACH.
--- NOTE | 2025-02-24 15:44 | NUR ---
PATIENT IS REQUESTING ICE WATER AND SPRITE - PROVIDED. HE HAS REMOVED HIS NC AGAIN, CURRENTLY ON ROOM AIR REPORTING NO SOB OR CHEST DISCOMFORT. HE IS AWAKE AND ALERT WATCHING TELEVISION. NO OTHER REQUESTS, CALL LIGHT AND PERSONAL BELONGINGS IN REACH.
--- NOTE | 2025-02-24 16:28 | NUR ---
PATIENT REFUSED SHOWER TODAY DO TO BEING UPSET ABOUT HIS . HE DID SAY THAT HE WOULD TAKE A SHOWER TOMORROW. SHOWER IS ALREADY SET UP.
--- NOTE | 2025-02-24 18:57 | NUR ---
THIS RN AND ANALIA KELLY REPOSITION PATIENT IN BED. PATIENT IS ON ROOM AIR WITH NC IN HIS LAP IF HE WANTS IT. DENIES SOB OR CHEST DISCOMFORT AT THIS TIME. REQUESTS SPRITE - PROVIDED. NO OTHER REQUESTS. CALL LIGHT AND PERSONAL BELONGINGS IN REACH.
--- NOTE | 2025-02-24 18:58 | NUR ---
THIS RN ASSISTS IN WALKING PATIENT'S SHAUN TO FRONT OF HOSPITAL WITH DAUGHTER PASQUALE. PATIENT'S WILL BE SPENDING THE NIGHT WITH HER DAUGHTER SAURABH INSTEAD OF IN THE HOSPITAL. DAUGHTER PASQUALE EXPRESSES UNDERSTANDING OF SITUATION. PATIENT'S IS CONFUSED BUT AGREEABLE AFTER SOME CONVERSATION.
--- NOTE | 2025-02-24 20:32 | NUR ---
awake, watching tv, no c/o pain. on 2LNC, O2 titrated down to 1L NC. lungs dim at bases. robert rhythm. tele dc'd. abd soft, john, LBM today. male pure wick in place, draining clear yellow urine. patent. edema to hands improving, scabbed and red areas in hands improving. pinkish rask noted lower R lateral and mid abd, unknown cause, denies c/o itching. pericare and f/c care done. lotion to red jie area. edema to LE 2+ non pitting, elevated scds in place. Cooperative with turning and repositoning, all cares explained. SL RAC patent
--- NOTE | 2025-02-24 22:38 | NUR ---
COURTNEY WAS ASLEEP AT 2125 WHEN RT CHECKED ON HIM. COURTNEY WAS ON A 1.5L NC.
[2025-02-25] VITALS (10 sets, daily range): BP systolic 106–137; BP diastolic 48–66
--- NOTE | 2025-02-25 00:33 | NUR ---
Resting, eyes closed, O2 1LNC, purewick in place. LE elevated, hob elevated to comofrt
--- NOTE | 2025-02-25 02:18 | NUR ---
Eyes closed, on 1L O2 NC, no s/sx distress, purewick in place, draining QS
--- NOTE | 2025-02-25 04:09 | NUR ---
Resting, O2 1LNC, no s/sx distress. pure wick in place, draining clear yellow urine. scds in place. elevated
--- NOTE | 2025-02-25 05:16 | NUR ---
Awakens easily, no s/x distress, denies CP, SOB or any pain. O2 was 1LNC sats 98%. no resp distress. Titrated to off. pure wick in place draining light tea colored urine. repositioned. scds in place, iproved edema to legs
[2025-02-25 05:30] LABS: BASOPHILS 0.4 % (0-2); EOSINOPHILS 1.9 % (0-6); HEMATOCRIT 29.9 % (35.0-50.0); HEMOGLOBIN 10.2 g/dL (12.0-18.0); LYMPHOCYTES 9.8 % (24-44); MCH 28.2 (27-36); MONOCYTES 12.2 % (0-12); NEUTROPHILS 75.7 % (39-80); PLATELET COUNT 235 K/uL (140-440); RDW 19.3 (10.5-15.0)
[2025-02-25 05:43] LABS: ANION GAP 8.1 (7-21); BUN/CREATININE RATIO 11.36 (6.0-28.6); CALCIUM 8.3 mg/dL (8.5-10.1); CREATININE, SERUM 0.88 mg/dL (0.70-1.30); MAGNESIUM 2.2 mg/dL (1.8-2.4); POTASSIUM 4.1 mmol/L (3.5-5.1)
--- NOTE | 2025-02-25 07:20 | NUR ---
REPORT REC'D FROM ANALIA NIETO. PT RESTING IN BED, NO DISTRESS NOTED.
--- NOTE | 2025-02-25 08:15 | NUR ---
PATIENT IN BED AT THIS TIME. SEISMIC INTERPRETER CHARTED HOURLY ROUNDS. CALL LIGHT WITHIN REACH, NO FURTHER NEEDS AT THIS TIME.
--- NOTE | 2025-02-25 12:45 | NUR ---
PT RETURNED TO BED VIA [facility]ADY, GAIT BELT AND ASSIST X2. SCD'S REAPPLIED. SIDERAILS UP X2, CALL [place]WOOD IN REACH, BED IN LOW POSITION AND LOCKED. FAMILY AT BEDSIDE. PT NOTIFIED PATIENT RETURNED TO BED
--- NOTE | 2025-02-25 12:59 | EKG ---
[facility] [address] [facility] [place] [address] Signed Sinus bradycardia with sinus arrhythmia with 1st degree AV block Nonspecific T wave abnormality Abnormal ECG When compared with ECG of 21-FEB-2025 17:02, No significant change was found Confirmed by Rod Mcmanus MD ([id number]) on 02/25/2025 12:59:14 PM Electronically Signed By: ROD MCMANUS MD 02/25/25 1259 PATIENT NAME: COURTNEY ALEXANDER Electrocardiogram DATE OF : 42 PHYSICIAN: ROD MCMANUS MD REPORT #: [id number] REPORT IS CONFIDENTIAL AND NOT TO BE RELEASED WITHOUT AUTHORIZATION
--- NOTE | 2025-02-25 18:43 | NUR ---
MALE PUREWICK LEAKING AND REAPPLIED.
--- NOTE | 2025-02-25 19:33 | NUR ---
PT CARED FOR T/O SHIFT WITHOUT INCIDENT. PT OOB X 1 TO CHAIR, PT CONTINUES TO HAVE ANASARCA 3+. PT HAS REMAINED ON O2 @ 1LNC. SCD'S IN PLACE. FAMILY HAS VISITED MOST OF DAY. PT DIURESED WELL WITH [place].
--- NOTE | 2025-02-25 22:01 | NUR ---
CORUTNEY IS ASLEEP ON A 1L NC.
--- NOTE | 2025-02-25 23:38 | NUR ---
Resting, no s/sx distress . O2 1LNC. pure wick in place, draining darl yellow urine. scds in place. turned
[2025-02-26] VITALS (11 sets, daily range): BP systolic 119–139; BP diastolic 57–74
--- NOTE | 2025-02-26 00:59 | NUR ---
REPOSITIONED, ON 1LNC, TOLERATED WELL, NO C/O PAIN, SCDS INPLACE, LE ELEVATED
--- NOTE | 2025-02-26 02:55 | NUR ---
resting, eyes closed, O2 1LNC in place, repositioned. scds on, LE elevated. pure wick in place
--- NOTE | 2025-02-26 03:24 | NUR ---
used call ligght. smear of soft bm, pericare done. Allevyn tosacral area intact. edema noted the same. purewick in place, scrotal area edema no hcanges, soft sling in place, elevated with towels scds in place
--- NOTE | 2025-02-26 05:28 | NUR ---
AWAKENS EASILY. WAS ON 1L O2 NC. SATS 98%. DECREAED TO ROOM AIR, SATS 94%. HOB ELEVATED. COOPERATIVE WITH ASSESSMENT, LABS AND VITALS, REPOSITIONED TO BACK, EDEMA TO HANDS MUCH IMPROVED, BRUISING ARMS IMPROVING, ABD TO KNEE AREA EDEMA NO CHANGES, SCDS IN PLACE, MALE PUREWICK IN PLACE. DRAINING QS DARK YELLOW URINE. DAILY BED WEIGHT 104.5KG NORMAL BEDDING AND 2 PILLOWS. TOLERATING SIPS OF FLUIDS
[2025-02-26 05:45] LABS: BASOPHILS 0.3 % (0-2); EOSINOPHILS 1.6 % (0-6); HEMATOCRIT 30.1 % (35.0-50.0); HEMOGLOBIN 10.2 g/dL (12.0-18.0); LYMPHOCYTES 9.4 % (24-44); MCH 28.3 (27-36); MCHC 33.9 g/dl (30-36); MCV 83.6 fl (81-99); MONOCYTES 10.4 % (0-12); NEUTROPHILS 78.3 % (39-80); PLATELET COUNT 215 K/uL (140-440); RDW 19.4 (10.5-15.0)
[2025-02-26 05:48] LABS: BUN/CREATININE RATIO 11.45 (6.0-28.6); CALCIUM 8.1 mg/dL (8.5-10.1); CREATININE, SERUM 0.96 mg/dL (0.70-1.30); MAGNESIUM 1.9 mg/dL (1.8-2.4)
--- NOTE | 2025-02-26 07:22 | NUR ---
MORNING REPORT RECIEVED FROM ANALIA NIETO. PT LAYING IN BED AWAKE AND ALERT. PT HAD JUST HAD A BM AND WAS CHANGED BY [place] MACHINE [employer]PERATOR'S. PT HAS NO CONCERNS AT THIS TIME, AND HAS CALL LIGHT IN REACH.
--- NOTE | 2025-02-26 10:14 | NUR ---
SPOKE WITH DAUGHTER, PASQUALE. UPDATED THAT [facility] WILL NOT HAVE OPEN BEDS UNTIL THE END OF THIS WEEK AND THEY HAVE NOT YET ACCEPTED PATIENT. ALSO INFORMED HER DR. STANLEY HAS STATED PATIENT WILL NEED MORE TIME IN THE HOSPITAL TO DIURESE SO WAITING FOR A BED IS NOT YET AN ISSUE SINCE HE IS NOT YET MEDICALLY READY FOR DC. PASQUALE VERBALIZES UNDERSTANDING. INFORMED HER CM WILL CALL HER WITH ANY OTHER UPDATES.
--- NOTE | 2025-02-26 10:37 | NUR ---
PT LAYING IN BED WIH HOB ELEVATED. PT HAS NO PAIN AT THIS TIME AND REPORTS NO CURRENT CONCERNS. PT HAS CALL LIGHT IN REACH AT THIS TIME WILL CHECK ON PT AGAIN SOON.
--- NOTE | 2025-02-26 11:20 | NUR ---
PT WORKED WITH PT/OT TODAY. PT WAS ASSISTED OUT OF BED VIA SS AND MOVED TO CHAIR. PHYSICAL THERAPY REPORTED PT STRENGTH HAS INCREASED BUT STILL NEEDS TO BE VERBALLY CUED PRIOR TO STANDING. 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
--- NOTE | 2025-02-26 12:17 | NUR ---
HEART FAILURE NURSE IN TO TALK TO PATIENT. PATIENT REPORTS 5/10 RIGHT CHEST PAIN, VITALS ARE STABLE. PATIENT REPORTS THIS PAIN COMES AND GOES. DR. STANLEY NOTIFIED. PATIENT IS ON 1LNC FOR 97-99%. PATIENT DOES NOT SEEN DISTRESSED AT THIS TIME AND IS EATING LUNCH.
--- NOTE | 2025-02-26 12:25 | NUR ---
PT SITTING IN CHAIR IN ROOM. PT HAS NO CURRENT COCNERNS, AND HAS CALL [facility] IN REACH AT THIS TIME.
--- NOTE | 2025-02-26 12:27 | NUR ---
Cardiac consult completed. Pt educated on what causes CHF. Signs and symptoms of CHF. How to decrease their risk of having an onset of CHF and what to do if their symptoms increase. Pt verbalized understanding. No questions at this time. Pt is aware if he has any question, that I could return to answer them.
--- NOTE | 2025-02-26 13:18 | NUR ---
PT SITTING UP IN CHAIR, PT AGREEABLE TO SIT IN CHAIR FOR A LITTLE MORE TIME AND THEN WILL RETURN TO BED, PT HAS NO PAIN AT THIS TIME AND HAS CALL LIGHT IN REACH. PT PUREWICK IN PLACE AT THIS TIME. CALL LIGHT IN REACH.
--- NOTE | 2025-02-26 13:42 | NUR ---
PROG NOTES, PT/OT NOTES SENT TO [facility].
--- NOTE | 2025-02-26 14:43 | NUR ---
PT SITTING UP IN CHAIR IN ROOM, PT HAS O2 1L NC IN PLACE. PT HAS FEET ELEVATED AND NO CURRENT CONCERNS AT THIS TIME. PT DOES WANT TO MOVE TO BED SOON AND SAID HE WILL CALL WHEN READY. PT HAS NO OTHER CONCERNS AT THIS TIME AND CALL LIGHT IN REACH.
--- NOTE | 2025-02-26 15:06 | NUR ---
PT MOVED BACK TO BED FROM CHAIR VIA [facility] WITH HELP FROM DERRICK THORPE. PT 1L NC IN PLACE WELL MALE PUREWICK. PT HAS NO CONCERNS AT THIS TIME CALL LIGHT IN REACH.
--- NOTE | 2025-02-26 15:30 | NUR ---
ALONA AND I WENT INTO PATIENT'S ROOM. ALONA CHANGED HIS PUREWICK.
--- NOTE | 2025-02-26 15:52 | NUR ---
PATIENT AFTER LUNCH BRUSHED HIS TEETH AND THIS MORNING WASHED HIS FACE. ALSO DURING LUNCH TIME HE HAD VISITORS.
--- NOTE | 2025-02-26 16:46 | NUR ---
PT SITTING UP IN BED WITH HOB ABOVE 30 DEGREES AT THIS TIME. PT REPORTS NO CURRENTS CONCERNS. PT HAS NO PAIN OR SOB AT THIS TIME. PT HAS CALL LIGHT IN REACH.
--- NOTE | 2025-02-26 17:42 | NUR ---
PT HAD SMALL BM, PT CHANGED AND CLEANED. PT PUREWICK INTACT AND 1L NC IN PLACE. PT AND DAUGHTER AT PT BEDSIDE. PT HAS NO CONCERNS AT THIS TIME HOB ELEVATED ABOVE 30 DEGREES AND IS CURRENTLY EATING DINNER CALL LIGHT IN REACH.
--- NOTE | 2025-02-26 18:19 | NUR ---
PT SITTING UP IN BED, PT ATE SOME OF HIS DINNER AND TOLERATED WELL. PT STATES " HE HAS EVERYTHING HE NEEDS". PT HAS CALL LIGHT IN REACH AT THIS TIME.
--- NOTE | 2025-02-26 19:05 | NUR ---
REPORT RECEIVED FROM ALICE HELMS. pt RESTING IN THE BED. BOARD UPDATED. pt DENIES ANY NEEDS AT THIS TIME. CALL LIGHT WITHIN REACH.
--- NOTE | 2025-02-26 21:05 | NUR ---
ASSESSMENT AND VITAL SIGNS DONE. SCHEDULED MEDS ADMINSITERED. PUREWICK CHECKED AND IN PLACE. BRIEF CLEAN AND DRY. SCROTUM ELEVATED WITH PILLOW CASE. pt HAS CLEAR LUNG SOUNDS. WATER REFRESHED. pt DENIES ANY OTHER NEEDS AT THIS TIME. CALL LIGHT WITHIN REACH. TRACE EDEMA IN THE BILAT LE.
--- NOTE | 2025-02-26 23:15 | NUR ---
pt REPOSITIONED ON LEFT SIDE WITH PILLOW UNDER RIGHT SIDE. pt DENIES ANY OTHER NEEDS AT THIS TIME. CALL LIGHT WITHIN REACH.
[2025-02-27] VITALS (10 sets, daily range): BP systolic 112–128; BP diastolic 51–63
--- NOTE | 2025-02-27 00:45 | NUR ---
PATIENT CALLED WANTING TO HAVE HIS PUREWICK CHECK. IT FEELS COLD ON TOP PART BUT IT WAS NOT WET AROUND. PATIENT REPOSITIONED WITH PILLOW ON HIS LEFT SIDE. NO OTHER NEEDS AT THIS TIME. CALL LIGHT WITHIN REACH.
--- NOTE | 2025-02-27 01:38 | NUR ---
pt CALLED TO BE CHANGED. BRIEF CHANGED, PIERCE BM. PURE WICK IN PLACE. pt DENIES ANY OTHER NEEDS AT THIS TIME. CALL LIGHT WITHIN REACH.
--- NOTE | 2025-02-27 03:07 | NUR ---
pt RESTING IN THE BED WITH EYES CLOSED. RR EVEN AND UNLABORED. CALL LIGHT WITHIN REACH.
[2025-02-27 06:13] LABS: ANION GAP 9.5 (7-21); BUN/CREATININE RATIO 15.11 (6.0-28.6); CALCIUM 8.3 mg/dL (8.5-10.1); CREATININE, SERUM 0.86 mg/dL (0.70-1.30); MAGNESIUM 1.8 mg/dL (1.8-2.4); POTASSIUM 3.5 mmol/L (3.5-5.1)
--- NOTE | 2025-02-27 06:43 | NUR ---
pt CALLED THIS RN IN THE TO CHECK HIS BRIEF FOR A BM. pt HAD A BM AND PURE WICK STILL IN PLACE. BRIEF CHANGED. pt DENIES ANY OTHER NEEDS AT THIS TIME. CALL LIGHT WITHIN REACH.
--- NOTE | 2025-02-27 07:26 | NUR ---
KAROLINE REPORT RECIEVED FROM ANALIA DE PAZ. PT IS CURRENTLY RESTING IN BED WITH EYES CLOSED WITH CHEST RISE EQUAL BILAT. PT HAS CALL LIGHT IN REACH IF NEEDED.
--- NOTE | 2025-02-27 10:00 | NUR ---
Spoke with pts daughter, Vinita and pt. Discussed pt is above the level of care for him to return to [facility]. He will need therapy. Their concern is for the mom, as she has dementia. She cannot stay at [facility] alone. She has been staying with Vinita the last two days, and this has worked ok. Vinita not agreeable for pt to go to SNF for rehab. She would like him to stay in town. I will fax his chart to [facility]. I was notified this am, they will not have rooms available until Wednesday. I returned to my office and faxed the chart to Virgen at [facility].
--- NOTE | 2025-02-27 10:32 | NUR ---
PT CURRENTLY SITTING UP IN BED HOB ELEVATED ABOVE 30 DEGREES AT THIS TIME TO REDUCE ASPERATION RISKS. PT HAS NO CURRENT NEEDS AT THIS TIME. PT IS AT BED SIDE AND INSTRUCTED NOT TO TOUCH MEDICAL EQUIPMENT. PT HAS CALL LIGHT IN REACH.
--- NOTE | 2025-02-27 10:36 | NUR ---
VISITED DURING SPIRITUAL CARE ROUNDS. PT STATES "EXHAUSTED" FROM PHYSICAL THERAPY. SHORT VISIT. THERAPIST PHYS PROVIDED SUPPORTIVE PRESENCE, HOSPITALITY, PRAYER. PT AND EXPRESSED FOCUS ON PRESENT.
--- NOTE | 2025-02-27 11:37 | NUR ---
NEW PUREWICK PLACED ON PT, PT WAS SHAVED AND AGREEABLE SO THAT PUREWICK WOULD STAY IN PLACE BETTER. PT REPOSITIONED IN BED AND HAS NO CURRENT COCNERNS AT THIS TIME. PT WILL WORK WITH OT AND MOVE TO CHAIR FOR LUNCH SOON. PT HAS CALL LIGHT IN REACH AT THIS TIME.
--- NOTE | 2025-02-27 12:42 | NUR ---
I received a reply from [facility], they will have a bed open tomorrow and can accept this pt at 1 pm. I attempted to call Vinita and she is out. I left a message.
--- NOTE | 2025-02-27 13:06 | NUR ---
PT SITTING UP IN CHAIR AT THIS TIME, OT DENIES ANY NEEDS AT THIS TIME PT HAS CALL LIGHT IN REACH.
--- NOTE | 2025-02-27 13:25 | NUR ---
PT SITTING UP IN CHAIR AT THIS TIME, PT HAS NO PAIN EDEMA HAS CONTINUED TO DECREASE BLE AND SCROTUM, PT HAS NO SOB AT THIS TIME OR PAIN. PT HAS CALL LIGHT IN REACH AT THIS TIME.
--- NOTE | 2025-02-27 14:25 | NUR ---
PT CURRENTLY SITTING UP IN CHAIR AT THIS TIME, PT HAS NO CURRENT NEEDS AND HAS PUREWICK IN PLACE WITH 1L NC O2. PT HAS CALL LIGHT IN REACH.
--- NOTE | 2025-02-27 14:30 | NUR ---
Spoke with Vinita. She would like to transport her dad. She cannot take him at 1 pm as her mom has an appt. I texted [facility] and asked if pt could arrive at 2 pm and she agreed. Vinita updated. Dr. godwin.
--- NOTE | 2025-02-27 14:39 | NUR ---
[facility]. PT TOLERATED WELL. PT HAS CALL LIGHT IN REACH WITH HOB ELEVATED TO 30 DEGREES.
--- NOTE | 2025-02-27 15:51 | NUR ---
PT CURRENTLY LAYING IN BED WITH HOB ABOVE 30 DEGREES, PT HAS NO PAIN AT THIS TIME, AND HAS PUREWICK IN PLACE. PT IS NOW ON RA AFTER DOING RA TRIAL OFF 1L PT O2 SAT HAS BEEN STEADY AT 95% ON RA. PT HAS NO SOB OR CONCERNS AT THIS TIME CALL LIGHT IN REACH.
--- NOTE | 2025-02-27 16:00 | NUR ---
In and spoke with Jay. Updated he will go to [place] tomorrow. Answered questions about [facility] for him. He denies needs. Wants to return to [facility] as soon as possible. Neelam at [facility] updated pt will go to [place].
--- NOTE | 2025-02-27 16:55 | NUR ---
PT REPOSITION IN BED, PT SAT UP AND IN READY FOR DINNER AT THIS TIME. PT HAS NO CONCERNS AND HAS CALL LIGHT IN REACH AT THIS TIME.
--- NOTE | 2025-02-27 17:34 | NUR ---
[facility] TAKING PT VITALS AND PT O2 SAT WAS DROPING TO 85-87%, 1L O2 NC BACK IN PLACE, PT HAS NO COMPLAINTS OF FEELING SOB AT THINS TIME CALL LIGHT IN REACH WITH [facility] IN ROOM CURRENTLY. PT O2 SAT IS AT 94% ON 1L O2 NC AT THIS TIME.
--- NOTE | 2025-02-27 18:23 | NUR ---
PT SITTING UP IN BED, PT HAS NO SOB AT THIS TIME, PT IS ON 1L O2 NC IN PLACE. PT HAS PUREWICK IN PLACE AND HAS CONTINUED TO VOID LARGE AMOUNTS OF YELLOW URINE. PT HAS NO COCNERNS AT THIS TIME AND CALL LIGHT IS IN REACH.
--- NOTE | 2025-02-27 19:05 | NUR ---
REPORT RECEIVED FROM ALICE HELMS. pt RESTING IN THE BED. BOARD UPDATED. pt DENIES ANY NEEDS AT THIS TIME. CALL LIGHT WITHIN REACH.
--- NOTE | 2025-02-27 21:20 | NUR ---
ASSESSMENT AND VITAL SIGNS DONE. PURE WICK IN PLACE. IV ASSESSED, WNL. LUNG SOUNDS ARE CLEAR. GENERALIZED EDEMA IN HIS HIPS. pt DENIES ANY NEEDS AT THIS TIME. CALL LIGHT WITHIN REACH.
--- NOTE | 2025-02-27 23:43 | NUR ---
pt RESTING IN THE BED WITH EYES CLOSED. RR EVEN AND UNLABORED. CALL LIGHT WITHIN REACH.
--- NOTE | 2025-02-27 23:45 | NUR ---
PATIENT CALLED NEEDS HELP FIXING HIS COVERS. STRETCHING WRINKLES DRAW SHEET AND CHUX. LEGS ELEVATED USING PILLOWS. CALL LIGHT WITHIN REACH.
--- NOTE | 2025-02-28 02:30 | NUR ---
pt RESTING IN THE BED WITH EYES CLOSED. RR EVEN AND UNLABORED. CALL LIGHT WITHIN REACH.
--- NOTE | 2025-02-28 04:22 | NUR ---
pt RESTING IN THE BED WITH EYES CLOSED. RR EVEN AND UNLABORED. CALL LIGHT WITHIN REACH.
[2025-02-28 05:54] LABS: ANION GAP 9.2 (7-21); BUN/CREATININE RATIO 13.48 (6.0-28.6); CALCIUM 8.4 mg/dL (8.5-10.1); CREATININE, SERUM 0.89 mg/dL (0.70-1.30); MAGNESIUM 1.8 mg/dL (1.8-2.4); POTASSIUM 3.2 mmol/L (3.5-5.1)
[2025-02-28 05:55] VITALS: BP 121/58
[2025-02-28 05:57] VITALS: BP 121/58
--- NOTE | 2025-02-28 06:00 | NUR ---
ASSESSMENT AND VITAL SIGNS DONE. LUNG SOUNDS ARE CLEAR. WATER REFRESHED. pt DENIES ANY OTHER NEEDS AT THIS TIME. CALL LIGHT WITHIN REACH.
--- NOTE | 2025-02-28 07:50 | NUR ---
Today Mr. Resendiz is awake in his bed, he is aware that he is in the hospital and that he will be discharged to a care facility today. He is in agreement with this plan, he is also agreeable to sign the letter and a signed copy of the letter is given to
[2025-02-28] MEDS ORDERED: POTASSIUM CHLORIDE 40 MEQ,LIDOCAINE HCL 1% 40 MG in DEXTROSE 5% 250 ML IV ONE (08:00)
--- NOTE | 2025-02-28 09:00 | NUR ---
Spoke with pt and daughter, Vinita. Pt has been accepted to [facility] at 2 pm today. will complete orders. Vinita will pick pt up at 2pm and transport pt to [facility]. They deny further needs.
[2025-02-28 09:56] VITALS: BP 119/64
[2025-02-28 10:13] VITALS: BP 119/64
[2025-02-28] MEDS ORDERED: LASIX40 MG PO (10:23)
[2025-02-28] MEDS ORDERED: JARDIANCE10 MG PO (10:25)
--- NOTE | 2025-02-28 10:56 | NUR ---
Patient in bed, alert and oriented x3, no acute distress. Patient denies pain/sob at rest. 1L oxygen per nc, respirations non labored, sp02 92%. Patient in pleasant mood, he is aware he will be discharging later this afternoon. Patient has no needs at this time, call light within reach.
--- NOTE | 2025-02-28 11:30 | NUR ---
Orders completed. Orders, dc summary, pasrr,RX faxed to Virgen at [facility].
--- NOTE | 2025-02-28 13:17 | NUR ---
RN Report called to Shavon.
[2025-02-28 13:24] VITALS: BP 131/63
--- NOTE | 2025-02-28 13:58 | NUR ---
PT NOT AVAILABLE FOR VISIT. PROVIDED PRAYER.
== END 2025-02-28 13:55 | DRG 291 ==
LOC: ED 15:24 → MS 15:25
PROVIDERS: Emergency Medicine; Internal Medicine; Student in an Organized Health Care Education/Training Program; ADMIT Student in an Organized Health Care Education/Training Program; ATTEND Family Medicine
DX: I11.0 Hypertensive heart disease with heart failure (principal); I50.23 Acute on chronic systolic (congestive) heart failure; J96.01 Acute respiratory failure with hypoxia; E87.1 Hypo-osmolality and hyponatremia; K21.9 Gastro-esophageal reflux disease without esophagitis; I48.0 Paroxysmal atrial fibrillation; Z66 Do not resuscitate; I27.20 Pulmonary hypertension, unspecified; N32.81 Overactive bladder; J44.9 Chronic obstructive pulmonary disease, unspecified; G20.A1 Parkinson's disease without dyskinesia, without mention of fluctuations; E78.00 Pure hypercholesterolemia, unspecified; I25.10 Atherosclerotic heart disease of native coronary artery without angina pectoris; N40.1 Benign prostatic hyperplasia with lower urinary tract symptoms; I44.0 Atrioventricular block, first degree; R33.8 Other retention of urine; I25.2 Old myocardial infarction; Z88.8 Allergy status to other drugs, medicaments and biological substances; Z85.46 Personal history of malignant neoplasm of prostate; Z85.528 Personal history of other malignant neoplasm of kidney; Z92.3 Personal history of irradiation; Z90.5 Acquired absence of kidney; Z86.73 Personal history of transient ischemic attack (TIA), and cerebral infarction without residual deficits; Z87.891 Personal history of nicotine dependence; Z95.5 Presence of coronary angioplasty implant and graft; Z79.82 Long term (current) use of aspirin; Z79.01 Long term (current) use of anticoagulants
CPT/HCPCS: 36415; 71045; 71046; 80048; 80053; 83735; 83880; 84484; 85025; 93005; 93010; 93306; 94640; 94667; 94668; 94760; 94762; 94799; 96374; 97110; 97163; 97167; 97530; 99285-25; A6590; A9270; G0378; J1938; J1940; J3475; J3480; J3490; J7060